=== PATIENT | male | born 1945 | race Two or more races ===

== ENCOUNTER 2017-11-12 12:50 | Inpatient (IN) | payer MEDICARE, BC ==
[2017-11-12] MEDS ORDERED: MORPHINE SULFATE 10 MG/ML INJ IV ONE (13:43)
--- NOTE | 2017-11-12 13:45 | ER Document Report ---
ED Medical Screen (RME) - General Chief Complaint: Leg Swelling Stated Complaint: LEG SWELLING Time Seen by Provider: 11/12/17 13:41 Notes: Patient has a history of gout. He noticed severe swelling and pain in his right lower extremity starting yesterday. He has been taking Keflex and amoxicillin for a previous nose procedure. TRAVEL OUTSIDE OF THE [place] IN LAST 30 DAYS: No - Related Data Allergies/Adverse Reactions: No Known Allergies Allergy (Verified 11/12/17 13:41) Past Medical History - Social History Chew tobacco use (# tins/day): No Frequency of alcohol use: None Drug Abuse: None - Past Medical History Cardiac Medical History: Reports: Hx Atrial Fibrillation, Hx Congestive Heart Failure, Hx DVT Renal/ Medical History: Reports: Hx Benign Prostatic Hyperplasia, Hx Renal Insufficiency. Denies: Hx Peritoneal Dialysis Past Surgical History: Reports: Hx Cholecystectomy, Hx Orthopedic Surgery Physical Exam - Vital signs Vitals: Temp Pulse Resp BP Pulse Ox 97.6 F 66 18 109/66 96 11/12/17 13:17 11/12/17 13:17 11/12/17 13:17 11/12/17 13:17 11/12/17 13:17 Course - Vital Signs Vital signs: Temp Pulse Resp BP Pulse Ox 97.6 F 66 18 109/66 96 11/12/17 13:17 11/12/17 13:17 11/12/17 13:17 11/12/17 13:17 11/12/17 13:17
[2017-11-12 14:34] LABS: ALANINE AMINOTRANSFERASE 63 U/L (21-72); ALBUMIN 3.3 g/dL (3.5-5.0); ALKALINE PHOSPHATASE 84 U/L (38-126); ANION GAP 14 (5-19); ASPARTATE AMINO TRANSFERASE 102 U/L (17-59); BILIRUBIN,DIRECT 0.6 mg/dL (0.0-0.4); BILIRUBIN,TOTAL 1.3 mg/dL (0.2-1.3); CALCIUM 9.1 mg/dL (8.4-10.2); CARBON DIOXIDE 34 mmol/L (22-30); CHLORIDE 85 mmol/L (98-107); GLUCOSE 133 mg/dL (75-110); SODIUM 133.1 mmol/L (137-145); TOTAL PROTEIN 6.4 g/dL (6.3-8.2)
[2017-11-12 14:42] LABS: BLOOD UREA NITROGEN 123 mg/dL (7-20)
[2017-11-12 14:44] LABS: POTASSIUM 2.5 mmol/L (3.6-5.0)
[2017-11-12] MEDS ORDERED: POTASSIUM CHLORIDE 20 MEQ/15 ML UDCUP PO ONE (14:47)
[2017-11-12 16:45] LABS: HEMATOCRIT 36.6 % (37.9-51.0); HEMOGLOBIN 12.2 g/dL (13.5-17.0); MEAN CORPUSCULAR HEMOGLOBIN 28.6 pg (27.0-33.4); MEAN CORPUSCULAR HGB CONC 33.3 g/dL (32.0-36.0); MEAN CORPUSCULAR VOLUME 86 fl (80-97); PLATELET COUNT 220 10^3/uL (150-450); RED BLOOD COUNT 4.27 10^6/uL (4.35-5.55); RED CELL DISTRIBUTION WIDTH 14.9 % (11.5-14.0); WHITE BLOOD COUNT 12.3 10^3/uL (4.0-10.5)
[2017-11-12 16:58] LABS: ABSOLUTE LYMPHOCYTES# (MANUAL) 0.2 10^3/uL (0.5-4.7); ABSOLUTE MONOCYTES # (MANUAL) 0.6 10^3/uL (0.1-1.4); ABSOLUTE NEUTROPHILS# (MANUAL) 11.4 10^3/uL (1.7-8.2); BAND NEUTROPHILS % (MANUAL) 4 % (3-5); BASOPHILS % (MANUAL) 0 % (0-2); EOSINOPHILS % (MANUAL) 0 % (0-6); LYMPHOCYTES % (MANUAL) 2 % (13-45); MONOCYTES % (MANUAL) 5 % (3-13); SEGMENTED NEUTROPHILS % (MAN) 89 % (42-78); TOTAL CELLS COUNTED 100
[2017-11-12 16:59] LABS: ANISOCYTOSIS SLIGHT; HYPOCHROMASIA SLIGHT; OVALOCYTES SLIGHT; POIKILOCYTOSIS SLIGHT
[2017-11-12 17:00] LABS: PLATELET COMMENT ADEQUATE
--- NOTE | 2017-11-12 17:01 | RADIOLOGY REPORT (SQ) ---
EXAM DESCRIPTION: VENOUS UNILATERAL LOWER COMPLETED DATE/TIME: 11/12/2017 4:47 pm REASON FOR STUDY: swelling/pain COMPARISON: None. TECHNIQUE: Dynamic and static mendez scale and color images acquired of the right leg venous system. S elected spectral images acquired with additional compression and augmentation maneuvers. The contrala teral common femoral vein and saphenofemoral junction were also imaged. Images stored on PACS. LIMITATIONS: None. FINDINGS: COMMON FEMORAL: Normal phasicity, compression and augmentation. No visualized echogenic ma terial on mendez scale. No defects on color images. FEMORAL: Normal compression and augmentation. No visualized echogenic material on mendez scale. No defe cts on color images. POPLITEAL: Normal compression, augmentation. No visualized echogenic material on mendez scale. No defec ts on color images. CALF VESSELS: Visualize calf vessels demonstrate normal compression, augmentation and phasic variatio n. GSV and SSV: Normal compression, augmentation. No visualized echogenic material on mendez scale. No def ects on color images. ANY DEEP VENOUS INSUFFICIENCY: Not evaluated. ANY EVIDENCE OF POPLITEAL CYST: No. OTHER: No other significant finding. CONTRALATERAL COMMON FEMORAL VEIN AND SAPHENOFEMORAL JUNCTION: Normal phasicity, compression and augmentation. No visualized echogenic material on mendez scale. No de fects on color images. IMPRESSION: NO EVIDENCE DVT OR SVT IN THE RIGHT LEG. TECHNICAL DOCUMENTATION: JOB ID: [id number] [employer]- All Rights Reserved
[2017-11-12] MEDS ORDERED: POTASSIUM CHLORIDE 10 MEQ TABLET.SA PO ONE (17:44)
[2017-11-12] MEDS ORDERED: VANCOMYCIN HCL INJ 1000 MG VIAL IV ONE (17:52)
--- NOTE | 2017-11-12 17:57 | ER Document Report ---
ED General - General Chief Complaint: Leg Swelling Stated Complaint: LEG SWELLING Time Seen by Provider: 11/12/17 13:41 Mode of Arrival: Medic Information source: Patient, Relative Notes: 72-year-old male history of congestive heart failure on Lasix presents with complaints of right lower extremity edema. Patient notes the swelling is over the past 3-4 days. Denies any fevers or chills denies any nausea vomiting or diarrhea patient admits to redness and pain of the lower extremity TRAVEL OUTSIDE OF THE [place] IN LAST 30 DAYS: No - HPI Onset: Other - 3-4 days Onset/Duration: Persistent Quality of pain: Pressure, Sharp Severity: Mild Pain Level: 3 Associated symptoms: Body/muscle aches, Leg swelling Exacerbated by: Movement Relieved by: Denies Similar symptoms previously: No Recently seen / treated by doctor: No - Related Data Allergies/Adverse Reactions: No Known Allergies Allergy (Verified 11/12/17 13:41) Past Medical History - Social History Smoking Status: Never Smoker Cigarette use (# per day): No Chew tobacco use (# tins/day): No Smoking Education Provided: No Frequency of alcohol use: None Drug Abuse: None Family History: Reviewed & Not Pertinent Patient has suicidal ideation: No Patient has homicidal ideation: No - Past Medical History Cardiac Medical History: Reports: Hx Atrial Fibrillation, Hx Congestive Heart Failure, Hx DVT Renal/ Medical History: Reports: Hx Benign Prostatic Hyperplasia, Hx Renal Insufficiency. Denies: Hx Peritoneal Dialysis Past Surgical History: Reports: Hx Cholecystectomy, Hx Orthopedic Surgery Review of Systems - Review of Systems Notes: REVIEW OF SYSTEMS: CONSTITUTIONAL : Denies fever, chills, or sweats. Denies recent illness. EENT: Denies eye, ear, throat, or mouth pain or symptoms. Denies nasal or sinus congestion or discharge. Denies throat, tongue, or mouth swelling or difficulty swallowing. CARDIOVASCULAR: Denies chest pain. Denies palpitations or racing or irregular heart beat. Right lower extremity edema RESPIRATORY: Denies cough, cold, or chest congestion. Denies shortness of breath, difficulty breathing, or wheezing. GASTROINTESTINAL: Denies abdominal pain or distention. Denies nausea, vomiting , or diarrhea. Denies blood in vomitus, stools, or per rectum. Denies black, tarry stools. Denies constipation. GENITOURINARY: Denies difficulty urinating, painful urination, burning, frequency, blood in urine, or discharge. MUSCULOSKELETAL: Right lower extremity edema SKIN: Denies rash, lesions or sores. HEMATOLOGIC : Denies easy bruising or bleeding. LYMPHATIC: Denies swollen, enlarged glands. NEUROLOGICAL: Denies confusion or altered mental status. Denies passing out or loss of consciousness. Denies dizziness or lightheadedness. Denies headache. Denies weakness or paralysis or loss of use of either side. Denies problems with gait or speech. Denies sensory loss, numbness, or tingling. Denies seizures. PSYCHIATRIC: Denies anxiety or stress. Denies depression, suicidal ideation, or homicidal ideation. ALL OTHER SYSTEMS REVIEWED AND NEGATIVE. Dictation was performed using [employer] voice recognition software PHYSICAL EXAMINATION: GENERAL: Well-appearing, well-nourished and in no acute distress. HEAD: Atraumatic, normocephalic. EYES: Pupils equal round and reactive to light, extraocular movements intact, sclera anicteric, conjunctiva are normal. ENT: Nares patent, oropharynx clear without exudates. Moist mucous membranes. NECK: Normal range of motion, supple without lymphadenopathy LUNGS: Breath sounds clear to auscultation bilaterally and equal. No wheezes rales or rhonchi. HEART: Regular rate and rhythm without murmurs ABDOMEN: Soft, nontender, nondistended abdomen. No guarding, no rebound. No masses appreciated. Musculoskeletal: +4 pitting edema of the right lower extremity +1 pitting edema of the left lower extremity right lower extremity is erythematous tender to palpation NEUROLOGICAL: Cranial nerves grossly intact. Normal speech, normal gait. Normal sensory, motor exams PSYCH: Normal mood, normal affect. SKIN: Right lower extremity is edematous Physical Exam - Vital signs Vitals: Temp Pulse Resp BP Pulse Ox 97.6 F 66 18 109/66 96 11/12/17 13:17 11/12/17 13:17 11/12/17 13:17 11/12/17 13:17 11/12/17 13:17 Course - Re-evaluation Re-evalutation: 11/12/17 19:06 Patient is noted to have acute renal failure with hypokalemia which I believe is secondary to the Lasix use, patient is given oral potassium here but will probably require IV as well. Doppler was negative of the lower extremity, patient will be started on antibiotics will be admitted to the hospitalist service. Chest x-ray showed cardiomegaly - Vital Signs Vital signs: Temp Pulse Resp BP Pulse Ox 97.6 F 66 18 109/66 96 11/12/17 13:17 11/12/17 13:17 11/12/17 13:17 11/12/17 13:17 11/12/17 13:17 - Laboratory Result Diagrams: 11/12/17 16:11 11/12/17 14:01 Laboratory results interpreted by me: 11/12/17 11/12/17 14:01 16:11 WBC 12.3 H RBC 4.27 L Hgb 12.2 L Hct 36.6 L RDW 14.9 H Seg Neuts % (Manual) 89 H Lymphocytes % (Manual) 2 L Abs Neuts (Manual) 11.4 H Abs Lymphs (Manual) 0.2 L Sodium 133.1 L Potassium 2.5 L* Chloride 85 L Carbon Dioxide 34 H BUN 123 H Creatinine 2.21 H Est GFR ( Amer) 36 L Est GFR (Non-Af Amer) 29 L Glucose 133 H Direct Bilirubin 0.6 H AST 102 H Albumin 3.3 L Critical Care Note - Critical Care Note Total time excluding time spent on procedures (mins): 45 Comments: 45 minutes of critical care time spent in direct contact evaluating and reevaluating the patient, treating symptoms, reviewing labs and studies and speaking with family and consultants excluding any procedures Discharge - Discharge Clinical Impression: Hypokalemia CHF (congestive heart failure) Qualifiers: Congestive heart failure type: unspecified Congestive heart failure chronicity : unspecified Qualified Code(s): I50.9 - Heart failure, unspecified Cellulitis Qualifiers: Site of cellulitis: extremity Site of cellulitis of extremity: lower extremity Laterality: right Qualified Code(s): L03.115 - Cellulitis of right lower limb Condition: Fair Disposition: ADMITTED INPATIENT Admitting Provider: Hospitalist Unit Admitted: Medical Floor
--- NOTE | 2017-11-12 18:09 | RADIOLOGY REPORT (SQ) ---
EXAM DESCRIPTION: CHEST PA/LAT COMPLETED DATE/TIME: 11/12/2017 6:00 pm REASON FOR STUDY: perihperal edema COMPARISON: 09/30/2016. NUMBER OF VIEWS: Two view. TECHNIQUE: Frontal and lateral radiographic views of the chest acquired. LIMITATIONS: None. FINDINGS: LUNGS AND PLEURA: No opacities, masses or pneumothorax. No pleural effusion. MEDIASTINUM AND HILAR STRUCTURES: No masses. No contour abnormalities. HEART AND VASCULAR STRUCTURES: Heart enlarged without failure. Aorta normal for age. BONES: No acute findings. Degenerative changes in the spine and shoulders. HARDWARE: None in the chest. OTHER: No other significant finding. IMPRESSION: CARDIAC ENLARGEMENT WITHOUT FAILURE. TECHNICAL DOCUMENTATION: JOB ID: [id number] [employer]- All Rights Reserved
[2017-11-12] MEDS ORDERED: INSULIN LISPRO 100 UNIT/ML 3 ML VIAL SUBCUT PRN (19:29)
[2017-11-12] MEDS ORDERED: MAGNESIUM HYDROXIDE SUSP 30 ML UDCUP PO PRN (19:29)
[2017-11-12] MEDS ORDERED: DEXTROSE 40% GEL 15 GM TUBE PO PRN ×2 (19:29)
[2017-11-12] MEDS ORDERED: DEXTROSE 50%-WATER 25 GM/50 ML DISP.SYRIN IV PRN ×2 (19:29)
[2017-11-12] MEDS ORDERED: GLUCAGON,HUMAN RECOMB 1 MG INJ IM PRN (19:29)
[2017-11-12] MEDS ORDERED: MAG HYDROX/AL HYDROX/SIMETH SUSP 30 ML UDCUP PO PRN (19:29)
[2017-11-12] MEDS ORDERED: HEPARIN SOD (PORCINE) 5,000 UNIT/ML 1 ML SYRINGE SUBCUT SCH (22:00)
[2017-11-13] MEDS ORDERED: POTASSIUM CHLORIDE 10 MEQ TABLET.SA PO ONE ×2 (01:02→20:11)
[2017-11-13] MEDS: OXYCODONE HCL IR 5 MG TABLET PO PRN ×3 (02:43→23:16)
[2017-11-13 03:59] LABS: HEMATOCRIT 32.3 % (37.9-51.0); HEMOGLOBIN 10.7 g/dL (13.5-17.0); MEAN CORPUSCULAR HEMOGLOBIN 28.3 pg (27.0-33.4); MEAN CORPUSCULAR HGB CONC 33.2 g/dL (32.0-36.0); MEAN CORPUSCULAR VOLUME 85 fl (80-97); PLATELET COUNT 190 10^3/uL (150-450); RED BLOOD COUNT 3.79 10^6/uL (4.35-5.55); RED CELL DISTRIBUTION WIDTH 14.6 % (11.5-14.0); WHITE BLOOD COUNT 13.5 10^3/uL (4.0-10.5)
[2017-11-13 04:13] LABS: ANION GAP 10 (5-19); CALCIUM 8.6 mg/dL (8.4-10.2); CARBON DIOXIDE 35 mmol/L (22-30); CHLORIDE 87 mmol/L (98-107); GLUCOSE 131 mg/dL (75-110); SODIUM 132.3 mmol/L (137-145)
[2017-11-13 04:21] LABS: BLOOD UREA NITROGEN 118 mg/dL (7-20)
[2017-11-13 04:27] LABS: POTASSIUM 2.4 mmol/L (3.6-5.0)
--- NOTE | 2017-11-13 04:50 | PDOC H&P ---
History of Present Illness Admission Date/PCP: 11/12/17 18:30 SCARLETT RANGEL PA-C Patient complains of: Right leg pain and swelling History of Present Illness: ANALI STEELE is a 72 year old male with a past medical history of diabetes, hypertension, congestive heart failure, chronic venous stasis and opiate dependent chronic back pain. Patient presents with 4 days of increasing erythema swelling and pain of the right leg. Admitting subjective fever and chills denying chest pain nausea vomiting. He denies recent change in medications or injury and admits multiple previous episodes of cellulitis of his leg. In the emergency room he is found to have +3 lower extremity edema bilaterally, erythema from foot to knee on the right side, leukocytosis, acute renal failure and hypokalemia. He started on empiric antibiotics and referred to the hospitalist for admission. Past Medical History Cardiac Medical History: Reports: Atrial Fibrillation, Congestive Heart Failure , DVT Endocrine Medical History: Reports: Diabetes Mellitus Type 2 Past Surgical History Past Surgical History: Reports: Cholecystectomy, Orthopedic Surgery Social History Information Source: Patient Smoking Status: Never Smoker Frequency of Alcohol Use: None Drugs: None - Advance Directive Resuscitation Status: Full Code Family History Family History: CAD, COPD Parental Family History Reviewed: Yes Children Family History Reviewed: Yes Sibling(s) Family History Reviewed.: Yes Medication/Allergy Home Medications: Allopurinol [Zyloprim 100 mg Tablet] 200 mg PO DAILY 11/12/17 Apixaban [Eliquis 5 mg Tablet] 5 mg PO Q12 11/12/17 Carvedilol [Coreg 12.5 mg Tablet] 25 mg PO Q12 11/12/17 Fentanyl [Duragesic 100 Mcg/Hr Transdermal Patch] 1 patch TD Q3D 11/12/17 Furosemide [Lasix 40 mg Tablet] 40 mg PO BID 11/12/17 Metolazone [Zaroxolyn 5 Mg Tablet] 5 mg PO DAILYP PRN 11/12/17 Oxycodone HCl [Oxy-Ir 5 mg Tablet] 15 mg PO Q6HP PRN 11/12/17 Allergies/Adverse Reactions: No Known Allergies Allergy (Verified 11/12/17 13:41) Review of Systems Constitutional: PRESENT: fatigue, weakness, weight gain Eyes: ABSENT: visual disturbances Ears: ABSENT: hearing changes Cardiovascular: ABSENT: chest pain, dyspnea on exertion, edema, orthropnea, palpitations Respiratory: ABSENT: cough, hemoptysis Gastrointestinal: ABSENT: abdominal pain, constipation, diarrhea, hematemesis, hematochezia, nausea, vomiting Genitourinary: ABSENT: dysuria, hematuria Musculoskeletal: PRESENT: as per HPI, back pain Integumentary: ABSENT: rash, wounds Neurological: ABSENT: abnormal gait, abnormal speech, confusion, dizziness, focal weakness, syncope Psychiatric: ABSENT: anxiety, depression, homidical ideation, suicidal ideation Endocrine: ABSENT: cold intolerance, heat intolerance, polydipsia, polyuria Hematologic/Lymphatic: ABSENT: easy bleeding, easy bruising Physical Exam Vital Signs: Temp Pulse Resp BP Pulse Ox 98.2 F 73 16 119/72 98 11/12/17 20:46 11/12/17 20:46 11/13/17 03:01 11/13/17 03:00 11/13/17 03:01 General appearance: PRESENT: cooperative, mild distress, morbidly obese Head exam: PRESENT: atraumatic, normocephalic Eye exam: PRESENT: conjunctiva pink, EOMI, PERRLA. ABSENT: scleral icterus Ear exam: PRESENT: normal external ear exam Mouth exam: PRESENT: dry mucosa, tongue midline Neck exam: ABSENT: carotid bruit, JVD, lymphadenopathy, thyromegaly Respiratory exam: PRESENT: clear to auscultation jose, crackles. ABSENT: rales, rhonchi, wheezes Cardiovascular exam: PRESENT: RRR. ABSENT: diastolic murmur, rubs, systolic murmur Pulses: PRESENT: normal dorsalis pedis pul GI/Abdominal exam: PRESENT: normal bowel sounds, soft. ABSENT: distended, guarding, mass, organolmegaly, rebound, tenderness Rectal exam: PRESENT: deferred Extremities exam: PRESENT: +2 edema, other - Right leg with circumferential erythema from foot to knee with weeping and 3+ pitting edema Neurological exam: PRESENT: alert, awake, oriented to person, oriented to place , oriented to time, oriented to situation, CN II-XII grossly intact. ABSENT: motor sensory deficit Psychiatric exam: PRESENT: appropriate affect, normal mood. ABSENT: homicidal ideation, suicidal ideation Skin exam: PRESENT: dry, intact, warm. ABSENT: cyanosis, rash Results Laboratory Results: 11/13/17 03:50 11/13/17 03:50 Sodium 132.3 L Potassium 2.4 L* Chloride 87 L Carbon Dioxide 35 H Anion Gap 10 BUN 118 H Creatinine 1.81 H Est GFR ( Amer) 45 L Est GFR (Non-Af Amer) 37 L Glucose 131 H Calcium 8.6 Impressions: Venous Doppler Study 11/12/17 13:41 IMPRESSION: NO EVIDENCE DVT OR SVT IN THE RIGHT LEG. Chest X-Ray 11/12/17 17:44 IMPRESSION: CARDIAC ENLARGEMENT WITHOUT FAILURE. Assessment & Plan - Diagnosis (1) Acute renal failure Is this a current diagnosis for this admission?: Yes Plan: Likely secondary prerenal azotemia patient is hypovolemic, IV fluid challenge reevaluate chemistry avoid nephrotoxic meds and doses (2) Cellulitis Qualifiers: Site of cellulitis: extremity Site of cellulitis of extremity: lower extremity Laterality: right Qualified Code(s): L03.115 - Cellulitis of right lower limb Is this a current diagnosis for this admission?: Yes Plan: Comp gated by chronic venous stasis, empiric antibiotics initiated elevation and elastic wrapping. (3) Hypokalemia Is this a current diagnosis for this admission?: Yes Plan: Complicated by Lasix and metolazone. Magnesium verified normal, replacement IV n.p.o. reevaluate chemistry. - Time Time Spent: 50 to 70 Minutes - Inpatient Certification Medical Necessity: Need Close Monitoring Due to Risk of Patient Decompensation
[2017-11-13] MEDS ORDERED: POTASSIUM CHLORIDE 10 MEQ TABLET.SA PO SCH (05:00)
[2017-11-13] MEDS: POTASSI CL 20 MEQ/50 ML RIDER 20 MEQ/50 ML RTUPB IV SCH ×2 (05:17→08:38)
[2017-11-13 05:32] LABS: ABSOLUTE LYMPHOCYTES# (MANUAL) 0.8 10^3/uL (0.5-4.7); ABSOLUTE MONOCYTES # (MANUAL) 0.3 10^3/uL (0.1-1.4); ABSOLUTE NEUTROPHILS# (MANUAL) 12.3 10^3/uL (1.7-8.2); BAND NEUTROPHILS % (MANUAL) 2 % (3-5); BASOPHILS % (MANUAL) 0 % (0-2); EOSINOPHILS % (MANUAL) 1 % (0-6); LYMPHOCYTES % (MANUAL) 6 % (13-45); MONOCYTES % (MANUAL) 2 % (3-13); SEGMENTED NEUTROPHILS % (MAN) 89 % (42-78); TOTAL CELLS COUNTED 100
[2017-11-13 05:33] LABS: TOXIC GRANULATION 2+; TOXIC VACUOLATION PRESENT
[2017-11-13 05:34] LABS: ANISOCYTOSIS SLIGHT; BURR CELLS SLIGHT; PLATELET COMMENT ADEQUATE; PLATELET LARGE PRESENT; POIKILOCYTOSIS SLIGHT; SCHISTOCYTES 1+
[2017-11-13] MEDS ORDERED: FENTANYL 100 MCG/HR PATCH.TD72 TD SCH (07:00)
[2017-11-13] MEDS ORDERED: APIXABAN 5 MG TABLET PO SCH (10:00)
[2017-11-13] MEDS: CARVEDILOL 12.5 MG TABLET PO SCH ×2 (11:17→21:41)
[2017-11-13] MEDS: DOCUSATE SODIUM 100 MG CAPSULE PO SCH ×2 (11:17→17:18)
--- NOTE | 2017-11-13 12:24 | PDOC PROGRESS REPORT ---
Subjective Progress Note for:: 11/13/17 Subjective:: Patient is a 72-year-old male with a history of diabetes, hypertension, congestive heart failure, chronic venous stasis, opiate dependence due to chronic back pain. Who presented with a history of right lower extremity swelling and erythema with associated pain. Most likely cellulitis. Venous Doppler was negative for DVT. Patient currently on vancomycin. Patient states he looks somewhat better. Patient is complaining of severe pain in that leg. Reason For Visit: ARF, HYPOKALEMIA, RIGHT LEG CELLULITIS Physical Exam Vital Signs: Temp Pulse Resp BP Pulse Ox 97.6 F 73 19 103/60 94 11/13/17 06:53 11/12/17 20:46 11/13/17 09:01 11/13/17 09:00 11/13/17 09:01 General appearance: PRESENT: mild distress, obese, well-developed, well- nourished Head exam: PRESENT: normocephalic Eye exam: PRESENT: EOMI. ABSENT: scleral icterus Ear exam: PRESENT: normal external ear exam Mouth exam: PRESENT: moist Neck exam: ABSENT: carotid bruit, JVD, lymphadenopathy, thyromegaly Respiratory exam: PRESENT: clear to auscultation jose. ABSENT: rales, rhonchi, wheezes Cardiovascular exam: PRESENT: RRR. ABSENT: diastolic murmur, rubs, systolic murmur GI/Abdominal exam: PRESENT: normal bowel sounds, soft. ABSENT: distended, guarding, mass, organolmegaly, rebound, tenderness Rectal exam: PRESENT: deferred Extremities exam: PRESENT: other - Right lower extremity edema with diffuse erythema up into the knee tenderness on palpation decreased range of motion due to swelling.. ABSENT: calf tenderness, clubbing, pedal edema Neurological exam: PRESENT: alert, awake, oriented to person, oriented to place , oriented to time, oriented to situation, CN II-XII grossly intact. ABSENT: motor sensory deficit Psychiatric exam: PRESENT: appropriate affect, normal mood. ABSENT: homicidal ideation, suicidal ideation Skin exam: PRESENT: dry, intact, warm, other - Right lower extremity erythema petechiae on the left lower extremity.. ABSENT: cyanosis, rash Results Laboratory Results: 11/13/17 03:50 11/13/17 03:50 11/13/17 11/13/17 03:50 03:50 WBC 13.5 H RBC 3.79 L Hgb 10.7 L Hct 32.3 L MCV 85 MCH 28.3 MCHC 33.2 RDW 14.6 H Plt Count 190 Seg Neutrophils % Not Reportable Lymphocytes % Not Reportable Monocytes % Not Reportable Eosinophils % Not Reportable Basophils % Not Reportable Absolute Neutrophils Not Reportable Absolute Lymphocytes Not Reportable Absolute Monocytes Not Reportable Absolute Eosinophils Not Reportable Absolute Basophils Not Reportable Sodium 132.3 L Potassium 2.4 L* Chloride 87 L Carbon Dioxide 35 H Anion Gap 10 BUN 118 H Creatinine 1.81 H Est GFR ( Amer) 45 L Est GFR (Non-Af Amer) 37 L Glucose 131 H Calcium 8.6 Impressions: Venous Doppler Study 11/12/17 13:41 IMPRESSION: NO EVIDENCE DVT OR SVT IN THE RIGHT LEG. Chest X-Ray 11/12/17 17:44 IMPRESSION: CARDIAC ENLARGEMENT WITHOUT FAILURE. Assessment & Plan - Diagnosis (1) Cellulitis Qualifiers: Site of cellulitis: extremity Site of cellulitis of extremity: lower extremity Laterality: right Qualified Code(s): L03.115 - Cellulitis of right lower limb Is this a current diagnosis for this admission?: Yes Plan: Patient with right lower extremity erythema swelling tenderness secondary to cellulitis. Swelling and erythema still pretty significant. Patient on vancomycin and clindamycin. Once improvement is seen will discontinue the vancomycin. Patient also has had leg elevated. No DVT on venous Doppler seen. Monitor for improvement. (2) Acute renal failure Is this a current diagnosis for this admission?: Yes Plan: Patient has acute renal failure most likely due to overdiuresis as patient is on Lasix and metolazone. Therefore this is prerenal. Patient has shown some improvement in his creatinine with IV hydration. Creatinine has trended down from 2.1 down to 1.81. Will continue gentle hydration and monitor renal function. (3) Chronic pain Qualifiers: Chronic pain type: other chronic pain Qualified Code(s): G89.29 - Other chronic pain Is this a current diagnosis for this admission?: Yes Plan: She with chronic back pain. Patient chronically on opiates. Will continue his home medications which consist of Phenergan 100 mics, oxycodone 15 every 6 as needed and as needed morphine. (4) Hypokalemia Is this a current diagnosis for this admission?: Yes Plan: Will give replacement and follow-up BMP at 1600. Will replace accordingly. - Time Time Spent with patient: 15-24 minutes Anticipated discharge: Home Within: within 72 hours - Inpatient Certification Medical Necessity: Need For IV Fluids, Need for IV Antibiotics
[2017-11-13 16:40] LABS: ANION GAP 7 (5-19); BLOOD UREA NITROGEN 118 mg/dL (7-20); CALCIUM 8.5 mg/dL (8.4-10.2); CARBON DIOXIDE 36 mmol/L (22-30); CHLORIDE 89 mmol/L (98-107); GLUCOSE 199 mg/dL (75-110); SODIUM 132.2 mmol/L (137-145); URIC ACID 9.8 mg/dL (3.5-8.5)
[2017-11-13 16:51] LABS: POTASSIUM 2.5 mmol/L (3.6-5.0)
[2017-11-13] MEDS: LACTOBACILLUS ACIDOPHILUS 250 MG TAB PO SCH (17:18)
[2017-11-13] MEDS: CLINDAMYCIN 900 MG/D5W RTU 50 ML IV SCH ×2 (17:19→21:41)
[2017-11-13] MEDS: POTASSIUM CHLORIDE 10 MEQ TABLET.SA PO SCH (21:40)
[2017-11-14] MEDS ORDERED: GABAPENTIN 100 MG CAPSULE PO ONE (01:00)
[2017-11-14] MEDS: NORMAL SALINE 1000 ML 1,000 ML IV SCH ×2 (01:03→06:45)
[2017-11-14] MEDS: POTASSIUM CHLORIDE 10 MEQ TABLET.SA PO SCH ×2 (06:44→22:27)
[2017-11-14] MEDS: CLINDAMYCIN 900 MG/D5W RTU 50 ML IV SCH ×3 (06:45→22:27)
[2017-11-14] MEDS: GABAPENTIN 100 MG CAPSULE PO SCH ×2 (06:45→15:30)
[2017-11-14] MEDS: DOCUSATE SODIUM 100 MG CAPSULE PO SCH ×2 (10:26→17:15)
[2017-11-14] MEDS: LACTOBACILLUS ACIDOPHILUS 250 MG TAB PO SCH ×2 (10:26→17:15)
[2017-11-14] MEDS: CARVEDILOL 12.5 MG TABLET PO SCH (10:27)
[2017-11-14 13:23] LABS: ABSOLUTE BASOPHILS # (AUTO) 0.1 10^3/uL (0.0-0.2); ABSOLUTE EOSINOPHILS # (AUTO) 0.1 10^3/uL (0.0-0.6); ABSOLUTE LYMPHOCYTES (AUTO) 0.7 10^3/uL (0.5-4.7); ABSOLUTE NEUT (AUTO) 8.5 10^3/uL (1.7-8.2); BASOPHILS % (AUTO) 0.6 % (0-2); EOSINOPHILS % (AUTO) 1.4 % (0-6); HEMATOCRIT 31.1 % (37.9-51.0); HEMOGLOBIN 10.5 g/dL (13.5-17.0); LYMPHOCYTES % (AUTO) 6.9 % (13-45); MEAN CORPUSCULAR HEMOGLOBIN 28.8 pg (27.0-33.4); MEAN CORPUSCULAR HGB CONC 33.7 g/dL (32.0-36.0); MEAN CORPUSCULAR VOLUME 85 fl (80-97); MONOCYTES % (AUTO) 9.3 % (3-13); PLATELET COUNT 205 10^3/uL (150-450); RED BLOOD COUNT 3.64 10^6/uL (4.35-5.55); RED CELL DISTRIBUTION WIDTH 14.4 % (11.5-14.0); SEGMENTED NEUTROPHILS % (AUTO) 81.8 % (42-78); TOTAL CELLS COUNTED % (AUTO) 100 %; WHITE BLOOD COUNT 10.4 10^3/uL (4.0-10.5)
[2017-11-14 13:54] LABS: ANION GAP 7 (5-19); CALCIUM 8.6 mg/dL (8.4-10.2); CARBON DIOXIDE 34 mmol/L (22-30); CHLORIDE 98 mmol/L (98-107); GLUCOSE 146 mg/dL (75-110); MAGNESIUM 2.5 mg/dL (1.6-2.3); POTASSIUM 3.1 mmol/L (3.6-5.0); SODIUM 139.1 mmol/L (137-145)
[2017-11-14 14:00] LABS: BLOOD UREA NITROGEN 90 mg/dL (7-20)
[2017-11-14] MEDS ORDERED: GABAPENTIN 100 MG CAPSULE PO SCH (16:43)
[2017-11-14] MEDS: FUROSEMIDE 20 MG TABLET PO SCH (17:15)
[2017-11-14] MEDS: OXYCODONE HCL IR 5 MG TABLET PO PRN (17:22)
[2017-11-14] MEDS ORDERED: POTASSIUM CHLORIDE 10 MEQ TABLET.SA PO ONE (17:30)
[2017-11-14] MEDS ORDERED: METOLAZONE 2.5 MG TABLET PO ONE (17:30)
[2017-11-14] MEDS ORDERED: COLCHICINE 0.6 MG TABLET PO ONE (17:30)
[2017-11-14] MEDS: GABAPENTIN 300 MG CAPSULE PO SCH (22:27)
[2017-11-15] MEDS: OXYCODONE HCL IR 5 MG TABLET PO PRN ×2 (03:06→12:43)
[2017-11-15] MEDS: CLINDAMYCIN 900 MG/D5W RTU 50 ML IV SCH ×3 (05:49→21:26)
[2017-11-15] MEDS: GABAPENTIN 300 MG CAPSULE PO SCH ×2 (05:50→13:43)
[2017-11-15 06:50] LABS: ANION GAP 10 (5-19); BLOOD UREA NITROGEN 76 mg/dL (7-20); CALCIUM 8.7 mg/dL (8.4-10.2); CARBON DIOXIDE 33 mmol/L (22-30); CHLORIDE 100 mmol/L (98-107); GLUCOSE 138 mg/dL (75-110); MAGNESIUM 2.4 mg/dL (1.6-2.3); POTASSIUM 3.7 mmol/L (3.6-5.0); SODIUM 142.7 mmol/L (137-145)
[2017-11-15] MEDS: NORMAL SALINE 1000 ML 1,000 ML IV SCH (08:14)
[2017-11-15] MEDS: POTASSIUM CHLORIDE 10 MEQ TABLET.SA PO SCH ×2 (10:20→21:26)
[2017-11-15] MEDS: METOLAZONE 2.5 MG TABLET PO SCH (10:20)
[2017-11-15] MEDS: DOCUSATE SODIUM 100 MG CAPSULE PO SCH ×2 (10:21→17:33)
[2017-11-15] MEDS: METOPROLOL SUCCINATE 25 MG TAB.SR.24H PO SCH (10:21)
[2017-11-15] MEDS: INDOMETHACIN 25 MG CAPSULE PO SCH ×2 (10:21→17:37)
[2017-11-15] MEDS: COLCHICINE 0.6 MG TABLET PO SCH (10:21)
[2017-11-15] MEDS: LACTOBACILLUS ACIDOPHILUS 250 MG TAB PO SCH ×2 (10:22→17:34)
[2017-11-15] MEDS: FUROSEMIDE 20 MG TABLET PO SCH ×2 (10:22→17:37)
--- NOTE | 2017-11-15 11:30 | PDOC PROGRESS REPORT ---
Subjective Progress Note for:: 11/14/17 Subjective:: Patient is a 72-year-old male with a history of diabetes, hypertension, congestive heart failure, chronic venous stasis, opiate dependence due to chronic back pain. Who presented with a history of right lower extremity swelling and erythema with associated pain. Patient still having a lot of pain and swelling in the leg. Patient is unable to ambulate due to the pain and swelling. Reason For Visit: ARF, HYPOKALEMIA, RIGHT LEG CELLULITIS Physical Exam Vital Signs: Temp Pulse Resp BP Pulse Ox 98.6 F 66 12 114/63 95 11/15/17 07:14 11/15/17 07:14 11/15/17 07:14 11/15/17 07:14 11/15/17 09:57 Intake & Output 11/14/17 11/15/17 11/16/17 06:59 06:59 06:59 Intake Total 3679 2981 Output Total 600 1900 Balance 3079 1081 Weight 88.1 kg 90.4 kg General appearance: PRESENT: no acute distress, obese, well-nourished Head exam: PRESENT: normocephalic Eye exam: PRESENT: EOMI. ABSENT: scleral icterus Ear exam: PRESENT: normal external ear exam Mouth exam: PRESENT: moist Neck exam: ABSENT: carotid bruit, JVD, lymphadenopathy, thyromegaly Respiratory exam: PRESENT: clear to auscultation jose. ABSENT: rales, rhonchi, wheezes Cardiovascular exam: PRESENT: RRR. ABSENT: diastolic murmur, rubs, systolic murmur GI/Abdominal exam: PRESENT: normal bowel sounds, soft. ABSENT: distended, guarding, mass, organolmegaly, rebound, tenderness Rectal exam: PRESENT: deferred Extremities exam: PRESENT: full ROM - Good motion of the left leg right leg is swollen., +2 edema - right leg with erythema and tenderness.. ABSENT: calf tenderness, clubbing, pedal edema Neurological exam: PRESENT: alert, awake, oriented to person, oriented to place , oriented to time, oriented to situation, CN II-XII grossly intact. ABSENT: motor sensory deficit Psychiatric exam: PRESENT: appropriate affect, normal mood. ABSENT: homicidal ideation, suicidal ideation Skin exam: PRESENT: dry, intact, warm. ABSENT: cyanosis, rash Results Laboratory Results: 11/14/17 12:56 11/15/17 06:17 11/14/1718 11/15/17 12:56 12:56 06:17 WBC 10.4 RBC 3.64 L Hgb 10.5 L Hct 31.1 L MCV 85 MCH 28.8 MCHC 33.7 RDW 14.4 H Plt Count 205 Seg Neutrophils % 81.8 H Lymphocytes % 6.9 L Monocytes % 9.3 Eosinophils % 1.4 Basophils % 0.6 Absolute Neutrophils 8.5 H Absolute Lymphocytes 0.7 Absolute Monocytes 1.0 Absolute Eosinophils 0.1 Absolute Basophils 0.1 Sodium 139.1 142.7 Potassium 3.1 L 3.7 Chloride 98 100 Carbon Dioxide 34 H 33 H Anion Gap 7 10 BUN 90 H D 76 H Creatinine 1.16 1.08 Est GFR ( Amer) > 60 > 60 Est GFR (Non-Af Amer) > 60 > 60 Glucose 146 H 138 H Calcium 8.6 8.7 Magnesium 2.5 H 2.4 H Impressions: Venous Doppler Study 11/12/17 13:41 IMPRESSION: NO EVIDENCE DVT OR SVT IN THE RIGHT LEG. Chest X-Ray 11/12/17 17:44 IMPRESSION: CARDIAC ENLARGEMENT WITHOUT FAILURE. Assessment & Plan - Diagnosis (1) Cellulitis Qualifiers: Site of cellulitis: extremity Site of cellulitis of extremity: lower extremity Laterality: right Qualified Code(s): L03.115 - Cellulitis of right lower limb Is this a current diagnosis for this admission?: Yes Plan: Patient with right lower extremity erythema swelling tenderness secondary to cellulitis. Improvement in the erythema however the swelling is still present. Will continue clindamycin and discontinue vancomycin. Will start patient on lasix and metolazone for swelling. Encourage patient to elevate the right leg. Patient appears to be having a gouty arthropathy that may be contributing to some of the swelling. Patient was started on colchicine. (2) Acute renal failure Is this a current diagnosis for this admission?: Yes Plan: Resolved. Likely due to overdiuresis. Patient creatinine has trended down from 2.21-1.16. Discontinue hydration. (3) Chronic pain Qualifiers: Chronic pain type: other chronic pain Qualified Code(s): G89.29 - Other chronic pain Is this a current diagnosis for this admission?: Yes Plan: She with chronic back pain. Patient chronically on opiates. Will continue his home medications which consist of Phenergan 100 mics, oxycodone 15 every 6 as needed and as needed morphine. (4) Hypokalemia Is this a current diagnosis for this admission?: Yes Plan: Patient potassium has improved however still hypokalemic at 3.1. Will continue with oral replacement and monitor. (5) Gout attack Qualifiers: Gout site: multiple sites Is this a current diagnosis for this admission?: Yes Plan: Patient with right leg swelling. Patient has a history of gout. Patient uric acid is up to 9.8. Now that patient renal function has improved. Patient on colchicine. Will give a one-time dose of 1.2 mg p.o. followed by 0.6 p.o. twice daily starting tomorrow. - Time Time Spent with patient: 15-24 minutes Anticipated discharge: Home Within: within 72 hours - Inpatient Certification Medical Necessity: Need for IV Antibiotics - Still with significant edema of the right lower extremity along with associated pain. Patient still unable to ambulate due to the pain in that extremity. Hopefully with the use of colchicine and diuretics will be able to resolve the pain and decrease the swelling and allow patient to ambulate with the assistance of PT.
--- NOTE | 2017-11-15 11:35 | PDOC PROGRESS REPORT ---
Subjective Progress Note for:: 11/14/17 Subjective:: Patient is a 72-year-old male with a history of diabetes, hypertension, congestive heart failure, chronic venous stasis, opiate dependence due to chronic back pain. Who presented with a history of right lower extremity swelling and erythema with associated pain. Patient still having a lot of pain and swelling in the leg. Patient is unable to ambulate due to the pain and swelling. Reason For Visit: ARF, HYPOKALEMIA, RIGHT LEG CELLULITIS Physical Exam Vital Signs: Selected Entries 11/14/17 23:17 Temperature 97.7 F Temperature Oral Source Pulse Rate 71 Respiratory 18 Rate Blood Pressure 101/65 Blood Pressure 77 Mean BP Location Left Arm BP Position Supine O2 Sat by Pulse 91 L Oximetry Oxygen Delivery Room Air Method General appearance: PRESENT: no acute distress, well-developed, well-nourished Head exam: PRESENT: atraumatic, normocephalic Eye exam: PRESENT: conjunctiva pink, EOMI, PERRLA. ABSENT: scleral icterus Ear exam: PRESENT: normal external ear exam Mouth exam: PRESENT: moist, tongue midline Neck exam: ABSENT: carotid bruit, JVD, lymphadenopathy, thyromegaly Respiratory exam: PRESENT: clear to auscultation jose. ABSENT: rales, rhonchi, wheezes Cardiovascular exam: PRESENT: RRR. ABSENT: diastolic murmur, rubs, systolic murmur Pulses: PRESENT: normal dorsalis pedis pul Vascular exam: PRESENT: normal capillary refill GI/Abdominal exam: PRESENT: normal bowel sounds, soft. ABSENT: distended, guarding, mass, organolmegaly, rebound, tenderness Rectal exam: PRESENT: deferred Extremities exam: PRESENT: full ROM - only of left leg, +2 edema - right extremity with erythema and tenderness. ABSENT: calf tenderness, clubbing, pedal edema Neurological exam: PRESENT: alert, awake, oriented to person, oriented to place , oriented to time, oriented to situation, CN II-XII grossly intact. ABSENT: motor sensory deficit Psychiatric exam: PRESENT: appropriate affect, normal mood. ABSENT: homicidal ideation, suicidal ideation Skin exam: PRESENT: dry, intact, warm. ABSENT: cyanosis, rash Results Laboratory Results: 11/14/17 12:56 11/15/17 06:17 Impressions: Venous Doppler Study 11/12/17 13:41 IMPRESSION: NO EVIDENCE DVT OR SVT IN THE RIGHT LEG. Chest X-Ray 11/12/17 17:44 IMPRESSION: CARDIAC ENLARGEMENT WITHOUT FAILURE. Assessment & Plan - Diagnosis (1) Cellulitis Qualifiers: Site of cellulitis: extremity Site of cellulitis of extremity: lower extremity Laterality: right Qualified Code(s): L03.115 - Cellulitis of right lower limb Is this a current diagnosis for this admission?: Yes Plan: Patient with right lower extremity erythema swelling tenderness secondary to cellulitis. Improvement in the erythema however the swelling is still present. Will continue clindamycin and discontinue vancomycin. Will start patient on lasix and metolazone for swelling. Encourage patient to elevate the right leg. Patient appears to be having a gouty arthropathy that may be contributing to some of the swelling. Patient was started on colchicine. Patient still unable to ambulate. (2) Acute renal failure Is this a current diagnosis for this admission?: Yes Plan: Resolved. Likely due to overdiuresis. Patient creatinine has trended down from 2.21-1.16. Discontinue hydration. (3) Chronic pain Qualifiers: Chronic pain type: other chronic pain Qualified Code(s): G89.29 - Other chronic pain Is this a current diagnosis for this admission?: Yes Plan: She with chronic back pain. Patient chronically on opiates. Will continue his home medications which consist of Phenergan 100 mics, oxycodone 15 every 6 as needed and as needed morphine. (4) Hypokalemia Is this a current diagnosis for this admission?: Yes Plan: Patient potassium has improved however still hypokalemic at 3.1. Will continue with oral replacement and monitor. (5) Gout attack Qualifiers: Gout site: multiple sites Is this a current diagnosis for this admission?: Yes Plan: Patient with right leg swelling. Patient has a history of gout. Patient uric acid is up to 9.8. Now that patient renal function has improved. Patient on colchicine. Will give a one-time dose of 1.2 mg p.o. followed by 0.6 p.o. twice daily starting tomorrow. - Time Time Spent with patient: Less than 15 minutes Anticipated discharge: Home Within: within 72 hours
[2017-11-15] MEDS ORDERED: VANCOMYCIN HCL 0 MG in DEXTROSE 5%-WATER 250 ML IV NR (19:45)
[2017-11-16 05:33] LABS: ANION GAP 7 (5-19); BLOOD UREA NITROGEN 75 mg/dL (7-20); CALCIUM 8.6 mg/dL (8.4-10.2); CARBON DIOXIDE 33 mmol/L (22-30); CHLORIDE 102 mmol/L (98-107); GLUCOSE 119 mg/dL (75-110); MAGNESIUM 2.4 mg/dL (1.6-2.3); POTASSIUM 4.5 mmol/L (3.6-5.0); SODIUM 141.6 mmol/L (137-145)
[2017-11-16] MEDS: CLINDAMYCIN 900 MG/D5W RTU 50 ML IV SCH ×3 (05:38→22:59)
[2017-11-16] MEDS: LACTOBACILLUS ACIDOPHILUS 250 MG TAB PO SCH ×2 (09:49→17:13)
[2017-11-16] MEDS: COLCHICINE 0.6 MG TABLET PO SCH (09:50)
[2017-11-16] MEDS: FUROSEMIDE 20 MG TABLET PO SCH (09:50)
[2017-11-16] MEDS: METOLAZONE 2.5 MG TABLET PO SCH (09:50)
[2017-11-16] MEDS: METOPROLOL SUCCINATE 25 MG TAB.SR.24H PO SCH (09:50)
[2017-11-16] MEDS: POTASSIUM CHLORIDE 10 MEQ TABLET.SA PO SCH (09:50)
[2017-11-16] MEDS: DOCUSATE SODIUM 100 MG CAPSULE PO SCH ×2 (09:50→17:13)
[2017-11-16] MEDS ORDERED: VANCOMYCIN HCL 1,000 MG in DEXTROSE 5%-WATER 250 ML IV SCH (10:00)
[2017-11-16] MEDS: OXYCODONE HCL IR 5 MG TABLET PO PRN ×2 (12:38→18:38)
[2017-11-16] MEDS: ACETAMINOPHEN 325 MG TABLET PO PRN (19:35)
[2017-11-17] MEDS: CLINDAMYCIN 900 MG/D5W RTU 50 ML IV SCH ×3 (05:18→21:03)
[2017-11-17] MEDS: OXYCODONE HCL IR 5 MG TABLET PO PRN ×2 (07:41→16:38)
[2017-11-17 09:42] LABS: ABSOLUTE EOSINOPHILS # (AUTO) 0.1 10^3/uL (0.0-0.6); ABSOLUTE LYMPHOCYTES (AUTO) 1.1 10^3/uL (0.5-4.7); ABSOLUTE MONOCYTES (AUTO) 0.9 10^3/uL (0.1-1.4); ABSOLUTE NEUT (AUTO) 8.2 10^3/uL (1.7-8.2); BASOPHILS % (AUTO) 0.4 % (0-2); EOSINOPHILS % (AUTO) 1.3 % (0-6); HEMATOCRIT 33.6 % (37.9-51.0); HEMOGLOBIN 11.1 g/dL (13.5-17.0); LYMPHOCYTES % (AUTO) 10.4 % (13-45); MEAN CORPUSCULAR HEMOGLOBIN 28.6 pg (27.0-33.4); MEAN CORPUSCULAR HGB CONC 32.9 g/dL (32.0-36.0); MEAN CORPUSCULAR VOLUME 87 fl (80-97); MONOCYTES % (AUTO) 8.5 % (3-13); PLATELET COUNT 269 10^3/uL (150-450); RED BLOOD COUNT 3.87 10^6/uL (4.35-5.55); SEGMENTED NEUTROPHILS % (AUTO) 79.4 % (42-78); TOTAL CELLS COUNTED % (AUTO) 100 %; WHITE BLOOD COUNT 10.4 10^3/uL (4.0-10.5)
[2017-11-17] MEDS: POTASSIUM CHLORIDE 10 MEQ TABLET.SA PO SCH (09:44)
[2017-11-17] MEDS: FUROSEMIDE 20 MG TABLET PO SCH (09:44)
[2017-11-17] MEDS: COLCHICINE 0.6 MG TABLET PO SCH (09:45)
[2017-11-17] MEDS: METOLAZONE 2.5 MG TABLET PO SCH (09:45)
[2017-11-17] MEDS: METOPROLOL SUCCINATE 25 MG TAB.SR.24H PO SCH (09:45)
[2017-11-17] MEDS: LACTOBACILLUS ACIDOPHILUS 250 MG TAB PO SCH ×2 (09:45→17:11)
[2017-11-17] MEDS: DOCUSATE SODIUM 100 MG CAPSULE PO SCH ×2 (09:45→17:11)
[2017-11-17] MEDS: ACETAMINOPHEN 325 MG TABLET PO PRN (09:48)
[2017-11-17 10:06] LABS: ANION GAP 9 (5-19); BLOOD UREA NITROGEN 49 mg/dL (7-20); CALCIUM 8.4 mg/dL (8.4-10.2); CARBON DIOXIDE 31 mmol/L (22-30); CHLORIDE 100 mmol/L (98-107); GLUCOSE 103 mg/dL (75-110); MAGNESIUM 2.3 mg/dL (1.6-2.3); POTASSIUM 4.2 mmol/L (3.6-5.0); SODIUM 139.8 mmol/L (137-145)
--- NOTE | 2017-11-17 23:28 | PDOC PROGRESS REPORT ---
Subjective Progress Note for:: 11/16/17 Subjective:: Patient is a 72-year-old male with a history of diabetes, hypertension, congestive heart failure, chronic venous stasis, opiate dependence due to chronic back pain. Who presented with a history of right lower extremity swelling and erythema with associated pain. Patient still having pain. Swelling is somewhat better. Patient agreed to try to work with therapy. Reason For Visit: ARF, HYPOKALEMIA, RIGHT LEG CELLULITIS Physical Exam Vital Signs: Temp Pulse Resp BP Pulse Ox 99.6 F 73 20 142/99 H 96 11/16/17 20:15 11/16/17 19:21 11/16/17 19:21 11/16/17 19:21 11/16/17 19:21 Intake & Output 11/15/17 11/16/17 11/17/17 06:59 06:59 06:59 Intake Total 2981 1645 722 Output Total 1900 2450 600 Balance 1081 -805 122 Weight 90.4 kg 92.9 kg General appearance: PRESENT: no acute distress, well-developed, well-nourished Head exam: PRESENT: normocephalic Eye exam: PRESENT: EOMI. ABSENT: scleral icterus Mouth exam: PRESENT: moist Teeth exam: PRESENT: dental caries, poor dentation Neck exam: ABSENT: carotid bruit, JVD, lymphadenopathy, thyromegaly Respiratory exam: PRESENT: clear to auscultation jose. ABSENT: rales, rhonchi, wheezes Cardiovascular exam: PRESENT: RRR. ABSENT: diastolic murmur, rubs, systolic murmur GI/Abdominal exam: PRESENT: normal bowel sounds, soft. ABSENT: distended, guarding, mass, organolmegaly, rebound, tenderness Rectal exam: PRESENT: deferred Extremities exam: PRESENT: full ROM, +2 edema - right lower extermity swelling improving chronic venous stasis changes. ABSENT: calf tenderness, clubbing Neurological exam: PRESENT: alert, awake, oriented to person, oriented to place , oriented to time, oriented to situation, CN II-XII grossly intact. ABSENT: motor sensory deficit Psychiatric exam: PRESENT: appropriate affect, normal mood. ABSENT: homicidal ideation, suicidal ideation Skin exam: PRESENT: dry, intact, warm. ABSENT: cyanosis, rash Results Laboratory Results: 11/14/17 12:56 11/16/17 04:39 11/16/17 04:39 Sodium 141.6 Potassium 4.5 Chloride 102 Carbon Dioxide 33 H Anion Gap 7 BUN 75 H Creatinine 1.31 H Est GFR ( Amer) > 60 Est GFR (Non-Af Amer) 54 L Glucose 119 H Calcium 8.6 Magnesium 2.4 H Impressions: Venous Doppler Study 11/12/17 13:41 IMPRESSION: NO EVIDENCE DVT OR SVT IN THE RIGHT LEG. Chest X-Ray 11/12/17 17:44 IMPRESSION: CARDIAC ENLARGEMENT WITHOUT FAILURE. Assessment & Plan - Diagnosis (1) Cellulitis Qualifiers: Site of cellulitis: extremity Site of cellulitis of extremity: lower extremity Laterality: right Qualified Code(s): L03.115 - Cellulitis of right lower limb Is this a current diagnosis for this admission?: Yes Plan: Patient with right lower extremity erythema swelling tenderness secondary to cellulitis. Improvement in the erythema however the swelling is still present. Continue clindamycin and colchicine. Will discontinue vancomycin for worsening renal function. (2) Acute renal failure Is this a current diagnosis for this admission?: Yes Plan: Reoccurrence of acute renal failure secondary to vancomycin and indocin. Will continue and monitor. (3) Chronic pain Qualifiers: Chronic pain type: other chronic pain Qualified Code(s): G89.29 - Other chronic pain Is this a current diagnosis for this admission?: Yes Plan: Patient with chronic back and now leg pain. Patient on fentanyl and oxycodone. Continue. (4) Hypokalemia Is this a current diagnosis for this admission?: Yes Plan: Resolved. Now 4.5. Continue to monitor. (5) Gout attack Qualifiers: Gout site: multiple sites Is this a current diagnosis for this admission?: Yes Plan: Patient with right leg swelling. Patient has a history of gout. Patient uric acid is up to 9.8. Now that patient renal function has improved. Patient on colchicine 0.6 daily. - Time Time Spent with patient: 15-24 minutes Anticipated discharge: Home Within: within 72 hours
--- NOTE | 2017-11-17 23:45 | PDOC PROGRESS REPORT ---
Subjective Progress Note for:: 11/17/17 Subjective:: Patient is a 72-year-old male with a history of diabetes, hypertension, congestive heart failure, chronic venous stasis, opiate dependence due to chronic back pain. Who presented with a history of right lower extremity swelling and erythema with associated pain. Patient still with significant pedal edema. Leg edema has improved. Patient still complaining of pain. Reason For Visit: ARF, HYPOKALEMIA, RIGHT LEG CELLULITIS Physical Exam Vital Signs: Temp Pulse Resp BP Pulse Ox 97.7 F 71 18 124/63 99 11/17/17 15:47 11/17/17 15:47 11/17/17 15:47 11/17/17 15:47 11/17/17 15:47 Intake & Output 11/16/17 11/17/17 11/18/17 06:59 06:59 06:59 Intake Total 1645 2160 83 Output Total 2450 920 Balance -805 1240 83 Weight 92.9 kg 90.7 kg General appearance: PRESENT: no acute distress, well-developed, well-nourished Head exam: PRESENT: normocephalic Eye exam: ABSENT: scleral icterus Ear exam: PRESENT: normal external ear exam Mouth exam: PRESENT: moist Teeth exam: PRESENT: dental caries, poor dentation Neck exam: ABSENT: carotid bruit, JVD, lymphadenopathy, thyromegaly Respiratory exam: PRESENT: clear to auscultation jose. ABSENT: rales, rhonchi, wheezes Cardiovascular exam: PRESENT: RRR. ABSENT: diastolic murmur, rubs, systolic murmur GI/Abdominal exam: PRESENT: normal bowel sounds, soft. ABSENT: distended, guarding, mass, organolmegaly, rebound, tenderness Rectal exam: PRESENT: deferred Extremities exam: PRESENT: full ROM, pedal edema - right foot gradually improving. ABSENT: calf tenderness, clubbing Neurological exam: PRESENT: alert, awake, oriented to person, oriented to place , oriented to time, oriented to situation, CN II-XII grossly intact. ABSENT: motor sensory deficit Psychiatric exam: PRESENT: appropriate affect, normal mood. ABSENT: homicidal ideation, suicidal ideation Skin exam: PRESENT: dry, intact, warm, other - chronic venous stasis with skin changes.. ABSENT: cyanosis, rash Results Laboratory Results: 11/17/17 09:05 11/17/17 09:05 11/17/17 11/17/17 09:05 09:05 WBC 10.4 RBC 3.87 L Hgb 11.1 L Hct 33.6 L MCV 87 MCH 28.6 MCHC 32.9 RDW 15.0 H Plt Count 269 Seg Neutrophils % 79.4 H Lymphocytes % 10.4 L Monocytes % 8.5 Eosinophils % 1.3 Basophils % 0.4 Absolute Neutrophils 8.2 Absolute Lymphocytes 1.1 Absolute Monocytes 0.9 Absolute Eosinophils 0.1 Absolute Basophils 0.0 Sodium 139.8 Potassium 4.2 Chloride 100 Carbon Dioxide 31 H Anion Gap 9 BUN 49 H Creatinine 1.02 Est GFR ( Amer) > 60 Est GFR (Non-Af Amer) > 60 Glucose 103 Calcium 8.4 Magnesium 2.3 Impressions: Venous Doppler Study 11/12/17 13:41 IMPRESSION: NO EVIDENCE DVT OR SVT IN THE RIGHT LEG. Chest X-Ray 11/12/17 17:44 IMPRESSION: CARDIAC ENLARGEMENT WITHOUT FAILURE. Assessment & Plan - Diagnosis (1) Cellulitis Qualifiers: Site of cellulitis: extremity Site of cellulitis of extremity: lower extremity Laterality: right Qualified Code(s): L03.115 - Cellulitis of right lower limb Is this a current diagnosis for this admission?: Yes Plan: Patient with right lower extremity erythema swelling tenderness secondary to cellulitis. Improvement in the erythema however the swelling is still present. Patient not showing much more improvement with clindamycin. Patient cannot tolerate vancomycin as his creatinine immediately trends upward. Will discontinue clindamycin and start zyvox. (2) Acute renal failure Is this a current diagnosis for this admission?: Yes Plan: Resolved after stopping vancomcyin and indocin. (3) Chronic pain Qualifiers: Chronic pain type: other chronic pain Qualified Code(s): G89.29 - Other chronic pain Is this a current diagnosis for this admission?: Yes Plan: Patient with chronic back and now leg pain. Had to discontinue fentanyl to use zyvox due to serious drug interaction. Patient started on dilaudid IV push and continued on oxycodone. (4) Hypokalemia Is this a current diagnosis for this admission?: Yes Plan: Resolved. Decreased potassium replacement to 10mEq daily. (5) Gout attack Qualifiers: Gout site: multiple sites Is this a current diagnosis for this admission?: Yes Plan: Patient with right leg swelling. Patient has a history of gout. Patient uric acid is up to 9.8. Now that patient renal function has improved. Patient on colchicine 0.6 daily until 11/18 (total of 5 days). Then switch back to allopurinol. - Time Time Spent with patient: 15-24 minutes Anticipated discharge: Home Within: within 72 hours - Inpatient Certification Medical Necessity: Need for Pain Control - Patient not yet able to ambulate due to pain and significant swelling., Need for IV Antibiotics
[2017-11-18] MEDS: HYDROMORPHONE HCL INJ/PF 2 MG/ML AMPULE IV PRN ×3 (00:38→21:51)
[2017-11-18] MEDS: OXYCODONE HCL IR 5 MG TABLET PO PRN ×2 (07:46→17:44)
[2017-11-18] MEDS: IPRATROPIUM/ALBUTEROL 0.5-2.5 MG/3 ML AMPUL NEB PRN (07:59)
[2017-11-18] MEDS: DOCUSATE SODIUM 100 MG CAPSULE PO SCH ×2 (10:33→17:44)
[2017-11-18] MEDS: METOLAZONE 2.5 MG TABLET PO SCH (10:33)
[2017-11-18] MEDS: COLCHICINE 0.6 MG TABLET PO SCH (10:33)
[2017-11-18] MEDS: LACTOBACILLUS ACIDOPHILUS 250 MG TAB PO SCH ×2 (10:33→17:43)
[2017-11-18] MEDS: POTASSIUM CHLORIDE 10 MEQ TABLET.SA PO SCH (10:33)
[2017-11-18] MEDS: LINEZOLID 300 ML IV SCH ×2 (10:33→22:08)
[2017-11-18] MEDS: FUROSEMIDE 20 MG TABLET PO SCH (10:33)
[2017-11-18] MEDS: METOPROLOL TARTRATE 25 MG TABLET PO SCH ×2 (10:33→21:50)
--- NOTE | 2017-11-18 15:21 | PDOC PROGRESS REPORT ---
Subjective Progress Note for:: 11/18/17 Subjective:: Patient is a 72-year-old male with a history of diabetes, hypertension, congestive heart failure, chronic venous stasis, opiate dependence due to chronic back pain. The patient presented with right lower extremity cellulitis and edema. The swelling is improved. The pain is still severe. The patient c/o difficulty eating today. He requests a soft diet. Reason For Visit: ARF, HYPOKALEMIA, RIGHT LEG CELLULITIS Physical Exam Vital Signs: Temp Pulse Resp BP Pulse Ox 98.5 F 70 20 129/83 H 98 11/18/17 12:00 11/18/17 12:00 11/18/17 12:00 11/18/17 12:00 11/18/17 12:00 Intake & Output 11/17/17 11/18/17 11/19/17 06:59 06:59 06:59 Intake Total 2160 1562 Output Total 920 1710 Balance 1240 -148 Weight 90.7 kg 90.3 kg Additional comments: The patient is not in any distress. His cognition and mentation are appropriate. He is noted to have severe dental caries. His lungs demonstrate wheezing both anteriorly and posteriorly. His cardiac exam is regular without murmurs, gallops or rubs. The patient has decreased edema in the right foot and leg but the foot is still edematous and erythematous. He does have some peeling of the skin on the dorsum of the right foot. Results Laboratory Results: 11/17/17 09:05 11/17/17 09:05 Impressions: Venous Doppler Study 11/12/17 13:41 IMPRESSION: NO EVIDENCE DVT OR SVT IN THE RIGHT LEG. Chest X-Ray 11/12/17 17:44 IMPRESSION: CARDIAC ENLARGEMENT WITHOUT FAILURE. Assessment & Plan - Diagnosis (1) Infected dental carries Is this a current diagnosis for this admission?: Yes Plan: The patient was told that he has severe dental caries and will need multiple teeth resected (2) Acute renal failure Is this a current diagnosis for this admission?: Yes Plan: Resolved. (3) CHF (congestive heart failure) Qualifiers: Congestive heart failure type: unspecified Congestive heart failure chronicity: unspecified Qualified Code(s): I50.9 - Heart failure, unspecified Plan: Continue Lasix and metolazone and monitor renal function. (4) Cellulitis Qualifiers: Site of cellulitis: extremity Site of cellulitis of extremity: lower extremity Laterality: right Qualified Code(s): L03.115 - Cellulitis of right lower limb Is this a current diagnosis for this admission?: Yes Plan: Continue Linezolid. (5) Chronic pain Qualifiers: Chronic pain type: other chronic pain Qualified Code(s): G89.29 - Other chronic pain Is this a current diagnosis for this admission?: Yes Plan: Continue oxycodone. (6) Gout attack Qualifiers: Gout site: multiple sites Is this a current diagnosis for this admission?: Yes Plan: Patient is on colchicine. (7) Hypokalemia Is this a current diagnosis for this admission?: Yes Plan: Resolved - Time Time Spent with patient: 15-24 minutes - Inpatient Certification Medical Necessity: Need for IV Antibiotics
[2017-11-18 16:50] LABS: HEMATOCRIT 34.6 % (37.9-51.0); HEMOGLOBIN 11.1 g/dL (13.5-17.0); MEAN CORPUSCULAR HGB CONC 32.2 g/dL (32.0-36.0); MEAN CORPUSCULAR VOLUME 87 fl (80-97); PLATELET COUNT 251 10^3/uL (150-450); RED BLOOD COUNT 3.98 10^6/uL (4.35-5.55); WHITE BLOOD COUNT 11.6 10^3/uL (4.0-10.5)
[2017-11-18 16:58] LABS: INTERNATIONAL RATION (INR) 1.03; PROTHROMBIN TIME 14.2 SEC (11.4-15.4)
[2017-11-18 17:00] LABS: PARTIAL THROMBOPLASTIN TIME 45.5 SEC (23.5-35.8)
[2017-11-18] MEDS: ASPIRIN 325 MG TABLET, ENT COATED PO SCH (17:43)
[2017-11-18] MEDS ORDERED: LINEZOLID 300 ML IV ONE (21:56)
[2017-11-19] MEDS: HYDROMORPHONE HCL INJ/PF 2 MG/ML AMPULE IV PRN ×2 (05:57→20:21)
[2017-11-19 06:45] LABS: ABSOLUTE EOSINOPHILS # (AUTO) 0.2 10^3/uL (0.0-0.6); ABSOLUTE LYMPHOCYTES (AUTO) 1.1 10^3/uL (0.5-4.7); ABSOLUTE MONOCYTES (AUTO) 0.6 10^3/uL (0.1-1.4); BASOPHILS % (AUTO) 0.4 % (0-2); EOSINOPHILS % (AUTO) 1.7 % (0-6); HEMATOCRIT 34.6 % (37.9-51.0); HEMOGLOBIN 11.2 g/dL (13.5-17.0); LYMPHOCYTES % (AUTO) 12.5 % (13-45); MEAN CORPUSCULAR HEMOGLOBIN 27.9 pg (27.0-33.4); MEAN CORPUSCULAR HGB CONC 32.3 g/dL (32.0-36.0); MEAN CORPUSCULAR VOLUME 86 fl (80-97); MONOCYTES % (AUTO) 7.1 % (3-13); PLATELET COUNT 252 10^3/uL (150-450); RED CELL DISTRIBUTION WIDTH 15.1 % (11.5-14.0); SEGMENTED NEUTROPHILS % (AUTO) 78.3 % (42-78); TOTAL CELLS COUNTED % (AUTO) 100 %; WHITE BLOOD COUNT 8.9 10^3/uL (4.0-10.5)
[2017-11-19 07:03] LABS: ANION GAP 10 (5-19); BLOOD UREA NITROGEN 32 mg/dL (7-20); CALCIUM 8.1 mg/dL (8.4-10.2); CARBON DIOXIDE 30 mmol/L (22-30); CHLORIDE 98 mmol/L (98-107); GLUCOSE 95 mg/dL (75-110); MAGNESIUM 2.1 mg/dL (1.6-2.3); POTASSIUM 3.8 mmol/L (3.6-5.0); SODIUM 138.2 mmol/L (137-145)
[2017-11-19] MEDS: LACTOBACILLUS ACIDOPHILUS 250 MG TAB PO SCH ×2 (09:19→17:56)
[2017-11-19] MEDS: METOPROLOL TARTRATE 25 MG TABLET PO SCH ×2 (09:19→21:11)
[2017-11-19] MEDS: COLCHICINE 0.6 MG TABLET PO SCH (09:19)
[2017-11-19] MEDS: METOLAZONE 2.5 MG TABLET PO SCH (09:20)
[2017-11-19] MEDS: POTASSIUM CHLORIDE 10 MEQ TABLET.SA PO SCH (09:20)
[2017-11-19] MEDS: FUROSEMIDE 20 MG TABLET PO SCH (09:20)
[2017-11-19] MEDS: DOCUSATE SODIUM 100 MG CAPSULE PO SCH ×2 (09:20→17:56)
[2017-11-19] MEDS: LINEZOLID 300 ML IV SCH ×2 (09:30→21:11)
[2017-11-19] MEDS ORDERED: ENOXAPARIN SODIUM INJ 40 MG/0.4 ML DISP.SYRIN SUBCUT SCH (10:00)
[2017-11-19] MEDS: IPRATROPIUM/ALBUTEROL 0.5-2.5 MG/3 ML AMPUL NEB PRN (11:54)
--- NOTE | 2017-11-19 13:20 | PDOC PROGRESS REPORT ---
Subjective Progress Note for:: 11/19/17 Subjective:: Patient is a 72-year-old male with a history of diabetes, hypertension, congestive heart failure, atrial fibrillation, chronic venous stasis, opiate dependence due to chronic back pain. The patient presented with right lower extremity cellulitis and edema. The swelling is improved. The pain is still severe. The patient c/o difficulty eating today. He requests a soft diet. Reason For Visit: ARF, HYPOKALEMIA, RIGHT LEG CELLULITIS Physical Exam Vital Signs: Temp Pulse Resp BP Pulse Ox 98.3 F 60 16 120/50 L 94 11/19/17 10:49 11/19/17 11:54 11/19/17 11:54 11/19/17 10:49 11/19/17 11:54 Intake & Output 11/18/17 11/19/17 11/20/17 06:59 06:59 06:59 Intake Total 1562 1720 Output Total 1710 1450 Balance -148 270 Weight 90.3 kg 90.3 kg Additional comments: The patient does not appear to be in any distress. His cognition and mentation are normal. His facial appearance again demonstrates multiple dental caries with rotting teeth. His lungs demonstrate wheezing in the right greater than left anterior chest. He has some rales in the bases posteriorly. His cardiac exam is irregular. However, I do not appreciate any murmurs, gallops or rubs. The abdomen is obese but very soft. Bowel sounds are present in the lower quadrants. He does not have guarding or rebound noted and there are no hernias or masses present. Patient's lower extremities demonstrate 3+ pedal edema in the right foot and 2+ edema throughout otherwise. The erythema in the right leg has improved dramatically. The only area of concern is the pedal edema. The patient also has a skin tear on the dorsum of the right foot. Results Laboratory Results: 11/19/17 05:38 11/19/17 05:38 11/18/17 11/18/17 11/19/17 16:00 16:00 05:38 WBC 11.6 H 8.9 RBC 3.98 L 4.00 L Hgb 11.1 L 11.2 L Hct 34.6 L 34.6 L MCV 87 86 MCH 28.0 27.9 MCHC 32.2 32.3 RDW 15.0 H 15.1 H Plt Count 251 252 Seg Neutrophils % 78.3 H Lymphocytes % 12.5 L Monocytes % 7.1 Eosinophils % 1.7 Basophils % 0.4 Absolute Neutrophils 7.0 Absolute Lymphocytes 1.1 Absolute Monocytes 0.6 Absolute Eosinophils 0.2 Absolute Basophils 0.0 Sodium Potassium Chloride Carbon Dioxide Anion Gap BUN Creatinine 1.00 Est GFR ( Amer) > 60 Est GFR (Non-Af Amer) > 60 Glucose Calcium Magnesium 11/19/17 05:38 WBC RBC Hgb Hct MCV MCH MCHC RDW Plt Count Seg Neutrophils % Lymphocytes % Monocytes % Eosinophils % Basophils % Absolute Neutrophils Absolute Lymphocytes Absolute Monocytes Absolute Eosinophils Absolute Basophils Sodium 138.2 Potassium 3.8 Chloride 98 Carbon Dioxide 30 Anion Gap 10 BUN 32 H Creatinine 1.05 Est GFR ( Amer) > 60 Est GFR (Non-Af Amer) > 60 Glucose 95 Calcium 8.1 L Magnesium 2.1 Impressions: Venous Doppler Study 11/12/17 13:41 IMPRESSION: NO EVIDENCE DVT OR SVT IN THE RIGHT LEG. Chest X-Ray 11/12/17 17:44 IMPRESSION: CARDIAC ENLARGEMENT WITHOUT FAILURE. Assessment & Plan - Diagnosis (1) Infected dental carries Is this a current diagnosis for this admission?: Yes Plan: The patient was told that he has severe dental caries and will need multiple teeth resected. I further informed him that this will need to be accomplished after discharge. (2) Acute renal failure Is this a current diagnosis for this admission?: Yes Plan: Resolved. (3) CHF (congestive heart failure) Qualifiers: Congestive heart failure type: unspecified Congestive heart failure chronicity: unspecified Qualified Code(s): I50.9 - Heart failure, unspecified Plan: Continue Lasix and metolazone and monitor renal function. (4) Cellulitis Qualifiers: Site of cellulitis: extremity Site of cellulitis of extremity: lower extremity Laterality: right Qualified Code(s): L03.115 - Cellulitis of right lower limb Is this a current diagnosis for this admission?: Yes Plan: Continue Linezolid. (5) Chronic pain Qualifiers: Chronic pain type: other chronic pain Qualified Code(s): G89.29 - Other chronic pain Is this a current diagnosis for this admission?: Yes Plan: Continue oxycodone. (6) Gout attack Qualifiers: Gout site: multiple sites Is this a current diagnosis for this admission?: Yes Plan: Patient is on colchicine. (7) Hypokalemia Is this a current diagnosis for this admission?: Yes Plan: Resolved (8) Edema of right foot Is this a current diagnosis for this admission?: Yes Plan: Patient has very worrisome edema of the right foot. I am going to check plain films to rule out a fracture since this occurred after a fall. Doppler study was negative. I will ask surgery to see the patient but I believe arterial studies may be helpful. - Time Time Spent with patient: 25-34 minutes - Inpatient Certification Medical Necessity: Failure to Improve With Outpatient Therapy, Significant Comorbidiites Make Outpatient Treatment Too Risky, Need Close Monitoring Due to Risk of Patient Decompensation, Need for Pain Control, Need for IV Antibiotics
--- NOTE | 2017-11-19 15:33 | RADIOLOGY REPORT (SQ) ---
EXAM DESCRIPTION: FOOT RIGHT COMPLETE COMPLETED DATE/TIME: 11/19/2017 3:05 pm REASON FOR STUDY: Swollen and painful right foot COMPARISON: None. NUMBER OF VIEWS: Three views. TECHNIQUE: AP, lateral and oblique radiographic images acquired of the right foot. LIMITATIONS: None. FINDINGS: MINERALIZATION: Severe osteopenia. BONES: There is possible cortical disruption of the distal 4th and 5th metatarsals. . JOINTS: No effusions. SOFT TISSUES: Soft tissue swelling. No foreign body. OTHER: No other significant finding. IMPRESSION: Severe osteopenia. Cortical disruption of the distal 4th and 5th meta tarsals which may represent osteomyelitis. TECHNICAL DOCUMENTATION: JOB ID: [id number]- All Rights Reserved
--- NOTE | 2017-11-19 15:48 | Operative Report ---
Operative Report DATE OF SURGERY: 11/19/17 PREOPERATIVE DIAGNOSIS: Infected right foot rule out underlying abscess POSTOPERATIVE DIAGNOSIS: Same with extensive subcutaneous fluid right foot OPERATION: Focused ultrasound of the right foot SURGEON: SUSANNA LOUISE ANESTHESIA: Other - None TISSUE REMOVED OR ALTERED: None COMPLICATIONS: None ESTIMATED BLOOD LOSS: None INTRAOPERATIVE FINDINGS: Below PROCEDURE: Patient was evaluated [facility]. The right leg and foot were examined. There are chronic venous stasis changes to the right leg; the right foot was swollen with a focal area of tenderness edema discoloration of the overlying skin with sloughing exfoliated dermis over the metacarpal phalangeal region. Gel was placed in the right foot and the right foot scan with the variable frequency linear transducer. Findings were significant for extensive subcutaneous fluid in pockets consistent with abscess. Impression is right foot abscess dorsal aspect recommendations: The patient needs incision drainage packing as a damage control maneuver to control sepsis of the right foot UT: The eighth 2 hours ago so we will need to wait until this evening of the procedure done. Explained the plan to the patient. This may be one in a series of operations for this infected right foot. I spoke with the anesthesiologist need to proceed today rather than waiting until tomorrow that would not be in the patient's best interest.
[2017-11-19] MEDS ORDERED: GLUCAGON,HUMAN RECOMB 1 MG INJ SUBCUT PRN (17:05)
[2017-11-19] MEDS ORDERED: DEXTROSE 50%-WATER 25 GM/50 ML DISP.SYRIN IV PRN ×2 (17:05)
[2017-11-19] MEDS ORDERED: DEXTROSE 40% GEL 15 GM TUBE PO PRN ×2 (17:05)
[2017-11-19] MEDS ORDERED: NORMAL SALINE 1000 ML 1,000 ML IV PRN (17:21)
[2017-11-19] MEDS: ASPIRIN 325 MG TABLET, ENT COATED PO SCH (17:56)
[2017-11-19] MEDS ORDERED: KETAMINE HCL INJ 500 MG/10 ML VIAL ONE (21:41)
[2017-11-19] MEDS ORDERED: DEXMEDETOMIDINE INJ 80 MCG/20 ML VIAL IV ONE (21:42)
[2017-11-19] MEDS ORDERED: FENTANYL CITRATE INJ/PF 100 MCG/2 ML AMPUL ONE (21:42)
[2017-11-19] MEDS ORDERED: PROPOFOL INJ 200 MG/20 ML VIAL IV ONE (21:42)
[2017-11-19] MEDS ORDERED: MIDAZOLAM 2 MG/2 ML INJ ONE (21:42)
[2017-11-19] MEDS ORDERED: BUPIVACAINE HCL 0.25 % INJ/PF (2.5 MG/1 ML) 30 ML VIAL ONE (22:17)
--- NOTE | 2017-11-19 22:39 | Operative Report ---
Nonrecallable Operative Report DATE OF SURGERY: 11/19/17 PREOPERATIVE DIAGNOSIS: Septic extensive deep soft tissue infection dorsum right foot POSTOPERATIVE DIAGNOSIS: Same OPERATION: Excisional debridement of skin subcutaneous tissue, drainage, and drain placement right foot SURGEON: SUSANNA LOUISE ANESTHESIA: LMAC TISSUE REMOVED OR ALTERED: skin and subcutaneous tissue COMPLICATIONS: none ESTIMATED BLOOD LOSS: scant INTRAOPERATIVE FINDINGS: see below PROCEDURE: The patient was taken to the operating room where LMAC anesthesia was induced with the patient on the bed. The right leg was prepped and draped in a sterile fashion. Of note the patient had an extremely low pain threshold. Surgical plan surgical timeout were conducted. The dorsal surface of the right foot was exposed. There is an area of infected, ischemic tissue on the anterior lateral aspect of the dorsal surface of the right foot. Skin was anesthetized with 1% lidocaine plain. A 8 cm longitudinal incision was made along the anterior lateral aspect of the right foot, and a wide excisional debridement was then created with medial and lateral flaps creating an elliptical incision down into the deep subcutaneous tissue. There is an extensive amount of pus and necrotic subcutaneous tissue which was evacuated with finger dissection like necrotic cottage cheese. Counterincision made over the first metatarsal region and the large [place] drain was placed in the looplike fashion and tied in the knot. Finger dissection created a large subcutaneous pocket over the dorsum of the foot. This was a damage control maneuver so only the obvious nonviable subcutaneous tissue was debrided. The skin flap will eventually slough. In light of the patient's debilitated state, chronic venous stasis disease below the knee, and now significant tissue loss and threatened right foot due to infection, patient will likely require amputation. The wound was irrigated with saline, packed with moistened Kerlix, the dry 4 x 4 's and Kerlix applied. Patient tolerated procedure reasonably well
[2017-11-19] MEDS: OXYCODONE HCL IR 5 MG TABLET PO PRN (23:18)
[2017-11-20] MEDS: HYDROMORPHONE HCL INJ/PF 2 MG/ML AMPULE IV PRN (02:52)
[2017-11-20] MEDS: OXYCODONE HCL IR 5 MG TABLET PO PRN ×3 (06:39→21:03)
[2017-11-20] MEDS: DOCUSATE SODIUM 100 MG CAPSULE PO SCH ×2 (09:25→17:14)
[2017-11-20] MEDS: FENTANYL 100 MCG/HR PATCH.TD72 TD SCH (09:35)
[2017-11-20] MEDS: FUROSEMIDE 20 MG TABLET PO SCH (09:36)
[2017-11-20] MEDS: POTASSIUM CHLORIDE 10 MEQ TABLET.SA PO SCH (09:36)
[2017-11-20] MEDS: COLCHICINE 0.6 MG TABLET PO SCH (09:37)
[2017-11-20] MEDS: LACTOBACILLUS ACIDOPHILUS 250 MG TAB PO SCH ×2 (09:37→17:17)
[2017-11-20] MEDS: METOLAZONE 2.5 MG TABLET PO SCH (09:37)
[2017-11-20] MEDS: LINEZOLID 300 ML IV SCH (09:37)
[2017-11-20] MEDS: METOPROLOL TARTRATE 25 MG TABLET PO SCH ×2 (09:37→21:03)
--- NOTE | 2017-11-20 14:24 | PDOC PROGRESS REPORT ---
Subjective Progress Note for:: 11/20/17 Subjective:: Patient is a 72-year-old male with a history of diabetes, hypertension, congestive heart failure, atrial fibrillation, chronic venous stasis, opiate dependence due to chronic back pain. The patient presented with right lower extremity cellulitis and edema. The swelling is improved. The pain is still severe. Due to the severe swelling and pedal edema as well as erythema and skin changes I did consult general surgery yesterday. I also order an arterial Doppler which by report was relatively unremarkable. Dr. Hou performed in ultrasound at the bedside which demonstrated what appeared to be a fluid collection. He took the patient to the operating room last night and did an extensive incision and drainage with debridement. Reason For Visit: ARF, HYPOKALEMIA, RIGHT LEG CELLULITIS Physical Exam Vital Signs: Temp Pulse Resp BP Pulse Ox 97.8 F 69 18 121/66 98 11/20/17 11:11 11/20/17 11:11 11/20/17 11:11 11/20/17 11:11 11/20/17 11:11 Intake & Output 11/19/17 11/20/17 11/21/17 06:59 06:59 06:59 Intake Total 1720 1976 Output Total 1450 956 Balance 270 1020 Weight 90.3 kg 88.7 kg Additional comments: The patient was lying in bed this morning. He is complaining of pain at his right foot. However, at this time he feels that the pain is bearable. He does not appear to be septic or in any distress at this time. The patient's lungs continue to demonstrate by lateral wheezing. The cardiac exam is regular without murmurs, gallops or rubs. The abdomen is soft and flat. Bowel sounds are noted in the lower quadrants. He does not have guarding noted. There is no rebound noted. There are no hernias or masses present. The right foot is wrapped in a surgical bandage. Both extremities demonstrate changes of venous stasis but they are worse in the right leg. His toes today look less edematous and the color has improved substantially. Results Laboratory Results: 11/19/17 05:38 11/19/17 05:38 Impressions: Venous Doppler Study 11/12/17 13:41 IMPRESSION: NO EVIDENCE DVT OR SVT IN THE RIGHT LEG. Chest X-Ray 11/12/17 17:44 IMPRESSION: CARDIAC ENLARGEMENT WITHOUT FAILURE. Foot X-Ray 11/19/17 00:00 IMPRESSION: Severe osteopenia. Cortical disruption of the distal 4th and 5th meta tarsals which may represent osteomyelitis. Assessment & Plan - Diagnosis (1) Infected dental carries Is this a current diagnosis for this admission?: Yes Plan: The patient was told that he has severe dental caries and will need multiple teeth resected. I further informed him that this will need to be accomplished after discharge. (2) Acute renal failure Is this a current diagnosis for this admission?: Yes Plan: Resolved. Labs have been ordered stat for today. Apparently, his previous episode of renal failure was associated with vancomycin which is why he was changed to Zyvox. (3) CHF (congestive heart failure) Qualifiers: Congestive heart failure type: unspecified Congestive heart failure chronicity: unspecified Qualified Code(s): I50.9 - Heart failure, unspecified Plan: Continue Lasix and metolazone and monitor renal function. (4) Cellulitis Qualifiers: Site of cellulitis: extremity Site of cellulitis of extremity: lower extremity Laterality: right Qualified Code(s): L03.115 - Cellulitis of right lower limb Is this a current diagnosis for this admission?: Yes Plan: Continue Linezolid. (5) Chronic pain Qualifiers: Chronic pain type: other chronic pain Qualified Code(s): G89.29 - Other chronic pain Is this a current diagnosis for this admission?: Yes Plan: Continue oxycodone. (6) Gout attack Qualifiers: Gout site: multiple sites Is this a current diagnosis for this admission?: Yes Plan: Patient was on colchicine due to a high uric acid level. However, I do not think that this process was associated with gout and therefore I discontinued colchicine. (7) Hypokalemia Is this a current diagnosis for this admission?: Yes Plan: Resolved. Will continue to monitor. (8) Edema of right foot Is this a current diagnosis for this admission?: Yes Plan: The patient was taken to surgery last evening for extensive debridement. Additional testing to evaluate for osteonecrosis may be warranted. I will discuss this with surgery. For now, we are planning on placing a PICC line for extended antibiotic use. If patient needs further surgery to include amputation this may make further imaging studies a moot point. - Time Time Spent with patient: 25-34 minutes - Inpatient Certification Medical Necessity: Significant Comorbidiites Make Outpatient Treatment Too Risky , Need Close Monitoring Due to Risk of Patient Decompensation, Need for Pain Control, Need for IV Antibiotics
[2017-11-20] MEDS ORDERED: NORMAL SALINE 10 ML SDV (AFTER EACH USE) IV PRN (15:56)
--- NOTE | 2017-11-20 16:07 | RADIOLOGY REPORT (SQ) ---
EXAM DESCRIPTION: PICC INSERTION; FLUORO/CV PLACEMENT; U/S GUIDE FOR VASCULAR ACCESS COMPLETED DATE/TIME: 11/20/2017 3:14 pm REASON FOR STUDY: unable to obtain IV; UNABLE TO OBTAIN IV ACCESS; UNABLE TO OBTAIN IV COMPARISON: Two-view chest 11/12/2017 FLUOROSCOPY TIME: 1 minutes 20 seconds 1 ultrasound and 1 digital chest C-arm images saved to PACS. TECHNIQUE: Fluoroscopic and ultrasound guided PICC placement. LIMITATIONS: None. PROCEDURE: After written consent and assessment were obtained, the patient was brought into the fluo roscopy room and place supine on the table. Ultrasound was used on the patient's left arm for PICC a ccess. The left arm was prepped and draped in a sterile fashion along with the ultrasound probe. The entry site was anesthetized with 1% lidocaine. A 21 gauge 7 cm needle was advanced through the skin a nd into the basilic vein under live ultrasound guidance. An ultrasound image was saved to PACS confi rming access site. A .018 guide wire was then inserted through the needle and into the venous system . The needle was the removed and an 11 blade scalpel was used to make a 1cm skin incision. A 5 fr pe el-away sheath was advanced over the wire and into the venous system. A measurement was then made usi ng the existing wire and live fluoroscopic guidance. The wire was then removed and the trimmed. The P ICC was advanced through the peel-away sheath and into the venous system. The peel-away sheath was re moved and the catheter was adhered to the patients arm with a stat lock. The catheter was then aspira gabbi and flushed and a sterile bandage was placed over the access site. A fluoroscopic spot image was saved to PACS confirming the catheter tip within the superior vena cava. IMPRESSION: SUCCESSFUL PLACEMENT OF A 5 FR DUAL LUMEN 48 CM PICC IN THE LEFT BASILIC VEIN. COMMENT: Patient medication list reviewed: Yes- Quality ID# [id number]:Eligible professional attests to doc umenting in the medical record they obtained, updated, or reviewed the patient's current medications. . Quality ID 145: Final reports for procedures using fluoroscopy that document radiation exposure tracey edgar, or exposure time and number of fluorographic images (if radiation exposure indices are not avail able) Quality ID #[id number]: The patient was prepped and draped using maximum sterile barrier technique including cap, mask, sterile gown, sterile gloves, a large sterile sheet, hand hygiene, and 2% Chlorhexidine fo r cutaneous antisepsis. When ultrasound is used, sterile ultrasound techniques are followed requiring sterile gel and sterile probes. TECHNICAL DOCUMENTATION: JOB ID: [id number] [employer]- All Rights Reserved
[2017-11-20 16:30] LABS: ABSOLUTE EOSINOPHILS # (AUTO) 0.1 10^3/uL (0.0-0.6); ABSOLUTE LYMPHOCYTES (AUTO) 1.2 10^3/uL (0.5-4.7); ABSOLUTE MONOCYTES (AUTO) 0.7 10^3/uL (0.1-1.4); ABSOLUTE NEUT (AUTO) 7.1 10^3/uL (1.7-8.2); BASOPHILS % (AUTO) 0.3 % (0-2); EOSINOPHILS % (AUTO) 0.9 % (0-6); HEMATOCRIT 32.6 % (37.9-51.0); HEMOGLOBIN 10.7 g/dL (13.5-17.0); LYMPHOCYTES % (AUTO) 13.2 % (13-45); MEAN CORPUSCULAR HEMOGLOBIN 28.2 pg (27.0-33.4); MEAN CORPUSCULAR HGB CONC 32.9 g/dL (32.0-36.0); MEAN CORPUSCULAR VOLUME 86 fl (80-97); MONOCYTES % (AUTO) 7.8 % (3-13); PLATELET COUNT 261 10^3/uL (150-450); RED CELL DISTRIBUTION WIDTH 14.7 % (11.5-14.0); SEGMENTED NEUTROPHILS % (AUTO) 77.8 % (42-78); TOTAL CELLS COUNTED % (AUTO) 100 %; WHITE BLOOD COUNT 9.2 10^3/uL (4.0-10.5)
[2017-11-20 16:36] LABS: ANION GAP 7 (5-19); BLOOD UREA NITROGEN 28 mg/dL (7-20); CALCIUM 8.3 mg/dL (8.4-10.2); CARBON DIOXIDE 29 mmol/L (22-30); CHLORIDE 97 mmol/L (98-107); GLUCOSE 119 mg/dL (75-110); POTASSIUM 3.8 mmol/L (3.6-5.0); SODIUM 133.3 mmol/L (137-145)
[2017-11-20] MEDS: ASPIRIN 325 MG TABLET, ENT COATED PO SCH (17:18)
[2017-11-20 17:26] LABS: HEMATOCRIT 31.8 % (37.9-51.0); HEMOGLOBIN 10.6 g/dL (13.5-17.0); MEAN CORPUSCULAR HEMOGLOBIN 28.2 pg (27.0-33.4); MEAN CORPUSCULAR HGB CONC 33.3 g/dL (32.0-36.0); MEAN CORPUSCULAR VOLUME 85 fl (80-97); PLATELET COUNT 276 10^3/uL (150-450); RED BLOOD COUNT 3.75 10^6/uL (4.35-5.55); RED CELL DISTRIBUTION WIDTH 14.7 % (11.5-14.0); WHITE BLOOD COUNT 8.8 10^3/uL (4.0-10.5)
[2017-11-20 17:30] LABS: INTERNATIONAL RATION (INR) 1.05; PROTHROMBIN TIME 14.4 SEC (11.4-15.4)
[2017-11-20 17:31] LABS: PARTIAL THROMBOPLASTIN TIME 42.3 SEC (23.5-35.8)
[2017-11-20] MEDS: NORMAL SALINE 10 ML SDV (SCHEDULED) IV SCH (21:03)
[2017-11-20] MEDS: LINEZOLID 600 MG TABLET PO SCH (21:03)
[2017-11-21] MEDS: OXYCODONE HCL IR 5 MG TABLET PO PRN ×4 (05:17→22:04)
[2017-11-21 05:43] LABS: ABSOLUTE EOSINOPHILS # (AUTO) 0.1 10^3/uL (0.0-0.6); ABSOLUTE LYMPHOCYTES (AUTO) 1.4 10^3/uL (0.5-4.7); ABSOLUTE MONOCYTES (AUTO) 0.6 10^3/uL (0.1-1.4); BASOPHILS % (AUTO) 0.4 % (0-2); EOSINOPHILS % (AUTO) 1.7 % (0-6); HEMATOCRIT 31.3 % (37.9-51.0); HEMOGLOBIN 10.4 g/dL (13.5-17.0); LYMPHOCYTES % (AUTO) 19.2 % (13-45); MEAN CORPUSCULAR HEMOGLOBIN 28.1 pg (27.0-33.4); MEAN CORPUSCULAR HGB CONC 33.3 g/dL (32.0-36.0); MEAN CORPUSCULAR VOLUME 84 fl (80-97); MONOCYTES % (AUTO) 8.7 % (3-13); PLATELET COUNT 253 10^3/uL (150-450); RED BLOOD COUNT 3.71 10^6/uL (4.35-5.55); TOTAL CELLS COUNTED % (AUTO) 100 %; WHITE BLOOD COUNT 7.1 10^3/uL (4.0-10.5)
[2017-11-21 06:09] LABS: ANION GAP 5 (5-19); BLOOD UREA NITROGEN 29 mg/dL (7-20); CALCIUM 8.3 mg/dL (8.4-10.2); CARBON DIOXIDE 30 mmol/L (22-30); CHLORIDE 99 mmol/L (98-107); GLUCOSE 99 mg/dL (75-110); MAGNESIUM 2.1 mg/dL (1.6-2.3); PHOSPHORUS 3.2 mg/dL (2.5-4.5); POTASSIUM 3.8 mmol/L (3.6-5.0); SODIUM 134.3 mmol/L (137-145)
[2017-11-21] MEDS: DOCUSATE SODIUM 100 MG CAPSULE PO SCH ×2 (09:41→17:12)
[2017-11-21] MEDS: ENOXAPARIN SODIUM INJ 40 MG/0.4 ML DISP.SYRIN SUBCUT SCH (09:44)
[2017-11-21] MEDS: LINEZOLID 600 MG TABLET PO SCH ×2 (09:45→22:02)
[2017-11-21] MEDS: POTASSIUM CHLORIDE 10 MEQ TABLET.SA PO SCH (09:45)
[2017-11-21] MEDS: LACTOBACILLUS ACIDOPHILUS 250 MG TAB PO SCH ×2 (09:45→17:30)
[2017-11-21] MEDS: METOPROLOL TARTRATE 25 MG TABLET PO SCH ×2 (09:46→22:08)
[2017-11-21] MEDS: FUROSEMIDE 20 MG TABLET PO SCH (09:46)
[2017-11-21] MEDS: COLCHICINE 0.6 MG TABLET PO SCH (09:46)
[2017-11-21] MEDS: NORMAL SALINE 10 ML SDV (SCHEDULED) IV SCH ×2 (09:57→22:02)
[2017-11-21] MEDS: METOLAZONE 2.5 MG TABLET PO SCH (10:38)
--- NOTE | 2017-11-21 12:14 | PDOC PROGRESS REPORT ---
Subjective Progress Note for:: 11/20/17 Subjective:: No complaints. Pain well controlled Reason For Visit: ARF, HYPOKALEMIA, RIGHT LEG CELLULITIS Physical Exam Vital Signs: Temp Pulse Resp BP Pulse Ox 98.0 F 69 16 119/69 100 11/21/17 08:00 11/21/17 08:00 11/21/17 08:00 11/21/17 08:00 11/21/17 08:00 Intake & Output 11/20/17 11/21/17 11/22/17 06:59 06:59 06:59 Intake Total 1976 2582 Output Total 956 800 Balance 1020 1782 Weight 88.7 kg 88.6 kg Vascular exam: PRESENT: other - He has a palpable posterior tibial and dorsalis pedis pulse Skin exam: PRESENT: other - Dressing was removed. Packing was removed. The [place] drain is in place. There is no significant purulent drainage identified. There is no exposed bone. The skin above the drain the abscess site is dark with developing bulla. Results Laboratory Results: 11/21/17 05:20 11/21/17 05:20 11/20/17 11/20/17 11/20/17 15:45 15:45 17:09 WBC 9.2 8.8 RBC 3.80 L 3.75 L Hgb 10.7 L 10.6 L Hct 32.6 L 31.8 L MCV 86 85 MCH 28.2 28.2 MCHC 32.9 33.3 RDW 14.7 H 14.7 H Plt Count 261 276 Seg Neutrophils % 77.8 Lymphocytes % 13.2 Monocytes % 7.8 Eosinophils % 0.9 Basophils % 0.3 Absolute Neutrophils 7.1 Absolute Lymphocytes 1.2 Absolute Monocytes 0.7 Absolute Eosinophils 0.1 Absolute Basophils 0.0 Sodium 133.3 L Potassium 3.8 Chloride 97 L Carbon Dioxide 29 Anion Gap 7 BUN 28 H Creatinine 0.97 Est GFR ( Amer) > 60 Est GFR (Non-Af Amer) > 60 Glucose 119 H Calcium 8.3 L Phosphorus Magnesium 2.0 11/20/17 11/21/17 11/21/17 17:09 05:20 05:20 WBC 7.1 RBC 3.71 L Hgb 10.4 L Hct 31.3 L MCV 84 MCH 28.1 MCHC 33.3 RDW 15.0 H Plt Count 253 Seg Neutrophils % 70.0 Lymphocytes % 19.2 Monocytes % 8.7 Eosinophils % 1.7 Basophils % 0.4 Absolute Neutrophils 5.0 Absolute Lymphocytes 1.4 Absolute Monocytes 0.6 Absolute Eosinophils 0.1 Absolute Basophils 0.0 Sodium 134.3 L Potassium 3.8 Chloride 99 Carbon Dioxide 30 Anion Gap 5 BUN 29 H Creatinine 0.84 0.94 Est GFR ( Amer) > 60 > 60 Est GFR (Non-Af Amer) > 60 > 60 Glucose 99 Calcium 8.3 L Phosphorus 3.2 Magnesium 2.1 Impressions: Venous Doppler Study 11/12/17 13:41 IMPRESSION: NO EVIDENCE DVT OR SVT IN THE RIGHT LEG. Chest X-Ray 11/12/17 17:44 IMPRESSION: CARDIAC ENLARGEMENT WITHOUT FAILURE. Foot X-Ray 11/19/17 00:00 IMPRESSION: Severe osteopenia. Cortical disruption of the distal 4th and 5th meta tarsals which may represent osteomyelitis. Guidance Fluoroscopy 11/20/17 00:00 IMPRESSION: SUCCESSFUL PLACEMENT OF A 5 FR DUAL LUMEN 48 CM PICC IN THE LEFT BASILIC VEIN. Interventional Vascular Procedure 11/20/17 00:00 IMPRESSION: SUCCESSFUL PLACEMENT OF A 5 FR DUAL LUMEN 48 CM PICC IN THE LEFT BASILIC VEIN. PICC Line Insertion 11/20/17 11:57 IMPRESSION: SUCCESSFUL PLACEMENT OF A 5 FR DUAL LUMEN 48 CM PICC IN THE LEFT BASILIC VEIN. Assessment & Plan - Plan Summary Plan Summary: Start twice daily normal saline wet-to-dry dressing changes. Continue with local wound care. I think that the chances of salvage of the foot is small. I discussed this with the patient.
--- NOTE | 2017-11-21 12:17 | PDOC PROGRESS REPORT ---
Subjective Progress Note for:: 11/21/17 Subjective:: No complaints. Pain well controlled Reason For Visit: ARF, HYPOKALEMIA, RIGHT LEG CELLULITIS Physical Exam Vital Signs: Temp Pulse Resp BP Pulse Ox 98.0 F 69 16 119/69 100 11/21/17 08:00 11/21/17 08:00 11/21/17 08:00 11/21/17 08:00 11/21/17 08:00 Intake & Output 11/20/17 11/21/17 11/22/17 06:59 06:59 06:59 Intake Total 1976 2582 Output Total 956 800 Balance 1020 1782 Weight 88.7 kg 88.6 kg Skin exam: PRESENT: other - No significant change in the wound. The tissue overlying the abscess cavity does appear darker and there is further development epidermolytic changes. No purulent fluid is identified Results Laboratory Results: 11/21/17 05:20 11/21/17 05:20 11/20/17 11/20/17 11/20/17 15:45 15:45 17:09 WBC 9.2 8.8 RBC 3.80 L 3.75 L Hgb 10.7 L 10.6 L Hct 32.6 L 31.8 L MCV 86 85 MCH 28.2 28.2 MCHC 32.9 33.3 RDW 14.7 H 14.7 H Plt Count 261 276 Seg Neutrophils % 77.8 Lymphocytes % 13.2 Monocytes % 7.8 Eosinophils % 0.9 Basophils % 0.3 Absolute Neutrophils 7.1 Absolute Lymphocytes 1.2 Absolute Monocytes 0.7 Absolute Eosinophils 0.1 Absolute Basophils 0.0 Sodium 133.3 L Potassium 3.8 Chloride 97 L Carbon Dioxide 29 Anion Gap 7 BUN 28 H Creatinine 0.97 Est GFR ( Amer) > 60 Est GFR (Non-Af Amer) > 60 Glucose 119 H Calcium 8.3 L Phosphorus Magnesium 2.0 11/20/17 11/21/17 11/21/17 17:09 05:20 05:20 WBC 7.1 RBC 3.71 L Hgb 10.4 L Hct 31.3 L MCV 84 MCH 28.1 MCHC 33.3 RDW 15.0 H Plt Count 253 Seg Neutrophils % 70.0 Lymphocytes % 19.2 Monocytes % 8.7 Eosinophils % 1.7 Basophils % 0.4 Absolute Neutrophils 5.0 Absolute Lymphocytes 1.4 Absolute Monocytes 0.6 Absolute Eosinophils 0.1 Absolute Basophils 0.0 Sodium 134.3 L Potassium 3.8 Chloride 99 Carbon Dioxide 30 Anion Gap 5 BUN 29 H Creatinine 0.84 0.94 Est GFR ( Amer) > 60 > 60 Est GFR (Non-Af Amer) > 60 > 60 Glucose 99 Calcium 8.3 L Phosphorus 3.2 Magnesium 2.1 Impressions: Venous Doppler Study 11/12/17 13:41 IMPRESSION: NO EVIDENCE DVT OR SVT IN THE RIGHT LEG. Chest X-Ray 11/12/17 17:44 IMPRESSION: CARDIAC ENLARGEMENT WITHOUT FAILURE. Foot X-Ray 11/19/17 00:00 IMPRESSION: Severe osteopenia. Cortical disruption of the distal 4th and 5th meta tarsals which may represent osteomyelitis. Guidance Fluoroscopy 11/20/17 00:00 IMPRESSION: SUCCESSFUL PLACEMENT OF A 5 FR DUAL LUMEN 48 CM PICC IN THE LEFT BASILIC VEIN. Interventional Vascular Procedure 11/20/17 00:00 IMPRESSION: SUCCESSFUL PLACEMENT OF A 5 FR DUAL LUMEN 48 CM PICC IN THE LEFT BASILIC VEIN. PICC Line Insertion 11/20/17 11:57 IMPRESSION: SUCCESSFUL PLACEMENT OF A 5 FR DUAL LUMEN 48 CM PICC IN THE LEFT BASILIC VEIN. Assessment & Plan - Plan Summary Plan Summary: Continue with local wound care. He has had a venous ultrasound of his leg and there is no evidence of acute venous thrombus. He does have chronic venous changes in the right lower extremity. He does have a palpable posterior tibial and dorsalis pedis pulse.
--- NOTE | 2017-11-21 15:26 | PDOC PROGRESS REPORT ---
Subjective Progress Note for:: 11/21/17 Subjective:: Patient is a 72-year-old male with a history of diabetes, hypertension, congestive heart failure, atrial fibrillation, chronic venous stasis, opiate dependence due to chronic back pain. The patient presented with right lower extremity cellulitis and edema. He was placed on vancomycin. The swelling in the lower extremity improved except for in the foot. Eventually, the foot became more edematous and the overlying tissue appeared to be necrotic. Therefore surgery was consulted. On Sunday the patient underwent surgical debridement of the foot. There is presumed osteomyelitis. Today, the patient states that the pain is better. He has had no other complications or problems overnight. He does complain of some mild diarrhea which he attributes to the colchicine. Colchicine was initially placed for the possibility of gout. I have stopped the colchicine. Reason For Visit: ARF, HYPOKALEMIA, RIGHT LEG CELLULITIS Physical Exam Vital Signs: Temp Pulse Resp BP Pulse Ox 98.2 F 67 16 122/71 96 11/21/17 12:00 11/21/17 14:00 11/21/17 12:00 11/21/17 12:00 11/21/17 12:00 Intake & Output 11/20/17 11/21/17 11/22/17 06:59 06:59 06:59 Intake Total 1976 2582 700 Output Total 956 800 200 Balance 1020 1782 500 Weight 88.7 kg 88.6 kg Additional comments: The patient appears to be in good spirits. He is not in any distress and he does not appear to be toxic. His facial appearance does demonstrate severe dental caries. His lungs do show occasional wheezing with rhonchi but they are significantly improved today when compared to yesterday or the day before. His cardiac exam is regular without murmurs, gallops or rubs. The abdomen is soft and flat. A ventral hernia is present. Bowel sounds are present. He does not have guarding or rebound noted. The edema in the right leg and the right foot has improved substantially. The color of the toes is improved. Please see the note from surgery today regarding the rest of the foot exam. Both lower extremities demonstrate changes of venous stasis. Results Laboratory Results: 11/21/17 05:20 11/21/17 05:20 11/20/17 11/20/17 11/20/17 15:45 15:45 17:09 WBC 9.2 8.8 RBC 3.80 L 3.75 L Hgb 10.7 L 10.6 L Hct 32.6 L 31.8 L MCV 86 85 MCH 28.2 28.2 MCHC 32.9 33.3 RDW 14.7 H 14.7 H Plt Count 261 276 Seg Neutrophils % 77.8 Lymphocytes % 13.2 Monocytes % 7.8 Eosinophils % 0.9 Basophils % 0.3 Absolute Neutrophils 7.1 Absolute Lymphocytes 1.2 Absolute Monocytes 0.7 Absolute Eosinophils 0.1 Absolute Basophils 0.0 Sodium 133.3 L Potassium 3.8 Chloride 97 L Carbon Dioxide 29 Anion Gap 7 BUN 28 H Creatinine 0.97 Est GFR ( Amer) > 60 Est GFR (Non-Af Amer) > 60 Glucose 119 H Calcium 8.3 L Phosphorus Magnesium 2.0 11/20/17 11/21/17 11/21/17 17:09 05:20 05:20 WBC 7.1 RBC 3.71 L Hgb 10.4 L Hct 31.3 L MCV 84 MCH 28.1 MCHC 33.3 RDW 15.0 H Plt Count 253 Seg Neutrophils % 70.0 Lymphocytes % 19.2 Monocytes % 8.7 Eosinophils % 1.7 Basophils % 0.4 Absolute Neutrophils 5.0 Absolute Lymphocytes 1.4 Absolute Monocytes 0.6 Absolute Eosinophils 0.1 Absolute Basophils 0.0 Sodium 134.3 L Potassium 3.8 Chloride 99 Carbon Dioxide 30 Anion Gap 5 BUN 29 H Creatinine 0.84 0.94 Est GFR ( Amer) > 60 > 60 Est GFR (Non-Af Amer) > 60 > 60 Glucose 99 Calcium 8.3 L Phosphorus 3.2 Magnesium 2.1 Impressions: Venous Doppler Study 11/12/17 13:41 IMPRESSION: NO EVIDENCE DVT OR SVT IN THE RIGHT LEG. Chest X-Ray 11/12/17 17:44 IMPRESSION: CARDIAC ENLARGEMENT WITHOUT FAILURE. Foot X-Ray 11/19/17 00:00 IMPRESSION: Severe osteopenia. Cortical disruption of the distal 4th and 5th meta tarsals which may represent osteomyelitis. Guidance Fluoroscopy 11/20/17 00:00 IMPRESSION: SUCCESSFUL PLACEMENT OF A 5 FR DUAL LUMEN 48 CM PICC IN THE LEFT BASILIC VEIN. Interventional Vascular Procedure 11/20/17 00:00 IMPRESSION: SUCCESSFUL PLACEMENT OF A 5 FR DUAL LUMEN 48 CM PICC IN THE LEFT BASILIC VEIN. PICC Line Insertion 11/20/17 11:57 IMPRESSION: SUCCESSFUL PLACEMENT OF A 5 FR DUAL LUMEN 48 CM PICC IN THE LEFT BASILIC VEIN. Assessment & Plan - Diagnosis (1) Infected dental carries Is this a current diagnosis for this admission?: Yes Plan: The patient was told that he has severe dental caries and will need multiple teeth resected. I further informed him that this will need to be accomplished after discharge. (2) Acute renal failure Is this a current diagnosis for this admission?: Yes Plan: Resolved. Currently, the renal failure was associated with the use of vancomycin. Upon admission the patient was placed on vancomycin. He was then changed to Zyvox. The cellulitis did improve and resolve on the Zyvox. The wound culture shows gram-negative rods. I will therefore continue Zyvox but I have also added Zosyn.. (3) CHF (congestive heart failure) Qualifiers: Congestive heart failure type: unspecified Congestive heart failure chronicity: unspecified Qualified Code(s): I50.9 - Heart failure, unspecified Plan: Continue Lasix and metolazone and monitor renal function. (4) Cellulitis Qualifiers: Site of cellulitis: extremity Site of cellulitis of extremity: lower extremity Laterality: right Qualified Code(s): L03.115 - Cellulitis of right lower limb Is this a current diagnosis for this admission?: Yes Plan: Continue Linezolid. The cellulitis did respond very nicely to the nasal lid. However, the wound culture demonstrates gram-negative rods. Therefore, I have added Zosyn. (5) Chronic pain Qualifiers: Chronic pain type: other chronic pain Qualified Code(s): G89.29 - Other chronic pain Is this a current diagnosis for this admission?: Yes Plan: Continue oxycodone. (6) Gout attack Qualifiers: Gout site: multiple sites Is this a current diagnosis for this admission?: Yes Plan: Patient was on colchicine due to a high uric acid level. However, I do not think that this process was associated with gout and therefore I discontinued colchicine. (7) Hypokalemia Is this a current diagnosis for this admission?: Yes Plan: Resolved. Will continue to monitor. (8) Edema of right foot Is this a current diagnosis for this admission?: Yes Plan: The patient was taken to surgery for extensive debridement. Resume oblique, osteomyelitis is present. The patient should be treated for presumed osteomyelitis. If additional surgical resection is needed the length of his antibiotic therapy may be able to be truncated.. (9) Osteomyelitis Is this a current diagnosis for this admission?: Yes Plan: Then, Meño films are concerning for osteomyelitis. Therefore, duration of therapy should be approximately 4-6 weeks. However, surgery may need to debride additional tissue and/or bone. If the necrotic areas are surgically resected we may be able to decrease the length of therapy. A PICC line has been placed. The patient is on the nasal lid and Zosyn. - Time Time Spent with patient: 25-34 minutes - Inpatient Certification Medical Necessity: Need for IV Antibiotics, Need for Surgery
--- NOTE | 2017-11-21 16:21 | XCELERA REPORT ---
[address] [address] Lower Extremity Arterial Evaluation Name: ANALI STEELE Age: 72 yrs Gender: Male : 1945 Patient Status: Inpatient Patient Location: [address] [place] [address] Study Date: 11/19/2017 02:00 PM Procedure: A color flow and duplex scan of the lower extremity arteries was performed on the right with velocity and waveform anaylsis. Reason For Study: Pedal edema and pain Ordering Physician: JAKE DOHERTY Performed By: Justine Dickens Measurements and Calculations Right Left CRAB FISHERMAN PSV 116.1 cm/sec Prox PFA PSV 70.4 cm/sec Prox SFA PSV 125.1 cm/sec Mid SFA PSV -156.4 cm/sec Dist SFA PSV -118.6 cm/sec Prox Pop A PSV 114.7 cm/sec Prox RILEY PSV 91.1 cm/sec Dist RILEY PSV 111.9 cm/sec Dist [employer]IVE PSV 104.5 cm/sec Juan Francisco Pedis PSV 45.0 97.7 cm/sec Right Side Arterial Evaluation Normal velocity and triphasic waveforms noted from the Common Femoral artery to the Femoral artery. Biphasic to the infrageniculate vessels. 20-49 % stenosis at the Femoral artery. Ankle Brachial index was not done due to pain. Left Side Arterial Evaluation Triphasic waveform at the Dorsalis Pedis,. Interpretation Summary Moderate hemodynamically significant lesions in the right lower extremity only, on duplex imaging, at rest. Limited evaluation in the left seems normal. : JAKE DOHERTY > Riccardo Dsouza
[2017-11-21] MEDS: ASPIRIN 325 MG TABLET, ENT COATED PO SCH (17:30)
[2017-11-21] MEDS: PIPERACILLIN SODIUM/TAZOBACTAM 3.375 GM in NORMAL SALINE 100 ML IV SCH (19:33)
[2017-11-22] MEDS: HYDROMORPHONE HCL INJ/PF 2 MG/ML AMPULE IV PRN ×3 (00:35→17:47)
[2017-11-22] MEDS: PIPERACILLIN SODIUM/TAZOBACTAM 3.375 GM in NORMAL SALINE 100 ML IV SCH ×4 (00:36→17:32)
[2017-11-22] MEDS: OXYCODONE HCL IR 5 MG TABLET PO PRN ×2 (06:56→13:50)
[2017-11-22 07:08] LABS: ABSOLUTE BASOPHILS # (AUTO) 0.1 10^3/uL (0.0-0.2); ABSOLUTE EOSINOPHILS # (AUTO) 0.1 10^3/uL (0.0-0.6); ABSOLUTE LYMPHOCYTES (AUTO) 1.7 10^3/uL (0.5-4.7); ABSOLUTE MONOCYTES (AUTO) 0.5 10^3/uL (0.1-1.4); ABSOLUTE NEUT (AUTO) 4.3 10^3/uL (1.7-8.2); BASOPHILS % (AUTO) 1.2 % (0-2); EOSINOPHILS % (AUTO) 1.4 % (0-6); HEMOGLOBIN 10.3 g/dL (13.5-17.0); MEAN CORPUSCULAR HGB CONC 33.2 g/dL (32.0-36.0); MEAN CORPUSCULAR VOLUME 84 fl (80-97); MONOCYTES % (AUTO) 7.6 % (3-13); PLATELET COUNT 264 10^3/uL (150-450); RED BLOOD COUNT 3.68 10^6/uL (4.35-5.55); RED CELL DISTRIBUTION WIDTH 14.9 % (11.5-14.0); SEGMENTED NEUTROPHILS % (AUTO) 64.8 % (42-78); TOTAL CELLS COUNTED % (AUTO) 100 %; WHITE BLOOD COUNT 6.6 10^3/uL (4.0-10.5)
[2017-11-22 07:31] LABS: ANION GAP 7 (5-19); BLOOD UREA NITROGEN 36 mg/dL (7-20); CARBON DIOXIDE 32 mmol/L (22-30); CHLORIDE 98 mmol/L (98-107); GLUCOSE 94 mg/dL (75-110); MAGNESIUM 2.5 mg/dL (1.6-2.3); PHOSPHORUS 3.3 mg/dL (2.5-4.5); POTASSIUM 4.8 mmol/L (3.6-5.0); SODIUM 137.1 mmol/L (137-145)
[2017-11-22] MEDS: ENOXAPARIN SODIUM INJ 40 MG/0.4 ML DISP.SYRIN SUBCUT SCH (10:14)
[2017-11-22] MEDS: POTASSIUM CHLORIDE 10 MEQ TABLET.SA PO SCH (10:14)
[2017-11-22] MEDS: LACTOBACILLUS ACIDOPHILUS 250 MG TAB PO SCH ×2 (10:14→17:32)
[2017-11-22] MEDS: METOPROLOL TARTRATE 25 MG TABLET PO SCH ×2 (10:15→21:30)
[2017-11-22] MEDS: LINEZOLID 600 MG TABLET PO SCH ×2 (10:15→21:31)
[2017-11-22] MEDS: METOLAZONE 2.5 MG TABLET PO SCH (10:15)
[2017-11-22] MEDS: NORMAL SALINE 10 ML SDV (SCHEDULED) IV SCH ×2 (10:15→21:32)
[2017-11-22] MEDS: DOCUSATE SODIUM 100 MG CAPSULE PO SCH ×2 (10:15→17:36)
[2017-11-22] MEDS: CALCIUM CARBONATE 500 MG TABLET PO SCH ×2 (10:15→17:32)
[2017-11-22] MEDS: FUROSEMIDE 20 MG TABLET PO SCH (10:15)
--- NOTE | 2017-11-22 10:55 | PDOC PROGRESS REPORT ---
Subjective Progress Note for:: 11/22/17 Subjective:: Some pain at the wound site. Otherwise no complaints Reason For Visit: ARF, HYPOKALEMIA, RIGHT LEG CELLULITIS Physical Exam Vital Signs: Temp Pulse Resp BP Pulse Ox 97.7 F 56 L 16 98/59 L 94 11/22/17 03:57 11/22/17 07:00 11/22/17 03:57 11/22/17 03:57 11/22/17 03:57 Intake & Output 11/21/17 11/22/17 11/23/17 06:59 06:59 06:59 Intake Total 2582 1370 Output Total 800 500 Balance 1782 870 Weight 88.6 kg General appearance: PRESENT: no acute distress, cooperative Extremities exam: PRESENT: other - Dorsal foot wound is clean with no purulent drainage and no necrotic tissue but no granulation tissue either. [place] drain in place with the discoloration of the dorsum of the midfoot. Palpable posterior tibial pulse Results Laboratory Results: 11/22/17 06:10 11/22/17 06:10 11/22/17 11/22/17 06:10 06:10 WBC 6.6 RBC 3.68 L Hgb 10.3 L Hct 31.0 L MCV 84 MCH 28.0 MCHC 33.2 RDW 14.9 H Plt Count 264 Seg Neutrophils % 64.8 Lymphocytes % 25.0 Monocytes % 7.6 Eosinophils % 1.4 Basophils % 1.2 Absolute Neutrophils 4.3 Absolute Lymphocytes 1.7 Absolute Monocytes 0.5 Absolute Eosinophils 0.1 Absolute Basophils 0.1 Sodium 137.1 Potassium 4.8 Chloride 98 Carbon Dioxide 32 H Anion Gap 7 BUN 36 H Creatinine 0.98 Est GFR ( Amer) > 60 Est GFR (Non-Af Amer) > 60 Glucose 94 Calcium 7.0 L* Phosphorus 3.3 Magnesium 2.5 H 11/19/17 22:18 Foot - Abscess Gram Stain - Final 11/19/17 22:18 Foot - Abscess Wound Culture - Final Serratia Marcescens No Anaerobic Organisms Impressions: Venous Doppler Study 11/12/17 13:41 IMPRESSION: NO EVIDENCE DVT OR SVT IN THE RIGHT LEG. Chest X-Ray 11/12/17 17:44 IMPRESSION: CARDIAC ENLARGEMENT WITHOUT FAILURE. Foot X-Ray 11/19/17 00:00 IMPRESSION: Severe osteopenia. Cortical disruption of the distal 4th and 5th meta tarsals which may represent osteomyelitis. Guidance Fluoroscopy 11/20/17 00:00 IMPRESSION: SUCCESSFUL PLACEMENT OF A 5 FR DUAL LUMEN 48 CM PICC IN THE LEFT BASILIC VEIN. Interventional Vascular Procedure 11/20/17 00:00 IMPRESSION: SUCCESSFUL PLACEMENT OF A 5 FR DUAL LUMEN 48 CM PICC IN THE LEFT BASILIC VEIN. PICC Line Insertion 11/20/17 11:57 IMPRESSION: SUCCESSFUL PLACEMENT OF A 5 FR DUAL LUMEN 48 CM PICC IN THE LEFT BASILIC VEIN. Assessment & Plan - Diagnosis (1) Foot infection Is this a current diagnosis for this admission?: Yes Plan: Status post excisional debridement. Continue local wound care and antibiotics.
[2017-11-22] MEDS: ASPIRIN 325 MG TABLET, ENT COATED PO SCH (17:33)
[2017-11-23] MEDS: HYDROMORPHONE HCL INJ/PF 2 MG/ML AMPULE IV PRN ×4 (00:43→20:40)
[2017-11-23] MEDS: PIPERACILLIN SODIUM/TAZOBACTAM 3.375 GM in NORMAL SALINE 100 ML IV SCH ×2 (01:00→05:50)
--- NOTE | 2017-11-23 02:35 | PDOC PROGRESS REPORT ---
Subjective Progress Note for:: 11/22/17 Subjective:: Patient complains of pain in right foot Review of systems All organ systems evaluated and negative exceps as in subjective Reason For Visit: ARF, HYPOKALEMIA, RIGHT LEG CELLULITIS Physical Exam Vital Signs: Temp Pulse Resp BP Pulse Ox 97.7 F 56 L 16 98/59 L 94 11/22/17 03:57 11/22/17 07:00 11/22/17 03:57 11/22/17 03:57 11/22/17 03:57 Intake & Output 11/21/17 11/22/17 11/23/17 06:59 06:59 06:59 Intake Total 2582 1370 Output Total 800 500 Balance 1782 870 Weight 88.6 kg General appearance: PRESENT: no acute distress, cooperative, obese Head exam: PRESENT: atraumatic, normocephalic Eye exam: PRESENT: conjunctiva pink, EOMI, PERRLA Mouth exam: PRESENT: moist Neck exam: PRESENT: full ROM. ABSENT: JVD, lymphadenopathy Respiratory exam: PRESENT: clear to auscultation jose Cardiovascular exam: PRESENT: RRR. ABSENT: diastolic murmur, systolic murmur Vascular exam: PRESENT: normal capillary refill GI/Abdominal exam: PRESENT: normal bowel sounds, soft. ABSENT: tenderness Extremities exam: PRESENT: +2 edema, other - noted to wound of right foot Neurological exam: PRESENT: alert, oriented to person, oriented to place, oriented to time, CN II-XII grossly intact Psychiatric exam: PRESENT: appropriate affect, normal mood Skin exam: PRESENT: intact, normal color Results Laboratory Results: 11/22/17 06:10 11/22/17 06:10 11/22/17 11/22/17 06:10 06:10 WBC 6.6 RBC 3.68 L Hgb 10.3 L Hct 31.0 L MCV 84 MCH 28.0 MCHC 33.2 RDW 14.9 H Plt Count 264 Seg Neutrophils % 64.8 Lymphocytes % 25.0 Monocytes % 7.6 Eosinophils % 1.4 Basophils % 1.2 Absolute Neutrophils 4.3 Absolute Lymphocytes 1.7 Absolute Monocytes 0.5 Absolute Eosinophils 0.1 Absolute Basophils 0.1 Sodium 137.1 Potassium 4.8 Chloride 98 Carbon Dioxide 32 H Anion Gap 7 BUN 36 H Creatinine 0.98 Est GFR ( Amer) > 60 Est GFR (Non-Af Amer) > 60 Glucose 94 Calcium 7.0 L* Phosphorus 3.3 Magnesium 2.5 H 11/19/17 22:18 Foot - Abscess Gram Stain - Final 11/19/17 22:18 Foot - Abscess Wound Culture - Final Serratia Marcescens No Anaerobic Organisms Impressions: Venous Doppler Study 11/12/17 13:41 IMPRESSION: NO EVIDENCE DVT OR SVT IN THE RIGHT LEG. Chest X-Ray 11/12/17 17:44 IMPRESSION: CARDIAC ENLARGEMENT WITHOUT FAILURE. Foot X-Ray 11/19/17 00:00 IMPRESSION: Severe osteopenia. Cortical disruption of the distal 4th and 5th meta tarsals which may represent osteomyelitis. Guidance Fluoroscopy 11/20/17 00:00 IMPRESSION: SUCCESSFUL PLACEMENT OF A 5 FR DUAL LUMEN 48 CM PICC IN THE LEFT BASILIC VEIN. Interventional Vascular Procedure 11/20/17 00:00 IMPRESSION: SUCCESSFUL PLACEMENT OF A 5 FR DUAL LUMEN 48 CM PICC IN THE LEFT BASILIC VEIN. PICC Line Insertion 11/20/17 11:57 IMPRESSION: SUCCESSFUL PLACEMENT OF A 5 FR DUAL LUMEN 48 CM PICC IN THE LEFT BASILIC VEIN. Assessment & Plan - Diagnosis (1) Acute renal failure Is this a current diagnosis for this admission?: Yes Plan: Resolved (2) Cellulitis Qualifiers: Site of cellulitis: extremity Site of cellulitis of extremity: lower extremity Laterality: right Qualified Code(s): L03.115 - Cellulitis of right lower limb Is this a current diagnosis for this admission?: Yes Plan: Continue present treatment (3) Foot infection Is this a current diagnosis for this admission?: Yes Plan: Continue present treatment (4) Gout attack Qualifiers: Gout site: multiple sites Is this a current diagnosis for this admission?: Yes Plan: Resolved (5) Hypokalemia Is this a current diagnosis for this admission?: Yes Plan: Replaced (6) Osteomyelitis Qualifiers: Osteomyelitis location: foot Laterality: right Is this a current diagnosis for this admission?: Yes Plan: Continue present treatment - Time Time Spent with patient: 15-24 minutes Medications reviewed and adjusted accordingly: Yes Anticipated discharge: SNF Within: within 72 hours - Inpatient Certification Based on my medical assessment, after consideration of the patient's comorbidities, presenting symptoms, or acuity I expect that the services needed warrant INPATIENT care.: Yes I certify that my determination is in accordance with my understanding of Medicare's requirements for reasonable and necessary INPATIENT services [42 CFR 412.3e].: Yes Medical Necessity: Need Close Monitoring Due to Risk of Patient Decompensation, Need for Pain Control, Need for IV Antibiotics
[2017-11-23] MEDS ORDERED: GABAPENTIN 300 MG CAPSULE PO ONE (09:00)
[2017-11-23] MEDS: ENOXAPARIN SODIUM INJ 40 MG/0.4 ML DISP.SYRIN SUBCUT SCH (09:45)
[2017-11-23] MEDS: LACTOBACILLUS ACIDOPHILUS 250 MG TAB PO SCH ×2 (09:46→17:42)
[2017-11-23] MEDS: METOPROLOL TARTRATE 25 MG TABLET PO SCH ×2 (09:46→22:48)
[2017-11-23] MEDS: CALCIUM CARBONATE 500 MG TABLET PO SCH ×2 (09:46→17:42)
[2017-11-23] MEDS: CIPROFLOXACIN HCL 500 MG TABLET PO SCH ×2 (09:46→22:53)
[2017-11-23] MEDS: POTASSIUM CHLORIDE 10 MEQ TABLET.SA PO SCH (09:48)
[2017-11-23] MEDS: FUROSEMIDE 20 MG TABLET PO SCH (09:49)
[2017-11-23] MEDS: METOLAZONE 2.5 MG TABLET PO SCH (09:50)
[2017-11-23] MEDS: FENTANYL 100 MCG/HR PATCH.TD72 TD SCH (09:51)
[2017-11-23] MEDS: NORMAL SALINE 10 ML SDV (SCHEDULED) IV SCH ×2 (09:52→22:53)
[2017-11-23] MEDS ORDERED: GABAPENTIN 300 MG CAPSULE PO SCH (10:00)
[2017-11-23] MEDS: OXYCODONE HCL IR 5 MG TABLET PO PRN ×3 (10:06→22:49)
[2017-11-23] MEDS: DOCUSATE SODIUM 100 MG CAPSULE PO SCH ×2 (11:09→17:52)
[2017-11-23] MEDS ORDERED: INSULIN LISPRO 100 UNIT/ML 3 ML VIAL SUBCUT PRN (13:28)
--- NOTE | 2017-11-23 13:32 | PDOC PROGRESS REPORT ---
Subjective Progress Note for:: 11/23/17 Subjective:: Patient states that pain in his right foot still the same. He wonders if he is going to lose the food. He cannot put pressure on it so therefore is difficult for him to move from the bed to the chair Review of systems All organ systems evaluated and negative except as in subjective All laboratories and significant diagnostics have been reviewed Reason For Visit: ARF, HYPOKALEMIA, RIGHT LEG CELLULITIS Physical Exam Vital Signs: Temp Pulse Resp BP Pulse Ox 98.0 F 74 17 125/69 100 11/23/17 03:37 11/23/17 03:37 11/23/17 03:37 11/23/17 03:37 11/23/17 03:37 Intake & Output 11/22/17 11/23/17 11/24/17 06:59 06:59 06:59 Intake Total 1370 1536 Output Total 500 2125 Balance 870 -589 Weight 89.4 kg General appearance: PRESENT: no acute distress, cooperative, obese Head exam: PRESENT: atraumatic, normocephalic Eye exam: PRESENT: EOMI, PERRLA Ear exam: PRESENT: normal external ear exam Mouth exam: PRESENT: moist Neck exam: PRESENT: full ROM. ABSENT: JVD, lymphadenopathy Respiratory exam: PRESENT: clear to auscultation jose Cardiovascular exam: PRESENT: RRR. ABSENT: diastolic murmur, systolic murmur Vascular exam: PRESENT: normal capillary refill GI/Abdominal exam: PRESENT: normal bowel sounds, soft. ABSENT: tenderness Rectal exam: PRESENT: deferred Extremities exam: ABSENT: joint swelling, pedal edema Musculoskeletal exam: PRESENT: deformity, other - Right foot covered with clean dressings. ABSENT: ambulatory Neurological exam: PRESENT: alert, awake, oriented to person, oriented to place , oriented to time, CN II-XII grossly intact Psychiatric exam: PRESENT: appropriate affect, normal mood Skin exam: PRESENT: other. ABSENT: normal color Results Laboratory Results: 11/22/17 06:10 11/22/17 06:10 11/22/17 11/22/17 06:10 06:10 WBC 6.6 RBC 3.68 L Hgb 10.3 L Hct 31.0 L MCV 84 MCH 28.0 MCHC 33.2 RDW 14.9 H Plt Count 264 Seg Neutrophils % 64.8 Lymphocytes % 25.0 Monocytes % 7.6 Eosinophils % 1.4 Basophils % 1.2 Absolute Neutrophils 4.3 Absolute Lymphocytes 1.7 Absolute Monocytes 0.5 Absolute Eosinophils 0.1 Absolute Basophils 0.1 Sodium 137.1 Potassium 4.8 Chloride 98 Carbon Dioxide 32 H Anion Gap 7 BUN 36 H Creatinine 0.98 Est GFR ( Amer) > 60 Est GFR (Non-Af Amer) > 60 Glucose 94 Calcium 7.0 L* Phosphorus 3.3 Magnesium 2.5 H 11/19/17 22:18 Foot - Abscess Gram Stain - Final 11/19/17 22:18 Foot - Abscess Wound Culture - Final Serratia Marcescens No Anaerobic Organisms Impressions: Venous Doppler Study 11/12/17 13:41 IMPRESSION: NO EVIDENCE DVT OR SVT IN THE RIGHT LEG. Chest X-Ray 11/12/17 17:44 IMPRESSION: CARDIAC ENLARGEMENT WITHOUT FAILURE. Foot X-Ray 11/19/17 00:00 IMPRESSION: Severe osteopenia. Cortical disruption of the distal 4th and 5th meta tarsals which may represent osteomyelitis. Guidance Fluoroscopy 11/20/17 00:00 IMPRESSION: SUCCESSFUL PLACEMENT OF A 5 FR DUAL LUMEN 48 CM PICC IN THE LEFT BASILIC VEIN. Interventional Vascular Procedure 11/20/17 00:00 IMPRESSION: SUCCESSFUL PLACEMENT OF A 5 FR DUAL LUMEN 48 CM PICC IN THE LEFT BASILIC VEIN. PICC Line Insertion 11/20/17 11:57 IMPRESSION: SUCCESSFUL PLACEMENT OF A 5 FR DUAL LUMEN 48 CM PICC IN THE LEFT BASILIC VEIN. Assessment & Plan - Diagnosis (1) Acute renal failure Qualifiers: Acute renal failure type: unspecified Qualified Code(s): N17.9 - Acute kidney failure, unspecified Is this a current diagnosis for this admission?: Yes Plan: Will discontinue metolazone. Will gently hydrate and trend since BUN had been up and he has been having poor oral intake (2) Cellulitis Qualifiers: Site of cellulitis: extremity Site of cellulitis of extremity: lower extremity Laterality: right Qualified Code(s): L03.115 - Cellulitis of right lower limb Is this a current diagnosis for this admission?: Yes Plan: To change to clindamycin and Cipro. Patient had a significant amount of pain in his right foot and will add gabapentin. Continue fentanyl patch (3) Gout attack Qualifiers: Gout site: multiple sites Is this a current diagnosis for this admission?: Yes Plan: Continue present management (4) Hypokalemia Is this a current diagnosis for this admission?: Yes (5) Osteomyelitis Qualifiers: Osteomyelitis location: foot Laterality: right Is this a current diagnosis for this admission?: Yes Plan: To place on clindamycin and Cipro p.o. due to good bone penetration. Patient had been made aware that he may end up losing his foot (6) Diabetes Qualifiers: Diabetes mellitus type: type 2 Diabetes mellitus complication status: with circulatory complication Diabetes mellitus complication detail: with peripheral angiopathy with gangrene Diabetes mellitus nursing home insulin use: without nursing home use Qualified Code(s): E11.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 Is this a current diagnosis for this admission?: Yes Plan: To place on bedside glucose AC and HS and cover with Humalog sliding scale - Time Time Spent with patient: 15-24 minutes Medications reviewed and adjusted accordingly: Yes Within: within 48 hours - Inpatient Certification Based on my medical assessment, after consideration of the patient's comorbidities, presenting symptoms, or acuity I expect that the services needed warrant INPATIENT care.: Yes I certify that my determination is in accordance with my understanding of Medicare's requirements for reasonable and necessary INPATIENT services [42 CFR 412.3e].: Yes Medical Necessity: Need Close Monitoring Due to Risk of Patient Decompensation, Need for Pain Control
[2017-11-23] MEDS: CLINDAMYCIN HCL 150 MG CAPSULE PO SCH ×2 (14:06→22:50)
[2017-11-23] MEDS: GABAPENTIN 300 MG CAPSULE PO SCH ×2 (14:06→22:52)
[2017-11-23] MEDS: NORMAL SALINE 1000 ML 1,000 ML IV PRN (14:07)
[2017-11-23] MEDS: ASPIRIN 325 MG TABLET, ENT COATED PO SCH (17:42)
--- NOTE | 2017-11-23 21:17 | PDOC PROGRESS REPORT ---
Subjective Progress Note for:: 11/23/17 Subjective:: Right foot wound still quite painful and not healing with dark discoloration Reason For Visit: ARF, HYPOKALEMIA, RIGHT LEG CELLULITIS Physical Exam Vital Signs: Temp Pulse Resp BP Pulse Ox 98.0 F 65 20 111/63 96 11/23/17 20:15 11/23/17 20:15 11/23/17 20:15 11/23/17 20:15 11/23/17 20:15 Intake & Output 11/22/17 11/23/17 11/24/17 06:59 06:59 06:59 Intake Total 1370 1536 Output Total 500 2125 Balance 870 -589 Weight 89.4 kg General appearance: PRESENT: no acute distress Head exam: PRESENT: normocephalic Eye exam: PRESENT: EOMI Mouth exam: PRESENT: moist Respiratory exam: PRESENT: clear to auscultation jose Cardiovascular exam: PRESENT: RRR, +S1, +S2 GI/Abdominal exam: PRESENT: normal bowel sounds, soft Extremities exam: PRESENT: other - right foot with dark discoloration on the dorsum adjacent to an open wound 4.5cm x 4,5cm x 0.8cm with a tonya drain; foot is moderately edematous and erythematous. Musculoskeletal exam: PRESENT: other - right foot with dark discoloration on the dorsum adjacent to an open wound 4.5cm x 4,5cm x 0.8cm with a tonya drain ; foot is moderately edematous and erythematous. Neurological exam: PRESENT: alert, awake, oriented to person, oriented to place , oriented to time, oriented to situation, CN II-XII grossly intact Skin exam: PRESENT: other - right foot with dark discoloration on the dorsum adjacent to an open wound 4.5cm x 4,5cm x 0.8cm with a tonya drain; foot is moderately edematous and erythematous. Results Laboratory Results: 11/22/17 06:10 11/22/17 06:10 Impressions: Venous Doppler Study 11/12/17 13:41 IMPRESSION: NO EVIDENCE DVT OR SVT IN THE RIGHT LEG. Chest X-Ray 11/12/17 17:44 IMPRESSION: CARDIAC ENLARGEMENT WITHOUT FAILURE. Foot X-Ray 11/19/17 00:00 IMPRESSION: Severe osteopenia. Cortical disruption of the distal 4th and 5th meta tarsals which may represent osteomyelitis. Guidance Fluoroscopy 11/20/17 00:00 IMPRESSION: SUCCESSFUL PLACEMENT OF A 5 FR DUAL LUMEN 48 CM PICC IN THE LEFT BASILIC VEIN. Interventional Vascular Procedure 11/20/17 00:00 IMPRESSION: SUCCESSFUL PLACEMENT OF A 5 FR DUAL LUMEN 48 CM PICC IN THE LEFT BASILIC VEIN. PICC Line Insertion 11/20/17 11:57 IMPRESSION: SUCCESSFUL PLACEMENT OF A 5 FR DUAL LUMEN 48 CM PICC IN THE LEFT BASILIC VEIN. Assessment & Plan - Diagnosis (1) Diabetic infection of right foot Is this a current diagnosis for this admission?: Yes Plan: For additional debridement of the right foot tomorrow. NPO past midnight. (2) Cellulitis Qualifiers: Site of cellulitis: extremity Site of cellulitis of extremity: lower extremity Laterality: right Qualified Code(s): L03.115 - Cellulitis of right lower limb Is this a current diagnosis for this admission?: Yes Plan: For additional debridement of the right foot tomorrow. NPO past midnight. (3) Edema of right foot Is this a current diagnosis for this admission?: Yes Plan: Elevate foot. For additional debridement of the right foot tomorrow. NPO past midnight. - Time Time Spent with patient: 15-24 minutes
[2017-11-23] MEDS ORDERED: GLUCAGON,HUMAN RECOMB 1 MG INJ SUBCUT PRN (22:03)
[2017-11-23] MEDS ORDERED: DEXTROSE 50%-WATER 25 GM/50 ML DISP.SYRIN IV PRN ×2 (22:03)
[2017-11-23] MEDS ORDERED: DEXTROSE 40% GEL 15 GM TUBE PO PRN ×2 (22:03)
[2017-11-23] MEDS: MIRTAZAPINE 15 MG TABLET PO SCH (22:54)
[2017-11-24] MEDS: HYDROMORPHONE HCL INJ/PF 2 MG/ML AMPULE IV PRN (01:20)
[2017-11-24] MEDS: OXYCODONE HCL IR 5 MG TABLET PO PRN ×2 (06:05→10:53)
[2017-11-24] MEDS: CLINDAMYCIN HCL 150 MG CAPSULE PO SCH ×3 (06:06→22:06)
[2017-11-24] MEDS: GABAPENTIN 300 MG CAPSULE PO SCH ×3 (06:06→22:05)
[2017-11-24 06:31] LABS: ABSOLUTE BASOPHILS # (AUTO) 0.1 10^3/uL (0.0-0.2); ABSOLUTE EOSINOPHILS # (AUTO) 0.1 10^3/uL (0.0-0.6); ABSOLUTE LYMPHOCYTES (AUTO) 1.3 10^3/uL (0.5-4.7); ABSOLUTE MONOCYTES (AUTO) 0.4 10^3/uL (0.1-1.4); ABSOLUTE NEUT (AUTO) 4.8 10^3/uL (1.7-8.2); BASOPHILS % (AUTO) 1.3 % (0-2); EOSINOPHILS % (AUTO) 1.8 % (0-6); HEMATOCRIT 29.8 % (37.9-51.0); HEMOGLOBIN 9.7 g/dL (13.5-17.0); LYMPHOCYTES % (AUTO) 19.8 % (13-45); MEAN CORPUSCULAR HGB CONC 32.7 g/dL (32.0-36.0); MEAN CORPUSCULAR VOLUME 86 fl (80-97); MONOCYTES % (AUTO) 5.9 % (3-13); PLATELET COUNT 286 10^3/uL (150-450); RED BLOOD COUNT 3.47 10^6/uL (4.35-5.55); RED CELL DISTRIBUTION WIDTH 14.9 % (11.5-14.0); SEGMENTED NEUTROPHILS % (AUTO) 71.2 % (42-78); TOTAL CELLS COUNTED % (AUTO) 100 %; WHITE BLOOD COUNT 6.7 10^3/uL (4.0-10.5)
[2017-11-24 06:58] LABS: ALANINE AMINOTRANSFERASE 33 U/L (21-72); ALBUMIN 2.7 g/dL (3.5-5.0); ALKALINE PHOSPHATASE 82 U/L (38-126); ANION GAP 7 (5-19); ASPARTATE AMINO TRANSFERASE 23 U/L (17-59); BILIRUBIN,DIRECT 0.1 mg/dL (0.0-0.4); BILIRUBIN,TOTAL 0.3 mg/dL (0.2-1.3); BLOOD UREA NITROGEN 47 mg/dL (7-20); CALCIUM 9.5 mg/dL (8.4-10.2); CARBON DIOXIDE 31 mmol/L (22-30); CHLORIDE 103 mmol/L (98-107); GLUCOSE 96 mg/dL (75-110); MAGNESIUM 2.2 mg/dL (1.6-2.3); SODIUM 141.1 mmol/L (137-145); TOTAL PROTEIN 5.8 g/dL (6.3-8.2)
[2017-11-24] MEDS: DOCUSATE SODIUM 100 MG CAPSULE PO SCH ×2 (10:49→17:41)
[2017-11-24] MEDS: ENOXAPARIN SODIUM INJ 40 MG/0.4 ML DISP.SYRIN SUBCUT SCH (10:49)
[2017-11-24] MEDS: LACTOBACILLUS ACIDOPHILUS 250 MG TAB PO SCH ×2 (10:52→17:41)
[2017-11-24] MEDS: CIPROFLOXACIN HCL 500 MG TABLET PO SCH ×2 (10:53→22:06)
[2017-11-24] MEDS: POTASSIUM CHLORIDE 10 MEQ TABLET.SA PO SCH (10:54)
[2017-11-24] MEDS: FUROSEMIDE 20 MG TABLET PO SCH (10:54)
[2017-11-24] MEDS: ASCORBIC ACID 500 MG TABLET PO SCH ×2 (10:54→17:41)
[2017-11-24] MEDS: NORMAL SALINE 10 ML SDV (SCHEDULED) IV SCH ×2 (10:55→22:06)
[2017-11-24] MEDS: MULTIVITAMIN TABLET PO SCH (11:22)
[2017-11-24] MEDS: METOPROLOL TARTRATE 25 MG TABLET PO SCH ×2 (11:23→22:04)
--- NOTE | 2017-11-24 11:55 | PDOC PROGRESS REPORT ---
Subjective Progress Note for:: 11/24/17 Subjective:: Patient relates that pain is some better. He was able to sleep at least an hour. Review of systems All organ systems evaluated and negative except as in subjective All significant diagnostics and laboratories have been reviewed Reason For Visit: ARF, HYPOKALEMIA, RIGHT LEG CELLULITIS Physical Exam Vital Signs: Temp Pulse Resp BP Pulse Ox 98.1 F 60 16 109/67 98 11/24/17 03:47 11/24/17 03:47 11/24/17 03:47 11/24/17 03:47 11/24/17 03:47 Intake & Output 11/23/17 11/24/17 11/25/17 06:59 06:59 06:59 Intake Total 1536 902 Output Total 2125 450 Balance -589 452 Weight 89.4 kg 88.6 kg General appearance: PRESENT: no acute distress, cooperative, obese Head exam: PRESENT: atraumatic, normocephalic Eye exam: PRESENT: conjunctiva pink, EOMI, PERRLA Ear exam: PRESENT: normal external ear exam Mouth exam: PRESENT: moist Neck exam: PRESENT: full ROM. ABSENT: JVD, lymphadenopathy, tenderness Respiratory exam: PRESENT: clear to auscultation jose. ABSENT: tachypnea, unlabored Cardiovascular exam: PRESENT: irregular rhythm. ABSENT: diastolic murmur, systolic murmur Vascular exam: PRESENT: normal capillary refill GI/Abdominal exam: PRESENT: normal bowel sounds, soft. ABSENT: tenderness Extremities exam: PRESENT: other - Right foot covered with clean dressings Musculoskeletal exam: ABSENT: ambulatory Neurological exam: PRESENT: alert, awake, oriented to person, oriented to place , oriented to time, oriented to situation, CN II-XII grossly intact Psychiatric exam: PRESENT: appropriate affect, normal mood Results Laboratory Results: 11/24/17 06:15 11/24/17 06:15 11/24/17 11/24/17 06:15 06:15 WBC 6.7 RBC 3.47 L Hgb 9.7 L Hct 29.8 L MCV 86 MCH 28.0 MCHC 32.7 RDW 14.9 H Plt Count 286 Seg Neutrophils % 71.2 Lymphocytes % 19.8 Monocytes % 5.9 Eosinophils % 1.8 Basophils % 1.3 Absolute Neutrophils 4.8 Absolute Lymphocytes 1.3 Absolute Monocytes 0.4 Absolute Eosinophils 0.1 Absolute Basophils 0.1 Sodium 141.1 Potassium 4.0 Chloride 103 Carbon Dioxide 31 H Anion Gap 7 BUN 47 H Creatinine 0.96 Est GFR ( Amer) > 60 Est GFR (Non-Af Amer) > 60 Glucose 96 Calcium 9.5 Magnesium 2.2 Total Bilirubin 0.3 AST 23 ALT 33 Alkaline Phosphatase 82 Total Protein 5.8 L Albumin 2.7 L Impressions: Venous Doppler Study 11/12/17 13:41 IMPRESSION: NO EVIDENCE DVT OR SVT IN THE RIGHT LEG. Chest X-Ray 11/12/17 17:44 IMPRESSION: CARDIAC ENLARGEMENT WITHOUT FAILURE. Foot X-Ray 11/19/17 00:00 IMPRESSION: Severe osteopenia. Cortical disruption of the distal 4th and 5th meta tarsals which may represent osteomyelitis. Guidance Fluoroscopy 11/20/17 00:00 IMPRESSION: SUCCESSFUL PLACEMENT OF A 5 FR DUAL LUMEN 48 CM PICC IN THE LEFT BASILIC VEIN. Interventional Vascular Procedure 11/20/17 00:00 IMPRESSION: SUCCESSFUL PLACEMENT OF A 5 FR DUAL LUMEN 48 CM PICC IN THE LEFT BASILIC VEIN. PICC Line Insertion 11/20/17 11:57 IMPRESSION: SUCCESSFUL PLACEMENT OF A 5 FR DUAL LUMEN 48 CM PICC IN THE LEFT BASILIC VEIN. Assessment & Plan - Diagnosis (1) Acute renal failure Qualifiers: Acute renal failure type: unspecified Qualified Code(s): N17.9 - Acute kidney failure, unspecified Is this a current diagnosis for this admission?: Yes Plan: Of diuretic. Will continue gentle hydration. Will order stool for occult blood since BUN primarily elevated. To trend (2) Cellulitis Qualifiers: Site of cellulitis: extremity Site of cellulitis of extremity: lower extremity Laterality: right Qualified Code(s): L03.115 - Cellulitis of right lower limb Is this a current diagnosis for this admission?: Yes Plan: Continue clindamycin and Cipro. Continue fentanyl patch and increase gabapentin (3) Gout attack Qualifiers: Gout site: multiple sites Is this a current diagnosis for this admission?: Yes Plan: Continue present management (4) Hypokalemia Is this a current diagnosis for this admission?: Yes Plan: Replaced (5) Osteomyelitis Qualifiers: Osteomyelitis location: foot Laterality: right Is this a current diagnosis for this admission?: Yes Plan: Continue clindamycin and Cipro p.o. due to good bone penetration. Patient had been made aware that he may end up losing his foot. For debridment today. (6) Diabetes Qualifiers: Diabetes mellitus type: type 2 Diabetes mellitus complication status: with circulatory complication Diabetes mellitus complication detail: with peripheral angiopathy with gangrene Diabetes mellitus bread icer insulin use: without chcf use Qualified Code(s): E11.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 Is this a current diagnosis for this admission?: Yes Plan: Continue bedside glucose AC and HS and cover with Humalog sliding scale (7) Atrial fibrillation and flutter Is this a current diagnosis for this admission?: Yes Plan: Rate is controlled. Patient had been placed on enteric-coated aspirin due to risk of falls and there was a concern of bleeding if fully anticoagulated - Time Time Spent with patient: 15-24 minutes Medications reviewed and adjusted accordingly: Yes Anticipated discharge: SNF - Patient will require placement. - Inpatient Certification Based on my medical assessment, after consideration of the patient's comorbidities, presenting symptoms, or acuity I expect that the services needed warrant INPATIENT care.: Yes I certify that my determination is in accordance with my understanding of Medicare's requirements for reasonable and necessary INPATIENT services [42 CFR 412.3e].: Yes Medical Necessity: Need Close Monitoring Due to Risk of Patient Decompensation, Need for Pain Control
[2017-11-24] MEDS ORDERED: FENTANYL CITRATE INJ/PF 100 MCG/2 ML AMPUL ONE ×2 (17:19)
[2017-11-24] MEDS ORDERED: MIDAZOLAM 2 MG/2 ML INJ ONE ×2 (17:19→17:21)
[2017-11-24] MEDS ORDERED: PROPOFOL INJ 200 MG/20 ML VIAL IV ONE (17:20)
--- NOTE | 2017-11-24 17:35 | EKG REPORT ---
SEVERITY:- ABNORMAL ECG - ATRIAL FIBRILLATION NONSPECIFIC ST-T CHANGES- INFERIOR LEADS : Confirmed by: Billy Smalls MD 24-Nov-2017 17:33:54
[2017-11-24] MEDS: ASPIRIN 325 MG TABLET, ENT COATED PO SCH (17:41)
[2017-11-24] MEDS: CALCIUM CARBONATE 500 MG TABLET PO SCH ×2 (17:46→18:00)
[2017-11-24] MEDS ORDERED: DEXMEDETOMIDINE INJ 80 MCG/20 ML VIAL IV ONE (18:40)
[2017-11-24] MEDS ORDERED: KETAMINE HCL INJ 500 MG/10 ML VIAL ONE (18:41)
[2017-11-24] MEDS ORDERED: DIPHENHYDRAMINE HCL 50 MG/ML VIAL IV PRN (19:36)
[2017-11-24] MEDS ORDERED: PROMETHAZINE HCL INJ 25 MG/1 ML VIAL IV PRN (19:36)
--- NOTE | 2017-11-24 20:18 | PDOC PROGRESS REPORT ---
Subjective Progress Note for:: 11/24/17 Subjective:: No new complaints Reason For Visit: ARF, HYPOKALEMIA, RIGHT LEG CELLULITIS Physical Exam Vital Signs: Temp Pulse Resp BP Pulse Ox 97.7 F 63 20 100/62 96 11/24/17 15:17 11/24/17 15:17 11/24/17 15:17 11/24/17 15:17 11/24/17 15:17 Intake & Output 11/23/17 11/24/17 11/25/17 06:59 06:59 06:59 Intake Total 1536 902 Output Total 2125 450 750 Balance -589 452 -750 Weight 89.4 kg 88.6 kg General appearance: PRESENT: no acute distress Head exam: PRESENT: normocephalic Eye exam: PRESENT: EOMI Mouth exam: PRESENT: moist Respiratory exam: PRESENT: clear to auscultation jose, unlabored Cardiovascular exam: PRESENT: RRR, +S1, +S2 GI/Abdominal exam: PRESENT: normal bowel sounds, soft Extremities exam: PRESENT: other - Right foot with a 6.7cm x 6cm x 1cm ulcer on the dorsum. There is a necrotic patch of skin, 3cm x 6cm with a tonya drain running deep to the skin from the medial to the lateral aspect of this necrotic patch and tied to itself in the middle; there is also slough on the floor of the ulcer. The right foot is grossly edematous 3+. There is also a linear skin abrasion on the lateral aspect of the right leg about 12cm in longitudinal length x 2cm in width x 0.1mm with dark eschar measuring 2.5cm x 2cm at the most cranial portion of the abrasion. Neurological exam: PRESENT: alert, awake, oriented to person, oriented to place , oriented to time, oriented to situation, CN II-XII grossly intact Skin exam: PRESENT: other - Right foot with a 6.7cm x 6cm x 1cm ulcer on the dorsum. There is a necrotic patch of skin, 3cm x 6cm with a tonya drain running deep to the skin from the medial to the lateral aspect of this necrotic patch and tied to itself in the middle; there is also slough on the floor of the ulcer. The right foot is grossly edematous 3+. There is also a linear skin abrasion on the lateral aspect of the right leg about 12cm in longitudinal length x 2cm in width x 0.1mm with dark eschar measuring 2.5cm x 2cm at the most cranial portion of the abrasion. Results Laboratory Results: 11/24/17 06:15 11/24/17 06:15 18 11/24/17 06:15 06:15 WBC 6.7 RBC 3.47 L Hgb 9.7 L Hct 29.8 L MCV 86 MCH 28.0 MCHC 32.7 RDW 14.9 H Plt Count 286 Seg Neutrophils % 71.2 Lymphocytes % 19.8 Monocytes % 5.9 Eosinophils % 1.8 Basophils % 1.3 Absolute Neutrophils 4.8 Absolute Lymphocytes 1.3 Absolute Monocytes 0.4 Absolute Eosinophils 0.1 Absolute Basophils 0.1 Sodium 141.1 Potassium 4.0 Chloride 103 Carbon Dioxide 31 H Anion Gap 7 BUN 47 H Creatinine 0.96 Est GFR ( Amer) > 60 Est GFR (Non-Af Amer) > 60 Glucose 96 Calcium 9.5 Magnesium 2.2 Total Bilirubin 0.3 AST 23 ALT 33 Alkaline Phosphatase 82 Total Protein 5.8 L Albumin 2.7 L Impressions: Venous Doppler Study 11/12/17 13:41 IMPRESSION: NO EVIDENCE DVT OR SVT IN THE RIGHT LEG. Chest X-Ray 11/12/17 17:44 IMPRESSION: CARDIAC ENLARGEMENT WITHOUT FAILURE. Foot X-Ray 11/19/17 00:00 IMPRESSION: Severe osteopenia. Cortical disruption of the distal 4th and 5th meta tarsals which may represent osteomyelitis. Guidance Fluoroscopy 11/20/17 00:00 IMPRESSION: SUCCESSFUL PLACEMENT OF A 5 FR DUAL LUMEN 48 CM PICC IN THE LEFT BASILIC VEIN. Interventional Vascular Procedure 11/20/17 00:00 IMPRESSION: SUCCESSFUL PLACEMENT OF A 5 FR DUAL LUMEN 48 CM PICC IN THE LEFT BASILIC VEIN. PICC Line Insertion 11/20/17 11:57 IMPRESSION: SUCCESSFUL PLACEMENT OF A 5 FR DUAL LUMEN 48 CM PICC IN THE LEFT BASILIC VEIN. Assessment & Plan - Diagnosis (1) Diabetic infection of right foot Is this a current diagnosis for this admission?: Yes Plan: The patient is scheduled for a debridement of the ulcer today (2) Cellulitis Qualifiers: Site of cellulitis: extremity Site of cellulitis of extremity: lower extremity Laterality: right Qualified Code(s): L03.115 - Cellulitis of right lower limb Is this a current diagnosis for this admission?: Yes Plan: Continue antibiotics (3) Edema of right foot Is this a current diagnosis for this admission?: Yes - Time Time Spent with patient: 15-24 minutes Anticipated discharge: Home with Homehealth
[2017-11-24] MEDS ORDERED: METOLAZONE 5 MG TABLET PO PRN (20:31)
--- NOTE | 2017-11-24 20:31 | Operative Report ---
Operative Report DATE OF SURGERY: 11/24/17 PREOPERATIVE DIAGNOSIS: Residual gangrenous tissue in right foot ulcer POSTOPERATIVE DIAGNOSIS: Residual gangrenous tissue in right foot ulcer OPERATION: Excisional debridement of gangrenous right foot ulcer with scalpel blade to subcutaneous layer and granulation tissue SURGEON: Arelis Robles ANESTHESIA: LMAC TISSUE REMOVED OR ALTERED: skin and subcutaneous tissue COMPLICATIONS: None ESTIMATED BLOOD LOSS: 75 ml INTRAOPERATIVE FINDINGS: see below PROCEDURE: The patient was brought to the operating room and placed on the operating table. IV General Anesthesia was adminjistered and he was positioned supine with the right leg elevated on a bumper. The right foot and leg were prepped with betadine and sterile drapes to expose the foot and leg. Under sterile aseptic conditions, using the scalpel blade (#10 and #15) the gangrenous skin in the middle of the ulcer was excised along with a 1mm margin of skin at the periphery of the ulcer which also had spots of gangrene. Slough in the floor of the ulcer was excised with to healthy freely bleeding granulation tissue. The lateral leg eschar was excised as well. The wounds were irrigated and dressed with half inch iodoform gauze, 4x4 , ABD and kerlex to the foot and adaptic 4x4 and kerlex to the leg all held with 4 inch shantell wraps. The patient tolerated the procedure well, and was taken to the PACU in stable condition.
[2017-11-24] MEDS: MIRTAZAPINE 15 MG TABLET PO SCH (22:05)
[2017-11-25] MEDS: CLINDAMYCIN HCL 150 MG CAPSULE PO SCH ×3 (06:02→23:00)
[2017-11-25] MEDS: GABAPENTIN 300 MG CAPSULE PO SCH ×3 (06:03→23:00)
[2017-11-25] MEDS: ENOXAPARIN SODIUM INJ 40 MG/0.4 ML DISP.SYRIN SUBCUT SCH (09:57)
[2017-11-25] MEDS: ALLOPURINOL 100 MG TABLET PO SCH ×2 (09:57→17:45)
[2017-11-25] MEDS: ASCORBIC ACID 500 MG TABLET PO SCH ×2 (09:57→17:44)
[2017-11-25] MEDS: CALCIUM CARBONATE 500 MG TABLET PO SCH ×2 (09:57→17:45)
[2017-11-25] MEDS: MULTIVITAMIN TABLET PO SCH (09:58)
[2017-11-25] MEDS: LACTOBACILLUS ACIDOPHILUS 250 MG TAB PO SCH ×2 (09:58→17:44)
[2017-11-25] MEDS: CIPROFLOXACIN HCL 500 MG TABLET PO SCH ×2 (09:58→23:01)
[2017-11-25] MEDS: NORMAL SALINE 1000 ML 1,000 ML IV PRN ×2 (10:00→18:14)
[2017-11-25] MEDS: DOCUSATE SODIUM 100 MG CAPSULE PO SCH ×2 (10:01→17:46)
[2017-11-25] MEDS: NORMAL SALINE 10 ML SDV (SCHEDULED) IV SCH ×2 (10:01→23:01)
[2017-11-25 10:42] LABS: ABSOLUTE BASOPHILS # (AUTO) 0.1 10^3/uL (0.0-0.2); ABSOLUTE EOSINOPHILS # (AUTO) 0.1 10^3/uL (0.0-0.6); ABSOLUTE LYMPHOCYTES (AUTO) 0.9 10^3/uL (0.5-4.7); ABSOLUTE MONOCYTES (AUTO) 0.4 10^3/uL (0.1-1.4); ABSOLUTE NEUT (AUTO) 5.5 10^3/uL (1.7-8.2); BASOPHILS % (AUTO) 0.8 % (0-2); EOSINOPHILS % (AUTO) 0.9 % (0-6); HEMATOCRIT 26.8 % (37.9-51.0); HEMOGLOBIN 8.8 g/dL (13.5-17.0); LYMPHOCYTES % (AUTO) 13.1 % (13-45); MEAN CORPUSCULAR HGB CONC 32.9 g/dL (32.0-36.0); MEAN CORPUSCULAR VOLUME 85 fl (80-97); MONOCYTES % (AUTO) 6.3 % (3-13); PLATELET COUNT 249 10^3/uL (150-450); RED BLOOD COUNT 3.15 10^6/uL (4.35-5.55); RED CELL DISTRIBUTION WIDTH 14.9 % (11.5-14.0); SEGMENTED NEUTROPHILS % (AUTO) 78.9 % (42-78); TOTAL CELLS COUNTED % (AUTO) 100 %
[2017-11-25] MEDS: ACETAMINOPHEN 325 MG TABLET PO PRN ×2 (10:51→23:02)
[2017-11-25 11:06] LABS: ALANINE AMINOTRANSFERASE 36 U/L (21-72); ALBUMIN 2.2 g/dL (3.5-5.0); ALKALINE PHOSPHATASE 98 U/L (38-126); ANION GAP 6 (5-19); ASPARTATE AMINO TRANSFERASE 44 U/L (17-59); BILIRUBIN,DIRECT 0.5 mg/dL (0.0-0.4); BILIRUBIN,TOTAL 0.7 mg/dL (0.2-1.3); BLOOD UREA NITROGEN 30 mg/dL (7-20); CALCIUM 8.1 mg/dL (8.4-10.2); CARBON DIOXIDE 26 mmol/L (22-30); CHLORIDE 110 mmol/L (98-107); GLUCOSE 124 mg/dL (75-110); MAGNESIUM 1.6 mg/dL (1.6-2.3); POTASSIUM 3.3 mmol/L (3.6-5.0); SODIUM 141.8 mmol/L (137-145)
[2017-11-25] MEDS ORDERED: RINGERS SOLUTION,LACTATED 500 ML IV ONE ×2 (13:05→13:30)
[2017-11-25] MEDS ORDERED: POTASSIUM CHLORIDE 10 MEQ TABLET.SA PO ONE (14:00)
[2017-11-25] MEDS: METOPROLOL TARTRATE 25 MG TABLET PO SCH ×2 (14:57→23:03)
[2017-11-25] MEDS: FUROSEMIDE 40 MG TABLET PO SCH ×2 (15:00→17:46)
[2017-11-25] MEDS ORDERED: OXYCODONE-ACETAMINOPHEN 5-325 MG TABLET ONE (15:23)
--- NOTE | 2017-11-25 16:19 | PDOC PROGRESS REPORT ---
Subjective Progress Note for:: 11/25/17 Subjective:: POD #1 s/p repeat excisional debridement right foot. Feels fatigued today but eating much better now. Reason For Visit: ARF, HYPOKALEMIA, RIGHT LEG CELLULITIS Physical Exam Vital Signs: Temp Pulse Resp BP Pulse Ox 97.6 F 73 19 150/76 H 99 11/25/17 02:10 11/25/17 07:00 11/25/17 02:10 11/25/17 02:10 11/25/17 02:10 Intake & Output 11/24/17 11/25/17 11/26/17 06:59 06:59 06:59 Intake Total 902 3200 Output Total 450 2200 Balance 452 1000 Weight 88.6 kg 88.6 kg General appearance: PRESENT: no acute distress Eye exam: PRESENT: EOMI Respiratory exam: PRESENT: clear to auscultation jose, unlabored Cardiovascular exam: PRESENT: RRR, +S1, +S2 GI/Abdominal exam: PRESENT: normal bowel sounds, soft Extremities exam: PRESENT: other - Right foot edematous 2+; 8cm x 7cm x 1.5cm ulcer on the dorsum of the foot appears clean today. Neurological exam: PRESENT: alert, awake, oriented to person, oriented to place , oriented to time, oriented to situation, CN II-XII grossly intact Results Laboratory Results: 11/25/17 10:10 11/25/17 10:10 11/25/17 11/25/17 10:10 10:10 WBC 7.0 RBC 3.15 L Hgb 8.8 L Hct 26.8 L MCV 85 MCH 28.0 MCHC 32.9 RDW 14.9 H Plt Count 249 Seg Neutrophils % 78.9 H Lymphocytes % 13.1 Monocytes % 6.3 Eosinophils % 0.9 Basophils % 0.8 Absolute Neutrophils 5.5 Absolute Lymphocytes 0.9 Absolute Monocytes 0.4 Absolute Eosinophils 0.1 Absolute Basophils 0.1 Sodium 141.8 Potassium 3.3 L Chloride 110 H Carbon Dioxide 26 Anion Gap 6 BUN 30 H Creatinine 0.80 Est GFR ( Amer) > 60 Est GFR (Non-Af Amer) > 60 Glucose 124 H Calcium 8.1 L Magnesium 1.6 Total Bilirubin 0.7 AST 44 ALT 36 Alkaline Phosphatase 98 Total Protein 5.0 L Albumin 2.2 L Impressions: Venous Doppler Study 11/12/17 13:41 IMPRESSION: NO EVIDENCE DVT OR SVT IN THE RIGHT LEG. Chest X-Ray 11/12/17 17:44 IMPRESSION: CARDIAC ENLARGEMENT WITHOUT FAILURE. Foot X-Ray 11/19/17 00:00 IMPRESSION: Severe osteopenia. Cortical disruption of the distal 4th and 5th meta tarsals which may represent osteomyelitis. Guidance Fluoroscopy 11/20/17 00:00 IMPRESSION: SUCCESSFUL PLACEMENT OF A 5 FR DUAL LUMEN 48 CM PICC IN THE LEFT BASILIC VEIN. Interventional Vascular Procedure 11/20/17 00:00 IMPRESSION: SUCCESSFUL PLACEMENT OF A 5 FR DUAL LUMEN 48 CM PICC IN THE LEFT BASILIC VEIN. PICC Line Insertion 11/20/17 11:57 IMPRESSION: SUCCESSFUL PLACEMENT OF A 5 FR DUAL LUMEN 48 CM PICC IN THE LEFT BASILIC VEIN. Assessment & Plan - Diagnosis (1) Diabetic infection of right foot Is this a current diagnosis for this admission?: Yes Plan: Danny go ahead and apply a wound vac to the right foot wound. Patient can be discharged from the surgical standpoint once home health is arranged for home wound vac. Wound vac at 125 mmHg, continuous therapy with black sponge, change q 72 hrs. F/U in wound care center on discharge. (2) Cellulitis Qualifiers: Site of cellulitis: extremity Site of cellulitis of extremity: lower extremity Laterality: right Qualified Code(s): L03.115 - Cellulitis of right lower limb Is this a current diagnosis for this admission?: Yes (3) Edema of right foot Is this a current diagnosis for this admission?: Yes - Time Time Spent with patient: 35 or more minutes Total Critical Time (Minutes): 30 Anticipated discharge: Home with Homehealth Within: within 24 hours
--- NOTE | 2017-11-25 17:08 | PDOC PROGRESS REPORT ---
Subjective Progress Note for:: 11/25/17 Subjective:: Patient just had wound VAC placed and is having pretty significant pain in the right foot. Other than that he is eating and drinking without too much difficulty. Bowels are normal for him at this time. No difficulty with urination. No chest pain or shortness of breath. No headache or vision changes. Discussed his discharge plan at length. He is willing to go into rehab for physical therapy if possible. He lives alone and has been unable to walk with the wound VAC due to significant pain. Reason For Visit: ARF, HYPOKALEMIA, RIGHT LEG CELLULITIS Physical Exam Vital Signs: Temp Pulse Resp BP Pulse Ox 97.6 F 73 19 150/76 H 99 11/25/17 02:10 11/25/17 07:00 11/25/17 02:10 11/25/17 02:10 11/25/17 02:10 Intake & Output 11/24/17 11/25/17 11/26/17 06:59 06:59 06:59 Intake Total 902 3200 Output Total 450 2200 Balance 452 1000 Weight 88.6 kg 88.6 kg General appearance: PRESENT: no acute distress, cooperative, obese Eye exam: PRESENT: conjunctiva pink, EOMI. ABSENT: scleral icterus Mouth exam: PRESENT: moist, neck supple Neck exam: ABSENT: lymphadenopathy Respiratory exam: PRESENT: clear to auscultation jose, crackles, unlabored. ABSENT: rales, tachypnea, wheezes Cardiovascular exam: PRESENT: RRR. ABSENT: systolic murmur Pulses: PRESENT: normal radial pulses GI/Abdominal exam: PRESENT: normal bowel sounds, soft. ABSENT: distended, guarding, rebound, tenderness Rectal exam: PRESENT: deferred Extremities exam: ABSENT: pedal edema Neurological exam: PRESENT: alert, awake, oriented to person, oriented to place , oriented to situation, CN II-XII grossly intact Psychiatric exam: PRESENT: appropriate affect. ABSENT: anxious Skin exam: PRESENT: dry, other - Wound VAC in place over right dorsal surface of foot, cellulitis improved Results Laboratory Results: 11/25/17 10:10 11/25/17 10:10 11/25/17 11/25/17 10:10 10:10 WBC 7.0 RBC 3.15 L Hgb 8.8 L Hct 26.8 L MCV 85 MCH 28.0 MCHC 32.9 RDW 14.9 H Plt Count 249 Seg Neutrophils % 78.9 H Lymphocytes % 13.1 Monocytes % 6.3 Eosinophils % 0.9 Basophils % 0.8 Absolute Neutrophils 5.5 Absolute Lymphocytes 0.9 Absolute Monocytes 0.4 Absolute Eosinophils 0.1 Absolute Basophils 0.1 Sodium 141.8 Potassium 3.3 L Chloride 110 H Carbon Dioxide 26 Anion Gap 6 BUN 30 H Creatinine 0.80 Est GFR ( Amer) > 60 Est GFR (Non-Af Amer) > 60 Glucose 124 H Calcium 8.1 L Magnesium 1.6 Total Bilirubin 0.7 AST 44 ALT 36 Alkaline Phosphatase 98 Total Protein 5.0 L Albumin 2.2 L Impressions: Venous Doppler Study 11/12/17 13:41 IMPRESSION: NO EVIDENCE DVT OR SVT IN THE RIGHT LEG. Chest X-Ray 11/12/17 17:44 IMPRESSION: CARDIAC ENLARGEMENT WITHOUT FAILURE. Foot X-Ray 11/19/17 00:00 IMPRESSION: Severe osteopenia. Cortical disruption of the distal 4th and 5th meta tarsals which may represent osteomyelitis. Guidance Fluoroscopy 11/20/17 00:00 IMPRESSION: SUCCESSFUL PLACEMENT OF A 5 FR DUAL LUMEN 48 CM PICC IN THE LEFT BASILIC VEIN. Interventional Vascular Procedure 11/20/17 00:00 IMPRESSION: SUCCESSFUL PLACEMENT OF A 5 FR DUAL LUMEN 48 CM PICC IN THE LEFT BASILIC VEIN. PICC Line Insertion 11/20/17 11:57 IMPRESSION: SUCCESSFUL PLACEMENT OF A 5 FR DUAL LUMEN 48 CM PICC IN THE LEFT BASILIC VEIN. Assessment & Plan - Diagnosis (1) Acute renal failure Qualifiers: Acute renal failure type: unspecified Qualified Code(s): N17.9 - Acute kidney failure, unspecified Is this a current diagnosis for this admission?: Yes Plan: Creatinine normal. BUN improving. Patient's hydration is improving. We will continue to monitor and avoid nephrotoxins. (2) Atrial fibrillation and flutter Is this a current diagnosis for this admission?: Yes Plan: Chronic. Rate is currently controlled. We have restarted his metoprolol 12.5 mg p.o. twice daily. Due to fall risk and concern for significant bleeding patient is only on aspirin. (3) Cellulitis Qualifiers: Site of cellulitis: extremity Site of cellulitis of extremity: lower extremity Laterality: right Qualified Code(s): L03.115 - Cellulitis of right lower limb Is this a current diagnosis for this admission?: Yes Plan: Much improved. Continue clindamycin. Patient has been debrided and now has wound VAC in place. (4) Chronic pain Qualifiers: Chronic pain type: other chronic pain Qualified Code(s): G89.29 - Other chronic pain Is this a current diagnosis for this admission?: Yes Plan: She is chronically on a fentanyl patch and that is in place. 100 mcg every 3 days. He is receiving 1 dose of Dilaudid 0.5 mg IV 1 now due to pain secondary to wound VAC placement. (5) Diabetes Qualifiers: Diabetes mellitus type: type 2 Diabetes mellitus complication status: with circulatory complication Diabetes mellitus complication detail: with peripheral angiopathy with gangrene Diabetes mellitus exterminator helper insulin use: without exterminator helper use Qualified Code(s): E11.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 Is this a current diagnosis for this admission?: Yes Plan: This is a new diagnosis for this patient. He will need diabetic education and to be discharged on diabetic meds. Diabetic diet will be ordered. (6) Diabetic infection of right foot Is this a current diagnosis for this admission?: Yes Plan: Patient is on clindamycin and has had his right foot wound debrided. Wound VAC is in place. We are working on a discharge plan. Diabetic education has been ordered. Will work on BG control. Diabetic diet. Weight loss was also discussed with this patient today. (7) Hypokalemia Is this a current diagnosis for this admission?: Yes Plan: Patient has been repleted with 40 mEq of potassium this afternoon and we will add another 40 equivalents for this evening. His potassium this morning was 3.3. Will recheck potassium in the morning. - Time Time Spent with patient: 25-34 minutes Medications reviewed and adjusted accordingly: Yes Anticipated discharge: Acute Rehab Within: within 48 hours - Inpatient Certification Medical Necessity: Significant Comorbidiites Make Outpatient Treatment Too Risky , Need Close Monitoring Due to Risk of Patient Decompensation Post Hospital Care: D/C Territory Development Manager Documentation - Please eval for appropriateness for acute rehab
[2017-11-25] MEDS: ASPIRIN 325 MG TABLET, ENT COATED PO SCH (17:45)
[2017-11-25] MEDS ORDERED: HYDROMORPHONE HCL INJ/PF 2 MG/ML AMPULE IV ONE (18:00)
[2017-11-25] MEDS: POTASSIUM CHLORIDE 10 MEQ TABLET.SA PO SCH (23:01)
[2017-11-25] MEDS: MIRTAZAPINE 15 MG TABLET PO SCH (23:02)
[2017-11-26] MEDS ORDERED: KETOROLAC TROMETHAMINE INJ/PF 30 MG/1 ML SDV IV PRN (01:22)
[2017-11-26] MEDS: GABAPENTIN 300 MG CAPSULE PO SCH ×3 (06:04→22:58)
[2017-11-26] MEDS: OXYCODONE HCL IR 5 MG TABLET PO PRN ×2 (06:04→22:59)
[2017-11-26] MEDS: CLINDAMYCIN HCL 150 MG CAPSULE PO SCH ×3 (06:04→22:59)
[2017-11-26 08:54] LABS: HEMATOCRIT 25.1 % (37.9-51.0); HEMOGLOBIN 8.2 g/dL (13.5-17.0); MEAN CORPUSCULAR HEMOGLOBIN 27.9 pg (27.0-33.4); MEAN CORPUSCULAR HGB CONC 32.5 g/dL (32.0-36.0); MEAN CORPUSCULAR VOLUME 86 fl (80-97); PLATELET COUNT 234 10^3/uL (150-450); RED BLOOD COUNT 2.92 10^6/uL (4.35-5.55); RED CELL DISTRIBUTION WIDTH 14.9 % (11.5-14.0); WHITE BLOOD COUNT 6.1 10^3/uL (4.0-10.5)
--- NOTE | 2017-11-26 09:04 | PDOC PROGRESS REPORT ---
Subjective Progress Note for:: 11/26/17 Reason For Visit: ARF, HYPOKALEMIA, RIGHT LEG CELLULITIS Still reports pain right foot, but he is doing much better compared to last week. He did get up physical therapy 2 days ago, and shuffled. The last time he walked was using 2 canes several weeks ago prior to hospitalization. Wound VAC in place, well tolerated, minimal drainage Physical Exam Vital Signs: Temp Pulse Resp BP Pulse Ox 98.2 F 71 17 135/66 H 99 11/26/17 07:47 11/26/17 07:47 11/26/17 07:47 11/26/17 07:47 11/26/17 07:47 Intake & Output 11/25/17 11/26/17 11/27/17 06:59 06:59 06:59 Intake Total 3200 3775 Output Total 2200 1825 Balance 1000 1950 Weight 88.6 kg 90.2 kg General appearance: PRESENT: no acute distress Extremities exam: PRESENT: other - Lower extremity examined, dressings removed. In general erythema edema discoloration all resolving; excoriated de- epithelialized area lateral aspect lower leg clean, granulating Wound VAC in place dorsal aspect right foot; unable to wiggle toes, estiven and invert his foot. Foot edema minimal Results Laboratory Results: 11/26/17 08:15 11/25/17 11/25/17 11/25/17 10:10 10:10 17:20 WBC 7.0 RBC 3.15 L Hgb 8.8 L Hct 26.8 L MCV 85 MCH 28.0 MCHC 32.9 RDW 14.9 H Plt Count 249 Seg Neutrophils % 78.9 H Lymphocytes % 13.1 Monocytes % 6.3 Eosinophils % 0.9 Basophils % 0.8 Absolute Neutrophils 5.5 Absolute Lymphocytes 0.9 Absolute Monocytes 0.4 Absolute Eosinophils 0.1 Absolute Basophils 0.1 Sodium 141.8 Potassium 3.3 L Chloride 110 H Carbon Dioxide 26 Anion Gap 6 BUN 30 H Creatinine 0.80 Est GFR ( Amer) > 60 Est GFR (Non-Af Amer) > 60 Glucose 124 H Calcium 8.1 L Magnesium 1.6 Total Bilirubin 0.7 AST 44 ALT 36 Alkaline Phosphatase 98 Total Protein 5.0 L Albumin 2.2 L Stool Occult Blood NEGATIVE 11/26/17 08:15 WBC 6.1 RBC 2.92 L Hgb 8.2 L Hct 25.1 L MCV 86 MCH 27.9 MCHC 32.5 RDW 14.9 H Plt Count 234 Seg Neutrophils % Lymphocytes % Monocytes % Eosinophils % Basophils % Absolute Neutrophils Absolute Lymphocytes Absolute Monocytes Absolute Eosinophils Absolute Basophils Sodium Potassium Chloride Carbon Dioxide Anion Gap BUN Creatinine Est GFR ( Amer) Est GFR (Non-Af Amer) Glucose Calcium Magnesium Total Bilirubin AST ALT Alkaline Phosphatase Total Protein Albumin Stool Occult Blood Impressions: Venous Doppler Study 11/12/17 13:41 IMPRESSION: NO EVIDENCE DVT OR SVT IN THE RIGHT LEG. Chest X-Ray 11/12/17 17:44 IMPRESSION: CARDIAC ENLARGEMENT WITHOUT FAILURE. Foot X-Ray 11/19/17 00:00 IMPRESSION: Severe osteopenia. Cortical disruption of the distal 4th and 5th meta tarsals which may represent osteomyelitis. Guidance Fluoroscopy 11/20/17 00:00 IMPRESSION: SUCCESSFUL PLACEMENT OF A 5 FR DUAL LUMEN 48 CM PICC IN THE LEFT BASILIC VEIN. Interventional Vascular Procedure 11/20/17 00:00 IMPRESSION: SUCCESSFUL PLACEMENT OF A 5 FR DUAL LUMEN 48 CM PICC IN THE LEFT BASILIC VEIN. PICC Line Insertion 11/20/17 11:57 IMPRESSION: SUCCESSFUL PLACEMENT OF A 5 FR DUAL LUMEN 48 CM PICC IN THE LEFT BASILIC VEIN. Assessment & Plan - Diagnosis (1) Diabetic infection of right foot Is this a current diagnosis for this admission?: Yes Plan: Impression : Now 1 week status post damage control debridement right foot, followed by secondary debridement 48 hours ago, control of sepsis, placement of wound VAC. Growing Serratia marcescens, on ciprofloxacin p.o. twice daily. I am very impressed with the condition patient's foot and leg considering receives made over the last week. Recommendations: 1. Continue wound VAC therapy, dressing changes right lower extremity lateral calf wound 2. I spoke with physical therapy about getting patient up and weightbearing as tolerated, using a walker. 3. Options for wound closure dorsal surface right foot include continued healing by secondary intention versus split-thickness skin graft. This can be decided at a later time.
[2017-11-26 09:14] LABS: BLOOD UREA NITROGEN 27 mg/dL (7-20); CALCIUM 8.5 mg/dL (8.4-10.2); GLUCOSE 87 mg/dL (75-110); POTASSIUM 3.8 mmol/L (3.6-5.0)
[2017-11-26] MEDS: METOPROLOL TARTRATE 25 MG TABLET PO SCH ×2 (09:23→23:00)
[2017-11-26] MEDS: FUROSEMIDE 40 MG TABLET PO SCH ×2 (09:23→18:45)
[2017-11-26] MEDS: CALCIUM CARBONATE 500 MG TABLET PO SCH ×2 (09:24→18:45)
[2017-11-26] MEDS: LACTOBACILLUS ACIDOPHILUS 250 MG TAB PO SCH ×2 (09:24→18:44)
[2017-11-26] MEDS: ALLOPURINOL 100 MG TABLET PO SCH ×2 (09:25→18:45)
[2017-11-26] MEDS: CIPROFLOXACIN HCL 500 MG TABLET PO SCH ×2 (09:25→22:58)
[2017-11-26] MEDS: ASCORBIC ACID 500 MG TABLET PO SCH ×2 (09:25→18:45)
[2017-11-26] MEDS: MULTIVITAMIN TABLET PO SCH (09:25)
[2017-11-26] MEDS: POTASSIUM CHLORIDE 10 MEQ TABLET.SA PO SCH (09:26)
[2017-11-26] MEDS: FENTANYL 100 MCG/HR PATCH.TD72 TD SCH (09:26)
[2017-11-26 09:31] LABS: CARBON DIOXIDE 27 mmol/L (22-30); CHLORIDE 114 mmol/L (98-107); SODIUM 143.2 mmol/L (137-145)
[2017-11-26] MEDS: ENOXAPARIN SODIUM INJ 40 MG/0.4 ML DISP.SYRIN SUBCUT SCH (09:34)
[2017-11-26] MEDS: NORMAL SALINE 10 ML SDV (SCHEDULED) IV SCH ×2 (09:35→23:01)
[2017-11-26] MEDS: DOCUSATE SODIUM 100 MG CAPSULE PO SCH ×2 (09:35→18:47)
[2017-11-26 09:37] LABS: ANION GAP 2 (5-19)
[2017-11-26] MEDS ORDERED: MAG HYDROX/AL HYDROX/SIMETH SUSP 30 ML UDCUP PO PRN (10:30)
[2017-11-26] MEDS ORDERED: MAGNESIUM HYDROXIDE SUSP 30 ML UDCUP PO PRN (10:30)
[2017-11-26] MEDS: NORMAL SALINE 1000 ML 1,000 ML IV PRN (11:52)
--- NOTE | 2017-11-26 14:58 | OPERATIVE REPORT E ---
Operative Report NAME: ANALI STEELE : 1945 AGE: 72Y DATE OF SURGERY: 11/19/2017 ROOM: 436 ADDENDUM: The tools used to provide the debridement of the right foot included finger, suction, and curette. DICTATING PHYSICIAN: SUSANNA LOUISE M.D. [id number] PHY#: [id number] ID: [id number] JOB#: [id number] ACCT: [id number] cc:SUSANNA LOUISE M.D. >
[2017-11-26] MEDS ORDERED: HYDROMORPHONE HCL 2 MG TABLET PO PRN (18:00)
--- NOTE | 2017-11-26 18:25 | PDOC PROGRESS REPORT ---
Subjective Progress Note for:: 11/26/17 Subjective:: no cp or new SOB, sleeping well, tried to work with PT but it was pretty painful. No N/V, eating well. Feels motivated to get better and eventually get home. Reason For Visit: ARF, HYPOKALEMIA, RIGHT LEG CELLULITIS and soft tissue infection Physical Exam Vital Signs: Temp Pulse Resp BP Pulse Ox 98.7 F 94 15 133/81 H 94 11/26/17 15:49 11/26/17 15:49 11/26/17 15:49 11/26/17 15:49 11/26/17 15:49 Intake & Output 11/25/17 11/26/17 11/27/17 06:59 06:59 06:59 Intake Total 3200 3775 450 Output Total 2200 1825 Balance 1000 1950 450 Weight 88.6 kg 90.2 kg General appearance: PRESENT: mild distress, obese Head exam: PRESENT: atraumatic, normocephalic Eye exam: PRESENT: conjunctiva pink, EOMI Mouth exam: PRESENT: moist, neck supple Respiratory exam: PRESENT: clear to auscultation jose, unlabored Cardiovascular exam: PRESENT: RRR. ABSENT: systolic murmur GI/Abdominal exam: PRESENT: normal bowel sounds, soft. ABSENT: distended, guarding, tenderness Rectal exam: PRESENT: deferred Extremities exam: PRESENT: other - right foot with wound vac in place, no new cellulitis Neurological exam: PRESENT: alert, awake, oriented to person, oriented to place , oriented to situation, CN II-XII grossly intact Psychiatric exam: ABSENT: agitated, anxious Skin exam: PRESENT: dry, warm Results Laboratory Results: 11/26/17 08:15 11/26/17 08:15 11/26/17 11/26/17 08:15 08:15 WBC 6.1 RBC 2.92 L Hgb 8.2 L Hct 25.1 L MCV 86 MCH 27.9 MCHC 32.5 RDW 14.9 H Plt Count 234 Sodium 143.2 Potassium 3.8 Chloride 114 H Carbon Dioxide 27 Anion Gap 2 L BUN 27 H Creatinine 0.86 Est GFR ( Amer) > 60 Est GFR (Non-Af Amer) > 60 Glucose 87 Calcium 8.5 Impressions: Venous Doppler Study 11/12/17 13:41 IMPRESSION: NO EVIDENCE DVT OR SVT IN THE RIGHT LEG. Chest X-Ray 11/12/17 17:44 IMPRESSION: CARDIAC ENLARGEMENT WITHOUT FAILURE. Foot X-Ray 11/19/17 00:00 IMPRESSION: Severe osteopenia. Cortical disruption of the distal 4th and 5th meta tarsals which may represent osteomyelitis. Guidance Fluoroscopy 11/20/17 00:00 IMPRESSION: SUCCESSFUL PLACEMENT OF A 5 FR DUAL LUMEN 48 CM PICC IN THE LEFT BASILIC VEIN. Interventional Vascular Procedure 11/20/17 00:00 IMPRESSION: SUCCESSFUL PLACEMENT OF A 5 FR DUAL LUMEN 48 CM PICC IN THE LEFT BASILIC VEIN. PICC Line Insertion 11/20/17 11:57 IMPRESSION: SUCCESSFUL PLACEMENT OF A 5 FR DUAL LUMEN 48 CM PICC IN THE LEFT BASILIC VEIN. Assessment & Plan - Diagnosis (1) Acute renal failure Qualifiers: Acute renal failure type: unspecified Qualified Code(s): N17.9 - Acute kidney failure, unspecified Is this a current diagnosis for this admission?: Yes Plan: improved, cont current po intake, no med changes, will need to restart diuretics and will reassess tomorrow (2) Atrial fibrillation and flutter Is this a current diagnosis for this admission?: Yes Plan: heart rate stable, no med changes today, he is not anticoagulated chronically as it has been deemed he is high risk for bleed, I will discuss this with him tomorrow to assure that this is accurate (3) Cellulitis Qualifiers: Site of cellulitis: extremity Site of cellulitis of extremity: lower extremity Laterality: right Qualified Code(s): L03.115 - Cellulitis of right lower limb Is this a current diagnosis for this admission?: Yes Plan: resolved, wound has been debrided, will consider DC ABX tomorrow (4) Chronic pain Qualifiers: Chronic pain type: other chronic pain Qualified Code(s): G89.29 - Other chronic pain Is this a current diagnosis for this admission?: Yes Plan: cont fentanyl patch, cont prn oxycodone, added dilaudid 0.5 mg IV q12hrs prn for premed for PT and for severe pain (5) Diabetes Qualifiers: Diabetes mellitus type: type 2 Diabetes mellitus complication status: with circulatory complication Diabetes mellitus complication detail: with peripheral angiopathy with gangrene Diabetes mellitus extermination inspector insulin use: without extermination inspector use Qualified Code(s): E11.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 Is this a current diagnosis for this admission?: Yes Plan: CBG controlled, no changes now (6) Diabetic infection of right foot Is this a current diagnosis for this admission?: Yes Plan: has been debrided, wound vac in place, need PT and likley placement for rehab (7) Hypokalemia Is this a current diagnosis for this admission?: Yes Plan: resolved - Time Time Spent with patient: 35 or more minutes Anticipated discharge: Acute Rehab - Inpatient Certification Based on my medical assessment, after consideration of the patient's comorbidities, presenting symptoms, or acuity I expect that the services needed warrant INPATIENT care.: Yes I certify that my determination is in accordance with my understanding of Medicare's requirements for reasonable and necessary INPATIENT services [42 CFR 412.3e].: Yes Medical Necessity: Significant Comorbidiites Make Outpatient Treatment Too Risky , Need Close Monitoring Due to Risk of Patient Decompensation, Risk of Complication if Not Cared For in Hospital
[2017-11-26] MEDS: ASPIRIN 325 MG TABLET, ENT COATED PO SCH (18:45)
[2017-11-26] MEDS: MIRTAZAPINE 15 MG TABLET PO SCH (22:59)
[2017-11-27] MEDS: GABAPENTIN 300 MG CAPSULE PO SCH ×3 (05:43→22:34)
[2017-11-27] MEDS: CLINDAMYCIN HCL 150 MG CAPSULE PO SCH (05:43)
[2017-11-27] MEDS: OXYCODONE HCL IR 5 MG TABLET PO PRN ×3 (05:43→23:18)
[2017-11-27] MEDS: NORMAL SALINE 1000 ML 1,000 ML IV PRN (05:44)
--- NOTE | 2017-11-27 08:06 | PDOC PROGRESS REPORT ---
Subjective Progress Note for:: 11/27/17 Subjective:: Has a bump on the medial side of the right leg above the coban dressing, not quite painful now. Right foot with wound vac in place - no complaints. Discharge planning ongoing. Reason For Visit: ARF, HYPOKALEMIA, RIGHT LEG CELLULITIS Physical Exam Vital Signs: Temp Pulse Resp BP Pulse Ox 98.1 F 62 14 128/87 H 96 11/27/17 06:00 11/27/17 06:00 11/27/17 06:00 11/27/17 06:00 11/27/17 06:00 Intake & Output 11/26/17 11/27/17 11/28/17 06:59 06:59 06:59 Intake Total 3775 4432 Output Total 1825 3750 Balance 1950 682 Weight 90.2 kg 93.2 kg General appearance: PRESENT: no acute distress Head exam: PRESENT: normocephalic Eye exam: PRESENT: conjunctiva pink Respiratory exam: PRESENT: clear to auscultation jose, unlabored Cardiovascular exam: PRESENT: RRR, +S1, +S2 GI/Abdominal exam: PRESENT: normal bowel sounds, soft Extremities exam: PRESENT: other - Right foot with wound vac in place Musculoskeletal exam: PRESENT: other - Right foot with wound vac in place Neurological exam: PRESENT: alert, awake, oriented to person, oriented to place , oriented to time, oriented to situation, CN II-XII grossly intact. ABSENT: motor sensory deficit Results Laboratory Results: 11/26/17 08:15 11/26/17 08:15 11/26/17 11/26/17 08:15 08:15 WBC 6.1 RBC 2.92 L Hgb 8.2 L Hct 25.1 L MCV 86 MCH 27.9 MCHC 32.5 RDW 14.9 H Plt Count 234 Sodium 143.2 Potassium 3.8 Chloride 114 H Carbon Dioxide 27 Anion Gap 2 L BUN 27 H Creatinine 0.86 Est GFR ( Amer) > 60 Est GFR (Non-Af Amer) > 60 Glucose 87 Calcium 8.5 Impressions: Venous Doppler Study 11/12/17 13:41 IMPRESSION: NO EVIDENCE DVT OR SVT IN THE RIGHT LEG. Chest X-Ray 11/12/17 17:44 IMPRESSION: CARDIAC ENLARGEMENT WITHOUT FAILURE. Foot X-Ray 11/19/17 00:00 IMPRESSION: Severe osteopenia. Cortical disruption of the distal 4th and 5th meta tarsals which may represent osteomyelitis. Guidance Fluoroscopy 11/20/17 00:00 IMPRESSION: SUCCESSFUL PLACEMENT OF A 5 FR DUAL LUMEN 48 CM PICC IN THE LEFT BASILIC VEIN. Interventional Vascular Procedure 11/20/17 00:00 IMPRESSION: SUCCESSFUL PLACEMENT OF A 5 FR DUAL LUMEN 48 CM PICC IN THE LEFT BASILIC VEIN. PICC Line Insertion 11/20/17 11:57 IMPRESSION: SUCCESSFUL PLACEMENT OF A 5 FR DUAL LUMEN 48 CM PICC IN THE LEFT BASILIC VEIN. Assessment & Plan - Diagnosis (1) Diabetic infection of right foot Is this a current diagnosis for this admission?: Yes (2) Cellulitis Qualifiers: Site of cellulitis: extremity Site of cellulitis of extremity: lower extremity Laterality: right Qualified Code(s): L03.115 - Cellulitis of right lower limb Is this a current diagnosis for this admission?: Yes (3) Edema of right foot Is this a current diagnosis for this admission?: Yes - Plan Summary Plan Summary: Right foot with wound vac in place - for vac change tomorrow. Discharge planning ongoing - needs home wound vac.
[2017-11-27] MEDS: CALCIUM CARBONATE 500 MG TABLET PO SCH ×2 (10:11→18:35)
[2017-11-27] MEDS: DOCUSATE SODIUM 100 MG CAPSULE PO SCH (10:11)
[2017-11-27] MEDS: FUROSEMIDE 40 MG TABLET PO SCH (10:11)
[2017-11-27] MEDS: ENOXAPARIN SODIUM INJ 40 MG/0.4 ML DISP.SYRIN SUBCUT SCH (10:12)
[2017-11-27] MEDS: ASCORBIC ACID 500 MG TABLET PO SCH ×2 (10:12→18:35)
[2017-11-27] MEDS: METOPROLOL TARTRATE 25 MG TABLET PO SCH ×2 (10:12→22:34)
[2017-11-27] MEDS: MULTIVITAMIN TABLET PO SCH (10:12)
[2017-11-27] MEDS: ALLOPURINOL 100 MG TABLET PO SCH ×2 (10:12→18:35)
[2017-11-27] MEDS: LACTOBACILLUS ACIDOPHILUS 250 MG TAB PO SCH ×2 (10:12→18:35)
[2017-11-27] MEDS: CIPROFLOXACIN HCL 500 MG TABLET PO SCH ×2 (10:12→22:34)
[2017-11-27] MEDS: NORMAL SALINE 10 ML SDV (SCHEDULED) IV SCH ×2 (10:13→22:34)
[2017-11-27] MEDS ORDERED: SENNOSIDES/DOCUSATE 8.6-50 MG 1 EACH TABLET PO SCH (11:00)
[2017-11-27] MEDS ORDERED: ASPIRIN 325 MG TABLET PO SCH (11:15)
[2017-11-27] MEDS: LEVOFLOXACIN 500 MG TABLET PO SCH (15:10)
--- NOTE | 2017-11-27 16:20 | PDOC PROGRESS REPORT ---
Subjective Progress Note for:: 11/27/17 Subjective:: Patient's pain is improving. He is eating and drinking well. No new chest pain or difficulty breathing. No headache or vision changes. He is motivated to work with physical therapy. He is motivated to get out to assisted acute rehab. No anxiety. Remainder of ROS performed and negative. Labs and pertinent diagnostics reviewed by me today. Reason For Visit: ARF, HYPOKALEMIA, RIGHT LEG CELLULITIS Physical Exam Vital Signs: Temp Pulse Resp BP Pulse Ox 98.1 F 68 16 119/64 99 11/27/17 12:00 11/27/17 12:00 11/27/17 12:00 11/27/17 12:00 11/27/17 12:00 Intake & Output 11/26/17 11/27/17 11/28/17 06:59 06:59 06:59 Intake Total 3775 4432 Output Total 1825 3750 Balance 1950 682 Weight 90.2 kg 93.2 kg General appearance: PRESENT: no acute distress, obese Head exam: PRESENT: atraumatic, normocephalic Eye exam: PRESENT: conjunctiva pink, EOMI. ABSENT: periorbital swelling Ear exam: PRESENT: normal external ear exam. ABSENT: bleeding Mouth exam: PRESENT: laceration, neck supple. ABSENT: dry mucosa Respiratory exam: PRESENT: clear to auscultation jose, unlabored. ABSENT: wheezes Pulses: PRESENT: normal radial pulses GI/Abdominal exam: PRESENT: normal bowel sounds, soft. ABSENT: distended, tenderness Rectal exam: PRESENT: deferred Extremities exam: PRESENT: other - Right foot wound VAC in place without complication Neurological exam: PRESENT: alert, awake, oriented to person, oriented to place , oriented to situation, CN II-XII grossly intact Psychiatric exam: ABSENT: anxious, depressed Skin exam: PRESENT: dry, warm Results Laboratory Results: 11/26/17 08:15 11/26/17 08:15 Impressions: Venous Doppler Study 11/12/17 13:41 IMPRESSION: NO EVIDENCE DVT OR SVT IN THE RIGHT LEG. Chest X-Ray 11/12/17 17:44 IMPRESSION: CARDIAC ENLARGEMENT WITHOUT FAILURE. Foot X-Ray 11/19/17 00:00 IMPRESSION: Severe osteopenia. Cortical disruption of the distal 4th and 5th meta tarsals which may represent osteomyelitis. Guidance Fluoroscopy 11/20/17 00:00 IMPRESSION: SUCCESSFUL PLACEMENT OF A 5 FR DUAL LUMEN 48 CM PICC IN THE LEFT BASILIC VEIN. Interventional Vascular Procedure 11/20/17 00:00 IMPRESSION: SUCCESSFUL PLACEMENT OF A 5 FR DUAL LUMEN 48 CM PICC IN THE LEFT BASILIC VEIN. PICC Line Insertion 11/20/17 11:57 IMPRESSION: SUCCESSFUL PLACEMENT OF A 5 FR DUAL LUMEN 48 CM PICC IN THE LEFT BASILIC VEIN. Assessment & Plan - Diagnosis (1) Acute renal failure Qualifiers: Acute renal failure type: unspecified Qualified Code(s): N17.9 - Acute kidney failure, unspecified Is this a current diagnosis for this admission?: Yes Plan: Renal function stable and patient's hydration improving. We will continue to monitor BUN and creatinine and consider restart Lasix tomorrow if he is hydrating appropriately. (2) Atrial fibrillation and flutter Is this a current diagnosis for this admission?: Yes Plan: Rate controlled. Continue rate control medication. Patient and I discussed his anticoagulation. He had been on Eliquis for stroke prophylaxis until he fell and fractured his nose and had significant bleeding. He chose to stop Eliquis in favor of aspirin secondary to bleeding complications of Eliquis. We talked about stroke risk off of full anticoagulation and he states understanding. He would like to discuss further with his primary care doctor once he is out of the hospital. For now we will continue aspirin. (3) Cellulitis Qualifiers: Site of cellulitis: extremity Site of cellulitis of extremity: lower extremity Laterality: right Qualified Code(s): L03.115 - Cellulitis of right lower limb Is this a current diagnosis for this admission?: Yes Plan: Patient growing Serratia from his wound. Though his wound has been debrided and he is on wound VAC I will treat him for several days with Levaquin to assure that the surrounding cellulitis is appropriately treated. 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 To educate this patient about the importance of diabetes control to help prevent foot wounds which could lead to amputations. (7) Hypokalemia Is this a current diagnosis for this admission?: Yes Plan: Resolved, monitor basic metabolic panel. (8) Acute pain Plan: She has fairly severe pain when he has wound VAC changes or works with PT. I have made Dilaudid 0.5 mg IV every 12 hours available as needed acute pain or when he is working with physical therapy or for wound VAC changes. - Time Time Spent with patient: 25-34 minutes Anticipated discharge: Acute Rehab Within: within 72 hours - Inpatient Certification Based on my medical assessment, after consideration of the patient's comorbidities, presenting symptoms, or acuity I expect that the services needed warrant INPATIENT care.: Yes I certify that my determination is in accordance with my understanding of Medicare's requirements for reasonable and necessary INPATIENT services [42 CFR 412.3e].: Yes Medical Necessity: Need Close Monitoring Due to Risk of Patient Decompensation, Risk of Complication if Not Cared For in Hospital
[2017-11-27] MEDS: ASPIRIN 325 MG TABLET, ENT COATED PO SCH (18:35)
[2017-11-27] MEDS: MIRTAZAPINE 15 MG TABLET PO SCH (22:34)
[2017-11-28] MEDS: GABAPENTIN 300 MG CAPSULE PO SCH ×3 (05:42→22:36)
[2017-11-28] MEDS: METOPROLOL TARTRATE 25 MG TABLET PO SCH ×2 (10:35→22:36)
[2017-11-28] MEDS: ENOXAPARIN SODIUM INJ 40 MG/0.4 ML DISP.SYRIN SUBCUT SCH (10:58)
[2017-11-28] MEDS: ALLOPURINOL 100 MG TABLET PO SCH ×2 (10:59→17:16)
[2017-11-28] MEDS: MULTIVITAMIN TABLET PO SCH (10:59)
[2017-11-28] MEDS: CALCIUM CARBONATE 500 MG TABLET PO SCH ×2 (10:59→17:16)
[2017-11-28] MEDS: CIPROFLOXACIN HCL 500 MG TABLET PO SCH ×2 (10:59→22:36)
[2017-11-28] MEDS: FUROSEMIDE 40 MG TABLET PO SCH (10:59)
[2017-11-28] MEDS: ASCORBIC ACID 500 MG TABLET PO SCH ×2 (10:59→17:16)
[2017-11-28] MEDS: LACTOBACILLUS ACIDOPHILUS 250 MG TAB PO SCH ×2 (10:59→17:17)
[2017-11-28] MEDS: NORMAL SALINE 10 ML SDV (SCHEDULED) IV SCH ×2 (11:00→22:36)
[2017-11-28] MEDS: OXYCODONE HCL IR 5 MG TABLET PO PRN (11:00)
[2017-11-28] MEDS ORDERED: HYDROMORPHONE HCL INJ/PF 2 MG/ML AMPULE ONE (15:43)
--- NOTE | 2017-11-28 16:28 | PDOC PROGRESS REPORT ---
Subjective Progress Note for:: 11/28/17 Subjective:: POD # 4 s/p repeat excisional debridement right foot diabetic infection No fresh complaints. Wound vac on. Discharge planning ongoing - to rehab on wound vac - [employer] rep visited yesterday. Reason For Visit: ARF, HYPOKALEMIA, RIGHT LEG CELLULITIS Physical Exam Vital Signs: Temp Pulse Resp BP Pulse Ox 98.8 F 68 16 124/69 98 11/28/17 11:56 11/28/17 14:00 11/28/17 11:56 11/28/17 11:56 11/28/17 11:56 Intake & Output 11/27/17 11/28/17 11/29/17 06:59 06:59 06:59 Intake Total 4432 2466 1094 Output Total 3750 1000 950 Balance 682 1466 144 Weight 93.2 kg 93.2 kg General appearance: PRESENT: no acute distress, well-developed, well-nourished Eye exam: PRESENT: conjunctiva pink, EOMI, PERRLA. ABSENT: scleral icterus Ear exam: PRESENT: normal external ear exam Neck exam: ABSENT: carotid bruit, JVD, lymphadenopathy, thyromegaly Respiratory exam: PRESENT: clear to auscultation jose. ABSENT: rales, rhonchi, wheezes Cardiovascular exam: PRESENT: RRR. ABSENT: diastolic murmur, rubs, systolic murmur GI/Abdominal exam: PRESENT: normal bowel sounds, soft. ABSENT: distended, guarding, mass, organolmegaly, rebound, tenderness Extremities exam: PRESENT: other - Right foot wound measures 8.5cm x 7,7cm x 0, 5cm with clean granulation tissue. edema of the right foot 2-3+ improving some. Vertical superfical abrasive wound on the lateral aspect of the right leg with nonadherent dressing. Neurological exam: PRESENT: alert, awake, oriented to person, oriented to place , oriented to time, oriented to situation, CN II-XII grossly intact Psychiatric exam: PRESENT: appropriate affect, normal mood. ABSENT: homicidal ideation, suicidal ideation Skin exam: PRESENT: other - Right foot wound measures 8.5cm x 7,7cm x 0,5cm with clean granulation tissue. edema of the right foot 2-3+ improving some. Vertical superfical abrasive wound on the lateral aspect of the right leg with nonadherent dressin Results Laboratory Results: 11/26/17 08:15 11/26/17 08:15 Impressions: Venous Doppler Study 11/12/17 13:41 IMPRESSION: NO EVIDENCE DVT OR SVT IN THE RIGHT LEG. Chest X-Ray 11/12/17 17:44 IMPRESSION: CARDIAC ENLARGEMENT WITHOUT FAILURE. Foot X-Ray 11/19/17 00:00 IMPRESSION: Severe osteopenia. Cortical disruption of the distal 4th and 5th meta tarsals which may represent osteomyelitis. Guidance Fluoroscopy 11/20/17 00:00 IMPRESSION: SUCCESSFUL PLACEMENT OF A 5 FR DUAL LUMEN 48 CM PICC IN THE LEFT BASILIC VEIN. Interventional Vascular Procedure 11/20/17 00:00 IMPRESSION: SUCCESSFUL PLACEMENT OF A 5 FR DUAL LUMEN 48 CM PICC IN THE LEFT BASILIC VEIN. PICC Line Insertion 11/20/17 11:57 IMPRESSION: SUCCESSFUL PLACEMENT OF A 5 FR DUAL LUMEN 48 CM PICC IN THE LEFT BASILIC VEIN. Assessment & Plan - Diagnosis (1) Diabetic infection of right foot Is this a current diagnosis for this admission?: Yes (2) Cellulitis Qualifiers: Site of cellulitis: extremity Site of cellulitis of extremity: lower extremity Laterality: right Qualified Code(s): L03.115 - Cellulitis of right lower limb Is this a current diagnosis for this admission?: Yes (3) Edema of right foot Is this a current diagnosis for this admission?: Yes - Time Time Spent with patient: 25-34 minutes Total Critical Time (Minutes): 25 Anticipated discharge: Acute Rehab - Plan Summary Plan Summary: The wound vac was changed by me and the nurse; the wound is granulating nicely. ok to Discharge to rehab with wound vac. F/U in wound care center after discharge.
[2017-11-28] MEDS ORDERED: HYDROMORPHONE HCL INJ/PF 2 MG/ML AMPULE IV ONE (17:00)
[2017-11-28] MEDS: LEVOFLOXACIN 500 MG TABLET PO SCH (17:14)
[2017-11-28] MEDS: ASPIRIN 325 MG TABLET, ENT COATED PO SCH (17:15)
--- NOTE | 2017-11-28 21:13 | PDOC PROGRESS REPORT ---
Subjective Progress Note for:: 11/28/17 Subjective:: feels overall good, no CP or SOB, no new abd pain nausea or emesis, no urinary complaints, remainder of ROS performed and neg, I reviewed his labs and diagnostic studies today Reason For Visit: ARF, HYPOKALEMIA, RIGHT LEG CELLULITIS Physical Exam Vital Signs: Temp Pulse Resp BP Pulse Ox 98.3 F 61 15 134/64 H 98 11/28/17 16:00 11/28/17 16:00 11/28/17 16:00 11/28/17 16:00 11/28/17 16:00 Intake & Output 11/27/17 11/28/17 11/29/17 06:59 06:59 06:59 Intake Total 4432 2466 1094 Output Total 3750 1000 950 Balance 682 1466 144 Weight 93.2 kg 93.2 kg General appearance: PRESENT: no acute distress Head exam: PRESENT: atraumatic, normocephalic Eye exam: PRESENT: conjunctiva pink Results Laboratory Results: 11/26/17 08:15 11/26/17 08:15 Impressions: Venous Doppler Study 11/12/17 13:41 IMPRESSION: NO EVIDENCE DVT OR SVT IN THE RIGHT LEG. Chest X-Ray 11/12/17 17:44 IMPRESSION: CARDIAC ENLARGEMENT WITHOUT FAILURE. Foot X-Ray 11/19/17 00:00 IMPRESSION: Severe osteopenia. Cortical disruption of the distal 4th and 5th meta tarsals which may represent osteomyelitis. Guidance Fluoroscopy 11/20/17 00:00 IMPRESSION: SUCCESSFUL PLACEMENT OF A 5 FR DUAL LUMEN 48 CM PICC IN THE LEFT BASILIC VEIN. Interventional Vascular Procedure 11/20/17 00:00 IMPRESSION: SUCCESSFUL PLACEMENT OF A 5 FR DUAL LUMEN 48 CM PICC IN THE LEFT BASILIC VEIN. PICC Line Insertion 11/20/17 11:57 IMPRESSION: SUCCESSFUL PLACEMENT OF A 5 FR DUAL LUMEN 48 CM PICC IN THE LEFT BASILIC VEIN. Assessment & Plan - Diagnosis (1) Acute renal failure Qualifiers: Acute renal failure type: unspecified Qualified Code(s): N17.9 - Acute kidney failure, unspecified Is this a current diagnosis for this admission?: Yes Plan: resolved (2) Atrial fibrillation and flutter Is this a current diagnosis for this admission?: Yes Plan: stable, see yesterdays note for anticoagulation discussion, is rate controlled (3) Cellulitis Qualifiers: Site of cellulitis: extremity Site of cellulitis of extremity: lower extremity Laterality: right Qualified Code(s): L03.115 - Cellulitis of right lower limb Is this a current diagnosis for this admission?: Yes Plan: cont abx for 7 days and reassess, wound has been debrided and wound vac in place but cellulitis persisted so ABX started (4) Chronic pain Qualifiers: Chronic pain type: other chronic pain Qualified Code(s): G89.29 - Other chronic pain Is this a current diagnosis for this admission?: Yes Plan: stable, no changes (5) Diabetes Qualifiers: Diabetes mellitus type: type 2 Diabetes mellitus complication status: with circulatory complication Diabetes mellitus complication detail: with peripheral angiopathy with gangrene Diabetes mellitus halfway insulin use: without long chain dyeing machine operator use Qualified Code(s): E11.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 Is this a current diagnosis for this admission?: Yes Plan: significant complications, cont to educate on diabetic diet and importance of good control, cont current meds (6) Diabetic infection of right foot Is this a current diagnosis for this admission?: Yes Plan: wound vac in place after debridement, surgeon stated today that he is ok with pt DC to rehab and followup with out pt wound clinic (7) Hypokalemia Is this a current diagnosis for this admission?: Yes Plan: resolved (8) Acute pain Plan: cont prn dilaudid for acute pain and PT (9) Right leg pain Is this a current diagnosis for this admission?: Yes Plan: pt has right gastrocnemius pain and firmness, Yesterday I ordered soft tissue US and it was not done until this evening, now pain is worse, I have added venous doppler. - Time Time Spent with patient: 35 or more minutes Anticipated discharge: Acute Rehab Within: within 48 hours - Inpatient Certification Based on my medical assessment, after consideration of the patient's comorbidities, presenting symptoms, or acuity I expect that the services needed warrant INPATIENT care.: Yes I certify that my determination is in accordance with my understanding of Medicare's requirements for reasonable and necessary INPATIENT services [42 CFR 412.3e].: Yes Medical Necessity: Significant Comorbidiites Make Outpatient Treatment Too Risky , Need Close Monitoring Due to Risk of Patient Decompensation, Risk of Complication if Not Cared For in Hospital Post Hospital Care: D/C Roll Cleaner Documentation
--- NOTE | 2017-11-28 21:24 | RADIOLOGY REPORT (SQ) ---
EXAM DESCRIPTION: U/S EXTREMITY NONVASCULAR LTD COMPLETED DATE/TIME: 11/28/2017 9:16 pm REASON FOR STUDY: right calf pain, eval muscle COMPARISON: None. TECHNIQUE: Dynamic and static grayscale images acquired of the localized site of clinical concern an d recorded on PACS. Additional selected color Doppler and spectral images recorded. SITE OF CONCERN: Right calf LIMITATIONS: None. FINDINGS: SKIN AND SUBCUTANEOUS TISSUES: Diffuse subcutaneous edema. No abscess. DEEP SOFT TISSUES/MUSCLES: Subcutaneous edema. No abscess. VASCULAR: Diffuse hyperemia. OTHER: No other significant finding. IMPRESSION: Cellulitis. No abscess. TECHNICAL DOCUMENTATION: JOB ID: [id number] [employer]- All Rights Reserved
[2017-11-28] MEDS: MIRTAZAPINE 15 MG TABLET PO SCH (22:36)
[2017-11-29] MEDS: GABAPENTIN 300 MG CAPSULE PO SCH ×3 (05:36→22:52)
[2017-11-29 07:38] LABS: HEMATOCRIT 26.1 % (37.9-51.0); HEMOGLOBIN 8.7 g/dL (13.5-17.0); MEAN CORPUSCULAR HEMOGLOBIN 28.4 pg (27.0-33.4); MEAN CORPUSCULAR HGB CONC 33.1 g/dL (32.0-36.0); MEAN CORPUSCULAR VOLUME 86 fl (80-97); PLATELET COUNT 243 10^3/uL (150-450); RED BLOOD COUNT 3.05 10^6/uL (4.35-5.55); RED CELL DISTRIBUTION WIDTH 15.7 % (11.5-14.0); WHITE BLOOD COUNT 7.9 10^3/uL (4.0-10.5)
[2017-11-29 07:50] LABS: ANION GAP 6 (5-19); BLOOD UREA NITROGEN 34 mg/dL (7-20); CALCIUM 8.7 mg/dL (8.4-10.2); CARBON DIOXIDE 28 mmol/L (22-30); CHLORIDE 107 mmol/L (98-107); GLUCOSE 106 mg/dL (75-110); POTASSIUM 4.3 mmol/L (3.6-5.0); SODIUM 141.1 mmol/L (137-145)
[2017-11-29] MEDS: MULTIVITAMIN TABLET PO SCH (10:31)
[2017-11-29] MEDS: ALLOPURINOL 100 MG TABLET PO SCH ×2 (10:31→18:23)
[2017-11-29] MEDS: FUROSEMIDE 40 MG TABLET PO SCH (10:31)
[2017-11-29] MEDS: CIPROFLOXACIN HCL 500 MG TABLET PO SCH ×2 (10:31→22:52)
[2017-11-29] MEDS: ENOXAPARIN SODIUM INJ 40 MG/0.4 ML DISP.SYRIN SUBCUT SCH (10:36)
[2017-11-29] MEDS: ASCORBIC ACID 500 MG TABLET PO SCH ×2 (10:36→18:23)
[2017-11-29] MEDS: METOPROLOL TARTRATE 25 MG TABLET PO SCH ×2 (10:36→22:52)
[2017-11-29] MEDS: LACTOBACILLUS ACIDOPHILUS 250 MG TAB PO SCH ×2 (10:36→18:22)
[2017-11-29] MEDS: CALCIUM CARBONATE 500 MG TABLET PO SCH ×2 (10:36→18:22)
[2017-11-29] MEDS: NORMAL SALINE 10 ML SDV (SCHEDULED) IV SCH ×2 (10:37→22:52)
--- NOTE | 2017-11-29 10:40 | PDOC PROGRESS REPORT ---
Subjective Progress Note for:: 11/29/17 Subjective:: No complaints. Reason For Visit: ARF, HYPOKALEMIA, RIGHT LEG CELLULITIS Physical Exam Vital Signs: Temp Pulse Resp BP Pulse Ox 98.9 F 72 18 112/66 97 11/29/17 07:36 11/29/17 07:36 11/29/17 07:36 11/29/17 07:36 11/29/17 07:36 Intake & Output 11/28/17 11/29/17 11/30/17 06:59 06:59 06:59 Intake Total 2466 1574 Output Total 1000 1650 Balance 1466 -76 Weight 93.2 kg 93.2 kg Extremities exam: PRESENT: other - Foot wound with wound VAC in place. No surrounding erythema. Diffuse chronic edema. Results Laboratory Results: 11/29/17 06:53 11/29/17 06:53 11/29/17 11/29/17 06:53 06:53 WBC 7.9 RBC 3.05 L Hgb 8.7 L Hct 26.1 L MCV 86 MCH 28.4 MCHC 33.1 RDW 15.7 H Plt Count 243 Sodium 141.1 Potassium 4.3 Chloride 107 Carbon Dioxide 28 Anion Gap 6 BUN 34 H Creatinine 1.09 Est GFR ( Amer) > 60 Est GFR (Non-Af Amer) > 60 Glucose 106 Calcium 8.7 Impressions: Venous Doppler Study 11/12/17 13:41 IMPRESSION: NO EVIDENCE DVT OR SVT IN THE RIGHT LEG. Chest X-Ray 11/12/17 17:44 IMPRESSION: CARDIAC ENLARGEMENT WITHOUT FAILURE. Foot X-Ray 11/19/17 00:00 IMPRESSION: Severe osteopenia. Cortical disruption of the distal 4th and 5th meta tarsals which may represent osteomyelitis. Guidance Fluoroscopy 11/20/17 00:00 IMPRESSION: SUCCESSFUL PLACEMENT OF A 5 FR DUAL LUMEN 48 CM PICC IN THE LEFT BASILIC VEIN. Interventional Vascular Procedure 11/20/17 00:00 IMPRESSION: SUCCESSFUL PLACEMENT OF A 5 FR DUAL LUMEN 48 CM PICC IN THE LEFT BASILIC VEIN. PICC Line Insertion 11/20/17 11:57 IMPRESSION: SUCCESSFUL PLACEMENT OF A 5 FR DUAL LUMEN 48 CM PICC IN THE LEFT BASILIC VEIN. Extremity Ultrasound 11/27/17 00:00 IMPRESSION: Cellulitis. No abscess. Assessment & Plan - Diagnosis (1) Foot infection Is this a current diagnosis for this admission?: Yes (2) Diabetic infection of right foot Is this a current diagnosis for this admission?: Yes Plan: Status post debridement. Doing well on wound VAC. Pending placement.
--- NOTE | 2017-11-29 11:40 | XCELERA REPORT ---
[address] [address] Lower Extremity Venous Evaluation Name: ANALI STEELE Age: 72 yrs Gender: Male : 1945 Patient Status: Inpatient Patient Location: [address] [place], [place] [address] Study Date: 11/29/2017 10:38 AM Procedure: Color flow and duplex imaging of the veins of the right lower extremity as well as the left Common Femoral vein. Reason For Study: right leg pain and swelling Ordering Physician: DUSTY PARKER Performed By: Estephania Rowley Right Sided Venous Evaluation Subcutaneous edema in the leg noted. Normal vessel filling wall to wall, compression and augmentation as well as Colour flow down to the infrageniculate veins. Left Sided Venous Evaluation The left common femoral vein is fully compressible. Spontaneous and phasic flow is present in the left common femoral vein. Interpretation Summary No duplex evidence of DVT or obstruction in the right lower extremity nor in the left Common Femoral vein. Ultrasound evidence of right lower extremity edema noted. : DUSTY PARKER > Riccardo Dsouza
[2017-11-29] MEDS: LEVOFLOXACIN 500 MG TABLET PO SCH (16:14)
[2017-11-29] MEDS: OXYCODONE HCL IR 5 MG TABLET PO PRN (16:14)
[2017-11-29] MEDS: ASPIRIN 325 MG TABLET, ENT COATED PO SCH (18:22)
--- NOTE | 2017-11-29 19:39 | PDOC PROGRESS REPORT ---
Subjective Progress Note for:: 11/29/17 Subjective:: 22-year-old gentleman who came in with acute renal failure hypokalemia and right leg cellulitis. He has swelling and tenderness of his right calf. Ultrasound did not show an abscess. Venous Dopplers were negative for DVT. I have added vancomycin for better antibiotic coverage. Reason For Visit: ARF, HYPOKALEMIA, RIGHT LEG CELLULITIS Physical Exam Vital Signs: Temp Pulse Resp BP Pulse Ox 98.9 F 69 18 112/66 97 11/29/17 07:36 11/29/17 14:00 11/29/17 07:36 11/29/17 07:36 11/29/17 07:36 Intake & Output 11/28/17 11/29/17 11/30/17 06:59 06:59 06:59 Intake Total 2466 1574 1302 Output Total 1000 1650 1300 Balance 1466 -76 2 Weight 93.2 kg 93.2 kg General appearance: PRESENT: no acute distress Ear exam: PRESENT: normal external ear exam Neck exam: ABSENT: tenderness, tracheal deviation Respiratory exam: PRESENT: clear to auscultation jose, unlabored Cardiovascular exam: PRESENT: RRR GI/Abdominal exam: PRESENT: normal bowel sounds, soft. ABSENT: tenderness Rectal exam: PRESENT: deferred Additional comments: Wound VAC for wound on the dorsum of his right foot. He has erythema and tenderness of the leg especially in the calf region on the right. He has bilateral lower extremity venous stasis changes. Results Laboratory Results: 11/29/17 06:53 11/29/17 06:53 11/29/17 11/29/17 06:53 06:53 WBC 7.9 RBC 3.05 L Hgb 8.7 L Hct 26.1 L MCV 86 MCH 28.4 MCHC 33.1 RDW 15.7 H Plt Count 243 Sodium 141.1 Potassium 4.3 Chloride 107 Carbon Dioxide 28 Anion Gap 6 BUN 34 H Creatinine 1.09 Est GFR ( Amer) > 60 Est GFR (Non-Af Amer) > 60 Glucose 106 Calcium 8.7 Impressions: Chest X-Ray 11/12/17 17:44 IMPRESSION: CARDIAC ENLARGEMENT WITHOUT FAILURE. Foot X-Ray 11/19/17 00:00 IMPRESSION: Severe osteopenia. Cortical disruption of the distal 4th and 5th meta tarsals which may represent osteomyelitis. Guidance Fluoroscopy 11/20/17 00:00 IMPRESSION: SUCCESSFUL PLACEMENT OF A 5 FR DUAL LUMEN 48 CM PICC IN THE LEFT BASILIC VEIN. Interventional Vascular Procedure 11/20/17 00:00 IMPRESSION: SUCCESSFUL PLACEMENT OF A 5 FR DUAL LUMEN 48 CM PICC IN THE LEFT BASILIC VEIN. PICC Line Insertion 11/20/17 11:57 IMPRESSION: SUCCESSFUL PLACEMENT OF A 5 FR DUAL LUMEN 48 CM PICC IN THE LEFT BASILIC VEIN. Extremity Ultrasound 11/27/17 00:00 IMPRESSION: Cellulitis. No abscess. Assessment & Plan - Diagnosis (2) Acute renal failure Qualifiers: Acute renal failure type: unspecified Qualified Code(s): N17.9 - Acute kidney failure, unspecified Is this a current diagnosis for this admission?: Yes (3) Atrial fibrillation and flutter Is this a current diagnosis for this admission?: Yes (4) CHF (congestive heart failure) Qualifiers: Congestive heart failure type: unspecified Congestive heart failure chronicity: unspecified Qualified Code(s): I50.9 - Heart failure, unspecified (5) Chronic pain Qualifiers: Chronic pain type: other chronic pain Qualified Code(s): G89.29 - Other chronic pain Is this a current diagnosis for this admission?: Yes (6) Diabetes Qualifiers: Diabetes mellitus type: type 2 Diabetes mellitus complication status: with circulatory complication Diabetes mellitus complication detail: with peripheral angiopathy with gangrene Diabetes mellitus ferry terminal agent insulin use: without ferry terminal agent use Qualified Code(s): E11.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 Is this a current diagnosis for this admission?: Yes (7) Diabetic infection of right foot Is this a current diagnosis for this admission?: Yes - Time Time Spent with patient: 35 or more minutes - Plan Summary Plan Summary: Continue antibiotics. Vancomycin added. Continue wound care wound VAC.
[2017-11-29] MEDS ORDERED: VANCOMYCIN HCL 0 MG in DEXTROSE 5%-WATER 250 ML IV NR (19:45)
[2017-11-29] MEDS: MIRTAZAPINE 15 MG TABLET PO SCH (22:52)
[2017-11-29] MEDS: VANCOMYCIN HCL 750 MG in DEXTROSE 5%-WATER 250 ML IV SCH (22:52)
[2017-11-30 05:50] LABS: HEMOGLOBIN 8.3 g/dL (13.5-17.0); MEAN CORPUSCULAR HEMOGLOBIN 28.6 pg (27.0-33.4); MEAN CORPUSCULAR HGB CONC 33.3 g/dL (32.0-36.0); MEAN CORPUSCULAR VOLUME 86 fl (80-97); PLATELET COUNT 244 10^3/uL (150-450); RED BLOOD COUNT 2.91 10^6/uL (4.35-5.55); RED CELL DISTRIBUTION WIDTH 16.2 % (11.5-14.0); WHITE BLOOD COUNT 5.8 10^3/uL (4.0-10.5)
[2017-11-30 06:13] LABS: ALANINE AMINOTRANSFERASE 24 U/L (21-72); ALBUMIN 2.3 g/dL (3.5-5.0); ALKALINE PHOSPHATASE 71 U/L (38-126); ASPARTATE AMINO TRANSFERASE 16 U/L (17-59); BILIRUBIN,DIRECT 0.3 mg/dL (0.0-0.4); BILIRUBIN,TOTAL 0.4 mg/dL (0.2-1.3); BLOOD UREA NITROGEN 29 mg/dL (7-20); CALCIUM 8.8 mg/dL (8.4-10.2); CARBON DIOXIDE 29 mmol/L (22-30); CHLORIDE 105 mmol/L (98-107); GLUCOSE 91 mg/dL (75-110); MAGNESIUM 1.9 mg/dL (1.6-2.3); POTASSIUM 4.1 mmol/L (3.6-5.0)
[2017-11-30 06:32] LABS: ANION GAP 4 (5-19)
[2017-11-30] MEDS: GABAPENTIN 300 MG CAPSULE PO SCH ×2 (06:35→14:39)
[2017-11-30] MEDS: ENOXAPARIN SODIUM INJ 40 MG/0.4 ML DISP.SYRIN SUBCUT SCH (11:11)
[2017-11-30] MEDS: CALCIUM CARBONATE 500 MG TABLET PO SCH ×2 (11:11→18:24)
[2017-11-30] MEDS: VANCOMYCIN HCL 750 MG in DEXTROSE 5%-WATER 250 ML IV SCH (11:11)
[2017-11-30] MEDS: MULTIVITAMIN TABLET PO SCH (11:11)
[2017-11-30] MEDS: FUROSEMIDE 40 MG TABLET PO SCH (11:12)
[2017-11-30] MEDS: METOPROLOL TARTRATE 25 MG TABLET PO SCH (11:12)
[2017-11-30] MEDS: LACTOBACILLUS ACIDOPHILUS 250 MG TAB PO SCH ×2 (11:12→18:24)
[2017-11-30] MEDS: ASCORBIC ACID 500 MG TABLET PO SCH ×2 (11:13→18:24)
[2017-11-30] MEDS: ALLOPURINOL 100 MG TABLET PO SCH ×2 (11:13→18:24)
[2017-11-30] MEDS: OXYCODONE HCL IR 5 MG TABLET PO PRN ×2 (11:14→20:34)
[2017-11-30] MEDS: NORMAL SALINE 10 ML SDV (SCHEDULED) IV SCH (11:15)
--- NOTE | 2017-11-30 13:13 | TRANSFER SUMMARY E ---
Transfer Summary NAME: ANALI STEELE : 1945 AGE: 72Y ADMITTED: 11/12/2017 TRANSFERRED: 11/30/2017 CODE STATUS: FULL CODE. PRIMARY CARE PROVIDER: Luiz De Anda CONSULTING SURGICALIST: Dr. Hou DISCHARGE DIAGNOSIS INCLUDES: 1. Cellulitis of the right lower extremity. The patient's wound has been debrided and wound VAC is in place. The patient will receive another 7 days of antibiotics. 2. Acute renal failure. The patient's creatinine is now back to baseline. 3. Chronic kidney disease, stage 3. 4. History of Atrial fibrillation/flutter not on chronic anticoagulation. 5. Chronic pain and subsequent opiate dependency, continuous. 6. Diabetes mellitus, type 2 diet controlled. 7. Diabetic infection of the right foot with wound VAC in place. 8. Hyperkalemia; this has resolved. DISCHARGE MEDICATIONS INCLUDE: 1. Allopurinol 100 mg p.o. b.i.d. 2. Vitamin C 500 mg p.o. b.i.d. 3. Aspirin enteric coated 325 mg p.o. every evening. 4. Os-Linden 500 mg p.o. b.i.d. 5. Coreg 25 mg p.o. every 12 hours. 6. Doxycycline 100 mg p.o. every 12 hours x 14 doses. 7. Duragesic 100 mcg transdermal patch every 72 hours, 3 patches with 0 refills. 8. Lasix 40 mg p.o. daily. 9. Neurontin 600 mg p.o. every 8 hours. 10. Zaroxolyn 5 mg p.o. daily p.r.n. for leg edema. 11. Remeron 15 mg p.o. every hour of sleep. 12. Multivitamin 1 tablet p.o. daily. 13. Oxycodone 5 mg p.o. every 6 hours p.r.n., 20 tablets with 0 refills. DIET: Heart Healthy, diabetic. ACTIVITY: As per rehab standards. Recommend elevation of especially the right lower extremity when not at use. CONDITION: Good. DIAGNOSTICS: Lab values are as follows. Hematology obtained on 11/30/2017: WBCs are 5.8, hemoglobin is 8.3, hematocrit is 25.0, platelet count is 244,000. Coagulation obtained on 11/20/2017: PT is 40.4, INR is 1.05. Chemistry obtained on 11/30/2017: Sodium is 138, potassium 4.1, chloride is 105, carbon dioxide 29, BUN 29, creatinine is 1.04, glucose 91, uric acid is 9.8, calcium is 8.8, phosphorus is 3.3, magnesium is 1.9, bilirubin 0.4, AST 16, ALT is 24, alk phos 71, total protein 5.0, albumin 2.3, vitamin D is 36. Other body sources obtained on 11/25/2017: Stool for occult blood is negative. Microbiology: One culture obtained on 11/19/2017 reveals Serratia. Venous Doppler study obtained on 11/12/2017 reveals no evidence of DVT or SVT in the right leg. Chest x-ray obtained on 11/12/2017 reveals cardiac enlargement without evidence of failure. Extremity arterial Doppler obtained on 11/19/2017 reveals moderate hemodynamically significant lesion at the right lower extremity only. Foot x-ray obtained on 11/19/2017 reveals severe osteopenia with cortical disruption of the distal fourth and fifth metatarsals which may represent osteomyelitis. Extremity Doppler obtained on 11/27/2017 reveals cellulitis without abscess. Venous Doppler obtained on 11/29/2017 reveals no evidence of DVT or obstruction of the right lower extremity common femoral vein. Ultrasound evidence of right lower extremity edema is noted. PHYSICAL EXAMINATION: GENERAL: On examination, the patient is a frail, chronically ill-appearing 72-year-old male who is awake, alert, and oriented to person, place, time and situation. He is verbal, conversational, does not appear to be in any acute distress. VITAL SIGNS: As follows: Temperature is 98.0, pulse 70, respirations 16, blood pressure is 126/76, oxygen saturation is 100% on room air. SKIN: Warm and dry. No rash. He is not diaphoretic. HEENT: Pupils equal, round, and reactive to light and accommodation. Conjunctivae pink. No evidence of JVP. CARDIOVASCULAR: Heart is irregularly irregular. No rub. CHEST: Symmetrical, clear, unlabored. ABDOMEN: Soft, nontender, nondistended. BACK: No CVA tenderness or sacral edema. EXTREMITIES: No clubbing or cyanosis. The patient does have trace bilateral lower extremity edema with +1 pedal pulses. The patient does have some soft tissue edema of the right calf. No evidence of ischemia. Cellulitis is improved. Wound VAC in place. PSYCHIATRIC: Appropriate affect. Pleasant mood. HISTORY OF PRESENT ILLNESS: The patient is a 72-year-old male with a past medical history of cellulitis. The patient presented to the emergency department with chief complaint of right leg pain and swelling. The patient had 4 days of increasing erythema and swelling of the right leg prior to coming in. The patient admitted to subjective fevers and chills but denied any chest pain or vomiting. The patient denies any recent change in medications or injuries. The patient has had numerous admissions for previous episodes of cellulitis of the right leg. While in the emergency department the patient was found to have 3+ lower edema bilaterally but worse on the right foot with erythema from the foot to the knee with leukocytosis, acute renal failure and hyperkalemia. The patient was started on empiric antibiotics and referred to the hospitalist for admission and management. HOSPITAL COURSE: The patient was admitted to continuous telemetry unit. The patient was covered with broad-spectrum antibiotic coverage. The patient was consulted and seen by Surgery, and on 11/19/2017 the patient did have an I and D of the right leg area of wound which was done by Dr. Hou. Additionally, the patient on 11/24/2017 did go to the OR for right foot ulceration debridement. Additionally on 11/25/2017 the patient did have a wound VAC placed. The patient's extremities continued to improve; however, the patient complained of ongoing pain and discomfort. However, it appears that the patient's Duragesic had fallen off of the MAR which was contributing to these symptoms. This has been resumed. The patient has remained afebrile. His blood pressure is in acceptable range. The patient has had no significant white count and the patient's drainage has been manageable. The patient's blood glucose has excellent control with dietary compliance. DISCHARGE PLANNIN. The patient is to follow up with the [facility] for hospital followup and management of wound VAC. 2. The patient is to follow up with primary care provider within 2 to 4 weeks for hospital followup. Time spent on this discharge, including assessment/plan, physical examination, patient education, review of records, is 35 minutes. DICTATING PHYSICIAN: RANDY TELLO NP [id number] [facility]#: [id number] ID: [id number] JOB#: [id number] ACCT: [id number] cc:RANDY TELLO NP > COY
[2017-11-30] MEDS ORDERED: FENTANYL 100 MCG/HR PATCH.TD72 TD SCH (14:00)
[2017-11-30] MEDS: ASPIRIN 325 MG TABLET, ENT COATED PO SCH (18:24)
[2017-11-30 20:18] VITALS: BP 115/63
[2017-11-30] MEDS ORDERED: DOXYCYCLINE HYCLATE 100 MG TABLET PO SCH (22:00)
== END 2017-11-30 20:53 | DRG 264 ==
LOC: ER 12:50 → EH 18:30 → 4S 11-13 15:13
PROVIDERS: ADMIT Internal Medicine; ATTEND Internal Medicine
PROC: 3E0F73Z Introduction of Anti-inflammatory into Respiratory Tract, Via Natural or Artificial Opening (ICD-10-PCS; 2017-11-12)
PROC: 0JBQ0ZZ Excision of Right Foot Subcutaneous Tissue and Fascia, Open Approach (ICD-10-PCS; 2017-11-19)
PROC: 0J9Q00Z Drainage of Right Foot Subcutaneous Tissue and Fascia with Drainage Device, Open Approach (ICD-10-PCS; 2017-11-19)
PROC: 02HV33Z Insertion of Infusion Device into Superior Vena Cava, Percutaneous Approach (ICD-10-PCS; 2017-11-20)
PROC: B5181ZA Fluoroscopy of Superior Vena Cava using Low Osmolar Contrast, Guidance (ICD-10-PCS; 2017-11-20)
PROC: B548ZZA Ultrasonography of Superior Vena Cava, Guidance (ICD-10-PCS; 2017-11-20)
PROC: 0JBQ0ZZ Excision of Right Foot Subcutaneous Tissue and Fascia, Open Approach (ICD-10-PCS; principal; 2017-11-24 13:00)
DX: E11.52 Type 2 diabetes mellitus with diabetic peripheral angiopathy with gangrene (principal); N17.9 Acute kidney failure, unspecified; L03.115 Cellulitis of right lower limb; I13.0 Hypertensive heart and chronic kidney disease with heart failure and stage 1 through stage 4 chronic kidney disease, or unspecified chronic kidney disease; I96 Gangrene, not elsewhere classified; M86.9 Osteomyelitis, unspecified; E87.6 Hypokalemia; N18.3 Chronic kidney disease, stage 3 (moderate); G89.29 Other chronic pain; E87.5 Hyperkalemia; E11.22 Type 2 diabetes mellitus with diabetic chronic kidney disease; I50.9 Heart failure, unspecified; I87.8 Other specified disorders of veins; I48.2 Chronic atrial fibrillation; M54.9 Dorsalgia, unspecified; M10.9 Gout, unspecified; K02.9 Dental caries, unspecified; M85.80 Other specified disorders of bone density and structure, unspecified site; E66.9 Obesity, unspecified; E11.69 Type 2 diabetes mellitus with other specified complication; B99.8 Other infectious disease; Z68.32 Body mass index [BMI] 32.0-32.9, adult; Z91.81 History of falling; Z79.891 Long term (current) use of opiate analgesic; Z79.899 Other long term (current) drug therapy; Z79.82 Long term (current) use of aspirin; Z86.718 Personal history of other venous thrombosis and embolism; Z90.49 Acquired absence of other specified parts of digestive tract; Z83.6 Family history of other diseases of the respiratory system; Z82.49 Family history of ischemic heart disease and other diseases of the circulatory system
CPT/HCPCS: 00400; 36415; 36569; 71046; 76882; 76937; 77001; 80048; 80053; 82272; 82306; 82565; 82962; 83735; 84100; 84550; 85025; 85027; 85610; 85730; 87070; 87075; 87077; 87186; 87205; 93005; 93010; 93926; 93971; 94640; 94799; 96374; 99291; G8978-GP; G8979-GP; J1170; J1642; J1650; J1815; J1885; J2020; J2250; J2270; J2543; J2704; J3010; J3370; J3480; J3490; J7030; J7060; J7120; J7620

== ENCOUNTER → 2017-12-28 | Outpatient (CLI) | payer MEDICARE, BC ==
--- NOTE | 2017-12-28 13:42 | RADIOLOGY REPORT (SQ) ---
EXAM DESCRIPTION: FOOT RIGHT COMPLETE COMPLETED DATE/TIME: 12/28/2017 12:16 pm REASON FOR STUDY: NON PRESSURE ULCER RIGHT FOOT L97.512 NON-PRS CHRONIC ULCER OTH PRT RIGHT FOOT W FAT LAYER COMPARISON: 11/19/2017 NUMBER OF VIEWS: Three views. TECHNIQUE: AP, lateral and oblique radiographic images acquired of the right foot. LIMITATIONS: None. FINDINGS: MINERALIZATION: Marked osteopenia. BONES: No acute fracture or dislocation. There is no evidence of progressive bone destruction since the earlier study in the 4th and 5th metatarsals. JOINTS: No effusions. SOFT TISSUES: There is decreased soft tissue swelling. OTHER: No other significant finding. IMPRESSION: Decreased soft tissue swelling. No definite osteomyelitis. TECHNICAL DOCUMENTATION: JOB ID: [id number] [employer]- All Rights Reserved Reading location - IP/workstation name: [email or web address]
== END ==
LOC: OD 12:03
PROVIDERS: ATTEND Surgery
DX: L97.512 Non-pressure chronic ulcer of other part of right foot with fat layer exposed (principal); M79.89 Other specified soft tissue disorders

== ENCOUNTER 2018-02-11 13:18 | Inpatient (IN) | payer MEDICARE, BC ==
[2018-02-11] MEDS ORDERED: VANCOMYCIN HCL INJ 1000 MG VIAL IV ONE (14:53)
--- NOTE | 2018-02-11 14:56 | ER Document Report ---
ED Medical Screen (RME) - General Chief Complaint: Leg Swelling Stated Complaint: RIGHT LEG PAIN Time Seen by Provider: 02/11/18 14:49 Notes: Patient presents with right leg swelling and pain. He states he was diagnosed several months ago with cellulitis. He is being followed by home health and the wound clinic. He states that he was referred in by wound clinic today because the leg is continuing to be swollen hot and painful. He states he has been on Augmentin but that the wound is getting worse. TRAVEL OUTSIDE OF THE [place] IN LAST 30 DAYS: No - Related Data Allergies/Adverse Reactions: No Known Allergies Allergy (Verified 11/12/17 13:41) Home Medications: allopurinol. vitamin c. aspirin. os-jessica. coreg. fentanyl. lasix. multivitamin. oxycodone. xanax. potassium gluconate Past Medical History - Social History Chew tobacco use (# tins/day): No Frequency of alcohol use: None Drug Abuse: None - Past Medical History Cardiac Medical History: Reports: Hx Atrial Fibrillation, Hx Congestive Heart Failure, Hx DVT Endocrine Medical History: Reports: Hx Diabetes Mellitus Type 2 Renal/ Medical History: Reports: Hx Benign Prostatic Hyperplasia, Hx Renal Insufficiency. Denies: Hx Peritoneal Dialysis Past Surgical History: Reports: Hx Cholecystectomy, Hx Orthopedic Surgery - Immunizations History of Influenza Vaccine for 07/2017 - 12/2017 Season: Yes Influenza Administration Date for 07/2017 - 12/2017 Season: 10/31/17
--- NOTE | 2018-02-11 16:00 | RADIOLOGY REPORT (SQ) ---
EXAM DESCRIPTION: FOOT RIGHT COMPLETE COMPLETED DATE/TIME: 02/11/2018 3:49 pm REASON FOR STUDY: pain/swelling COMPARISON: 12/28/2017. NUMBER OF VIEWS: Three views. TECHNIQUE: AP, lateral and oblique radiographic images acquired of the right foot. LIMITATIONS: None. FINDINGS: MINERALIZATION: Generalized demineralization. BONES: No acute fracture or dislocation. No worrisome bone lesions. JOINTS: No effusions. SOFT TISSUES: Diffuse soft tissue swelling. No foreign body. OTHER: No other significant finding. IMPRESSION: DIFFUSE SOFT TISSUE SWELLING. BONY DEMINERALIZATION. NO ACUTE BONY FINDINGS. TECHNICAL DOCUMENTATION: JOB ID: [id number] [employer]- All Rights Reserved Reading location - IP/workstation name: [email or web address]
[2018-02-11 16:40] LABS: ABSOLUTE BASOPHILS # (AUTO) 0.1 10^3/uL (0.0-0.2); ABSOLUTE EOSINOPHILS # (AUTO) 0.3 10^3/uL (0.0-0.6); ABSOLUTE LYMPHOCYTES (AUTO) 2.1 10^3/uL (0.5-4.7); ABSOLUTE MONOCYTES (AUTO) 0.6 10^3/uL (0.1-1.4); ABSOLUTE NEUT (AUTO) 3.9 10^3/uL (1.7-8.2); EOSINOPHILS % (AUTO) 3.9 % (0-6); HEMATOCRIT 36.3 % (37.9-51.0); HEMOGLOBIN 11.8 g/dL (13.5-17.0); LYMPHOCYTES % (AUTO) 30.2 % (13-45); MEAN CORPUSCULAR HEMOGLOBIN 27.7 pg (27.0-33.4); MEAN CORPUSCULAR HGB CONC 32.5 g/dL (32.0-36.0); MEAN CORPUSCULAR VOLUME 85 fl (80-97); MONOCYTES % (AUTO) 8.3 % (3-13); PLATELET COUNT 217 10^3/uL (150-450); RED BLOOD COUNT 4.25 10^6/uL (4.35-5.55); RED CELL DISTRIBUTION WIDTH 18.2 % (11.5-14.0); SEGMENTED NEUTROPHILS % (AUTO) 56.6 % (42-78); TOTAL CELLS COUNTED % (AUTO) 100 %
[2018-02-11 17:05] LABS: ALANINE AMINOTRANSFERASE 20 U/L (21-72); ALBUMIN 3.9 g/dL (3.5-5.0); ALKALINE PHOSPHATASE 80 U/L (38-126); ANION GAP 13 (5-19); ASPARTATE AMINO TRANSFERASE 18 U/L (17-59); BILIRUBIN,DIRECT 0.4 mg/dL (0.0-0.4); BILIRUBIN,TOTAL 0.4 mg/dL (0.2-1.3); BLOOD UREA NITROGEN 46 mg/dL (7-20); CALCIUM 9.7 mg/dL (8.4-10.2); CARBON DIOXIDE 32 mmol/L (22-30); CHLORIDE 101 mmol/L (98-107); GLUCOSE 93 mg/dL (75-110); POTASSIUM 4.6 mmol/L (3.6-5.0); SODIUM 145.7 mmol/L (137-145); TOTAL PROTEIN 7.5 g/dL (6.3-8.2)
--- NOTE | 2018-02-11 18:18 | ER Document Report ---
ED Extremity Problem, Lower - General Chief Complaint: Leg Swelling Stated Complaint: RIGHT LEG PAIN Time Seen by Provider: 02/11/18 14:49 Notes: Patient has an infected right lower leg. He has had problems with this leg since the beginning of this year. After a fall in his garage, he developed an infection in the right lower leg and was admitted to this hospital in late October to November. He was in the hospital here for several weeks and had 2 surgical procedures to drain his right leg during that stay. He was then transferred to [facility] for rehab, where he stayed for a couple of weeks more before being transferred home. He has home health visiting nurses once or twice a week who change his dressing. They commented that his right lower leg looks much worse today than it did last week. He was started on Augmentin 500 mg twice a day last Sunday, but it does not appear to be working. The home health nurses recommended that the patient be seen here in the emergency department today. Patient has not had any fever. TRAVEL OUTSIDE OF THE [place] IN LAST 30 DAYS: No - Related Data Allergies/Adverse Reactions: No Known Allergies Allergy (Verified 11/12/17 13:41) Home Medications: allopurinol. vitamin c. aspirin. os-jessica. coreg. fentanyl. lasix. multivitamin. oxycodone. xanax. potassium gluconate Past Medical History - Social History Smoking Status: Former Smoker Chew tobacco use (# tins/day): No Frequency of alcohol use: None Drug Abuse: None Family History: Reviewed & Not Pertinent, CAD, COPD Patient has suicidal ideation: No Patient has homicidal ideation: No - Past Medical History Cardiac Medical History: Reports: Hx Atrial Fibrillation - Was on anticoagulants until he was in the hospital and they were stopped, Hx Congestive Heart Failure, Hx DVT Renal/ Medical History: Reports: Hx Benign Prostatic Hyperplasia, Hx Renal Insufficiency Past Surgical History: Reports: Hx Cholecystectomy, Hx Orthopedic Surgery - Right leg drained during hospitalization this spring Review of Systems - Review of Systems Notes: REVIEW OF SYSTEMS: CONSTITUTIONAL : Denies fever. EENT: Denies eye, ear, nose or mouth or throat pain or other symptoms. CARDIOVASCULAR: Denies chest pain. RESPIRATORY: Denies cough, chest congestion, or shortness of breath. GASTROINTESTINAL: Denies abdominal pain or nausea, vomiting, or diarrhea. GENITOURINARY: Denies difficulty or painful urinating, urinary frequency, blood in urine. MUSCULOSKELETAL: Denies back or neck pain. Denies joint pain or swelling. Uses canes in order to walk. SKIN: See HPI. NEUROLOGICAL: Denies LOC or altered mental status. Denies headache. Denies sensory loss or motor deficits. ALL OTHER SYSTEMS REVIEWED AND NEGATIVE. Physical Exam - Vital signs Interpretation: Normal - Notes Notes: PHYSICAL EXAMINATION: GENERAL: Well-appearing, in no acute distress. Vital signs are all essentially normal. Afebrile. HEAD: Atraumatic, normocephalic. EYES: Pupils equal round and reactive to light, extraocular movements intact. ENT: oropharynx clear without exudates. Moist mucous membranes. NECK: Normal range of motion, supple. No bruits heard. LUNGS: Breath sounds clear and equal bilaterally. HEART: Irregularly irregular rate and rhythm without murmurs. ABDOMEN: Soft, nontender. No guarding or rebound. No masses. BACK: No tenderness throughout entire back. EXTREMITIES: Both lower legs have changes of stasis dermatitis. The right lower leg is swollen significantly more than the left lower leg, especially from the mid lower leg downward. The right foot itself is significantly more swollen. Dorsal aspect of the right foot has a square raw erythematous area overlying an edematous dorsal foot. NEUROLOGICAL: Normal speech, normal gait. Normal sensory, motor, and reflex exams. Awake, alert, and oriented x3. Cranial nerves normal. PSYCH: Normal mood, normal affect. SKIN: Warm, dry. See extremities above. Course - Re-evaluation Re-evalutation: 02/11/18 18:26 Patient was started on vancomycin after being triaged. I spoke with Dr. Abdullahi, surgeon customer relations specialist, and he will consult on the patient. I spoke with the hospitalist who will admit this patient for IV antibiotics. - Laboratory Result Diagrams: 02/11/18 16:15 02/11/18 16:15 Laboratory results interpreted by me: 02/11/18 02/11/18 16:15 16:15 RBC 4.25 L Hgb 11.8 L Hct 36.3 L RDW 18.2 H Sodium 145.7 H Carbon Dioxide 32 H BUN 46 H Creatinine 1.33 H Est GFR (Non-Af Amer) 53 L ALT 20 L - Diagnostic Test Radiology results interpreted by me: 02/11/18 18:26 X-ray of the right foot is normal. Discharge - Discharge Clinical Impression: Cellulitis of right lower leg, Atrial fibrillation Condition: Stable Admitting Provider: Hospitalist Unit Admitted: Medical Floor
--- NOTE | 2018-02-11 19:11 | PDOC CONSULTATION ---
History of Present Illness Admission Date/PCP: 02/11/18 19:01 Patient complains of: Right foot swelling and erythema History of Present Illness: ANALI STEELE is a 72 year old male with history of diabetes and chronic venous stasis and congestive heart failure with known superficial ulceration of the right leg who is currently under management at the wound care clinic. Was noted with diffuse right foot erythema about a week ago and was placed on p.o. antibiotic without improvement and he subsequently came into the emergency department today. Patient has had no significant drainage in the last several days. He denies any fevers or chills. No increased pain. Past Medical History Cardiac Medical History: Reports: Atrial Fibrillation - Was on anticoagulants until he was in the hospital and they were stopped, Congestive Heart Failure, DVT Endocrine Medical History: Reports: Diabetes Mellitus Type 2 Past Surgical History Past Surgical History: Reports: Cholecystectomy, Orthopedic Surgery - Right leg drained during hospitalization spring Social History Smoking Status: Former Smoker Frequency of Alcohol Use: None Hx Recreational Drug Use: No Drugs: None Hx Prescription Drug Abuse: No Family History Family History: Reviewed & Not Pertinent, CAD, COPD Parental Family History Reviewed: No Children Family History Reviewed: No Sibling(s) Family History Reviewed.: No Medication/Allergy Home Medications: Allopurinol [Zyloprim 100 mg Tablet] 100 mg PO BID 11/12/17 Carvedilol [Coreg 12.5 mg Tablet] 25 mg PO Q12 11/12/17 Metolazone [Zaroxolyn 5 mg Tablet] 5 mg PO DAILYP PRN 11/12/17 Ascorbic Acid [Vitamin C 500 mg Tablet] 500 mg PO BID #0 tablet 11/30/17 Aspirin [Ecotrin 325 mg EC Tablet] 325 mg PO QPM #0 tabec 11/30/17 Calcium Carbonate [Os-Linden 500 mg Tablet (Oyster-Shell)] 500 mg PO BID #0 tablet 11/30/17 Doxycycline Hyclate [Vibramycin 100 mg Tablet] 100 mg PO Q12 #14 tablet Fentanyl [Duragesic 100 Mcg/Hr Transdermal Patch] 1 patch TD Q3D #3 patch.td72 11/30/17 Furosemide [Lasix 40 mg Tablet] 40 mg PO DAILY #0 11/30/17 Gabapentin [Neurontin 300 mg Capsule] 600 mg PO Q8 capsule 11/30/17 Mirtazapine [Remeron 15 mg Tablet] 15 mg PO QHS tablet 11/30/17 Multivitamin [Tab-A-Mike (Multiple Vitamin) Tablet] 1 tab PO DAILY tablet 11/30 Oxycodone HCl [Oxy-Ir 5 mg Tablet] 5 mg PO Q6HP PRN #20 tablet 11/30/17 Allergies/Adverse Reactions: No Known Allergies Allergy (Verified 11/12/17 13:41) Physical Exam General appearance: PRESENT: no acute distress, cooperative Respiratory exam: PRESENT: clear to auscultation jose Cardiovascular exam: PRESENT: RRR GI/Abdominal exam: PRESENT: other - Soft, Nondistended, nontender to palpation. Extremities exam: PRESENT: other - Bilateral lower extremity edema with chronic skin changes consistent with chronic venous stasis disease. Patient has a very superficial wide surface ulceration at the dorsum of the right foot that appears very clean without drainage. There is diffuse erythema of the right foot extending up the right lower leg but no fluctuance and no sinus tracts and no deep ulcerations other than the very superficial ulceration at the dorsum of the foot. The foot is warm. Results Impressions: Foot X-Ray 02/11/18 14:53 IMPRESSION: DIFFUSE SOFT TISSUE SWELLING. BONY DEMINERALIZATION. NO ACUTE BONY FINDINGS. Assessment & Plan - Diagnosis (1) Cellulitis of right lower leg Is this a current diagnosis for this admission?: Yes Plan: In the setting of chronic venous stasis disease. I do not see any role for surgical debridement. Recommend admission to internal medicine for IV antibiotics and leg elevations. Please reconsult us for any problems.
--- NOTE | 2018-02-11 19:39 | EKG REPORT ---
SEVERITY:- ABNORMAL ECG - ATRIAL FIBRILLATION, V-RATE 49-72 : Confirmed by: Billy Smalls MD 11-Feb-2018 19:39:11
[2018-02-11] MEDS ORDERED: VANCOMYCIN HCL 0 MG in DEXTROSE 5%-WATER 250 ML IV NR (20:30)
--- NOTE | 2018-02-11 20:49 | PDOC H&P ---
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 Venous Doppler was negative for DVT Polymicrobial cultures grew from the right foot during the past admission 02/06/18 11:45 Gram Stain - Final Foot - Right Wound Culture - Final Serratia Marcescens Staphylococcus Aureus Enterococcus Faecalis(Group D) No Anaerobic Organisms These organisms were sensitive to Zosyn and vancomycin Upon evaluation in the ED patient was diagnosed of cellulitis and was subsequently admitted under hospitalist service Past Medical History Cardiac Medical History: Reports: Atrial Fibrillation - Was on anticoagulants until he was in the hospital and they were stopped, Congestive Heart Failure, DVT Endocrine Medical History: Reports: Diabetes Mellitus Type 2 Past Surgical History Past Surgical History: Reports: Cholecystectomy, Orthopedic Surgery - Right leg drained during hospitalization spring Social History Smoking Status: Former Smoker Frequency of Alcohol Use: None Hx Recreational Drug Use: No Drugs: None Hx Prescription Drug Abuse: No - Advance Directive Resuscitation Status: Full Code Surrogate healthcare decision maker:: His surrogate healthcare decision maker is his daughter Nanette Family History Family History: CAD, COPD, DM Parental Family History Reviewed: Yes Children Family History Reviewed: Yes Sibling(s) Family History Reviewed.: Yes Medication/Allergy Home Medications: Allopurinol [Zyloprim 100 mg Tablet] 100 mg PO BID 11/12/17 Carvedilol [Coreg 12.5 mg Tablet] 25 mg PO Q12 11/12/17 Metolazone [Zaroxolyn 5 mg Tablet] 5 mg PO DAILYP PRN 11/12/17 Ascorbic Acid [Vitamin C 500 mg Tablet] 500 mg PO BID #0 tablet 11/30/17 Aspirin [Ecotrin 325 mg EC Tablet] 325 mg PO QPM #0 tabec 11/30/17 Calcium Carbonate [Os-Linden 500 mg Tablet (Oyster-Shell)] 500 mg PO BID #0 tablet 11/30/17 Doxycycline Hyclate [Vibramycin 100 mg Tablet] 100 mg PO Q12 #14 tablet Fentanyl [Duragesic 100 Mcg/Hr Transdermal Patch] 1 patch TD Q3D #3 patch.td72 11/30/17 Furosemide [Lasix 40 mg Tablet] 40 mg PO DAILY #0 11/30/17 Gabapentin [Neurontin 300 mg Capsule] 600 mg PO Q8 capsule 11/30/17 Mirtazapine [Remeron 15 mg Tablet] 15 mg PO QHS tablet 11/30/17 Multivitamin [Tab-A-Mike (Multiple Vitamin) Tablet] 1 tab PO DAILY tablet 11/30 Oxycodone HCl [Oxy-Ir 5 mg Tablet] 5 mg PO Q6HP PRN #20 tablet 11/30/17 Allergies/Adverse Reactions: No Known Allergies Allergy (Verified 11/12/17 13:41) Review of Systems Constitutional: ABSENT: chills, fever(s), headache(s), weight gain, weight loss Cardiovascular: ABSENT: chest pain, dyspnea on exertion, edema, orthropnea, palpitations Respiratory: ABSENT: cough, hemoptysis Gastrointestinal: ABSENT: abdominal pain, constipation, diarrhea, hematemesis, hematochezia, nausea, vomiting Genitourinary: ABSENT: as per HPI, difficulty urinating, dysuria, hematuria, nocturia, other Musculoskeletal: ABSENT: joint swelling Integumentary: PRESENT: as per HPI, erythema, other - Swelling pain ulcerations right lower extremity. ABSENT: rash, wounds Neurological: ABSENT: abnormal gait, abnormal speech, confusion, dizziness, focal weakness, syncope Physical Exam Vital Signs: Temp Pulse Resp BP Pulse Ox 98.1 F 72 16 132/82 H 98 02/11/18 20:12 02/11/18 20:12 02/11/18 20:12 02/11/18 20:12 02/11/18 20:12 General appearance: PRESENT: no acute distress, cooperative, obese Head exam: PRESENT: atraumatic, normocephalic Eye exam: PRESENT: conjunctiva pink, EOMI, PERRLA. ABSENT: scleral icterus Neck exam: ABSENT: carotid bruit, JVD, lymphadenopathy, thyromegaly Respiratory exam: PRESENT: clear to auscultation jose. ABSENT: rales, rhonchi, wheezes Cardiovascular exam: PRESENT: RRR. ABSENT: diastolic murmur, rubs, systolic murmur Vascular exam: PRESENT: normal capillary refill GI/Abdominal exam: PRESENT: normal bowel sounds, soft. ABSENT: distended, guarding, mass, organolmegaly, rebound, tenderness Extremities exam: PRESENT: other - There is a long shallow ulceration on the dorsum of the right foot another ulceration is visualized on the posterior aspect of the right calf The limb is swollen tender erythematous warm to touch Musculoskeletal exam: PRESENT: full ROM, other - See above Neurological exam: PRESENT: alert, awake, oriented to person, oriented to place , oriented to time, oriented to situation, CN II-XII grossly intact. ABSENT: motor sensory deficit Psychiatric exam: PRESENT: appropriate affect, normal mood. ABSENT: homicidal ideation, suicidal ideation Results Laboratory Results: 02/11/18 02/11/18 16:15 16:15 WBC 7.0 Hgb 11.8 L Hct 36.3 L Sodium 145.7 H Potassium 4.6 Chloride 101 Carbon Dioxide 32 H BUN 46 H Creatinine 1.33 H Impressions: Foot X-Ray 02/11/18 14:53 IMPRESSION: DIFFUSE SOFT TISSUE SWELLING. BONY DEMINERALIZATION. NO ACUTE BONY FINDINGS. Assessment & Plan - Diagnosis (1) PVD (peripheral vascular disease) Is this a current diagnosis for this admission?: Yes Plan: Patient had an abnormal arterial Doppler during prior admission A we will schedule him for CTA aorta with runoff to lower extremity in 48 hours and his renal function has normalized (2) Atrial fibrillation Qualifiers: Atrial fibrillation type: chronic Qualified Code(s): I48.2 - Chronic atrial fibrillation Is this a current diagnosis for this admission?: Yes Plan: Patient is not anticoagulated at this time Is in atrial fibrillation with controlled ventricular rate (3) Cellulitis of right lower leg Is this a current diagnosis for this admission?: Yes Plan: We will treat with Zosyn and vancomycin (4) Diabetes mellitus Qualifiers: Diabetes mellitus type: type 2 Is this a current diagnosis for this admission?: Yes Plan: Blood sugars are appear well controlled; we will just keep patient on a diabetic diet at this time 11/29/17 11/30/17 02/11/18 23:00 05:00 16:15 Glucose 91 93 POC Glucose 109 (5) Venous stasis Is this a current diagnosis for this admission?: Yes (6) CKD (chronic kidney disease) stage 3, GFR 30-59 ml/min Is this a current diagnosis for this admission?: Yes Plan: Creatinine is 1.3 slightly more elevated than during his past admission We will hydrate overnight - Time Time Spent: 50 to 70 Minutes - Patient will be admitted to medical unit as an inpatient Dr. Abdullahi surgical attending has evaluated the patient
[2018-02-11] MEDS: 1/2 NORMAL SALINE 1,000 ML IV PRN (21:00)
[2018-02-11] MEDS: FENTANYL 100 MCG/HR PATCH.TD72 TD SCH (21:17)
[2018-02-11] MEDS: OXYCODONE HCL IR 5 MG TABLET PO PRN (21:17)
[2018-02-11] MEDS ORDERED: ENOXAPARIN SODIUM INJ 40 MG/0.4 ML DISP.SYRIN SUBCUT ONE (22:00)
[2018-02-11] MEDS: VANCOMYCIN HCL 750 MG in DEXTROSE 5%-WATER 250 ML IV SCH (22:50)
[2018-02-12] MEDS: PIPERACILLIN SODIUM/TAZOBACTAM 3.375 GM in NORMAL SALINE 100 ML IV SCH ×5 (00:54→23:34)
[2018-02-12] MEDS: OXYCODONE HCL IR 5 MG TABLET PO PRN ×2 (06:35→20:57)
[2018-02-12 07:33] LABS: ABSOLUTE BASOPHILS # (AUTO) 0.1 10^3/uL (0.0-0.2); ABSOLUTE EOSINOPHILS # (AUTO) 0.2 10^3/uL (0.0-0.6); ABSOLUTE LYMPHOCYTES (AUTO) 1.8 10^3/uL (0.5-4.7); ABSOLUTE MONOCYTES (AUTO) 0.5 10^3/uL (0.1-1.4); HEMATOCRIT 33.2 % (37.9-51.0); HEMOGLOBIN 10.8 g/dL (13.5-17.0); LYMPHOCYTES % (AUTO) 32.2 % (13-45); MEAN CORPUSCULAR HEMOGLOBIN 27.3 pg (27.0-33.4); MEAN CORPUSCULAR HGB CONC 32.5 g/dL (32.0-36.0); MEAN CORPUSCULAR VOLUME 84 fl (80-97); MONOCYTES % (AUTO) 9.1 % (3-13); PLATELET COUNT 172 10^3/uL (150-450); RED BLOOD COUNT 3.95 10^6/uL (4.35-5.55); RED CELL DISTRIBUTION WIDTH 17.9 % (11.5-14.0); SEGMENTED NEUTROPHILS % (AUTO) 53.7 % (42-78); TOTAL CELLS COUNTED % (AUTO) 100 %; WHITE BLOOD COUNT 5.5 10^3/uL (4.0-10.5)
[2018-02-12 07:42] LABS: ALANINE AMINOTRANSFERASE 22 U/L (21-72); ALBUMIN 3.3 g/dL (3.5-5.0); ALKALINE PHOSPHATASE 71 U/L (38-126); ANION GAP 8 (5-19); ASPARTATE AMINO TRANSFERASE 15 U/L (17-59); BILIRUBIN,DIRECT 0.3 mg/dL (0.0-0.4); BILIRUBIN,TOTAL 0.7 mg/dL (0.2-1.3); BLOOD UREA NITROGEN 33 mg/dL (7-20); CALCIUM 9.1 mg/dL (8.4-10.2); CARBON DIOXIDE 30 mmol/L (22-30); CHLORIDE 103 mmol/L (98-107); CHOLESTEROL 106.75 mg/dL (0-200); GLUCOSE 94 mg/dL (75-110); POTASSIUM 3.8 mmol/L (3.6-5.0); SODIUM 141.4 mmol/L (137-145); TOTAL PROTEIN 6.4 g/dL (6.3-8.2); TRIGLYCERIDES 69 mg/dL (<150)
[2018-02-12 07:54] LABS: DIRECT LDL 41 mg/dL (<100)
[2018-02-12 07:57] LABS: FREE T4 (FREE THYROXINE) 1.32 ng/dL (0.78-2.19)
[2018-02-12 08:11] LABS: THYROID STIMULATING HORMONE 0.98 uIU/mL (0.47-4.68)
[2018-02-12] MEDS ORDERED: ENOXAPARIN SODIUM INJ 40 MG/0.4 ML DISP.SYRIN SUBCUT SCH (10:00)
[2018-02-12] MEDS: VANCOMYCIN HCL 750 MG in DEXTROSE 5%-WATER 250 ML IV SCH ×2 (12:27→22:03)
[2018-02-12] MEDS ORDERED: OXYCODONE HCL IR 5 MG TABLET ONE (13:51)
--- NOTE | 2018-02-12 15:50 | PDOC PROGRESS REPORT ---
Subjective Progress Note for:: 02/12/18 Subjective:: Patient was admitted with cellulitis of right lower extremity. He was started on vancomycin as well as Zosyn. Patient denies any history of diabetes and his hemoglobin A1c is less than 6. He does have peripheral vascular disease and just last week his wound culture yielded multiple organisms including Serratia, Staphylococcus aureus as well as group D enterococcus. Reason For Visit: CELLULITIS RIGHT LOWER EXTREMITY, CHRONIC ULCERS Physical Exam Vital Signs: Temp Pulse Resp BP Pulse Ox 97.7 F 68 18 159/73 H 98 02/12/18 11:43 02/12/18 11:43 02/12/18 11:43 02/12/18 11:43 02/12/18 11:43 Intake & Output 02/11/18 02/12/18 02/13/18 06:59 06:59 06:59 Intake Total 1100 Output Total 700 Balance 400 Weight 88.6 kg General appearance: PRESENT: no acute distress, cooperative, well-developed Head exam: PRESENT: atraumatic Eye exam: PRESENT: conjunctival injection Neck exam: ABSENT: carotid bruit, JVD, lymphadenopathy, thyromegaly Respiratory exam: PRESENT: clear to auscultation jose. ABSENT: rales, rhonchi, wheezes Cardiovascular exam: PRESENT: bradycardia Pulses: PRESENT: normal dorsalis pedis pul Rectal exam: PRESENT: deferred Extremities exam: PRESENT: calf tenderness, clubbing, full ROM, pedal edema, +2 edema, other - RLE swelling and erythema and dermatitis with tenderness Neurological exam: PRESENT: alert, awake, oriented to person, oriented to time Skin exam: PRESENT: dry, intact, warm. ABSENT: cyanosis, rash Results Laboratory Results: 02/12/18 07:03 02/12/18 07:03 02/12/18 02/12/18 02/12/18 07:03 07:03 07:03 WBC 5.5 RBC 3.95 L Hgb 10.8 L Hct 33.2 L MCV 84 MCH 27.3 MCHC 32.5 RDW 17.9 H Plt Count 172 Seg Neutrophils % 53.7 Lymphocytes % 32.2 Monocytes % 9.1 Eosinophils % 4.0 Basophils % 1.0 Absolute Neutrophils 3.0 Absolute Lymphocytes 1.8 Absolute Monocytes 0.5 Absolute Eosinophils 0.2 Absolute Basophils 0.1 Sodium 141.4 Potassium 3.8 Chloride 103 Carbon Dioxide 30 Anion Gap 8 BUN 33 H Creatinine 0.97 Est GFR ( Amer) > 60 Est GFR (Non-Af Amer) > 60 Glucose 94 Calcium 9.1 Total Bilirubin 0.7 AST 15 L ALT 22 Alkaline Phosphatase 71 Total Protein 6.4 Albumin 3.3 L Triglycerides 69 Cholesterol 106.75 LDL Cholesterol Direct 41 VLDL Cholesterol 14.0 HDL Cholesterol 50 TSH 0.98 Free T4 1.32 Impressions: Foot X-Ray 02/11/18 14:53 IMPRESSION: DIFFUSE SOFT TISSUE SWELLING. BONY DEMINERALIZATION. NO ACUTE BONY FINDINGS. Assessment & Plan - Time Time Spent with patient: 15-24 minutes Medications reviewed and adjusted accordingly: Yes Anticipated discharge: SNF - Inpatient Certification Based on my medical assessment, after consideration of the patient's comorbidities, presenting symptoms, or acuity I expect that the services needed warrant INPATIENT care.: Yes Medical Necessity: Need for IV Antibiotics - Plan Summary Plan Summary: 1. Cellulitis of right lower extremity currently on Zosyn and vancomycin. We will review previous treatment and will consider switching antibiotics if appropriate. 2. Chronic atrial fibrillation currently rate controlled. He is not on anticoagulant for unclear reasons. This can be followed up as outpatient 3. Peripheral vascular disease which patient will need further workup for. It is unclear how much he has had at this time. Arterial Doppler study back in October did show moderate hemodynamically significant lesions in the right lower extremity. Will consider ordering a CTA with suggest outpatient follow- up with vascular surgery once discharged 4. Acute kidney injury on initial presentation. This has resolved
[2018-02-12] MEDS: CALCIUM CARBONATE 500 MG TABLET PO SCH (17:36)
[2018-02-12] MEDS: ALLOPURINOL 100 MG TABLET PO SCH (17:36)
[2018-02-12] MEDS: ASCORBIC ACID 500 MG TABLET PO SCH (17:36)
[2018-02-12] MEDS: CARVEDILOL 12.5 MG TABLET PO SCH (20:57)
[2018-02-12] MEDS ORDERED: (PENDING PHARMACY ID) (Carvedilol [Coreg 25 Mg Tablet] 1 TAB) PO SCH (22:00)
[2018-02-12] MEDS: 1/2 NORMAL SALINE 1,000 ML IV PRN (23:33)
[2018-02-13] MEDS: PIPERACILLIN SODIUM/TAZOBACTAM 3.375 GM in NORMAL SALINE 100 ML IV SCH ×3 (05:30→18:06)
[2018-02-13] MEDS: FUROSEMIDE 40 MG TABLET PO SCH (07:46)
[2018-02-13] MEDS: OXYCODONE HCL IR 5 MG TABLET PO PRN ×3 (07:46→20:27)
[2018-02-13 07:49] LABS: ABSOLUTE BASOPHILS # (AUTO) 0.1 10^3/uL (0.0-0.2); ABSOLUTE EOSINOPHILS # (AUTO) 0.2 10^3/uL (0.0-0.6); ABSOLUTE LYMPHOCYTES (AUTO) 1.4 10^3/uL (0.5-4.7); ABSOLUTE MONOCYTES (AUTO) 0.5 10^3/uL (0.1-1.4); BASOPHILS % (AUTO) 1.1 % (0-2); EOSINOPHILS % (AUTO) 4.4 % (0-6); HEMATOCRIT 32.6 % (37.9-51.0); HEMOGLOBIN 10.7 g/dL (13.5-17.0); LYMPHOCYTES % (AUTO) 27.7 % (13-45); MEAN CORPUSCULAR HEMOGLOBIN 27.4 pg (27.0-33.4); MEAN CORPUSCULAR HGB CONC 32.8 g/dL (32.0-36.0); MEAN CORPUSCULAR VOLUME 84 fl (80-97); MONOCYTES % (AUTO) 9.1 % (3-13); PLATELET COUNT 168 10^3/uL (150-450); RED CELL DISTRIBUTION WIDTH 17.9 % (11.5-14.0); SEGMENTED NEUTROPHILS % (AUTO) 57.7 % (42-78); TOTAL CELLS COUNTED % (AUTO) 100 %; WHITE BLOOD COUNT 5.2 10^3/uL (4.0-10.5)
[2018-02-13 08:15] LABS: ANION GAP 10 (5-19); BLOOD UREA NITROGEN 28 mg/dL (7-20); CALCIUM 9.3 mg/dL (8.4-10.2); CARBON DIOXIDE 26 mmol/L (22-30); CHLORIDE 104 mmol/L (98-107); GLUCOSE 97 mg/dL (75-110); SODIUM 140.3 mmol/L (137-145)
[2018-02-13 08:17] LABS: POTASSIUM 3.8 mmol/L (3.6-5.0)
[2018-02-13] MEDS: ALLOPURINOL 100 MG TABLET PO SCH ×2 (09:18→18:06)
[2018-02-13] MEDS: ASCORBIC ACID 500 MG TABLET PO SCH ×2 (09:18→18:06)
[2018-02-13] MEDS: CALCIUM CARBONATE 500 MG TABLET PO SCH ×2 (09:19→18:06)
[2018-02-13] MEDS: CARVEDILOL 12.5 MG TABLET PO SCH ×2 (09:19→21:20)
[2018-02-13] MEDS: ASPIRIN 81 MG TABLET, ENT COATED PO SCH (09:19)
[2018-02-13 11:04] LABS: VANCOMYCIN,TROUGH 14.3 ug/mL (5.0-20.0)
[2018-02-13] MEDS: VANCOMYCIN HCL 750 MG in DEXTROSE 5%-WATER 250 ML IV SCH ×2 (13:48→22:05)
[2018-02-13] MEDS: 1/2 NORMAL SALINE 1,000 ML IV PRN (15:17)
--- NOTE | 2018-02-13 18:52 | PDOC PROGRESS REPORT ---
Subjective Progress Note for:: 02/13/18 Subjective:: Patient was admitted with cellulitis of right lower extremity. He was started on vancomycin as well as Zosyn. Patient denies any history of diabetes and his hemoglobin A1c is less than 6. He does have peripheral vascular disease and just last week his wound culture yielded multiple organisms including Serratia, Staphylococcus aureus as well as group D enterococcus. Reason For Visit: CELLULITIS RIGHT LOWER EXTREMITY, CHRONIC ULCERS Physical Exam Vital Signs: Temp Pulse Resp BP Pulse Ox 97.5 F 59 L 20 159/73 H 99 02/13/18 15:27 02/13/18 15:27 02/13/18 15:27 02/13/18 15:27 02/13/18 15:27 Intake & Output 02/12/18 02/13/18 02/14/18 06:59 06:59 06:59 Intake Total 1100 3656 837 Output Total 700 1200 980 Balance 400 2456 -143 Weight 88.6 kg 88.4 kg General appearance: PRESENT: no acute distress Head exam: PRESENT: atraumatic Eye exam: PRESENT: conjunctiva pink, EOMI, PERRLA. ABSENT: scleral icterus Ear exam: PRESENT: normal external ear exam Neck exam: ABSENT: carotid bruit, JVD, lymphadenopathy, thyromegaly Cardiovascular exam: PRESENT: RRR. ABSENT: diastolic murmur, rubs, systolic murmur Pulses: PRESENT: normal dorsalis pedis pul GI/Abdominal exam: PRESENT: normal bowel sounds, soft. ABSENT: distended, guarding, mass, organolmegaly, rebound, tenderness Rectal exam: PRESENT: deferred Neurological exam: PRESENT: alert, awake, oriented to person, oriented to place , oriented to time, oriented to situation Psychiatric exam: PRESENT: appropriate affect Skin exam: PRESENT: erythema, rash, vesicles, other - especially R leg extending to foot, minimal discharges sen Results Laboratory Results: 02/13/18 06:37 02/13/18 10:27 02/13/18 02/13/18 02/13/18 06:37 06:37 10:27 WBC 5.2 RBC 3.90 L Hgb 10.7 L Hct 32.6 L MCV 84 MCH 27.4 MCHC 32.8 RDW 17.9 H Plt Count 168 Seg Neutrophils % 57.7 Lymphocytes % 27.7 Monocytes % 9.1 Eosinophils % 4.4 Basophils % 1.1 Absolute Neutrophils 3.0 Absolute Lymphocytes 1.4 Absolute Monocytes 0.5 Absolute Eosinophils 0.2 Absolute Basophils 0.1 Sodium 140.3 Potassium 3.8 Chloride 104 Carbon Dioxide 26 Anion Gap 10 BUN 28 H Creatinine 0.94 0.99 Est GFR ( Amer) > 60 > 60 Est GFR (Non-Af Amer) > 60 > 60 Glucose 97 Calcium 9.3 Impressions: Foot X-Ray 02/11/18 14:53 IMPRESSION: DIFFUSE SOFT TISSUE SWELLING. BONY DEMINERALIZATION. NO ACUTE BONY FINDINGS. Assessment & Plan - Time Time Spent with patient: 15-24 minutes Medications reviewed and adjusted accordingly: Yes Anticipated discharge: Home - Inpatient Certification Based on my medical assessment, after consideration of the patient's comorbidities, presenting symptoms, or acuity I expect that the services needed warrant INPATIENT care.: Yes Medical Necessity: Need for IV Antibiotics - Plan Summary Plan Summary: 1. Cellulitis of right lower extremity -Continue Zosyn and vancomycin. 2. Chronic atrial fibrillation currently rate controlled. He is not on anticoagulant for unclear reasons. This can be followed up as outpatient 3. Peripheral vascular disease which patient will need further workup for. It is unclear how much he has had at this time. Arterial Doppler study back in October did show moderate hemodynamically significant lesions in the right lower extremity. 4. Acute kidney injury on initial presentation. This has resolved
[2018-02-14] MEDS: PIPERACILLIN SODIUM/TAZOBACTAM 3.375 GM in NORMAL SALINE 100 ML IV SCH ×2 (00:40→05:22)
[2018-02-14] MEDS: OXYCODONE HCL IR 5 MG TABLET PO PRN ×3 (05:24→21:43)
[2018-02-14] MEDS: FUROSEMIDE 40 MG TABLET PO SCH (09:09)
[2018-02-14] MEDS: ASPIRIN 81 MG TABLET, ENT COATED PO SCH (09:09)
[2018-02-14] MEDS: ASCORBIC ACID 500 MG TABLET PO SCH ×2 (09:14→17:35)
[2018-02-14] MEDS: CALCIUM CARBONATE 500 MG TABLET PO SCH ×2 (09:14→17:33)
[2018-02-14] MEDS: CARVEDILOL 12.5 MG TABLET PO SCH ×2 (09:14→21:43)
[2018-02-14] MEDS: ALLOPURINOL 100 MG TABLET PO SCH ×2 (09:14→17:33)
[2018-02-14] MEDS ORDERED: 1/2 NORMAL SALINE 1,000 ML IV PRN (12:02)
--- NOTE | 2018-02-14 12:17 | PDOC PROGRESS REPORT ---
Subjective Progress Note for:: 02/14/18 Subjective:: Patient was admitted with cellulitis of right lower extremity. He was started on vancomycin as well as Zosyn. Patient denies any history of diabetes and his hemoglobin A1c is less than 6. He does have peripheral vascular disease and just last week his wound culture yielded multiple organisms including Serratia, Staphylococcus aureus as well as group D enterococcus. Reason For Visit: CELLULITIS RIGHT LOWER EXTREMITY, CHRONIC ULCERS Physical Exam Vital Signs: Temp Pulse Resp BP Pulse Ox 98.6 F 61 20 162/83 H 97 02/14/18 07:09 02/14/18 07:09 02/14/18 07:09 02/14/18 07:09 02/14/18 07:09 Intake & Output 02/13/18 02/14/18 02/15/18 06:59 06:59 06:59 Intake Total 3656 3409 Output Total 1200 1755 Balance 2456 1654 Weight 88.4 kg 88.4 kg General appearance: PRESENT: no acute distress Head exam: PRESENT: atraumatic Neck exam: ABSENT: carotid bruit, JVD, lymphadenopathy, thyromegaly Cardiovascular exam: PRESENT: irregular rhythm. ABSENT: diastolic murmur, rubs , systolic murmur GI/Abdominal exam: PRESENT: normal bowel sounds, soft. ABSENT: distended, guarding, mass, organolmegaly, rebound, tenderness Rectal exam: PRESENT: deferred Extremities exam: PRESENT: full ROM. ABSENT: calf tenderness, clubbing, pedal edema Neurological exam: PRESENT: alert, awake, oriented to place, oriented to time Psychiatric exam: PRESENT: agitated Skin exam: PRESENT: dry, intact, warm. ABSENT: cyanosis, rash Results Laboratory Results: 02/13/18 06:37 02/13/18 10:27 02/12/18 06:25 Foot - Abscess Gram Stain - Final 02/12/18 06:25 Foot - Abscess Wound Culture - Final Serratia Marcescens Impressions: Foot X-Ray 02/11/18 14:53 IMPRESSION: DIFFUSE SOFT TISSUE SWELLING. BONY DEMINERALIZATION. NO ACUTE BONY FINDINGS. Assessment & Plan - Time Time Spent with patient: 15-24 minutes Medications reviewed and adjusted accordingly: Yes Anticipated discharge: Home with Homehealth Within: within 72 hours - Inpatient Certification Based on my medical assessment, after consideration of the patient's comorbidities, presenting symptoms, or acuity I expect that the services needed warrant INPATIENT care.: Yes - Plan Summary Plan Summary: 1. Cellulitis of right lower extremity -Change to Cipro which appears to be best option for Serratia currently growing 2. Chronic atrial fibrillation currently rate controlled. He is not on anticoagulant for unclear reasons. This can be followed up as outpatient 3. Peripheral vascular disease which patient will need further workup for. Arterial Doppler study back in October did show moderate hemodynamically significant lesions in the right lower extremity. 4. Acute kidney injury on initial presentation. This has resolved
[2018-02-14] MEDS: CIPROFLOXACIN 400 MG/D5W RTU 400 MG/200 ML RTUPB IV SCH (17:33)
[2018-02-14] MEDS: FENTANYL 100 MCG/HR PATCH.TD72 TD SCH (21:44)
[2018-02-15] MEDS: OXYCODONE HCL IR 5 MG TABLET PO PRN ×3 (05:13→19:08)
[2018-02-15] MEDS: CIPROFLOXACIN 400 MG/D5W RTU 400 MG/200 ML RTUPB IV SCH ×2 (05:13→19:07)
[2018-02-15] MEDS: CARVEDILOL 12.5 MG TABLET PO SCH ×2 (11:10→22:23)
[2018-02-15] MEDS: ASPIRIN 81 MG TABLET, ENT COATED PO SCH (11:10)
[2018-02-15] MEDS: CALCIUM CARBONATE 500 MG TABLET PO SCH ×2 (11:11→19:07)
[2018-02-15] MEDS: ASCORBIC ACID 500 MG TABLET PO SCH ×2 (11:11→19:06)
[2018-02-15] MEDS: ALLOPURINOL 100 MG TABLET PO SCH ×2 (11:11→19:06)
[2018-02-15] MEDS: FUROSEMIDE 40 MG TABLET PO SCH (11:13)
--- NOTE | 2018-02-15 14:40 | RADIOLOGY REPORT (SQ) ---
EXAM DESCRIPTION: PICC INSERTION; FLUORO/CV PLACEMENT; U/S GUIDE FOR VASCULAR ACCESS COMPLETED DATE/TIME: 02/15/2018 2:28 pm REASON FOR STUDY: UNABLE TO ESTABLISH PERIPHERAL ACCESS; IV ACCESS COMPARISON: None. FLUOROSCOPY TIME: 57 seconds 2 images saved to PACS. TECHNIQUE: Fluoroscopic and ultrasound guided PICC placement. LIMITATIONS: None. PROCEDURE: After written consent and assessment were obtained, the patient was brought into the fluo roscopy room and place supine on the table. Ultrasound was used on the patient's left arm for PICC a ccess. The left arm was prepped and draped in a sterile fashion along with the ultrasound probe. The entry site was anesthetized with 1% lidocaine. A 21 gauge 7 cm needle was advanced through the skin a nd into the basilic vein under live ultrasound guidance. An ultrasound image was saved to PACS confi ing access site. A .018 guide wire was then inserted through the needle and into the venous system . The needle was the removed and an 11 blade scalpel was used to make a 1cm skin incision. A 5 fr pe el-away sheath was advanced over the wire and into the venous system. A measurement was then made usi ng the existing wire and live fluoroscopic guidance. The wire was then removed and the trimmed. The P ICC was advanced through the peel-away sheath and into the venous system. The peel-away sheath was re moved and the catheter was adhered to the patients arm with a stat lock. The catheter was then aspira gabbi and flushed and a sterile bandage was placed over the access site. A fluoroscopic spot image was saved to PACS confirming the catheter tip within the superior vena cava. IMPRESSION: SUCCESSFUL PLACEMENT OF A 5 FR DUAL LUMEN 50 CM PICC IN THE LEFT BASILIC VEIN. COMMENT: Patient medication list reviewed: Yes- Quality ID# 130:Eligible professional attests to doc umenting in the medical record they obtained, updated, or reviewed the patient's current medications. . Quality ID 145: Final reports for procedures using fluoroscopy that document radiation exposure tracey edagr, or exposure time and number of fluorographic images (if radiation exposure indices are not avail able) Quality ID #76: The patient was prepped and draped using maximum sterile barrier technique including cap, mask, sterile gown, sterile gloves, a large sterile sheet, hand hygiene, and 2% Chlorhexidine fo r cutaneous antisepsis. When ultrasound is used, sterile ultrasound techniques are followed requiring sterile gel and sterile probes. TECHNICAL DOCUMENTATION: JOB ID: [id number] [employer]- All Rights Reserved Reading location - IP/workstation name: [facility]-[email or web address]
--- NOTE | 2018-02-15 14:40 | RADIOLOGY REPORT (SQ) ---
EXAM DESCRIPTION: PICC INSERTION; FLUORO/CV PLACEMENT; U/S GUIDE FOR VASCULAR ACCESS COMPLETED DATE/TIME: 02/15/2018 2:28 pm REASON FOR STUDY: UNABLE TO ESTABLISH PERIPHERAL ACCESS; IV ACCESS COMPARISON: None. FLUOROSCOPY TIME: 57 seconds 2 images saved to PACS. TECHNIQUE: Fluoroscopic and ultrasound guided PICC placement. LIMITATIONS: None. PROCEDURE: After written consent and assessment were obtained, the patient was brought into the fluo roscopy room and place supine on the table. Ultrasound was used on the patient's left arm for PICC a ccess. The left arm was prepped and draped in a sterile fashion along with the ultrasound probe. The entry site was anesthetized with 1% lidocaine. A 21 gauge 7 cm needle was advanced through the skin a nd into the basilic vein under live ultrasound guidance. An ultrasound image was saved to PACS confi ing access site. A .018 guide wire was then inserted through the needle and into the venous system . The needle was the removed and an 11 blade scalpel was used to make a 1cm skin incision. A 5 fr pe el-away sheath was advanced over the wire and into the venous system. A measurement was then made usi ng the existing wire and live fluoroscopic guidance. The wire was then removed and the trimmed. The P ICC was advanced through the peel-away sheath and into the venous system. The peel-away sheath was re moved and the catheter was adhered to the patients arm with a stat lock. The catheter was then aspira gabbi and flushed and a sterile bandage was placed over the access site. A fluoroscopic spot image was saved to PACS confirming the catheter tip within the superior vena cava. IMPRESSION: SUCCESSFUL PLACEMENT OF A 5 FR DUAL LUMEN 50 CM PICC IN THE LEFT BASILIC VEIN. COMMENT: Patient medication list reviewed: Yes- Quality ID# 130:Eligible professional attests to doc umenting in the medical record they obtained, updated, or reviewed the patient's current medications. . Quality ID 145: Final reports for procedures using fluoroscopy that document radiation exposure tracey edgar, or exposure time and number of fluorographic images (if radiation exposure indices are not avail able) Quality ID #76: The patient was prepped and draped using maximum sterile barrier technique including cap, mask, sterile gown, sterile gloves, a large sterile sheet, hand hygiene, and 2% Chlorhexidine fo r cutaneous antisepsis. When ultrasound is used, sterile ultrasound techniques are followed requiring sterile gel and sterile probes. TECHNICAL DOCUMENTATION: JOB ID: [id number] [employer]- All Rights Reserved Reading location - IP/workstation name: [facility]-[email or web address]
--- NOTE | 2018-02-15 14:40 | RADIOLOGY REPORT (SQ) ---
EXAM DESCRIPTION: PICC INSERTION; FLUORO/CV PLACEMENT; U/S GUIDE FOR VASCULAR ACCESS COMPLETED DATE/TIME: 02/15/2018 2:28 pm REASON FOR STUDY: UNABLE TO ESTABLISH PERIPHERAL ACCESS; IV ACCESS COMPARISON: None. FLUOROSCOPY TIME: 57 seconds 2 images saved to PACS. TECHNIQUE: Fluoroscopic and ultrasound guided PICC placement. LIMITATIONS: None. PROCEDURE: After written consent and assessment were obtained, the patient was brought into the fluo roscopy room and place supine on the table. Ultrasound was used on the patient's left arm for PICC a ccess. The left arm was prepped and draped in a sterile fashion along with the ultrasound probe. The entry site was anesthetized with 1% lidocaine. A 21 gauge 7 cm needle was advanced through the skin a nd into the basilic vein under live ultrasound guidance. An ultrasound image was saved to PACS confi ing access site. A .018 guide wire was then inserted through the needle and into the venous system . The needle was the removed and an 11 blade scalpel was used to make a 1cm skin incision. A 5 fr pe el-away sheath was advanced over the wire and into the venous system. A measurement was then made usi ng the existing wire and live fluoroscopic guidance. The wire was then removed and the trimmed. The P ICC was advanced through the peel-away sheath and into the venous system. The peel-away sheath was re moved and the catheter was adhered to the patients arm with a stat lock. The catheter was then aspira gbabi and flushed and a sterile bandage was placed over the access site. A fluoroscopic spot image was saved to PACS confirming the catheter tip within the superior vena cava. IMPRESSION: SUCCESSFUL PLACEMENT OF A 5 FR DUAL LUMEN 50 CM PICC IN THE LEFT BASILIC VEIN. COMMENT: Patient medication list reviewed: Yes- Quality ID# 130:Eligible professional attests to doc umenting in the medical record they obtained, updated, or reviewed the patient's current medications. . Quality ID 145: Final reports for procedures using fluoroscopy that document radiation exposure tracey edgar, or exposure time and number of fluorographic images (if radiation exposure indices are not avail able) Quality ID #76: The patient was prepped and draped using maximum sterile barrier technique including cap, mask, sterile gown, sterile gloves, a large sterile sheet, hand hygiene, and 2% Chlorhexidine fo r cutaneous antisepsis. When ultrasound is used, sterile ultrasound techniques are followed requiring sterile gel and sterile probes. TECHNICAL DOCUMENTATION: JOB ID: [id number] [employer]- All Rights Reserved Reading location - IP/workstation name: [facility]-[email or web address]
--- NOTE | 2018-02-15 15:12 | RADIOLOGY REPORT (SQ) ---
EXAM DESCRIPTION: CTA ABD AORTA AND EXTREMITY COMPLETED DATE/TIME: 02/15/2018 2:50 pm REASON FOR STUDY: ULCER/CELLULITIS RIGHT LE COMPARISON: None. TECHNIQUE: CT scan of the body and lower extremities performed with and without intravenous contrast using helical scanning technique with dynamic intravenous contrast injection. Images reviewed with l rasheeda, soft tissue, and bone windows. Reconstructed coronal and sagittal MPR images reviewed. All image s stored on PACS. Advanced 3D imaging as volume-rendering, MIPs, SSD performed? yes All CT scanners at this facility use dose modulation, iterative reconstruction, and/or weight based d osing when appropriate to reduce radiation dose to as low as reasonably achievable (ALARA). [facility]: Dose Right [facility]: CareDose [facility]: Dose Right [facility]: Teradose 4D [facility]: [employer] CONTRAST TYPE AND DOSE: contrast/concentration: Isovue 370.00 mg/ml; Total Contrast Delivered: 100.0 ml; Total Saline Delivered: 98.0 ml RENAL FUNCTION: BUN 28 creatinine 1.0 LIMITATIONS: None. FINDINGS: NON-CONTRASTED IMAGING: No significant renal or bladder calcifications. No other significa nt organ calcifications. POST-CONTRAST IMAGING: AORTA AND VESSELS: Diffuse atherosclerotic calcifications. No aneurysm. No significant stenosis in the pelvis. There is moderate diffuse disease above the knees bilaterally. No high-grade focal sten osis. There is 3 vessel runoff bilaterally. LUNG BASES: Not imaged. LIVER: Limited evaluation. SPLEEN: Limited evaluation. PANCREAS: No masses. No significant calcifications. No adjacent inflammation or peripancreatic fluid collections. Pancreatic duct not dilated. GALLBLADDER: No identified stones by CT criteria. No inflammatory changes to suggest cholecystitis. ADRENAL GLANDS: No significant masses or asymmetry. RIGHT KIDNEY AND URETER: No solid mass, calculi or urinary tract obstruction. LEFT KIDNEY AND URETER: No solid mass, calculi or urinary tract obstruction. RETROPERITONEUM: No retroperitoneal adenopathy, hemorrhage or masses. BOWEL AND PERITONEAL CAVITY: No masses or inflammatory changes. No free fluid or peritoneal masses. APPENDIX: Not visualized. ABDOMINAL WALL: Anterior abdominal wall hernia containing fat. BONY STRUCTURES: No acute findings. 3-D IMAGING: Confirms the above findings. OTHER: Cellulitis right lower extremity [id number]. IMPRESSION: Moderate diffuse disease above the knee. No focal high-grade stenosis. Three-vessel ru noff bilaterally. TECHNICAL DOCUMENTATION: JOB ID: [id number] Quality ID # [id number]: Final reports with documentation of one or more dose reduction techniques (e.g., Au tomated exposure control, adjustment of the mA and/or kV according to patient size, use of iterative reconstruction technique) 2010 [employer]- All Rights Reserved Reading location - IP/workstation name: [email or web address]
[2018-02-15] MEDS ORDERED: NORMAL SALINE 10 ML SDV (AFTER EACH USE) IV PRN (15:53)
--- NOTE | 2018-02-15 18:17 | PDOC PROGRESS REPORT ---
Subjective Progress Note for:: 02/15/18 Subjective:: Patient was admitted with cellulitis of right lower extremity. He was started on vancomycin as well as Zosyn. Patient denies any history of diabetes and his hemoglobin A1c is less than 6. He does have peripheral vascular disease and just last week his wound culture yielded multiple organisms including Serratia, Staphylococcus aureus as well as group D enterococcus. Patient reports feeling better today. His dressings were removed and we looked at the wound and he says that he does look better today Reason For Visit: CELLULITIS RIGHT LOWER EXTREMITY, CHRONIC ULCERS Physical Exam Vital Signs: Temp Pulse Resp BP Pulse Ox 97.4 F 61 16 143/66 H 100 02/15/18 11:20 02/15/18 11:20 02/15/18 11:20 02/15/18 11:20 02/15/18 11:20 Intake & Output 02/14/18 02/15/18 02/16/18 06:59 06:59 06:59 Intake Total 3409 2320 720 Output Total 1755 430 Balance 1654 1890 720 Weight 88.4 kg 88 kg General appearance: PRESENT: no acute distress Head exam: PRESENT: atraumatic Eye exam: PRESENT: conjunctiva pink, EOMI, PERRLA. ABSENT: scleral icterus Neck exam: PRESENT: carotid bruit GI/Abdominal exam: PRESENT: normal bowel sounds, soft. ABSENT: distended, guarding, mass, organolmegaly, rebound, tenderness Rectal exam: PRESENT: deferred Extremities exam: PRESENT: +2 edema Musculoskeletal exam: PRESENT: ambulatory Neurological exam: PRESENT: alert, awake, oriented to person, oriented to place , oriented to time, oriented to situation, CN II-XII grossly intact. ABSENT: motor sensory deficit Skin exam: PRESENT: erythema, other - wound R plantar aspect of foot post 1/3, healing, open superficial wound R post calf Results Laboratory Results: 02/13/18 06:37 02/13/18 10:27 Impressions: Foot X-Ray 02/11/18 14:53 IMPRESSION: DIFFUSE SOFT TISSUE SWELLING. BONY DEMINERALIZATION. NO ACUTE BONY FINDINGS. Guidance Fluoroscopy 02/15/18 00:00 IMPRESSION: SUCCESSFUL PLACEMENT OF A 5 FR DUAL LUMEN 50 CM PICC IN THE LEFT BASILIC VEIN. Interventional Vascular Procedure 02/15/18 00:00 IMPRESSION: SUCCESSFUL PLACEMENT OF A 5 FR DUAL LUMEN 50 CM PICC IN THE LEFT BASILIC VEIN. PICC Line Insertion 02/15/18 00:00 IMPRESSION: SUCCESSFUL PLACEMENT OF A 5 FR DUAL LUMEN 50 CM PICC IN THE LEFT BASILIC VEIN. Assessment & Plan - Time Time Spent with patient: 15-24 minutes Medications reviewed and adjusted accordingly: Yes Anticipated discharge: Home with Homehealth - Plan Summary Plan Summary: 1. Cellulitis of right lower extremity -Cont Cipro for Serratia currently growing Patient will benefit from a few more days of IV antibiotics prior to discharge 2. Chronic atrial fibrillation currently rate controlled. He is not on anticoagulant for unclear reasons. This can be followed up as outpatient 3. Peripheral vascular disease which patient will need outpatient work up for. CTA with runoff shows moderate diffuse disease above knees.
[2018-02-15] MEDS: NORMAL SALINE 10 ML SDV (SCHEDULED) IV SCH (22:24)
[2018-02-16] MEDS: OXYCODONE HCL IR 5 MG TABLET PO PRN ×3 (02:57→19:31)
[2018-02-16] MEDS: CIPROFLOXACIN 400 MG/D5W RTU 400 MG/200 ML RTUPB IV SCH ×2 (05:42→19:27)
[2018-02-16] MEDS: ASPIRIN 81 MG TABLET, ENT COATED PO SCH (09:53)
[2018-02-16] MEDS: CALCIUM CARBONATE 500 MG TABLET PO SCH ×2 (09:53→19:31)
[2018-02-16] MEDS: ALLOPURINOL 100 MG TABLET PO SCH ×2 (09:53→19:31)
[2018-02-16] MEDS: CARVEDILOL 12.5 MG TABLET PO SCH ×2 (09:53→22:54)
[2018-02-16] MEDS: FUROSEMIDE 40 MG TABLET PO SCH (09:53)
[2018-02-16] MEDS: ASCORBIC ACID 500 MG TABLET PO SCH ×2 (09:54→19:31)
[2018-02-16] MEDS: NORMAL SALINE 10 ML SDV (SCHEDULED) IV SCH ×2 (09:54→22:54)
--- NOTE | 2018-02-16 13:46 | PDOC PROGRESS REPORT ---
Subjective Progress Note for:: 02/16/18 Subjective:: Patient was admitted with cellulitis of right lower extremity. He was started on vancomycin as well as Zosyn. Patient denies any history of diabetes and his hemoglobin A1c is less than 6. He does have peripheral vascular disease and just last week his wound culture yielded multiple organisms including Serratia, Staphylococcus aureus as well as group D enterococcus. Patient reports feeling better today. His dressings were removed and we looked at the wound and he says that he does look better today Reason For Visit: CELLULITIS RIGHT LOWER EXTREMITY, CHRONIC ULCERS Physical Exam Vital Signs: Temp Pulse Resp BP Pulse Ox 97.5 F 52 L 14 137/63 H 100 02/16/18 11:52 02/16/18 11:52 02/16/18 11:52 02/16/18 11:52 02/16/18 11:52 Intake & Output 02/15/18 02/16/18 02/17/18 06:59 06:59 06:59 Intake Total 2320 2210 Output Total 430 300 Balance 1890 1910 Weight 88 kg 92.1 kg General appearance: PRESENT: no acute distress Head exam: PRESENT: atraumatic Eye exam: PRESENT: conjunctiva pink, EOMI, PERRLA. ABSENT: scleral icterus Mouth exam: PRESENT: moist Neck exam: ABSENT: carotid bruit, JVD, lymphadenopathy, thyromegaly Respiratory exam: PRESENT: clear to auscultation jose. ABSENT: rales, rhonchi, wheezes Cardiovascular exam: PRESENT: RRR. ABSENT: diastolic murmur, rubs, systolic murmur Pulses: PRESENT: normal dorsalis pedis pul GI/Abdominal exam: PRESENT: normal bowel sounds, soft. ABSENT: distended, guarding, mass, organolmegaly, rebound, tenderness Rectal exam: PRESENT: deferred Musculoskeletal exam: PRESENT: ambulatory Neurological exam: PRESENT: alert, awake, oriented to person, oriented to place , oriented to time, oriented to situation, CN II-XII grossly intact. ABSENT: motor sensory deficit Psychiatric exam: PRESENT: appropriate affect Skin exam: PRESENT: erythema, rash, other - wound R leg and foot with dressing Results Laboratory Results: 02/13/18 06:37 02/13/18 10:27 Impressions: Foot X-Ray 02/11/18 14:53 IMPRESSION: DIFFUSE SOFT TISSUE SWELLING. BONY DEMINERALIZATION. NO ACUTE BONY FINDINGS. Guidance Fluoroscopy 02/15/18 00:00 IMPRESSION: SUCCESSFUL PLACEMENT OF A 5 FR DUAL LUMEN 50 CM PICC IN THE LEFT BASILIC VEIN. Interventional Vascular Procedure 02/15/18 00:00 IMPRESSION: SUCCESSFUL PLACEMENT OF A 5 FR DUAL LUMEN 50 CM PICC IN THE LEFT BASILIC VEIN. PICC Line Insertion 02/15/18 00:00 IMPRESSION: SUCCESSFUL PLACEMENT OF A 5 FR DUAL LUMEN 50 CM PICC IN THE LEFT BASILIC VEIN. Assessment & Plan - Time Time Spent with patient: 15-24 minutes Medications reviewed and adjusted accordingly: Yes Anticipated discharge: Home Within: within 72 hours - Inpatient Certification Based on my medical assessment, after consideration of the patient's comorbidities, presenting symptoms, or acuity I expect that the services needed warrant INPATIENT care.: Yes Medical Necessity: Need for IV Antibiotics - Plan Summary Plan Summary: 1. Cellulitis of right lower extremity -Cont Cipro Patient will benefit from a few more days of IV antibiotics prior to discharge 2. Chronic atrial fibrillation currently rate controlled. He is not on anticoagulant for unclear reasons. This can be followed up as outpatient 3. Peripheral vascular disease which patient will need outpatient work up for. CTA with runoff shows moderate diffuse disease above knees. 4. PT eval
[2018-02-17] MEDS: OXYCODONE HCL IR 5 MG TABLET PO PRN ×4 (03:09→23:35)
[2018-02-17] MEDS: CIPROFLOXACIN 400 MG/D5W RTU 400 MG/200 ML RTUPB IV SCH ×2 (06:45→17:31)
[2018-02-17] MEDS: ASCORBIC ACID 500 MG TABLET PO SCH ×2 (09:33→17:31)
[2018-02-17] MEDS: ALLOPURINOL 100 MG TABLET PO SCH ×2 (09:33→17:31)
[2018-02-17] MEDS: FUROSEMIDE 40 MG TABLET PO SCH (09:33)
[2018-02-17] MEDS: ASPIRIN 81 MG TABLET, ENT COATED PO SCH (09:33)
[2018-02-17] MEDS: CALCIUM CARBONATE 500 MG TABLET PO SCH ×2 (09:34→17:32)
[2018-02-17] MEDS: NORMAL SALINE 10 ML SDV (SCHEDULED) IV SCH ×2 (09:34→21:52)
[2018-02-17] MEDS: CARVEDILOL 12.5 MG TABLET PO SCH ×2 (09:34→21:52)
--- NOTE | 2018-02-17 13:46 | PDOC PROGRESS REPORT ---
Subjective Progress Note for:: 02/17/18 Subjective:: Patient was admitted with cellulitis of right lower extremity. He was started on vancomycin as well as Zosyn. Patient denies any history of diabetes and his hemoglobin A1c is less than 6. He does have peripheral vascular disease and just last week his wound culture yielded multiple organisms including Serratia, Staphylococcus aureus as well as group D enterococcus. Patient sleeping soundly this am. No issues reported per RN Reason For Visit: CELLULITIS RIGHT LOWER EXTREMITY, CHRONIC ULCERS Physical Exam Vital Signs: Temp Pulse Resp BP Pulse Ox 98.4 F 62 18 158/76 H 100 02/16/18 23:16 02/16/18 23:16 02/16/18 23:16 02/16/18 23:16 02/16/18 23:16 Intake & Output 02/16/18 02/17/18 02/18/18 06:59 06:59 06:59 Intake Total 2210 810 Output Total 300 Balance 1910 810 Weight 92.1 kg 91.535 kg General appearance: PRESENT: no acute distress Head exam: PRESENT: atraumatic Ear exam: PRESENT: normal external ear exam Respiratory exam: PRESENT: clear to auscultation jose. ABSENT: rales, rhonchi, wheezes Cardiovascular exam: PRESENT: irregular rhythm, +S1, +S2 GI/Abdominal exam: PRESENT: normal bowel sounds, soft. ABSENT: distended, guarding, mass, organolmegaly, rebound, tenderness Rectal exam: PRESENT: deferred Musculoskeletal exam: PRESENT: ambulatory Neurological exam: PRESENT: oriented to person, oriented to place, oriented to time, oriented to situation Results Laboratory Results: 02/13/18 06:37 02/13/18 10:27 02/11/18 22:35 Blood Blood Culture - Final NO GROWTH IN 5 DAYS Impressions: Foot X-Ray 02/11/18 14:53 IMPRESSION: DIFFUSE SOFT TISSUE SWELLING. BONY DEMINERALIZATION. NO ACUTE BONY FINDINGS. Guidance Fluoroscopy 02/15/18 00:00 IMPRESSION: SUCCESSFUL PLACEMENT OF A 5 FR DUAL LUMEN 50 CM PICC IN THE LEFT BASILIC VEIN. Interventional Vascular Procedure 02/15/18 00:00 IMPRESSION: SUCCESSFUL PLACEMENT OF A 5 FR DUAL LUMEN 50 CM PICC IN THE LEFT BASILIC VEIN. PICC Line Insertion 02/15/18 00:00 IMPRESSION: SUCCESSFUL PLACEMENT OF A 5 FR DUAL LUMEN 50 CM PICC IN THE LEFT BASILIC VEIN. Assessment & Plan - Time Time Spent with patient: 15-24 minutes Medications reviewed and adjusted accordingly: Yes Anticipated discharge: Home Within: within 72 hours - Inpatient Certification Based on my medical assessment, after consideration of the patient's comorbidities, presenting symptoms, or acuity I expect that the services needed warrant INPATIENT care.: Yes Medical Necessity: Need for IV Antibiotics - Plan Summary Plan Summary: 1. Cellulitis of right lower extremity -Cont Cipro Patient will benefit from a few more days of IV antibiotics prior to discharge 2. Chronic atrial fibrillation currently rate controlled. Patient was actually on Eliquis although this was not documented on his medication list. I will restart his Eliquis today and leave him on 81 mg of aspirin though apparently he is on 325 mg as outpatient. 3. Peripheral vascular disease which patient will need outpatient work up for. CTA with runoff shows moderate diffuse disease above knees. 4. PT eval and ambulate
[2018-02-17] MEDS: APIXABAN 5 MG TABLET PO SCH (17:31)
[2018-02-17] MEDS: FENTANYL 100 MCG/HR PATCH.TD72 TD SCH (21:52)
[2018-02-18 06:51] LABS: ABSOLUTE BASOPHILS # (AUTO) 0.1 10^3/uL (0.0-0.2); ABSOLUTE EOSINOPHILS # (AUTO) 0.2 10^3/uL (0.0-0.6); ABSOLUTE LYMPHOCYTES (AUTO) 1.5 10^3/uL (0.5-4.7); ABSOLUTE MONOCYTES (AUTO) 0.4 10^3/uL (0.1-1.4); ABSOLUTE NEUT (AUTO) 2.7 10^3/uL (1.7-8.2); BASOPHILS % (AUTO) 1.1 % (0-2); HEMATOCRIT 32.5 % (37.9-51.0); HEMOGLOBIN 10.6 g/dL (13.5-17.0); LYMPHOCYTES % (AUTO) 31.2 % (13-45); MEAN CORPUSCULAR HEMOGLOBIN 27.3 pg (27.0-33.4); MEAN CORPUSCULAR HGB CONC 32.6 g/dL (32.0-36.0); MEAN CORPUSCULAR VOLUME 84 fl (80-97); MONOCYTES % (AUTO) 8.9 % (3-13); PLATELET COUNT 178 10^3/uL (150-450); RED BLOOD COUNT 3.88 10^6/uL (4.35-5.55); RED CELL DISTRIBUTION WIDTH 17.6 % (11.5-14.0); SEGMENTED NEUTROPHILS % (AUTO) 53.8 % (42-78); TOTAL CELLS COUNTED % (AUTO) 100 %; WHITE BLOOD COUNT 4.9 10^3/uL (4.0-10.5)
[2018-02-18 07:05] LABS: ANION GAP 8 (5-19); BLOOD UREA NITROGEN 34 mg/dL (7-20); CALCIUM 9.3 mg/dL (8.4-10.2); CARBON DIOXIDE 32 mmol/L (22-30); CHLORIDE 103 mmol/L (98-107); GLUCOSE 89 mg/dL (75-110); POTASSIUM 4.3 mmol/L (3.6-5.0); SODIUM 142.5 mmol/L (137-145)
[2018-02-18] MEDS: CIPROFLOXACIN 400 MG/D5W RTU 400 MG/200 ML RTUPB IV SCH ×2 (07:18→18:10)
[2018-02-18] MEDS: OXYCODONE HCL IR 5 MG TABLET PO PRN ×2 (08:04→18:10)
[2018-02-18] MEDS: FUROSEMIDE 40 MG TABLET PO SCH (08:04)
[2018-02-18] MEDS: APIXABAN 5 MG TABLET PO SCH ×2 (10:04→18:10)
[2018-02-18] MEDS: CARVEDILOL 12.5 MG TABLET PO SCH ×2 (10:04→22:04)
[2018-02-18] MEDS: ASCORBIC ACID 500 MG TABLET PO SCH ×2 (10:04→18:09)
[2018-02-18] MEDS: ASPIRIN 81 MG TABLET, ENT COATED PO SCH (10:04)
[2018-02-18] MEDS: ALLOPURINOL 100 MG TABLET PO SCH ×2 (10:04→18:09)
[2018-02-18] MEDS: CALCIUM CARBONATE 500 MG TABLET PO SCH ×2 (10:04→18:10)
[2018-02-18] MEDS: NORMAL SALINE 10 ML SDV (SCHEDULED) IV SCH ×2 (10:05→22:04)
--- NOTE | 2018-02-18 11:04 | PDOC PROGRESS REPORT ---
Subjective Progress Note for:: 02/18/18 Subjective:: Patient was admitted with cellulitis of right lower extremity. He was started on vancomycin as well as Zosyn. Patient denies any history of diabetes and his hemoglobin A1c is less than 6. He does have peripheral vascular disease and just last week his wound culture yielded multiple organisms including Serratia, Staphylococcus aureus as well as group D enterococcus. Patient feels better, no new issues. Labs and plan of care reviewed with him Reason For Visit: CELLULITIS RIGHT LOWER EXTREMITY, CHRONIC ULCERS Physical Exam Vital Signs: Temp Pulse Resp BP Pulse Ox 98.4 F 51 L 18 143/65 H 98 02/18/18 08:00 02/18/18 08:00 02/18/18 08:00 02/18/18 08:00 02/18/18 08:00 Intake & Output 02/17/18 02/18/18 02/19/18 06:59 06:59 06:59 Intake Total 810 1374 Output Total 475 Balance 810 899 Weight 91.535 kg 92 kg General appearance: PRESENT: no acute distress Head exam: PRESENT: atraumatic Eye exam: PRESENT: conjunctiva pink, EOMI, PERRLA. ABSENT: scleral icterus Mouth exam: PRESENT: moist, tongue midline Neck exam: ABSENT: carotid bruit, JVD, lymphadenopathy, thyromegaly GI/Abdominal exam: PRESENT: normal bowel sounds, soft. ABSENT: distended, guarding, mass, organolmegaly, rebound, tenderness Rectal exam: PRESENT: deferred Extremities exam: PRESENT: joint swelling, +2 edema - RLE Neurological exam: PRESENT: alert, awake, oriented to person, oriented to place , oriented to time, oriented to situation, CN II-XII grossly intact. ABSENT: motor sensory deficit Psychiatric exam: PRESENT: appropriate affect Skin exam: PRESENT: erythema, other - swelling , wound on r foot open but no foul discharge, improving Results Laboratory Results: 02/18/18 05:30 02/18/18 05:30 02/18/18 02/18/18 05:30 05:30 WBC 4.9 RBC 3.88 L Hgb 10.6 L Hct 32.5 L MCV 84 MCH 27.3 MCHC 32.6 RDW 17.6 H Plt Count 178 Seg Neutrophils % 53.8 Lymphocytes % 31.2 Monocytes % 8.9 Eosinophils % 5.0 Basophils % 1.1 Absolute Neutrophils 2.7 Absolute Lymphocytes 1.5 Absolute Monocytes 0.4 Absolute Eosinophils 0.2 Absolute Basophils 0.1 Sodium 142.5 Potassium 4.3 Chloride 103 Carbon Dioxide 32 H Anion Gap 8 BUN 34 H Creatinine 1.04 Est GFR ( Amer) > 60 Est GFR (Non-Af Amer) > 60 Glucose 89 Calcium 9.3 Impressions: Foot X-Ray 02/11/18 14:53 IMPRESSION: DIFFUSE SOFT TISSUE SWELLING. BONY DEMINERALIZATION. NO ACUTE BONY FINDINGS. Guidance Fluoroscopy 02/15/18 00:00 IMPRESSION: SUCCESSFUL PLACEMENT OF A 5 FR DUAL LUMEN 50 CM PICC IN THE LEFT BASILIC VEIN. Interventional Vascular Procedure 02/15/18 00:00 IMPRESSION: SUCCESSFUL PLACEMENT OF A 5 FR DUAL LUMEN 50 CM PICC IN THE LEFT BASILIC VEIN. PICC Line Insertion 02/15/18 00:00 IMPRESSION: SUCCESSFUL PLACEMENT OF A 5 FR DUAL LUMEN 50 CM PICC IN THE LEFT BASILIC VEIN. Assessment & Plan - Time Time Spent with patient: 15-24 minutes Medications reviewed and adjusted accordingly: Yes Anticipated discharge: Home Within: within 72 hours - Inpatient Certification Based on my medical assessment, after consideration of the patient's comorbidities, presenting symptoms, or acuity I expect that the services needed warrant INPATIENT care.: Yes - Plan Summary Plan Summary: 1. Cellulitis of right lower extremity -Cont Cipro IV. He was on Cipro Po as outpatient. I opted to treat with Cipro as the Serretia remains quite susceptible to Cipro Patient will benefit from a few more days of IV antibiotics prior to discharge 2. Chronic atrial fibrillation currently rate controlled. Patient was actually on Eliquis although this was not documented on his medication list. I havel restarted his Eliquis and 81 mg of aspirin. Patient now says he was taken off Eliquis and started on ASA 325mg as he was bleeding with his wound care. Would monitor in hospital 3. Peripheral vascular disease which patient will need outpatient work up for. CTA with runoff shows moderate diffuse disease above knees. 4. PT eval and ambulate
[2018-02-18] MEDS ORDERED: FENTANYL 100 MCG/HR PATCH.TD72 TD SCH (22:00)
[2018-02-19] MEDS: OXYCODONE HCL IR 5 MG TABLET PO PRN ×4 (00:12→22:36)
[2018-02-19] MEDS: CIPROFLOXACIN 400 MG/D5W RTU 400 MG/200 ML RTUPB IV SCH (06:51)
[2018-02-19] MEDS: FUROSEMIDE 40 MG TABLET PO SCH (08:57)
[2018-02-19] MEDS: CARVEDILOL 12.5 MG TABLET PO SCH ×2 (10:38→22:36)
[2018-02-19] MEDS: ASPIRIN 81 MG TABLET, ENT COATED PO SCH (10:39)
[2018-02-19] MEDS: APIXABAN 5 MG TABLET PO SCH ×2 (10:39→17:16)
[2018-02-19] MEDS: ALLOPURINOL 100 MG TABLET PO SCH ×2 (10:40→17:16)
[2018-02-19] MEDS: ASCORBIC ACID 500 MG TABLET PO SCH ×2 (10:40→17:15)
[2018-02-19] MEDS: NORMAL SALINE 10 ML SDV (SCHEDULED) IV SCH ×2 (10:41→22:36)
[2018-02-19] MEDS: LEVOFLOXACIN 500 MG TABLET PO SCH (10:42)
[2018-02-19] MEDS: CALCIUM CARBONATE 500 MG TABLET PO SCH (17:16)
--- NOTE | 2018-02-19 18:22 | PDOC PROGRESS REPORT ---
Subjective Progress Note for:: 02/19/18 Subjective:: Patient refers feels better and is concerned when he will get oral antibiotic. He was to return back home on discharge Review of system All organ systems evaluated and negative except as in subjective All significant diagnostics and laboratories have been reviewed Reason For Visit: CELLULITIS RIGHT LOWER EXTREMITY, CHRONIC ULCERS Physical Exam Vital Signs: Temp Pulse Resp BP Pulse Ox 97.4 F 57 L 20 148/93 H 100 02/19/18 00:11 02/19/18 00:11 02/19/18 00:11 02/19/18 00:11 02/19/18 00:11 Intake & Output 02/18/18 02/19/18 02/20/18 06:59 06:59 06:59 Intake Total 1374 2682 Output Total 475 Balance 899 2682 Weight 92 kg 92.3 kg General appearance: PRESENT: cooperative, obese Head exam: PRESENT: atraumatic, normocephalic Eye exam: PRESENT: conjunctiva pink, EOMI, PERRLA Ear exam: PRESENT: normal external ear exam Neck exam: PRESENT: full ROM. ABSENT: JVD, lymphadenopathy, tenderness Respiratory exam: PRESENT: clear to auscultation jose Cardiovascular exam: PRESENT: irregular rhythm. ABSENT: diastolic murmur, systolic murmur Vascular exam: PRESENT: normal capillary refill GI/Abdominal exam: PRESENT: normal bowel sounds, soft. ABSENT: tenderness Extremities exam: PRESENT: full ROM, +2 edema Musculoskeletal exam: PRESENT: ambulatory Neurological exam: PRESENT: alert, awake, oriented to person, oriented to place , oriented to time, oriented to situation, CN II-XII grossly intact Psychiatric exam: PRESENT: appropriate affect, normal mood Skin exam: PRESENT: other - Brownish discoloration to lower extremities. Compression bandages noted to right lower extremity therefore unable to assess wound Results Laboratory Results: 02/18/18 05:30 02/18/18 05:30 Impressions: Foot X-Ray 02/11/18 14:53 IMPRESSION: DIFFUSE SOFT TISSUE SWELLING. BONY DEMINERALIZATION. NO ACUTE BONY FINDINGS. Guidance Fluoroscopy 02/15/18 00:00 IMPRESSION: SUCCESSFUL PLACEMENT OF A 5 FR DUAL LUMEN 50 CM PICC IN THE LEFT BASILIC VEIN. Interventional Vascular Procedure 02/15/18 00:00 IMPRESSION: SUCCESSFUL PLACEMENT OF A 5 FR DUAL LUMEN 50 CM PICC IN THE LEFT BASILIC VEIN. PICC Line Insertion 02/15/18 00:00 IMPRESSION: SUCCESSFUL PLACEMENT OF A 5 FR DUAL LUMEN 50 CM PICC IN THE LEFT BASILIC VEIN. Assessment & Plan - Diagnosis (1) Atrial fibrillation Qualifiers: Atrial fibrillation type: chronic Qualified Code(s): I48.2 - Chronic atrial fibrillation Is this a current diagnosis for this admission?: Yes Plan: Stable (2) CKD (chronic kidney disease) stage 3, GFR 30-59 ml/min Is this a current diagnosis for this admission?: Yes Plan: Stable (3) Cellulitis of right lower leg Is this a current diagnosis for this admission?: Yes Plan: Improving. To transition to Levaquin (4) Diabetes mellitus Qualifiers: Diabetes mellitus type: type 2 Is this a current diagnosis for this admission?: Yes Plan: Patient currently on no hypo-glycemic agents has a normal A1c (5) PVD (peripheral vascular disease) Is this a current diagnosis for this admission?: Yes Plan: Contributing to slow healing of right lower extremity wound (6) Venous stasis Is this a current diagnosis for this admission?: Yes Plan: Contributing to slow healing of right lower extremity want (7) Infected open wound Is this a current diagnosis for this admission?: Yes Plan: To transition to Levaquin (8) Acute renal failure Qualifiers: Acute renal failure type: unspecified Qualified Code(s): N17.9 - Acute kidney failure, unspecified Is this a current diagnosis for this admission?: Yes Plan: Resolved - Time Time Spent with patient: 15-24 minutes Medications reviewed and adjusted accordingly: Yes Anticipated discharge: Home with Homehealth Within: within 24 hours - Inpatient Certification Based on my medical assessment, after consideration of the patient's comorbidities, presenting symptoms, or acuity I expect that the services needed warrant INPATIENT care.: Yes I certify that my determination is in accordance with my understanding of Medicare's requirements for reasonable and necessary INPATIENT services [42 CFR 412.3e].: Yes Medical Necessity: Need Close Monitoring Due to Risk of Patient Decompensation
[2018-02-20] MEDS: OXYCODONE HCL IR 5 MG TABLET PO PRN ×2 (05:06→13:16)
[2018-02-20] MEDS: CALCIUM CARBONATE 500 MG TABLET PO SCH (09:06)
[2018-02-20] MEDS: CARVEDILOL 12.5 MG TABLET PO SCH (09:07)
[2018-02-20] MEDS: FUROSEMIDE 40 MG TABLET PO SCH (09:08)
[2018-02-20] MEDS: LEVOFLOXACIN 500 MG TABLET PO SCH (09:08)
[2018-02-20] MEDS: APIXABAN 5 MG TABLET PO SCH (09:08)
[2018-02-20] MEDS: ASPIRIN 81 MG TABLET, ENT COATED PO SCH (09:08)
[2018-02-20] MEDS: ASCORBIC ACID 500 MG TABLET PO SCH (09:08)
[2018-02-20] MEDS: ALLOPURINOL 100 MG TABLET PO SCH (09:09)
[2018-02-20] MEDS: NORMAL SALINE 10 ML SDV (SCHEDULED) IV SCH (13:17)
[2018-02-20 14:52] VITALS: BP 134/77
--- NOTE | 2018-02-20 18:10 | PDOC DISCHARGE SUMMARY ---
General - Admit/Disc Date/PCP Admission Date/Primary Care Provider: 02/11/18 19:01 Discharge Date: 02/20/18 - Discharge Diagnosis (1) Infected open wound Is this a current diagnosis for this admission?: Yes (2) Cellulitis of right lower leg Is this a current diagnosis for this admission?: Yes (3) Acute renal failure Is this a current diagnosis for this admission?: Yes (4) Venous stasis Is this a current diagnosis for this admission?: Yes (5) PVD (peripheral vascular disease) Is this a current diagnosis for this admission?: Yes (6) Atrial fibrillation Is this a current diagnosis for this admission?: Yes (7) CKD (chronic kidney disease) stage 3, GFR 30-59 ml/min Is this a current diagnosis for this admission?: Yes - Additional Information Resuscitation Status: Full Code Discharge Diet: Cardiac, Diabetic Discharge Activity: Activity As Tolerated Prescriptions: Levofloxacin [Levaquin 500 mg Tablet] 500 mg PO DAILY #5 tablet Home Medications: Acetaminophen [Tylenol Arthritis 650 mg Tablet] 650 mg PO TIDP PRN 02/11/18 Allopurinol [Zyloprim 100 mg Tablet] 100 mg PO BID 02/11/18 Ascorbic Acid [Vitamin C 500 mg Tablet] 500 mg PO BID 02/11/18 Aspirin [Aspirin EC] 81 mg PO DAILY 02/11/18 Calcium Carbonate [Os-Linden 500 mg Tablet (Oyster-Shell)] 500 mg PO BID 02/11/18 Carvedilol [Coreg 25 mg Tablet] 1 tab PO Q12 02/11/18 Fentanyl [Duragesic 100 Mcg/Hr Transdermal Patch] 1 patch TD Q3D 02/11/18 Furosemide [Lasix 40 mg Tablet] 40 mg PO QAM 02/11/18 Metolazone [Zaroxolyn 5 mg Tablet] 5 mg PO DAILYP PRN 02/11/18 Multivitamin [Multiple Vitamins] 1 each PO DAILY 02/11/18 Oxycodone HCl 15 mg PO Q6HP PRN 02/11/18 Potassium Gluconate 550mg Tablet 550 mg PO DAILY 02/11/18 Apixaban [Eliquis 5 mg Tablet] 5 mg PO BID tablet 02/20/18 Levofloxacin [Levaquin 500 mg Tablet] 500 mg PO DAILY #5 tablet 02/20/18 History of Present Illness History of Present Illness: ANALI STEELE is a 72 year old male with a known history of atrial fibrillation, CKD stage III, PVD presented with a history of increasing redness pain and swelling in the right lower extremity. Patient was being treated for chronic recurrent ulcers of the right leg Patient had been discharged in November 2017 with a wound VAC. He presented with cellulitis of right lower extremity and was admitted under the hospitalist service for further treatment Hospital Course Hospital Course: Patient was admitted with cellulitis of right lower extremity and infection of chronic venous stasis wound. He was started on vancomycin as well as Zosyn. Wound care was provided during his hospitalization stay. Wound culture grew Serratia. Patient was transitioned to Levaquin 500 mg 1 tablet daily for 5 days following discharge. At the time of discharge he has been released on compression bandages. Patient is to be followed up both at the wound care center for which the patient is going to call for an appointment and he is being released under home health care. Patient denied any history of diabetes and his hemoglobin A1c is less than 6. He does have peripheral vascular disease which is a major contributor to his presentation since not allowing for rapid healing of the wound to his right lower extremity. Patient has been advised as to elevate his legs off and on to prevent swelling. Patient progress as expected and has remained stable during his hospitalization stay. Since patient had achieved maximum benefit of hospitalization stay prompted to discharge Physical Exam Vital Signs: Temp Pulse Resp BP Pulse Ox 98.3 F 70 18 130/68 H 100 02/20/18 00:13 02/20/18 00:13 02/20/18 00:13 02/20/18 00:13 02/20/18 00:13 Intake & Output 02/19/18 02/20/18 02/21/18 06:59 06:59 06:59 Intake Total 2682 2288 Output Total 810 Balance 2682 1478 Weight 92.3 kg 92.4 kg Results Laboratory Results: 02/18/18 05:30 02/18/18 05:30 Impressions: Foot X-Ray 02/11/18 14:53 IMPRESSION: DIFFUSE SOFT TISSUE SWELLING. BONY DEMINERALIZATION. NO ACUTE BONY FINDINGS. Guidance Fluoroscopy 02/15/18 00:00 IMPRESSION: SUCCESSFUL PLACEMENT OF A 5 FR DUAL LUMEN 50 CM PICC IN THE LEFT BASILIC VEIN. Interventional Vascular Procedure 02/15/18 00:00 IMPRESSION: SUCCESSFUL PLACEMENT OF A 5 FR DUAL LUMEN 50 CM PICC IN THE LEFT BASILIC VEIN. PICC Line Insertion 02/15/18 00:00 IMPRESSION: SUCCESSFUL PLACEMENT OF A 5 FR DUAL LUMEN 50 CM PICC IN THE LEFT BASILIC VEIN. Qualifiers - * PATIENT BEING DISCHARGED WITH ANY OF THE FOLLOWING DIAGNOSIS: No Plan Discharge Plan: Discharge to home health. Patient is also to follow-up at wound care center as scheduled Time Spent: Greater than 30 Minutes
== END 2018-02-20 14:55 | disposition home health service (06) | DRG 603 ==
LOC: ER 13:18 → EH 19:01 → 5 20:52
PROVIDERS: ADMIT Internal Medicine Geriatric Medicine; ATTEND Internal Medicine Geriatric Medicine
PROC: 02HV33Z Insertion of Infusion Device into Superior Vena Cava, Percutaneous Approach (ICD-10-PCS; principal; 2018-02-15)
PROC: B5181ZA Fluoroscopy of Superior Vena Cava using Low Osmolar Contrast, Guidance (ICD-10-PCS; 2018-02-15)
PROC: B548ZZA Ultrasonography of Superior Vena Cava, Guidance (ICD-10-PCS; 2018-02-15)
DX: L03.115 Cellulitis of right lower limb (principal); N17.9 Acute kidney failure, unspecified; I73.9 Peripheral vascular disease, unspecified; N18.3 Chronic kidney disease, stage 3 (moderate); I83.018 Varicose veins of right lower extremity with ulcer other part of lower leg; I48.2 Chronic atrial fibrillation; B95.61 Methicillin susceptible Staphylococcus aureus infection as the cause of diseases classified elsewhere; B95.2 Enterococcus as the cause of diseases classified elsewhere; B96.89 Other specified bacterial agents as the cause of diseases classified elsewhere; N40.0 Benign prostatic hyperplasia without lower urinary tract symptoms; Z90.49 Acquired absence of other specified parts of digestive tract; Z86.718 Personal history of other venous thrombosis and embolism; Z79.82 Long term (current) use of aspirin; Z79.899 Other long term (current) drug therapy; Z87.891 Personal history of nicotine dependence; Z83.6 Family history of other diseases of the respiratory system; Z83.3 Family history of diabetes mellitus; Z82.49 Family history of ischemic heart disease and other diseases of the circulatory system
CPT/HCPCS: 36415; 36569; 75635; 76937; 77001; 80048; 80053; 80061; 80202; 82565; 83036; 84439; 84443; 85025; 87040; 87070; 87077; 87186; 87205; 93005; 93010; 96365; 96366; 99285; G8978-GP; G8979-GP; J0744; J1642; J1650; J2543; J3370; J3490; J7060

== ENCOUNTER 2018-04-05 11:26 | Inpatient (IN) | payer MEDICARE, BC ==
--- NOTE | 2018-04-05 11:46 | ER Document Report ---
ED Medical Screen (RME) - General Chief Complaint: Wound Infection Stated Complaint: LEG PAIN Time Seen by Provider: 04/05/18 11:41 Notes: RAPID MEDICAL EVALUATION DISCLOSURE I have seen this patient as part of a Rapid Medical Evaluation and, if applicable, placed any initially appropriate orders. The patient will be seen and fully evaluated, including a full history and physical exam, by a provider ( in Main ED or Fast Track) when a room becomes available. 73-year-old male [facility] foot wounds sent here by his home health nurse due to worsening right leg/foot cellulitis ongoing for the past few days. He has been on Keflex and Bactrim for 2 days now and it is not getting any better per his report. They are concerned it is getting worse despite being on 2 different antibiotics. He has not had any fevers chills nausea vomiting. EXAM Mild to moderate cellulitis of the right leg without crepitus Foot with dressing intact TRAVEL OUTSIDE OF THE [place] IN LAST 30 DAYS: No - Related Data Allergies/Adverse Reactions: No Known Allergies Allergy (Verified 04/05/18 11:27) Past Medical History - Past Medical History Cardiac Medical History: Reports: Hx Atrial Fibrillation - Was on anticoagulants until he was in the hospital and they were stopped, Hx Congestive Heart Failure, Hx DVT Endocrine Medical History: Reports: Hx Diabetes Mellitus Type 2 Renal/ Medical History: Reports: Hx Benign Prostatic Hyperplasia, Hx Renal Insufficiency. Denies: Hx Peritoneal Dialysis Past Surgical History: Reports: Hx Cholecystectomy, Hx Orthopedic Surgery - Right leg drained during hospitalization this spring - Immunizations History of Influenza Vaccine for 07/2017 - 12/2017 Season: Yes Influenza Administration Date for 07/2017 - 12/2017 Season: 10/31/17 Physical Exam - Vital signs Vitals: Temp Pulse Resp BP Pulse Ox 98.0 F 58 L 16 136/79 H 96 04/05/18 11:30 04/05/18 11:30 04/05/18 11:30 04/05/18 11:30 04/05/18 11:30 Course - Vital Signs Vital signs: Temp Pulse Resp BP Pulse Ox 98.0 F 58 L 16 136/79 H 96 04/05/18 11:30 04/05/18 11:30 04/05/18 11:30 04/05/18 11:30 04/05/18 11:30 Doctor's Discharge - Discharge Referrals: SCARLETT RANGEL PA-C [Primary Care Provider] - Follow up as needed
[2018-04-05 12:10] LABS: ABSOLUTE EOSINOPHILS # (AUTO) 0.2 10^3/uL (0.0-0.6); ABSOLUTE LYMPHOCYTES (AUTO) 1.4 10^3/uL (0.5-4.7); ABSOLUTE MONOCYTES (AUTO) 0.6 10^3/uL (0.1-1.4); ABSOLUTE NEUT (AUTO) 3.9 10^3/uL (1.7-8.2); BASOPHILS % (AUTO) 0.6 % (0-2); EOSINOPHILS % (AUTO) 3.6 % (0-6); HEMATOCRIT 35.3 % (37.9-51.0); HEMOGLOBIN 11.6 g/dL (13.5-17.0); LYMPHOCYTES % (AUTO) 22.4 % (13-45); MEAN CORPUSCULAR HGB CONC 32.8 g/dL (32.0-36.0); MEAN CORPUSCULAR VOLUME 85 fl (80-97); MONOCYTES % (AUTO) 9.2 % (3-13); PLATELET COUNT 169 10^3/uL (150-450); RED BLOOD COUNT 4.14 10^6/uL (4.35-5.55); RED CELL DISTRIBUTION WIDTH 17.2 % (11.5-14.0); SEGMENTED NEUTROPHILS % (AUTO) 64.2 % (42-78); TOTAL CELLS COUNTED % (AUTO) 100 %; WHITE BLOOD COUNT 6.1 10^3/uL (4.0-10.5)
[2018-04-05 12:30] LABS: ALANINE AMINOTRANSFERASE 21 U/L (21-72); ALBUMIN 3.9 g/dL (3.5-5.0); ALKALINE PHOSPHATASE 73 U/L (38-126); ANION GAP 10 (5-19); ASPARTATE AMINO TRANSFERASE 19 U/L (17-59); BILIRUBIN,DIRECT 0.2 mg/dL (0.0-0.4); BILIRUBIN,TOTAL 0.4 mg/dL (0.2-1.3); BLOOD UREA NITROGEN 58 mg/dL (7-20); CALCIUM 9.6 mg/dL (8.4-10.2); CARBON DIOXIDE 31 mmol/L (22-30); CHLORIDE 104 mmol/L (98-107); GLUCOSE 104 mg/dL (75-110); POTASSIUM 4.5 mmol/L (3.6-5.0); SODIUM 144.9 mmol/L (137-145); TOTAL PROTEIN 7.1 g/dL (6.3-8.2)
--- NOTE | 2018-04-05 12:44 | RADIOLOGY REPORT (SQ) ---
EXAM DESCRIPTION: FOOT RIGHT 2 VIEWS COMPLETED DATE/TIME: 04/05/2018 12:27 pm REASON FOR STUDY: infection; eval gas osteo COMPARISON: None. NUMBER OF VIEWS: Three views. TECHNIQUE: AP, lateral and oblique without weight bearing radiographic images acquired of the right foot. LIMITATIONS: None. FINDINGS: MINERALIZATION: Osteopenia. BONES: No acute fracture or dislocation. No worrisome bone lesions. No significant osteophytes. JOINTS: No erosions. No rozina-articular osteopenia. No chondrocalcinosis. SOFT TISSUES: Diffuse soft tissue swelling. No foreign body. No visible gas. OTHER: No other significant finding. IMPRESSION: GENERALIZED OSTEOPENIA. DIFFUSE SOFT TISSUE SWELLING. NO VISIBLE GAS. TECHNICAL DOCUMENTATION: JOB ID: [id number] [employer]- All Rights Reserved Reading location - IP/workstation name: [email or web address]
--- NOTE | 2018-04-05 12:46 | RADIOLOGY REPORT (SQ) ---
EXAM DESCRIPTION: TIBIA FIBULA RIGHT COMPLETED DATE/TIME: 04/05/2018 12:27 pm REASON FOR STUDY: infection; eval gas osteo COMPARISON: None. NUMBER OF VIEWS: Two views. TECHNIQUE: Two radiographic images acquired of the right tibia and fibula to include the knee and an kle in at least one projection. LIMITATIONS: None. FINDINGS: MINERALIZATION: Osteopenia. BONES: No acute fracture or dislocation. No worrisome bone lesions. No significant osteophytes. SOFT TISSUES: No obvious swelling or foreign body. No soft tissue gas visible. OTHER: No other significant finding. IMPRESSION: PATCHY OSTEOPENIA. NO SOFT TISSUE GAS VISIBLE. TECHNICAL DOCUMENTATION: JOB ID: [id number] [employer]- All Rights Reserved Reading location - IP/workstation name: [email or web address]
--- NOTE | 2018-04-05 12:49 | ER Document Report ---
ED Wound - General Chief Complaint: Wound Infection Stated Complaint: LEG PAIN Time Seen by Provider: 04/05/18 11:41 Notes: 73-year-old male with history of chronic leg ulcers and cellulitis. Followed by wound care. Followed by Dr. Dsouza as well as nurse practitioner in the wound care center. Currently on Bactrim and Keflex. States that the leg is getting more red and swollen. Was hospitalized approximately 1 month ago for the same. Has any fever, chills, sweats. Mild pain in the right leg. TRAVEL OUTSIDE OF THE [place] IN LAST 30 DAYS: No - HPI Patient complains to provider of: Wound infection Occurred: Other - Chronic - Related Data Allergies/Adverse Reactions: No Known Allergies Allergy (Verified 04/05/18 11:27) Past Medical History - General Information source: Patient, [facility] Records - Social History Smoking Status: Former Smoker Cigarette use (# per day): No Frequency of alcohol use: Occasional Drug Abuse: None Lives with: Spouse/Significant other Family History: CAD, COPD, DM Patient has suicidal ideation: No Patient has homicidal ideation: No - Past Medical History Cardiac Medical History: Reports: Hx Atrial Fibrillation - Was on anticoagulants until he was in the hospital and they were stopped, Hx Congestive Heart Failure, Hx DVT Endocrine Medical History: Reports: Hx Diabetes Mellitus Type 2 Renal/ Medical History: Reports: Hx Benign Prostatic Hyperplasia, Hx Renal Insufficiency. Denies: Hx Peritoneal Dialysis Past Surgical History: Reports: Hx Cholecystectomy, Hx Orthopedic Surgery - Right leg drained during hospitalization this spring Review of Systems - Review of Systems Constitutional: No symptoms reported EENT: No symptoms reported Cardiovascular: No symptoms reported Respiratory: No symptoms reported Gastrointestinal: No symptoms reported Genitourinary: No symptoms reported Male Genitourinary: No symptoms reported Musculoskeletal: No symptoms reported Skin: Change in color, Lesions, Rash Hematologic/Lymphatic: No symptoms reported Neurological/Psychological: No symptoms reported Physical Exam - Vital signs Vitals: Temp Pulse Resp BP Pulse Ox 98.0 F 58 L 16 136/79 H 96 04/05/18 11:30 04/05/18 11:30 04/05/18 11:30 04/05/18 11:30 04/05/18 11:30 Interpretation: Normal - General General appearance: Appears well, Alert - HEENT Head: Normocephalic, Atraumatic Eyes: Normal Pupils: PERRL - Respiratory Respiratory status: No respiratory distress Chest status: Nontender Breath sounds: Normal Chest palpation: Normal - Cardiovascular Rhythm: Regular Heart sounds: Normal auscultation Murmur: No - Abdominal Inspection: Normal Distension: No distension Bowel sounds: Normal Tenderness: Nontender Organomegaly: No organomegaly - Back Back: Normal, Nontender - Extremities General upper extremity: Normal inspection, Nontender, Normal color, Normal ROM , Normal temperature General lower extremity: Normal inspection, Nontender, Normal color, Normal ROM , Normal temperature, Other - The right lower extremity has lesion on top of the right foot covered by silver impregnated dressing. There are a few small lesions on the right lateral lower extremity covered by dressings. Does not have a foul odor. There is some edema with moderate warmth and erythema to the lower extremity on the right.. No: Flex's sign - Neurological Neuro grossly intact: Yes Cognition: Normal Orientation: AAOx4 Natasha Coma Scale Eye Opening: Spontaneous [place] Coma Scale Verbal: Oriented [place] Coma Scale Motor: Obeys Commands [place] Coma Scale Total: 15 Speech: Normal Motor strength normal: LUE, RUE, LLE, RLE Sensory: Normal - Psychological Associated symptoms: Normal affect, Normal mood - Skin Skin Temperature: Warm Skin Moisture: Dry Skin Color: Normal Course - Re-evaluation Re-evalutation: 04/05/18 13:[address] Fabiola Dsouza with vascular surgery and wound care. He thinks it possibly patient could be treated as an outpatient. Did have some Serratia the grew out on his results from previous visit. This was sensitive to Levaquin. Currently he is on Keflex and Bactrim. There is some question whether or not it is getting worse. I think at this time I will switch him back to Levaquin. Will try to get him good close follow-up. Do not feel compelled to admit him at this time. Patient advises symptoms were to get worse , redness is getting worse, pain is getting worse or for any other concerns he should return. 04/05/18 13:57 I was able to get back in touch with the wound clinic. There is some concern that the wound needs IV antibiotics. After discussion with Dr. Dsouza we have decided to go ahead and admit patient for IV antibiotics based on his complicated history. 04/05/18 13:57 Laboratory 04/05/18 04/05/18 11:53 11:53 WBC 6.1 RBC 4.14 L Hgb 11.6 L Hct 35.3 L MCV 85 MCH 28.0 MCHC 32.8 RDW 17.2 H Plt Count 169 Seg Neutrophils % 64.2 Lymphocytes % 22.4 Monocytes % 9.2 Eosinophils % 3.6 Basophils % 0.6 Absolute Neutrophils 3.9 Absolute Lymphocytes 1.4 Absolute Monocytes 0.6 Absolute Eosinophils 0.2 Absolute Basophils 0.0 Sodium 144.9 Potassium 4.5 Chloride 104 Carbon Dioxide 31 H Anion Gap 10 BUN 58 H Creatinine 1.47 H Est GFR ( Amer) 57 L Est GFR (Non-Af Amer) 47 L Glucose 104 Calcium 9.6 Total Bilirubin 0.4 Direct Bilirubin 0.2 Neonat Total Bilirubin Not Reportable Neonat Direct Bilirubin Not Reportable Neonat Indirect Bili Not Reportable AST 19 ALT 21 Alkaline Phosphatase 73 Total Protein 7.1 Albumin 3.9 Foot X-Ray 04/05/18 11:44 IMPRESSION: GENERALIZED OSTEOPENIA. DIFFUSE SOFT TISSUE SWELLING. NO VISIBLE GAS. Tibia/Fibula X-Ray 04/05/18 11:44 IMPRESSION: PATCHY OSTEOPENIA. NO SOFT TISSUE GAS VISIBLE. - Vital Signs Vital signs: Temp Pulse Resp BP Pulse Ox 98.0 F 58 L 16 136/79 H 96 04/05/18 11:30 04/05/18 11:30 04/05/18 12:30 04/05/18 11:30 04/05/18 11:30 - Laboratory Result Diagrams: 04/05/18 11:53 04/05/18 11:53 Laboratory results interpreted by me: 04/05/18 04/05/18 11:53 11:53 RBC 4.14 L Hgb 11.6 L Hct 35.3 L RDW 17.2 H Carbon Dioxide 31 H BUN 58 H Creatinine 1.47 H Est GFR ( Amer) 57 L Est GFR (Non-Af Amer) 47 L Discharge - Discharge Clinical Impression: Cellulitis of extremity Qualifiers: Site of cellulitis of extremity: lower extremity Laterality: left Qualified Code(s): L03.116 - Cellulitis of left lower limb Condition: Good Disposition: ADMITTED INPATIENT Admitting Provider: [facility] Unit Admitted: Medical Floor
[2018-04-05] MEDS ORDERED: LEVOFLOXACIN 500 MG TABLET PO ONE (13:19)
[2018-04-05] MEDS ORDERED: LEVOFLOXACIN 750 MG/D5W RTU 750 MG/150 ML RTUPB IV ONE (13:22)
[2018-04-05 14:02] LABS: ERYTHROCYTE SEDIMENTATION RATE 14 mm/hr (0-20)
[2018-04-05] MEDS ORDERED: NORMAL SALINE 1000 ML 1,000 ML IV PRN (14:15)
[2018-04-05] MEDS ORDERED: ONDANSETRON HCL INJ/PF 4 MG/2 ML SDV IV PRN (15:14)
[2018-04-05] MEDS ORDERED: MAGNESIUM HYDROXIDE SUSP 30 ML UDCUP PO PRN (15:14)
[2018-04-05] MEDS ORDERED: ONDANSETRON 4 MG TAB.RAPDIS PO PRN (15:14)
[2018-04-05] MEDS ORDERED: IPRATROPIUM/ALBUTEROL 0.5-2.5 MG/3 ML AMPUL NEB PRN (15:14)
[2018-04-05] MEDS ORDERED: METOLAZONE 5 MG TABLET PO PRN (15:16)
--- NOTE | 2018-04-05 15:33 | PDOC H&P ---
History of Present Illness Admission Date/PCP: 04/05/18 13:41 SCARLETT RANGEL PA-C Patient complains of: Wound infection. History of Present Illness: ANALI STEELE is a 73 year old male with past medical history of Chronic right leg ulcers Atrial fibrillation on Eliquis History of DVT CKD stage III Chronic venous stasis Peripheral vascular disease The patient is followed as an outpatient by Dr. Fabiola Dsouza as well as Yashira Nguyen, nurse practitioner at the wound care center. He was treated with a course of levofloxacin and is now on Keflex and Bactrim however his leg has been getting more red and swollen. He denied any fevers or chills. The patient was instructed to come to the emergency room for IV antibiotics due to a failure of outpatient oral antibiotic treatment. He was evaluated by the ER physician and was ordered IV levofloxacin. X-ray of the right tibia and fibula showed patchy osteopenia with no soft tissue gas visible. The patient was discharged from this hospital on February 20 after being treated for right lower leg cellulitis. Past Medical History Cardiac Medical History: Reports: Atrial Fibrillation - Was on anticoagulants until he was in the hospital and they were stopped, Congestive Heart Failure, DVT Endocrine Medical History: Reports: Diabetes Mellitus Type 2 Past Surgical History Past Surgical History: Reports: Cholecystectomy, Orthopedic Surgery - Right leg drained during hospitalization this spring Social History Lives with: Spouse/Significant other Smoking Status: Former Smoker Frequency of Alcohol Use: None Hx Recreational Drug Use: No Drugs: None Hx Prescription Drug Abuse: No Family History Family History: CAD, COPD, DM Parental Family History Reviewed: Yes Children Family History Reviewed: Yes Sibling(s) Family History Reviewed.: Yes Medication/Allergy Home Medications: Allopurinol [Zyloprim 100 mg Tablet] 100 mg PO BID 04/05/18 Apixaban [Eliquis 5 mg Tablet] 5 mg PO Q12 04/05/18 Ascorbic Acid [Vitamin C 500 mg Tablet] 500 mg PO DAILY 04/05/18 Aspirin [Aspirin EC] 81 mg PO DAILY 04/05/18 Calcium Carbonate [Os-Linden 500 mg Tablet (Oyster-Shell)] 500 mg PO BID 04/05/18 Carvedilol [Coreg 25 mg Tablet] 25 mg PO Q12 04/05/18 Fentanyl [Duragesic 100 Mcg/Hr Transdermal Patch] 100 mcg TOP Q3D 04/05/18 Furosemide [Lasix 40 mg Tablet] 40 mg PO QAM 04/05/18 Metolazone [Zaroxolyn 5 mg Tablet] 5 mg PO DAILYP PRN 04/05/18 Multivitamin [One-A-Day Essential] 1 tab PO DAILY 04/05/18 Oxycodone HCl 15 mg PO Q6HP PRN 04/05/18 Potassium Gluconate 500 mg PO DAILY 04/05/18 Allergies/Adverse Reactions: No Known Allergies Allergy (Verified 04/05/18 11:27) Review of Systems Constitutional: ABSENT: fever(s) Eyes: ABSENT: visual disturbances Ears: ABSENT: hearing changes Nose, Mouth, and Throat: ABSENT: sore throat Cardiovascular: PRESENT: edema. ABSENT: chest pain Respiratory: ABSENT: cough, dyspnea Gastrointestinal: ABSENT: abdominal pain, vomiting Genitourinary: ABSENT: dysuria Integumentary: ABSENT: pruritus Neurological: ABSENT: focal weakness Psychiatric: ABSENT: hallucinations Endocrine: ABSENT: heat intolerance Hematologic/Lymphatic: ABSENT: easy bleeding Allergic/Immunologic: ABSENT: seasonal rhinorrhea Physical Exam Vital Signs: Temp Pulse Resp BP Pulse Ox 98.0 F 58 L 16 136/79 H 96 04/05/18 11:30 04/05/18 11:30 04/05/18 12:30 04/05/18 11:30 04/05/18 11:30 General appearance: PRESENT: no acute distress, well-developed, well-nourished Head exam: PRESENT: normocephalic Eye exam: ABSENT: scleral icterus Ear exam: PRESENT: normal external ear exam Mouth exam: PRESENT: moist Neck exam: ABSENT: tracheal deviation - Within 4 hours if you want a VQ scan they can do the perfusion images but not the ventilation they could do a HIDA scan may be Respiratory exam: PRESENT: symmetrical, unlabored. ABSENT: crackles Cardiovascular exam: PRESENT: RRR GI/Abdominal exam: PRESENT: normal bowel sounds, soft. ABSENT: tenderness Rectal exam: PRESENT: deferred Gentrourinary exam: ABSENT: indwelling catheter Extremities exam: PRESENT: pedal edema Musculoskeletal exam: PRESENT: tenderness - Right leg erythema and edema. Chronic lower extremity venous stasis changes. He has a 3 x 4 cm ulcer over the dorsum of the right foot with some central sloughing. No fluctuance palpable. Neurological exam: PRESENT: alert, awake, oriented to person, oriented to place , oriented to time Psychiatric exam: PRESENT: appropriate affect Skin exam: PRESENT: other - Right leg erythema and edema. Chronic lower extremity venous stasis changes. He has a 3 x 4 cm ulcer over the dorsum of the right foot with some central sloughing. No fluctuance palpable. Results Impressions: Foot X-Ray 04/05/18 11:44 IMPRESSION: GENERALIZED OSTEOPENIA. DIFFUSE SOFT TISSUE SWELLING. NO VISIBLE GAS. Tibia/Fibula X-Ray 04/05/18 11:44 IMPRESSION: PATCHY OSTEOPENIA. NO SOFT TISSUE GAS VISIBLE. Assessment & Plan - Diagnosis (1) Cellulitis of right lower leg Is this a current diagnosis for this admission?: Yes Plan: He has been started on intravenous levofloxacin which we shall continue. We will get surgery consult for evaluation of the wound to see if it warrants debridement. MRI of the right foot to rule out osteomyelitis. Will follow on blood cultures. (2) CHF (congestive heart failure) Is this a current diagnosis for this admission?: Yes Plan: Not in acute exacerbation. Left ventricular ejection fraction unknown. No record of prior echocardiograms available in the hospital system. Continue outpatient medications including Lasix and Coreg. (3) CKD (chronic kidney disease) stage 3, GFR 30-59 ml/min Is this a current diagnosis for this admission?: Yes Plan: Stable. Monitor renal function. (4) PVD (peripheral vascular disease) Is this a current diagnosis for this admission?: Yes Plan: Continue outpatient medications (5) Venous stasis Is this a current diagnosis for this admission?: Yes Plan: Stable. (6) Atrial fibrillation Qualifiers: Atrial fibrillation type: chronic Qualified Code(s): I48.2 - Chronic atrial fibrillation Is this a current diagnosis for this admission?: Yes Plan: On Eliquis. Continue Coreg. - Time Time Spent: 50 to 70 Minutes - Inpatient Certification Medical Necessity: Failure to Improve With Outpatient Therapy, Need for IV Antibiotics
--- NOTE | 2018-04-05 16:30 | RADIOLOGY REPORT (SQ) ---
EXAM DESCRIPTION: PICC INSERTION; FLUORO/CV PLACEMENT; U/S GUIDE FOR VASCULAR ACCESS COMPLETED DATE/TIME: 04/05/2018 4:19 pm REASON FOR STUDY: picc line consult; PICC INSERTION COMPARISON: None. FLUOROSCOPY TIME: 0.13 minute. 1 images saved to PACS. TECHNIQUE: Fluoroscopic and ultrasound guided PICC placement. LIMITATIONS: None. PROCEDURE: After written consent and assessment were obtained, the patient was brought into the fluo roscopy room and place supine on the table. Ultrasound evaluation of potential access sites were perf ormed. After successfully identifying a patent right basilic vein, the right arm was prepped and drap ed in a sterile fashion along with the ultrasound probe. The entry site was anesthetized with 1% lido andres. A 21 gauge 7 cm needle was advanced through the skin and into the basilic vein under live ultr asound guidance. An ultrasound image was saved to PACS confirming access site. A .018 guide wire wa s then inserted through the needle and into the venous system. The needle was the removed and an 11 b lade scalpel was used to make a 1cm skin incision. A 5 fr peel-away sheath was advanced over the wir e and into the venous system. A measurement was then made using the existing wire and live fluoroscop ic guidance. The wire was then removed and the trimmed. The PICC was advanced through the peel-away s kojo and into the venous system. The peel-away sheath was removed and the catheter was adhered to th e patients arm with a stat lock. The catheter was then aspirated and flushed and a sterile bandage wa s placed over the access site. A fluoroscopic spot image was saved to PACS confirming the catheter t ip within the superior vena cava. IMPRESSION: SUCCESSFUL PLACEMENT OF A 5 FR DUAL LUMEN 37 CM PICC IN THE RIGHT BASILIC VEIN. COMMENT: Patient medication list reviewed: Yes- Quality ID# 130:Eligible professional attests to doc umenting in the medical record they obtained, updated, or reviewed the patient's current medications. . Quality ID 145: Final reports for procedures using fluoroscopy that document radiation exposure tracey edgar, or exposure time and number of fluorographic images (if radiation exposure indices are not avail able) Quality ID #76: The patient was prepped and draped using maximum sterile barrier technique including cap, mask, sterile gown, sterile gloves, a large sterile sheet, hand hygiene, and 2% Chlorhexidine fo r cutaneous antisepsis. When ultrasound is used, sterile ultrasound techniques are followed requiring sterile gel and sterile probes. TECHNICAL DOCUMENTATION: JOB ID: [id number] [employer]- All Rights Reserved rev-03/08 Reading location - IP/workstation name: [facility]
[2018-04-05] MEDS: OXYCODONE HCL IR 5 MG TABLET PO PRN (17:05)
[2018-04-05] MEDS: LACTOBACILLUS ACIDOPHILUS 250 MG TAB PO SCH (17:05)
[2018-04-05] MEDS: ALLOPURINOL 100 MG TABLET PO SCH (17:05)
[2018-04-05] MEDS: CALCIUM CARBONATE 500 MG TABLET PO SCH (17:06)
[2018-04-05] MEDS: LEVOFLOXACIN 750 MG/D5W RTU 750 MG/150 ML RTUPB IV SCH (17:19)
[2018-04-05] MEDS ORDERED: NORMAL SALINE 10 ML SDV (AFTER EACH USE) IV PRN (18:12)
--- NOTE | 2018-04-05 19:34 | EKG REPORT ---
SEVERITY:- ABNORMAL ECG - ATRIAL FIBRILLATION : Confirmed by: Billy Smalls MD 05-Apr-2018 19:33:35
[2018-04-05] MEDS: CARVEDILOL 12.5 MG TABLET PO SCH (22:23)
[2018-04-05] MEDS: APIXABAN 5 MG TABLET PO SCH (22:23)
[2018-04-05] MEDS: NORMAL SALINE 10 ML SDV (SCHEDULED) IV SCH (22:23)
[2018-04-06] MEDS: LANSOPRAZOLE 15 MG TAB.RAP.DR PO SCH (05:18)
[2018-04-06 05:43] LABS: ANION GAP 10 (5-19); BLOOD UREA NITROGEN 39 mg/dL (7-20); CALCIUM 9.5 mg/dL (8.4-10.2); CARBON DIOXIDE 30 mmol/L (22-30); CHLORIDE 106 mmol/L (98-107); GLUCOSE 98 mg/dL (75-110); PHOSPHORUS 3.4 mg/dL (2.5-4.5); POTASSIUM 4.3 mmol/L (3.6-5.0); SODIUM 145.7 mmol/L (137-145)
[2018-04-06] MEDS: OXYCODONE HCL IR 5 MG TABLET PO PRN ×3 (06:15→21:34)
[2018-04-06] MEDS: FUROSEMIDE 40 MG TABLET PO SCH (08:04)
[2018-04-06] MEDS: ASPIRIN 81 MG TABLET, ENT COATED PO SCH (09:33)
[2018-04-06] MEDS: CALCIUM CARBONATE 500 MG TABLET PO SCH ×2 (09:33→18:12)
[2018-04-06] MEDS: DOCUSATE SODIUM 100 MG CAPSULE PO SCH (09:33)
[2018-04-06] MEDS: CARVEDILOL 12.5 MG TABLET PO SCH ×2 (09:33→21:34)
[2018-04-06] MEDS: MULTIVITAMIN TABLET PO SCH (09:34)
[2018-04-06] MEDS: ALLOPURINOL 100 MG TABLET PO SCH ×2 (09:34→18:12)
[2018-04-06] MEDS: APIXABAN 5 MG TABLET PO SCH ×2 (09:34→21:35)
[2018-04-06] MEDS: ASCORBIC ACID 500 MG TABLET PO SCH (09:35)
[2018-04-06] MEDS: LACTOBACILLUS ACIDOPHILUS 250 MG TAB PO SCH ×2 (09:35→18:12)
[2018-04-06] MEDS: NORMAL SALINE 10 ML SDV (SCHEDULED) IV SCH ×2 (09:36→21:36)
[2018-04-06] MEDS ORDERED: LEVOFLOXACIN 750 MG/D5W RTU 750 MG/150 ML RTUPB IV SCH (10:00)
--- NOTE | 2018-04-06 13:12 | PDOC PROGRESS REPORT ---
Subjective Progress Note for:: 04/06/18 Subjective:: 73 year old male with past medical history of Chronic right leg ulcers Atrial fibrillation on Eliquis History of DVT CKD stage III Chronic venous stasis Peripheral vascular disease The patient has a chronic wound on the dorsum of the right foot which has not been improving despite multiple courses of oral antibiotics. He is followed by Dr. Fabiola Dsouza who referred him for admission and IV antibiotics. MRI of the foot was done to rule out osteomyelitis. Report is pending. Right lower extremity arterial studies have been ordered. Dr. Dsouza has been consulted. Reason For Visit: R LEG CELLULITIS FAILED PO ANTIBIOTIC TREATMENT Physical Exam Vital Signs: Temp Pulse Resp BP Pulse Ox 97.5 F 65 18 126/59 H 98 04/06/18 11:50 04/06/18 11:50 04/06/18 11:50 04/06/18 11:50 04/06/18 11:50 Intake & Output 04/05/18 04/06/18 04/07/18 06:59 06:59 06:59 Intake Total 1346 Balance 1346 Weight 85.1 kg General appearance: PRESENT: no acute distress, well-developed, well-nourished Head exam: PRESENT: normocephalic Ear exam: PRESENT: normal external ear exam Mouth exam: PRESENT: moist Neck exam: ABSENT: tracheal deviation Respiratory exam: PRESENT: symmetrical, unlabored. ABSENT: wheezes Cardiovascular exam: PRESENT: RRR GI/Abdominal exam: PRESENT: normal bowel sounds, soft. ABSENT: tenderness Rectal exam: PRESENT: deferred Gentrourinary exam: ABSENT: indwelling catheter Extremities exam: PRESENT: other - Right leg erythema and edema improved compared to yesterday. Chronic lower extremity venous stasis changes. He has a 3 x 4 cm ulcer over the dorsum of the right foot with some central sloughing. No fluctuance palpable. Neurological exam: PRESENT: alert, awake, oriented to person, oriented to place , oriented to time, oriented to situation Psychiatric exam: PRESENT: appropriate affect Skin exam: PRESENT: other - As above Results Laboratory Results: 04/06/18 05:10 04/06/18 04/06/18 05:10 05:10 Sodium 145.7 H Potassium 4.3 Chloride 106 Carbon Dioxide 30 Anion Gap 10 BUN 39 H Creatinine 1.20 Est GFR ( Amer) > 60 Est GFR (Non-Af Amer) 59 L Glucose 98 Calcium 9.5 Phosphorus 3.4 Magnesium 2.3 TSH 0.53 04/06/18 05:10 NT-Pro-B Natriuret Pep 3110 H Impressions: Guidance Fluoroscopy 04/05/18 00:00 IMPRESSION: SUCCESSFUL PLACEMENT OF A 5 FR DUAL LUMEN 37 CM PICC IN THE RIGHT BASILIC VEIN. Interventional Vascular Procedure 04/05/18 00:00 IMPRESSION: SUCCESSFUL PLACEMENT OF A 5 FR DUAL LUMEN 37 CM PICC IN THE RIGHT BASILIC VEIN. PICC Line Insertion 04/05/18 00:00 IMPRESSION: SUCCESSFUL PLACEMENT OF A 5 FR DUAL LUMEN 37 CM PICC IN THE RIGHT BASILIC VEIN. Foot X-Ray 04/05/18 11:44 IMPRESSION: GENERALIZED OSTEOPENIA. DIFFUSE SOFT TISSUE SWELLING. NO VISIBLE GAS. Tibia/Fibula X-Ray 04/05/18 11:44 IMPRESSION: PATCHY OSTEOPENIA. NO SOFT TISSUE GAS VISIBLE. Assessment & Plan - Diagnosis (1) Cellulitis of right lower leg Is this a current diagnosis for this admission?: Yes Plan: Day 2 Levofloxacin. Follow-up on arterial studies of the right leg and MRI of the foot. Vascular surgery consult for evaluation of the wound to see if it warrants debridement. (2) CHF (congestive heart failure) Is this a current diagnosis for this admission?: Yes Plan: Not in acute exacerbation. Left ventricular ejection fraction unknown. No record of prior echocardiograms available in the hospital system. Continue outpatient medications including Lasix and Coreg. (3) CKD (chronic kidney disease) stage 3, GFR 30-59 ml/min Is this a current diagnosis for this admission?: Yes Plan: Stable. Monitor renal function. (4) PVD (peripheral vascular disease) Is this a current diagnosis for this admission?: Yes Plan: Continue outpatient medications (5) Venous stasis Is this a current diagnosis for this admission?: Yes Plan: Chronic (6) Atrial fibrillation Qualifiers: Atrial fibrillation type: chronic Qualified Code(s): I48.2 - Chronic atrial fibrillation Is this a current diagnosis for this admission?: Yes Plan: On Eliquis and Coreg. - Time Time Spent with patient: 25-34 minutes
[2018-04-06] MEDS: LEVOFLOXACIN 750 MG/D5W RTU 750 MG/150 ML RTUPB IV SCH (18:13)
[2018-04-07] MEDS: LANSOPRAZOLE 15 MG TAB.RAP.DR PO SCH (05:19)
[2018-04-07] MEDS: OXYCODONE HCL IR 5 MG TABLET PO PRN ×3 (05:23→20:26)
[2018-04-07] MEDS: FUROSEMIDE 40 MG TABLET PO SCH (07:26)
[2018-04-07] MEDS: ASCORBIC ACID 500 MG TABLET PO SCH (09:28)
[2018-04-07] MEDS: ASPIRIN 81 MG TABLET, ENT COATED PO SCH (09:28)
[2018-04-07] MEDS: LACTOBACILLUS ACIDOPHILUS 250 MG TAB PO SCH ×2 (09:28→17:29)
[2018-04-07] MEDS: ALLOPURINOL 100 MG TABLET PO SCH ×2 (09:28→17:29)
[2018-04-07] MEDS: APIXABAN 5 MG TABLET PO SCH ×2 (09:28→21:30)
[2018-04-07] MEDS: MULTIVITAMIN TABLET PO SCH (09:28)
[2018-04-07] MEDS: CALCIUM CARBONATE 500 MG TABLET PO SCH ×2 (09:28→17:29)
[2018-04-07] MEDS: DOCUSATE SODIUM 100 MG CAPSULE PO SCH (09:28)
[2018-04-07] MEDS: CARVEDILOL 12.5 MG TABLET PO SCH ×2 (09:28→21:29)
[2018-04-07] MEDS: NORMAL SALINE 10 ML SDV (SCHEDULED) IV SCH ×2 (09:29→21:30)
--- NOTE | 2018-04-07 10:15 | RADIOLOGY REPORT (SQ) ---
EXAM DESCRIPTION: MRI RT LOWER EXTREMITY WITHOUT COMPLETED DATE/TIME: 04/05/2018 10:19 pm REASON FOR STUDY: Osteomyelitis R foot COMPARISON: Right foot films 04/05/2018 TECHNIQUE: Multiplanar imaging of the right foot to include fat and fluid sensitive sequences. LIMITATIONS: None. FINDINGS: Diffuse soft tissue cellulitis is present with edema throughout the forefoot subcutaneous fat and edema throughout the dorsal forefoot scan. No soft tissue abscess is identified. No significant tendon sheath fluid is present. Over the forefoot, no joint effusions are present at the metatarsophalangeal joints or interphalangea l joints. There is degenerative change along the distal aspect of the great toe proximal phalanx, with mild cor tical depression and subcortical edema. There is no associated joint effusion or marrow edema in the distal phalanx. 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 IMPRESSION: NO MR EVIDENCE FOR OSTEOMYELITIS. TECHNICAL DOCUMENTATION: JOB ID: [id number] [employer]- All Rights Reserved Reading location - IP/workstation name: [email or web address]
[2018-04-07 10:43] LABS: ABSOLUTE EOSINOPHILS # (AUTO) 0.1 10^3/uL (0.0-0.6); ABSOLUTE LYMPHOCYTES (AUTO) 1.3 10^3/uL (0.5-4.7); ABSOLUTE MONOCYTES (AUTO) 0.5 10^3/uL (0.1-1.4); ABSOLUTE NEUT (AUTO) 2.6 10^3/uL (1.7-8.2); BASOPHILS % (AUTO) 0.7 % (0-2); EOSINOPHILS % (AUTO) 2.9 % (0-6); HEMATOCRIT 33.9 % (37.9-51.0); HEMOGLOBIN 11.1 g/dL (13.5-17.0); LYMPHOCYTES % (AUTO) 27.8 % (13-45); MEAN CORPUSCULAR HEMOGLOBIN 28.2 pg (27.0-33.4); MEAN CORPUSCULAR HGB CONC 32.8 g/dL (32.0-36.0); MEAN CORPUSCULAR VOLUME 86 fl (80-97); MONOCYTES % (AUTO) 11.2 % (3-13); PLATELET COUNT 154 10^3/uL (150-450); RED BLOOD COUNT 3.94 10^6/uL (4.35-5.55); RED CELL DISTRIBUTION WIDTH 17.3 % (11.5-14.0); SEGMENTED NEUTROPHILS % (AUTO) 57.4 % (42-78); TOTAL CELLS COUNTED % (AUTO) 100 %; WHITE BLOOD COUNT 4.6 10^3/uL (4.0-10.5)
--- NOTE | 2018-04-07 15:33 | PDOC PROGRESS REPORT ---
Subjective Progress Note for:: 04/07/18 Subjective:: No overnight events. staff editor noted some oozing from PICC line site. Patient is on DOAC and ASA. Will re-check H&H this AM. Right foot remains wrapped. There is some pain however overally well controlled. Awaiting MRI and arterial dopplers to determine next steps in management. patient has no complaints at this time. Reason For Visit: R LEG CELLULITIS FAILED PO ANTIBIOTIC TREATMENT Physical Exam Vital Signs: Temp Pulse Resp BP Pulse Ox 98.2 F 56 L 16 117/55 L 98 04/07/18 11:26 04/07/18 12:30 04/07/18 12:30 04/07/18 11:26 04/07/18 12:30 Intake & Output 04/06/18 04/07/18 04/08/18 06:59 06:59 06:59 Intake Total 1346 2010 Output Total 500 Balance 1346 1510 Weight 85.1 kg 85.729 kg General appearance: PRESENT: no acute distress, cooperative, well-developed, well-nourished, other - Sitting in wheel chair. Head exam: PRESENT: normocephalic Mouth exam: PRESENT: moist Respiratory exam: PRESENT: unlabored. ABSENT: wheezes Cardiovascular exam: PRESENT: +S1, +S2, other. ABSENT: tachycardia GI/Abdominal exam: PRESENT: soft. ABSENT: tenderness Extremities exam: PRESENT: other - Right leg erythema and edema, stable. 3 x 4 cm ulcer on dorsum right foot. No fluctuance palpable.Noted to have bilateral chronic lower extremity venous stasis changes. Neurological exam: PRESENT: alert, awake, CN II-XII grossly intact Psychiatric exam: PRESENT: appropriate affect Skin exam: PRESENT: other - See extremity section above. Results Laboratory Results: 04/07/18 10:20 04/06/18 05:10 04/07/18 10:20 WBC 4.6 RBC 3.94 L Hgb 11.1 L Hct 33.9 L MCV 86 MCH 28.2 MCHC 32.8 RDW 17.3 H Plt Count 154 Seg Neutrophils % 57.4 Lymphocytes % 27.8 Monocytes % 11.2 Eosinophils % 2.9 Basophils % 0.7 Absolute Neutrophils 2.6 Absolute Lymphocytes 1.3 Absolute Monocytes 0.5 Absolute Eosinophils 0.1 Absolute Basophils 0.0 04/06/18 05:10 NT-Pro-B Natriuret Pep 3110 H Impressions: Guidance Fluoroscopy 04/05/18 00:00 IMPRESSION: SUCCESSFUL PLACEMENT OF A 5 FR DUAL LUMEN 37 CM PICC IN THE RIGHT BASILIC VEIN. Interventional Vascular Procedure 04/05/18 00:00 IMPRESSION: SUCCESSFUL PLACEMENT OF A 5 FR DUAL LUMEN 37 CM PICC IN THE RIGHT BASILIC VEIN. Lower Extremity MRI 04/05/18 00:00 IMPRESSION: NO MR EVIDENCE FOR OSTEOMYELITIS. PICC Line Insertion 04/05/18 00:00 IMPRESSION: SUCCESSFUL PLACEMENT OF A 5 FR DUAL LUMEN 37 CM PICC IN THE RIGHT BASILIC VEIN. Foot X-Ray 04/05/18 11:44 IMPRESSION: GENERALIZED OSTEOPENIA. DIFFUSE SOFT TISSUE SWELLING. NO VISIBLE GAS. Tibia/Fibula X-Ray 04/05/18 11:44 IMPRESSION: PATCHY OSTEOPENIA. NO SOFT TISSUE GAS VISIBLE.
[2018-04-07] MEDS: LEVOFLOXACIN 750 MG/D5W RTU 750 MG/150 ML RTUPB IV SCH (17:29)
[2018-04-08] MEDS: OXYCODONE HCL IR 5 MG TABLET PO PRN ×3 (05:03→22:02)
[2018-04-08] MEDS: LANSOPRAZOLE 15 MG TAB.RAP.DR PO SCH (05:03)
[2018-04-08 05:52] LABS: HEMOGLOBIN 11.4 g/dL (13.5-17.0); MEAN CORPUSCULAR HEMOGLOBIN 27.9 pg (27.0-33.4); MEAN CORPUSCULAR HGB CONC 32.6 g/dL (32.0-36.0); MEAN CORPUSCULAR VOLUME 86 fl (80-97); PLATELET COUNT 146 10^3/uL (150-450); RED BLOOD COUNT 4.09 10^6/uL (4.35-5.55); RED CELL DISTRIBUTION WIDTH 17.4 % (11.5-14.0); WHITE BLOOD COUNT 4.5 10^3/uL (4.0-10.5)
[2018-04-08 06:26] LABS: ANION GAP 10 (5-19); BLOOD UREA NITROGEN 42 mg/dL (7-20); CALCIUM 9.3 mg/dL (8.4-10.2); CARBON DIOXIDE 27 mmol/L (22-30); CHLORIDE 109 mmol/L (98-107); GLUCOSE 93 mg/dL (75-110); POTASSIUM 4.2 mmol/L (3.6-5.0)
[2018-04-08] MEDS: FUROSEMIDE 40 MG TABLET PO SCH (08:17)
[2018-04-08] MEDS ORDERED: FENTANYL 100 MCG/HR PATCH.TD72 TOP SCH (10:00)
[2018-04-08] MEDS: DOCUSATE SODIUM 100 MG CAPSULE PO SCH (10:21)
[2018-04-08] MEDS: ASPIRIN 81 MG TABLET, ENT COATED PO SCH (10:21)
[2018-04-08] MEDS: ALLOPURINOL 100 MG TABLET PO SCH ×2 (10:21→17:33)
[2018-04-08] MEDS: CALCIUM CARBONATE 500 MG TABLET PO SCH ×2 (10:21→17:32)
[2018-04-08] MEDS: APIXABAN 5 MG TABLET PO SCH ×2 (10:21→22:04)
[2018-04-08] MEDS: ASCORBIC ACID 500 MG TABLET PO SCH (10:21)
[2018-04-08] MEDS: LACTOBACILLUS ACIDOPHILUS 250 MG TAB PO SCH ×2 (10:21→17:32)
[2018-04-08] MEDS: CARVEDILOL 12.5 MG TABLET PO SCH ×2 (10:21→22:02)
[2018-04-08] MEDS: MULTIVITAMIN TABLET PO SCH (10:21)
[2018-04-08] MEDS: NORMAL SALINE 10 ML SDV (SCHEDULED) IV SCH ×2 (10:21→22:04)
--- NOTE | 2018-04-08 16:23 | XCELERA REPORT ---
[address] [address] Lower Extremity Arterial Evaluation Name: ANALI STEELE Age: 73 yrs Gender: Male : 1945 Patient Status: Inpatient Patient Location: [address] [place] [address] Study Date: 04/08/2018 09:40 AM Procedure: A color flow and duplex scan of the lower extremity arteries was performed on the right with velocity and waveform anaylsis. Reason For Study: R foot PVD, non healing ulcer Ordering Physician: HUMBERTO RUGGIERO Performed By: John Burrell Measurements and Calculations Right Left ARCH PAD CEMENTER PSV 129.2 cm/sec Prox PFA PSV 102.7 cm/sec Prox SFA PSV 137.6 cm/sec Mid SFA PSV -98.2 cm/sec Dist SFA PSV -96.7 cm/sec Prox Pop A PSV 93.2 cm/sec Mid RILEY PSV 48.7 cm/sec Mid DENTAL SERVICES DIRECTOR PSV -148.5 cm/sec Right Side Arterial Evaluation Normal velocity and triphasic waveforms noted from the Common Femoral artery to the Popliteal. Biphasic with spectral broadening in the infrageniculate vessels, well preserved velocities. The Dorsalis Pedis not imaged as it is in the ulcer bed. 20-49 % stenosis at the infrageniculate vessels. Ankle Brachial index not done. Interpretation Summary Moderate hemodynamically significant lesions in the right lower extremity only, on duplex imaging, at rest. : HUMBERTO RUGGIERO > Riccardo Dsouza
--- NOTE | 2018-04-08 16:45 | PDOC CONSULTATION ---
Consultation Consult Date: 04/08/18 Attending physician:: SEJAL FLORES Consult reason:: Persisting, recurring cellulitis in the left foot. History of Present Illness Admission Date/PCP: 04/05/18 13:41 SCARLETT RANGEL PA-C History of Present Illness: ANALI STEELE is a 73 year old male Past Medical History Cardiac Medical History: Reports: Atrial Fibrillation - Was on anticoagulants until he was in the hospital and they were stopped, Congestive Heart Failure, DVT Endocrine Medical History: Reports: Diabetes Mellitus Type 2 Past Surgical History Past Surgical History: Reports: Cholecystectomy, Orthopedic Surgery - Right leg drained during hospitalization spring Social History Lives with: Spouse/Significant other Smoking Status: Former Smoker Cigarettes Packs Per Day: 0.5 Frequency of Alcohol Use: Occasional Hx Recreational Drug Use: No Drugs: None Hx Prescription Drug Abuse: No - Advance Directive Resuscitation Status: Full Code Family History Family History: CAD, COPD, DM Parental Family History Reviewed: No Children Family History Reviewed: No Sibling(s) Family History Reviewed.: No Medication/Allergy Home Medications: Allopurinol [Zyloprim 100 mg Tablet] 100 mg PO BID 04/05/18 Apixaban [Eliquis 5 mg Tablet] 5 mg PO Q12 04/05/18 Ascorbic Acid [Vitamin C 500 mg Tablet] 500 mg PO DAILY 04/05/18 Aspirin [Aspirin EC] 81 mg PO DAILY 04/05/18 Calcium Carbonate [Os-Linden 500 mg Tablet (Oyster-Shell)] 500 mg PO BID 04/05/18 Carvedilol [Coreg 25 mg Tablet] 25 mg PO Q12 04/05/18 Fentanyl [Duragesic 100 Mcg/Hr Transdermal Patch] 100 mcg TOP Q3D 04/05/18 Furosemide [Lasix 40 mg Tablet] 40 mg PO QAM 04/05/18 Metolazone [Zaroxolyn 5 mg Tablet] 5 mg PO DAILYP PRN 04/05/18 Multivitamin [One-A-Day Essential] 1 tab PO DAILY 04/05/18 Oxycodone HCl 15 mg PO Q6HP PRN 04/05/18 Potassium Gluconate 500 mg PO DAILY 04/05/18 Allergies/Adverse Reactions: No Known Allergies Allergy (Verified 04/05/18 11:27) Physical Exam Vital Signs: Temp Pulse Resp BP Pulse Ox 97.4 F 63 17 145/77 H 100 04/08/18 11:40 04/08/18 12:44 04/08/18 12:44 04/08/18 11:40 04/08/18 11:40 Intake & Output 04/07/18 04/08/18 04/09/18 06:59 06:59 06:59 Intake Total 2009 771 Output Total 500 Balance 1510 771 Weight 85.729 kg 85.729 kg Additional comments: Constitutional: Well-developed well-nourished gentleman, moderately increased body mass index. No apparent acute distress. Eyes: Mucous membranes pink and moist, pupils equal and reactive to light. Conjunctiva normal. Cornea normal. ENT: Hearing grossly normal. External pinna normal to inspection. Teeth intact. Tongue normal to inspection. Cardiac: Heart sounds 1 and 2 normal. No murmurs. Respiratory breath sounds are present bilaterally, normal. Normal respiratory effort. Skin: left foot ulcer about 5 x 5 cm , mildly increased turgor. Psychiatric: Judgment, memory, insight seem normal. Mood is pleasant and appropriate. Extremities: Upper extremities show normal range of movement. Pulses present noted to the radial arteries. Capillary refill normal. No cyanosis noted. No muscle wasting noted. Lower extremities show normal range of movement. Pulses present noted to the dorsalis pedis artery on the right, difficult to feel on the left due to the presence of an ulcer. Capillary refill normal. No cyanosis noted. No muscle wasting noted.left foot ulcer about 5 x 5 cm , mildly increased turgor. Results Laboratory Results: 04/08/18 05:20 04/08/18 05:20 04/08/18 04/08/18 05:20 05:20 WBC 4.5 RBC 4.09 L Hgb 11.4 L Hct 35.0 L MCV 86 MCH 27.9 MCHC 32.6 RDW 17.4 H Plt Count 146 L Sodium 146.0 H Potassium 4.2 Chloride 109 H Carbon Dioxide 27 Anion Gap 10 BUN 42 H Creatinine 1.21 Est GFR ( Amer) > 60 Est GFR (Non-Af Amer) 59 L Glucose 93 Calcium 9.3 04/06/18 05:10 NT-Pro-B Natriuret Pep 3110 H Impressions: Guidance Fluoroscopy 04/05/18 00:00 IMPRESSION: SUCCESSFUL PLACEMENT OF A 5 FR DUAL LUMEN 37 CM PICC IN THE RIGHT BASILIC VEIN. Interventional Vascular Procedure 04/05/18 00:00 IMPRESSION: SUCCESSFUL PLACEMENT OF A 5 FR DUAL LUMEN 37 CM PICC IN THE RIGHT BASILIC VEIN. Lower Extremity MRI 04/05/18 00:00 IMPRESSION: NO MR EVIDENCE FOR OSTEOMYELITIS. PICC Line Insertion 04/05/18 00:00 IMPRESSION: SUCCESSFUL PLACEMENT OF A 5 FR DUAL LUMEN 37 CM PICC IN THE RIGHT BASILIC VEIN. Foot X-Ray 04/05/18 11:44 IMPRESSION: GENERALIZED OSTEOPENIA. DIFFUSE SOFT TISSUE SWELLING. NO VISIBLE GAS. Tibia/Fibula X-Ray 04/05/18 11:44 IMPRESSION: PATCHY OSTEOPENIA. NO SOFT TISSUE GAS VISIBLE. Assessment & Plan - Diagnosis (1) Cellulitis of extremity Qualifiers: Site of cellulitis of extremity: lower extremity Laterality: left Qualified Code(s): L03.116 - Cellulitis of left lower limb (2) Atrial fibrillation Qualifiers: Atrial fibrillation type: chronic Qualified Code(s): I48.2 - Chronic atrial fibrillation Is this a current diagnosis for this admission?: Yes (3) CKD (chronic kidney disease) stage 3, GFR 30-59 ml/min Is this a current diagnosis for this admission?: Yes (4) Chronic pain Qualifiers: Chronic pain type: other chronic pain Qualified Code(s): G89.29 - Other chronic pain (5) Diabetes Qualifiers: Diabetes mellitus type: type 2 Diabetes mellitus penitentiary insulin use: without long term care administrator use Diabetes mellitus complication status: with circulatory complication Diabetes mellitus complication detail: with peripheral angiopathy with gangrene Qualified Code(s): E11.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 (6) PVD (peripheral vascular disease) Is this a current diagnosis for this admission?: Yes (7) Venous stasis Is this a current diagnosis for this admission?: Yes - Plan Summary Plan Summary: In this patient who has had recurrent episodes of what seems to be cellulitis with no systemic effects, normal white count, normal temperature aggressive debridement and culture of granulation tissue and probably preparation for full- thickness skin grafting may be the best option. He does have moderate peripheral vascular disease, probably mild to moderate based on good velocities. The patient is currently being treated with skin products. I believe a straightforward skin graft is probably the best option although it is not without a failure rate. Discussed with the patient. He generally is agreeable and I can see him this Sunday in the wound clinic. I believe he should continue oral antibiotics for another week.
[2018-04-08] MEDS ORDERED: LEVOFLOXACIN 750 MG TABLET PO SCH (18:00)
[2018-04-08] MEDS: ACETAMINOPHEN 325 MG TABLET PO PRN (19:31)
--- NOTE | 2018-04-08 21:28 | PDOC PROGRESS REPORT ---
Subjective Progress Note for:: 04/08/18 Subjective:: 73 year-old male with past medical history significant for atrial fibrillation on Eliquis, history of DVT, chronic venous stasis, peripheral vascular disease, chronic right leg ulcers and CKD stage III. Patient describes multiple versus of oral antibiotics with limited improvement to his lower right extremity. Patient was admitted for IV antibiotics. Patient found to have moderate right lower extremity he has been following this patient. X-rays performed on right lower extremity leg and foot without findings consistent with osteomyelitis[facility] were in agreement that patient can likely finish oral antibiotics, and should be followed in the surgical wound care clinic on Sunday. Reason For Visit: R LEG CELLULITIS FAILED PO ANTIBIOTIC TREATMENT Physical Exam Vital Signs: Temp Pulse Resp BP Pulse Ox 97.9 F 58 L 14 128/66 H 99 04/08/18 15:16 04/08/18 15:16 04/08/18 15:16 04/08/18 15:16 04/08/18 15:16 Intake & Output 04/07/18 04/08/18 04/09/18 06:59 06:59 06:59 Intake Total 2010 771 986 Output Total 500 Balance 1510 771 986 Weight 85.729 kg 85.729 kg General appearance: PRESENT: no acute distress, cooperative Head exam: PRESENT: atraumatic, normocephalic Eye exam: PRESENT: EOMI, PERRLA Ear exam: PRESENT: normal external ear exam. ABSENT: drainage Mouth exam: PRESENT: moist. ABSENT: laceration Throat exam: ABSENT: post pharyngeal erythema, tonsillar exudate Neck exam: PRESENT: full ROM. ABSENT: JVD, tenderness Respiratory exam: ABSENT: rales, rhonchi, wheezes Cardiovascular exam: PRESENT: RRR, +S1, +S2 Pulses: PRESENT: normal radial pulses, normal dorsalis pedis pul GI/Abdominal exam: PRESENT: normal bowel sounds, soft. ABSENT: rigid Musculoskeletal exam: PRESENT: full ROM. ABSENT: tenderness Neurological exam: PRESENT: alert, oriented to person, oriented to place, oriented to time, oriented to situation Psychiatric exam: ABSENT: agitated, manic Focused psych exam: ABSENT: delusional, paranoid Skin exam: PRESENT: dry, erythema, other - Erythema and some weeping on dorsum of her right foot. Results Laboratory Results: 04/08/18 05:20 04/08/18 05:20 04/08/18 04/08/18 05:20 05:20 WBC 4.5 RBC 4.09 L Hgb 11.4 L Hct 35.0 L MCV 86 MCH 27.9 MCHC 32.6 RDW 17.4 H Plt Count 146 L Sodium 146.0 H Potassium 4.2 Chloride 109 H Carbon Dioxide 27 Anion Gap 10 BUN 42 H Creatinine 1.21 Est GFR ( Amer) > 60 Est GFR (Non-Af Amer) 59 L Glucose 93 Calcium 9.3 04/06/18 05:10 NT-Pro-B Natriuret Pep 3110 H Impressions: Guidance Fluoroscopy 04/05/18 00:00 IMPRESSION: SUCCESSFUL PLACEMENT OF A 5 FR DUAL LUMEN 37 CM PICC IN THE RIGHT BASILIC VEIN. Interventional Vascular Procedure 04/05/18 00:00 IMPRESSION: SUCCESSFUL PLACEMENT OF A 5 FR DUAL LUMEN 37 CM PICC IN THE RIGHT BASILIC VEIN. Lower Extremity MRI 04/05/18 00:00 IMPRESSION: NO MR EVIDENCE FOR OSTEOMYELITIS. PICC Line Insertion 04/05/18 00:00 IMPRESSION: SUCCESSFUL PLACEMENT OF A 5 FR DUAL LUMEN 37 CM PICC IN THE RIGHT BASILIC VEIN. Foot X-Ray 04/05/18 11:44 IMPRESSION: GENERALIZED OSTEOPENIA. DIFFUSE SOFT TISSUE SWELLING. NO VISIBLE GAS. Tibia/Fibula X-Ray 04/05/18 11:44 IMPRESSION: PATCHY OSTEOPENIA. NO SOFT TISSUE GAS VISIBLE. Assessment & Plan - Diagnosis (1) Cellulitis of right lower leg Is this a current diagnosis for this admission?: Yes Plan: Gradual improvement on Levaquin. No growth on blood cultures 2. Continue current antibiotics at present. Possible to convert these to oral antibiotics soon. Coverage patient elevate the leg at night to reduce swelling. Surgery following as well. Vascular study showed some flow limitation to right lower extremity. Per surgery ok to d/c soon on oral antibiotics and follow in the wound care clinic. No vascular intervention planned at this time. (2) Edema of right foot Is this a current diagnosis for this admission?: Yes Plan: Encourage patient to elevate the leg to reduce swelling. (3) PVD (peripheral vascular disease) Is this a current diagnosis for this admission?: Yes Plan: continue current therapy (4) Venous stasis Is this a current diagnosis for this admission?: Yes Plan: continue to elevate legs at night and continue lasix dosing (5) Atrial fibrillation Qualifiers: Atrial fibrillation type: chronic Qualified Code(s): I48.2 - Chronic atrial fibrillation Is this a current diagnosis for this admission?: Yes Plan: continue coreg and eliquis (6) CHF (congestive heart failure) Is this a current diagnosis for this admission?: Yes Plan: continue current lasix (7) CKD (chronic kidney disease) stage 3, GFR 30-59 ml/min Is this a current diagnosis for this admission?: Yes Plan: continue monitor, appears stable - Time Time Spent with patient: 15-24 minutes - Inpatient Certification I certify that my determination is in accordance with my understanding of Medicare's requirements for reasonable and necessary INPATIENT services [42 CFR 412.3e].: Yes Medical Necessity: Need Close Monitoring Due to Risk of Patient Decompensation
[2018-04-09] MEDS: OXYCODONE HCL IR 5 MG TABLET PO PRN (04:11)
[2018-04-09 04:35] LABS: HEMATOCRIT 32.7 % (37.9-51.0); HEMOGLOBIN 10.8 g/dL (13.5-17.0); MEAN CORPUSCULAR HEMOGLOBIN 28.2 pg (27.0-33.4); MEAN CORPUSCULAR HGB CONC 32.9 g/dL (32.0-36.0); MEAN CORPUSCULAR VOLUME 86 fl (80-97); PLATELET COUNT 130 10^3/uL (150-450); RED BLOOD COUNT 3.82 10^6/uL (4.35-5.55); RED CELL DISTRIBUTION WIDTH 17.2 % (11.5-14.0); WHITE BLOOD COUNT 4.1 10^3/uL (4.0-10.5)
[2018-04-09 04:49] LABS: ALBUMIN 3.3 g/dL (3.5-5.0); ANION GAP 7 (5-19); BLOOD UREA NITROGEN 45 mg/dL (7-20); CARBON DIOXIDE 29 mmol/L (22-30); CHLORIDE 108 mmol/L (98-107); GLUCOSE 102 mg/dL (75-110); PHOSPHORUS 3.5 mg/dL (2.5-4.5); SODIUM 144.3 mmol/L (137-145)
[2018-04-09] MEDS: LANSOPRAZOLE 15 MG TAB.RAP.DR PO SCH (05:36)
[2018-04-09] MEDS: FUROSEMIDE 40 MG TABLET PO SCH (08:06)
[2018-04-09] MEDS: ACETAMINOPHEN 325 MG TABLET PO PRN (08:07)
[2018-04-09] MEDS: DOCUSATE SODIUM 100 MG CAPSULE PO SCH (09:56)
[2018-04-09] MEDS: LACTOBACILLUS ACIDOPHILUS 250 MG TAB PO SCH (09:57)
[2018-04-09] MEDS: ASPIRIN 81 MG TABLET, ENT COATED PO SCH (09:57)
[2018-04-09] MEDS: CALCIUM CARBONATE 500 MG TABLET PO SCH (09:57)
[2018-04-09] MEDS: ASCORBIC ACID 500 MG TABLET PO SCH (09:57)
[2018-04-09] MEDS: APIXABAN 5 MG TABLET PO SCH (09:57)
[2018-04-09] MEDS: ALLOPURINOL 100 MG TABLET PO SCH (09:57)
[2018-04-09] MEDS: CARVEDILOL 12.5 MG TABLET PO SCH (09:57)
[2018-04-09] MEDS: MULTIVITAMIN TABLET PO SCH (09:57)
[2018-04-09] MEDS: NORMAL SALINE 10 ML SDV (SCHEDULED) IV SCH (09:59)
[2018-04-09 12:07] VITALS: BP 138/78
--- NOTE | 2018-04-10 09:53 | PDOC DISCHARGE SUMMARY ---
General - Admit/Disc Date/PCP Admission Date/Primary Care Provider: 04/05/18 13:41 SCARLETT RANGEL PA-C Discharge Date: 04/09/18 - Discharge Diagnosis (1) Cellulitis of right lower leg Is this a current diagnosis for this admission?: Yes (2) Edema of right foot Is this a current diagnosis for this admission?: Yes (3) PVD (peripheral vascular disease) Is this a current diagnosis for this admission?: Yes (4) Venous stasis Is this a current diagnosis for this admission?: Yes (5) Atrial fibrillation Is this a current diagnosis for this admission?: Yes (6) CHF (congestive heart failure) Is this a current diagnosis for this admission?: Yes (7) CKD (chronic kidney disease) stage 3, GFR 30-59 ml/min Is this a current diagnosis for this admission?: Yes - Additional Information Resuscitation Status: Full Code Discharge Diet: As Tolerated Discharge Activity: Activity As Tolerated Prescriptions: Carvedilol [Coreg 12.5 mg Tablet] 25 mg PO Q12 30 Days #60 tablet Docusate Sodium [Colace 100 mg Capsule] 200 mg PO DAILY 30 Days #30 capsule Lactobacillus Acidophilus [Bacid 250 mg Tablet] 500 mg PO BID 10 Days #20 tab Lansoprazole [Prevacid 15 mg Odt Tablet] 15 mg PO Q6AM 30 Days #30 tab. Levofloxacin [Levaquin 750 mg Tablet] 750 mg PO DAILY 9 Days #9 tab Home Medications: Allopurinol [Zyloprim 100 mg Tablet] 100 mg PO BID 04/05/18 Apixaban [Eliquis 5 mg Tablet] 5 mg PO Q12 04/05/18 Ascorbic Acid [Vitamin C 500 mg Tablet] 500 mg PO DAILY 04/05/18 Aspirin [Aspirin EC] 81 mg PO DAILY 04/05/18 Calcium Carbonate [Os-Linden 500 mg Tablet (Oyster-Shell)] 500 mg PO BID 04/05/18 Fentanyl [Duragesic 100 Mcg/Hr Transdermal Patch] 100 mcg TOP Q3D 04/05/18 Furosemide [Lasix 40 mg Tablet] 40 mg PO QAM 04/05/18 Metolazone [Zaroxolyn 5 mg Tablet] 5 mg PO DAILYP PRN 04/05/18 Multivitamin [One-A-Day Essential] 1 tab PO DAILY 04/05/18 Oxycodone HCl 15 mg PO Q6HP PRN 04/05/18 Carvedilol [Coreg 12.5 mg Tablet] 25 mg PO Q12 30 Days #60 tablet 04/09/18 Docusate Sodium [Colace 100 mg Capsule] 200 mg PO DAILY 30 Days #30 capsule Lactobacillus Acidophilus [Bacid 250 mg Tablet] 500 mg PO BID 10 Days #20 tab Lansoprazole [Prevacid 15 mg Odt Tablet] 15 mg PO Q6AM 30 Days #30 tab Levofloxacin [Levaquin 750 mg Tablet] 750 mg PO DAILY 9 Days #9 tab 04/09/18 History of Present Illness History of Present Illness: ANALI STEEEL is a 73 year old male with past medical history of Chronic right leg ulcers Atrial fibrillation on Eliquis History of DVT CKD stage III Chronic venous stasis Peripheral vascular disease The patient is followed as an outpatient by Dr. Fabiola Dsouza as well as Yashira Nguyen, nurse practitioner at the wound care center. He was treated with a course of levofloxacin and is now on Keflex and Bactrim however his leg has been getting more red and swollen. He denied any fevers or chills. The patient was instructed to come to the emergency room for IV antibiotics due to a failure of outpatient oral antibiotic treatment. He was evaluated by the ER physician and was ordered IV levofloxacin. X-ray of the right tibia and fibula showed patchy osteopenia with no soft tissue gas visible. The patient was discharged from this hospital on February 20 after being treated for right lower leg cellulitis. Hospital Course Hospital Course: 73 year-old male with past medical history significant for atrial fibrillation on Eliquis, history of DVT, chronic venous stasis, peripheral vascular disease, chronic right leg ulcers and CKD stage III. Patient describes multiple days of oral antibiotics with limited improvement to his lower right extremity. Patient was admitted for IV antibiotics. Patient found to have moderate right lower extremity vascular limitations in flow were found on vascular testing, and surgery followed this patient. X-rays performed on right lower extremity leg and foot without findings consistent with osteomyelitis. MRI of lower extremity without evidence of osteomyelitis. Surgery evaluated the patient and they were in agreement that patient can likely finish oral antibiotics, and should be followed in the surgical wound care clinic on Sunday. Patient's lower extremity showed gradual improvement with elevation and continued IV Levaquin therapy. He was discharged with oral levaquin, to complete a two week total course and followup with the surgical wound center this week. He was also given follow up with his PCP. Physical Exam Vital Signs: Temp Pulse Resp BP Pulse Ox 97.9 F 60 18 138/78 H 100 04/09/18 12:00 04/09/18 12:00 04/09/18 12:00 04/09/18 12:00 04/09/18 12:00 Intake & Output 04/08/18 04/09/18 04/10/18 06:59 06:59 06:59 Intake Total 771 1518 Balance 771 1518 Weight 85.729 kg General appearance: PRESENT: no acute distress, cooperative Head exam: PRESENT: atraumatic, normocephalic Eye exam: PRESENT: EOMI, PERRLA Ear exam: PRESENT: normal external ear exam. ABSENT: drainage Mouth exam: PRESENT: moist, neck supple Throat exam: ABSENT: tonsillar erythema, tonsillar exudate Neck exam: ABSENT: tenderness, thyromegaly Respiratory exam: ABSENT: rales, rhonchi, wheezes Cardiovascular exam: PRESENT: RRR, +S1, +S2 Pulses: PRESENT: normal radial pulses, normal dorsalis pedis pul Vascular exam: PRESENT: normal capillary refill. ABSENT: pallor GI/Abdominal exam: PRESENT: normal bowel sounds, soft. ABSENT: rigid Extremities exam: PRESENT: pedal edema. ABSENT: joint swelling Musculoskeletal exam: PRESENT: full ROM. ABSENT: deformity Neurological exam: PRESENT: alert, oriented to person, oriented to place, oriented to time, oriented to situation Psychiatric exam: ABSENT: agitated, anxious Focused psych exam: ABSENT: delusional, paranoid Skin exam: PRESENT: erythema Results Laboratory Results: 04/09/18 04:18 04/09/18 04:18 04/09/18 04/09/18 04:18 04:18 WBC 4.1 RBC 3.82 L Hgb 10.8 L Hct 32.7 L MCV 86 MCH 28.2 MCHC 32.9 RDW 17.2 H Plt Count 130 L Seg Neutrophils % Not Reportable Lymphocytes % Not Reportable Monocytes % Not Reportable Eosinophils % Not Reportable Basophils % Not Reportable Absolute Neutrophils Not Reportable Absolute Lymphocytes Not Reportable Absolute Monocytes Not Reportable Absolute Eosinophils Not Reportable Absolute Basophils Not Reportable Sodium 144.3 Potassium 4.0 Chloride 108 H Carbon Dioxide 29 Anion Gap 7 BUN 45 H Creatinine 1.24 Est GFR ( Amer) > 60 Est GFR (Non-Af Amer) 57 L Glucose 102 Calcium 9.0 Phosphorus 3.5 Albumin 3.3 L 04/06/18 05:10 NT-Pro-B Natriuret Pep 3110 H Impressions: Guidance Fluoroscopy 04/05/18 00:00 IMPRESSION: SUCCESSFUL PLACEMENT OF A 5 FR DUAL LUMEN 37 CM PICC IN THE RIGHT BASILIC VEIN. Interventional Vascular Procedure 04/05/18 00:00 IMPRESSION: SUCCESSFUL PLACEMENT OF A 5 FR DUAL LUMEN 37 CM PICC IN THE RIGHT BASILIC VEIN. Lower Extremity MRI 04/05/18 00:00 IMPRESSION: NO MR EVIDENCE FOR OSTEOMYELITIS. PICC Line Insertion 04/05/18 00:00 IMPRESSION: SUCCESSFUL PLACEMENT OF A 5 FR DUAL LUMEN 37 CM PICC IN THE RIGHT BASILIC VEIN. Foot X-Ray 04/05/18 11:44 IMPRESSION: GENERALIZED OSTEOPENIA. DIFFUSE SOFT TISSUE SWELLING. NO VISIBLE GAS. Tibia/Fibula X-Ray 04/05/18 11:44 IMPRESSION: PATCHY OSTEOPENIA. NO SOFT TISSUE GAS VISIBLE. Qualifiers - * PATIENT BEING DISCHARGED WITH ANY OF THE FOLLOWING DIAGNOSIS: No VTE patient discharged on overlapping Therapy?: Yes Plan Discharge Plan: d/c home resume prior diet d/c condition: good d/c activity: as tolerated f/u with surgical wound clinic this week f/u with PCP within 7 days. Time Spent: Greater than 30 Minutes
== END 2018-04-09 14:56 | disposition home health service (06) | DRG 603 ==
LOC: ER 11:26 → EH 13:41 → 4W 15:16 → 5 17:51
PROVIDERS: ADMIT Internal Medicine; ATTEND Internal Medicine
PROC: 02HV33Z Insertion of Infusion Device into Superior Vena Cava, Percutaneous Approach (ICD-10-PCS; principal; 2018-04-05)
PROC: B518YZA Fluoroscopy of Superior Vena Cava using Other Contrast, Guidance (ICD-10-PCS; 2018-04-05)
PROC: B548ZZA Ultrasonography of Superior Vena Cava, Guidance (ICD-10-PCS; 2018-04-05)
DX: L03.116 Cellulitis of left lower limb (principal); E11.22 Type 2 diabetes mellitus with diabetic chronic kidney disease; I50.9 Heart failure, unspecified; L97.519 Non-pressure chronic ulcer of other part of right foot with unspecified severity; N18.3 Chronic kidney disease, stage 3 (moderate); I48.2 Chronic atrial fibrillation; I87.8 Other specified disorders of veins; I73.9 Peripheral vascular disease, unspecified; G89.29 Other chronic pain; M79.661 Pain in right lower leg; N40.0 Benign prostatic hyperplasia without lower urinary tract symptoms; Z86.718 Personal history of other venous thrombosis and embolism
CPT/HCPCS: 36415; 36569; 76937; 77001; 80048; 80053; 80069; 83735; 83880; 84100; 84443; 85025; 85027; 85652; 87040; 93005; 93010; 93926; 99285; J1642; J1956; J3490

== ENCOUNTER 2018-04-29 09:54 | Day surgery (SDC) | payer MEDICARE, BC ==
[2018-04-26 13:31] LABS: HEMATOCRIT 37.4 % (37.9-51.0); HEMOGLOBIN 12.3 g/dL (13.5-17.0); MEAN CORPUSCULAR HGB CONC 32.8 g/dL (32.0-36.0); MEAN CORPUSCULAR VOLUME 85 fl (80-97); PLATELET COUNT 211 10^3/uL (150-450); RED BLOOD COUNT 4.39 10^6/uL (4.35-5.55); RED CELL DISTRIBUTION WIDTH 16.8 % (11.5-14.0); WHITE BLOOD COUNT 4.9 10^3/uL (4.0-10.5)
--- NOTE | 2018-04-26 13:33 | EKG REPORT ---
SEVERITY:- ABNORMAL ECG - ATRIAL FIBRILLATION, V-RATE 77-147 : Confirmed by: Billy Smalls MD 26-Apr-2018 13:32:27
[~2018-04-29 09:54] MED LIST: LACTATED RINGERS 1000 ML IV PRN
[2018-04-29] MEDS ORDERED: KETAMINE HCL INJ 500 MG/10 ML VIAL ONE (10:03)
[2018-04-29] MEDS ORDERED: MIDAZOLAM 2 MG/2 ML INJ ONE (10:04)
[2018-04-29] MEDS ORDERED: FENTANYL CITRATE INJ/PF 100 MCG/2 ML AMPUL ONE (10:04)
[2018-04-29] MEDS ORDERED: PROPOFOL INJ 200 MG/20 ML VIAL IV ONE (10:04)
[2018-04-29] MEDS ORDERED: LIDOCAINE 0.5% INJ-PF (5 MG/ML) 50 ML SDV ONE (10:10)
[2018-04-29] MEDS ORDERED: BUPIVACAINE HCL 0.25 % INJ/PF (2.5 MG/1 ML) 30 ML VIAL ONE (10:10)
[2018-04-29] MEDS ORDERED: COLLAGENASE CLOSTRIDIUM HIST. OINT 30 GM ONE (10:10)
[2018-04-29] MEDS ORDERED: SILVER SULFADIAZINE 1% CREAM 25 GM ONE (10:10)
[2018-04-29] MEDS ORDERED: BACITRACIN INJ 50,000 UNIT VIAL ONE (10:10)
[2018-04-29 11:30] LABS: INTERNATIONAL RATION (INR) 1.02
[2018-04-29] MEDS ORDERED: ONDANSETRON HCL INJ/PF 4 MG/2 ML SDV IV PRN (12:01)
[2018-04-29] MEDS ORDERED: DIPHENHYDRAMINE HCL 50 MG/ML VIAL IV PRN (12:01)
[2018-04-29] MEDS ORDERED: PROMETHAZINE HCL INJ 25 MG/1 ML VIAL IV PRN (12:01)
--- NOTE | 2018-04-29 12:32 | PDOC H&P ---
General Chief Complaint: The patient has a chronic wound of the right foot. He has had several episodes of cellulitis requiring hospitalization. He is being admitted for debridement of the granulation with cultures. The hope is to secure a satisfactory wound bed for skin grafting in the next few weeks. - Diagnosis (1) Chronic ulcer of right foot with fat layer exposed Is this a Current Diagnosis?: Yes - Current Medications/Allergies Home Medications: Allopurinol [Zyloprim 100 mg Tablet] 100 mg PO BID 04/05/18 Apixaban [Eliquis 5 mg Tablet] 5 mg PO Q12 04/05/18 Ascorbic Acid [Vitamin C 500 mg Tablet] 500 mg PO DAILY 04/05/18 Aspirin [Aspirin EC] 81 mg PO DAILY 04/05/18 Calcium Carbonate [Os-Linden 500 mg Tablet (Oyster-Shell)] 500 mg PO BID 04/05/18 Fentanyl [Duragesic 100 Mcg/Hr Transdermal Patch] 100 mcg TOP Q3D 04/05/18 Furosemide [Lasix 40 mg Tablet] 40 mg PO DAILY 04/05/18 Metolazone [Zaroxolyn 5 mg Tablet] 5 mg PO PRN PRN 04/05/18 Multivitamin [One-A-Day Essential] 1 tab PO DAILY 04/05/18 Oxycodone HCl 15 mg PO Q6HP PRN 04/05/18 Allergies/Adverse Reactions: No Known Allergies Allergy (Verified 04/26/18 11:13) Past Medical History Cardiac Medical History: Reports: Atrial Fibrillation - Was on anticoagulants until he was in the hospital and they were stopped, Congestive Heart Failure, DVT, Hypertension Denies: Coronary Artery Disease, Myocardial Infarction Pulmonary Medical History: Denies: Asthma, Bronchitis, Chronic Obstructive Pulmonary Disease (COPD), Pneumonia Neurological Medical History: Denies: Seizures Endocrine Medical History: Reports: Diabetes Mellitus Type 2 Musculoskeltal Medical History: Reports: Arthritis - DJD, R HIP CHRONIC PAIN Hematology: Denies: Anemia Past Surgical History Past Surgical History: Reports: Cholecystectomy, Orthopedic Surgery - Right leg drained during hospitalization spring Family History Family History: CAD, COPD, DM Parental Family History Reviewed: No Children Family History Reviewed: No Sibling(s) Family History Reviewed.: No Social History Smoking Status: Former Smoker Frequency of Alcohol Use: Occasional Hx Recreational Drug Use: No Drugs: None Hx Prescription Drug Abuse: No Physical Exam Vital Signs: Temp Pulse Resp BP Pulse Ox 98 F 65 14 153/82 H 100 04/29/18 10:00 04/29/18 10:00 04/29/18 10:00 04/29/18 10:00 04/29/18 10:00 Intake & Output 04/28/18 04/29/18 04/30/18 06:59 06:59 06:59 Intake Total 250 Output Total 2 Balance 248 Weight 90.72 kg Additional comments: Constitutional: Well-developed well-nourished gentleman. No apparent acute distress. Eyes: Mucous membranes pink and moist, pupils equal and reactive to light. Conjunctiva normal. Cornea normal. ENT: Hearing grossly normal. External pinna normal to inspection. Teeth mostly intact. Tongue normal to inspection. Cardiac: Heart sounds 1 and 2 normal. Respiratory breath sounds are present bilaterally, normal. Normal respiratory effort. Skin: Right foot ulcer 6 x 6 cm approximately. Excessive granulation tissue. Psychiatric: Judgment, memory, insight seem normal. Mood is pleasant and appropriate. Extremities: Upper extremities show normal range of movement. Pulses present noted to the radial arteries. Capillary refill normal. No cyanosis noted. No muscle wasting noted. Lower extremities show reduced normal range of movement. Pulses hard to feel at the dorsalis pedis artery. Capillary refill normal. No cyanosis noted. Mild muscle wasting noted. Hyperpigmentation, skin changes noted in the right leg from just below the knee to ankle. Ulcer in dorsum of right foot about 6 x 6 cm. Impression/Plan Plan: The plan is to admit the patient for debridement of the ulcer of the right foot with wound culture. Follow-up in wound clinic and planning for skin grafting. The risks, benefits, expected outcome and alternatives are familiar to the patient.
--- NOTE | 2018-04-29 12:36 | Discharge Summary ---
Discharge Summary (SDC) - Discharge Final Diagnosis: #1 chronic ulcer of the right foot. 2. Venous stasis. 3. Peripheral vascular disease. 4. Diabetes mellitus type 2. 5. Chronic pain. 6. Atrial fibrillation. 7. Hypertension. Date of Surgery: 04/29/18 Discharge Date: 04/29/18 Condition: Fair Treatment or Instructions: Discharge home [after recovery per ASU criteria]. Diet , diabetic, as tolerated, when fully awake advance as tolerated. Activities within moderation encouraged. Follow up in my office by appointment in wound clinic on Sunday of this week, also on Sunday and also surgical clinic with Dr. Riccardo Dsouza MD. Call for appointment. Leave wounds [covered], [keep clean and dry, until office visit. Meds per med rec. Hold of on school/work [until evaluation in office]. May shower [in 48 hrs], [try to keep operated area as dry as possible]. Referrals: SCARLETT RANGEL PA-C [Primary Care Provider] - Discharge Diet: Other (Comments) - Diabetic, renal. Respiratory Treatments at Home: Deep Breathing/Coughing Discharge Activity: Activity As Tolerated Report the Following to Your Physician Immediately: Unusual Bleeding
--- NOTE | 2018-04-29 12:38 | Operative Report ---
Operative Report DATE OF SURGERY: 04/29/18 PREOPERATIVE DIAGNOSIS: #1 chronic ulcer of the right foot. 2. Venous stasis. 3. Peripheral vascular disease. 4. Diabetes mellitus type 2. 5. Chronic pain. 6. Atrial fibrillation. 7. Hypertension POSTOPERATIVE DIAGNOSIS: #1 chronic ulcer of the right foot. 2. Venous stasis. 3. Peripheral vascular disease. 4. Diabetes mellitus type 2. 5. Chronic pain. 6. Atrial fibrillation. 7. Hypertension OPERATION: Surgical, sharp, excisional debridement of wound of the right foot. SURGEON: SEJAL MEJIA DIETARY CLERK: None. ANESTHESIA: LMAC TISSUE REMOVED OR ALTERED: Necrotic granulation tissue. COMPLICATIONS: None. ESTIMATED BLOOD LOSS: 5 mL. INTRAOPERATIVE FINDINGS: Of a chronic open wound approximately 6 x 6 cm, roughly Square on the dorsum of the right foot. Exuberant granulation tissue noted. PROCEDURE: PROCEDURE: The right foot was prepared with [Betadine] and draped out with sterile linen. After the"universal time-out", in which it was confirmed that the patient [ did not need antibiotic], the procedure commenced. The patient was appropriately anesthetized. The wound was debrided of non viable tissue using a scalpel with removal of loose debris, as well. The wound was irrigated with saline. The wound was now irrigated with saline and [Surgicel] placed within it, dressed with [Kerlix] and the procedure concluded. [place] was lightly wrapped around the Kerlix up to the knee.
[2018-04-29 14:03] VITALS: BP 162/84
== END 2018-04-29 14:29 | disposition home or self-care (01) ==
LOC: OROUT 09:54
PROVIDERS: ATTEND Surgery
PROC: 0JBQ0ZZ Excision of Right Foot Subcutaneous Tissue and Fascia, Open Approach (ICD-10-PCS; principal; 2018-04-29 12:00)
DX: E11.621 Type 2 diabetes mellitus with foot ulcer (principal); L97.512 Non-pressure chronic ulcer of other part of right foot with fat layer exposed; E11.51 Type 2 diabetes mellitus with diabetic peripheral angiopathy without gangrene; G89.29 Other chronic pain; I48.91 Unspecified atrial fibrillation; I10 Essential (primary) hypertension; I87.8 Other specified disorders of veins; Z87.891 Personal history of nicotine dependence
CPT/HCPCS: 93005; 36415 ×2; 87070; 87205; 84132; 85027; 85610; 85730; 87075; 87077; 87186; 93010; 11042; 11045; J2250; J3490 ×3; J2704; 400; J3010

== ENCOUNTER → 2018-06-25 | Outpatient (CLI) | payer MEDICARE, BC ==
[2018-06-25 12:43] LABS: ABSOLUTE EOSINOPHILS # (AUTO) 0.3 10^3/uL (0.0-0.6); ABSOLUTE LYMPHOCYTES (AUTO) 1.5 10^3/uL (0.5-4.7); ABSOLUTE MONOCYTES (AUTO) 0.5 10^3/uL (0.1-1.4); ABSOLUTE NEUT (AUTO) 3.7 10^3/uL (1.7-8.2); BASOPHILS % (AUTO) 0.8 % (0-2); EOSINOPHILS % (AUTO) 5.5 % (0-6); HEMATOCRIT 39.2 % (37.9-51.0); HEMOGLOBIN 12.9 g/dL (13.5-17.0); LYMPHOCYTES % (AUTO) 24.5 % (13-45); MEAN CORPUSCULAR HEMOGLOBIN 29.1 pg (27.0-33.4); MEAN CORPUSCULAR VOLUME 88 fl (80-97); PLATELET COUNT 185 10^3/uL (150-450); RED BLOOD COUNT 4.45 10^6/uL (4.35-5.55); RED CELL DISTRIBUTION WIDTH 15.7 % (11.5-14.0); SEGMENTED NEUTROPHILS % (AUTO) 61.2 % (42-78); TOTAL CELLS COUNTED % (AUTO) 100 %
[2018-06-25 13:34] LABS: ALANINE AMINOTRANSFERASE 15 U/L (21-72); ALKALINE PHOSPHATASE 88 U/L (38-126); ANION GAP 10 (5-19); ASPARTATE AMINO TRANSFERASE 19 U/L (17-59); BILIRUBIN,DIRECT 0.3 mg/dL (0.0-0.4); BILIRUBIN,TOTAL 0.7 mg/dL (0.2-1.3); BLOOD UREA NITROGEN 47 mg/dL (7-20); CALCIUM 9.6 mg/dL (8.4-10.2); CARBON DIOXIDE 30 mmol/L (22-30); CHLORIDE 101 mmol/L (98-107); GLUCOSE 110 mg/dL (75-110); POTASSIUM 4.5 mmol/L (3.6-5.0); SODIUM 140.5 mmol/L (137-145); TOTAL PROTEIN 7.4 g/dL (6.3-8.2)
--- NOTE | 2018-06-25 14:42 | RADIOLOGY REPORT (SQ) ---
EXAM DESCRIPTION: FOOT RIGHT COMPLETE COMPLETED DATE/TIME: 06/25/2018 2:23 pm REASON FOR STUDY: NON-PRS CHRONIC ULCER OTH PRT RIGHT FOOT W FAT LAYER EXPOSED L97.512 NON-PRS DEBURRER STRIP ALEN ULCER OTH PRT RIGHT FOOT W FAT LAYER E11.621 TYPE 2 DIABETES MELLITUS WITH FOOT ULCER COMPARISON: None. NUMBER OF VIEWS: Three views. TECHNIQUE: AP, lateral and oblique radiographic images acquired of the right foot. LIMITATIONS: None. FINDINGS: MINERALIZATION: Osteopenia. BONES: No acute fracture or dislocation. No worrisome bone lesions. JOINTS: No effusions. SOFT TISSUES: No soft tissue swelling. No foreign body. OTHER: There is a bandage around the foot. IMPRESSION: NEGATIVE STUDY OF THE RIGHT FOOT. NO RADIOGRAPHIC EVIDENCE OF ACUTE INJURY. TECHNICAL DOCUMENTATION: JOB ID: [id number] [employer]- All Rights Reserved Reading location - IP/workstation name: [email or web address]
== END ==
LOC: OD 11:53
PROVIDERS: ATTEND Surgery
DX: L97.512 Non-pressure chronic ulcer of other part of right foot with fat layer exposed (principal); E11.621 Type 2 diabetes mellitus with foot ulcer
CPT/HCPCS: 36415; 80053; 83036; 85025

== ENCOUNTER → 2018-08-19 | Outpatient (CLI) | payer MEDICARE, BC ==
[2018-08-19 14:13] LABS: ABSOLUTE EOSINOPHILS # (AUTO) 0.2 10^3/uL (0.0-0.6); ABSOLUTE LYMPHOCYTES (AUTO) 1.4 10^3/uL (0.5-4.7); ABSOLUTE MONOCYTES (AUTO) 0.5 10^3/uL (0.1-1.4); ABSOLUTE NEUT (AUTO) 3.7 10^3/uL (1.7-8.2); BASOPHILS % (AUTO) 0.6 % (0-2); EOSINOPHILS % (AUTO) 2.6 % (0-6); HEMATOCRIT 37.2 % (37.9-51.0); HEMOGLOBIN 12.7 g/dL (13.5-17.0); LYMPHOCYTES % (AUTO) 24.9 % (13-45); MEAN CORPUSCULAR HEMOGLOBIN 30.1 pg (27.0-33.4); MEAN CORPUSCULAR VOLUME 89 fl (80-97); PLATELET COUNT 171 10^3/uL (150-450); RED CELL DISTRIBUTION WIDTH 15.7 % (11.5-14.0); SEGMENTED NEUTROPHILS % (AUTO) 63.9 % (42-78); TOTAL CELLS COUNTED % (AUTO) 100 %; WHITE BLOOD COUNT 5.8 10^3/uL (4.0-10.5)
[2018-08-19 14:33] LABS: ALANINE AMINOTRANSFERASE 24 U/L (21-72); ALBUMIN 4.1 g/dL (3.5-5.0); ALKALINE PHOSPHATASE 115 U/L (38-126); ANION GAP 13 (5-19); ASPARTATE AMINO TRANSFERASE 21 U/L (17-59); BILIRUBIN,DIRECT 0.3 mg/dL (0.0-0.4); BILIRUBIN,TOTAL 0.9 mg/dL (0.2-1.3); BLOOD UREA NITROGEN 56 mg/dL (7-20); C-REACTIVE PROTEIN 11.6 mg/L (<10.0); CALCIUM 9.5 mg/dL (8.4-10.2); CARBON DIOXIDE 31 mmol/L (22-30); CHLORIDE 100 mmol/L (98-107); GLUCOSE 92 mg/dL (75-110); TOTAL PROTEIN 7.2 g/dL (6.3-8.2)
[2018-08-19 15:02] LABS: ERYTHROCYTE SEDIMENTATION RATE 7 mm/hr (0-20)
== END ==
LOC: WC 12:05
PROVIDERS: ATTEND Surgery
DX: E11.621 Type 2 diabetes mellitus with foot ulcer (principal); L97.512 Non-pressure chronic ulcer of other part of right foot with fat layer exposed
CPT/HCPCS: 36415; 80053; 83036; 85025; 85652; 86140

== ENCOUNTER → 2018-08-19 | Outpatient (CLI) | payer MEDICARE, BC ==
--- NOTE | 2018-08-19 14:11 | RADIOLOGY REPORT (SQ) ---
EXAM DESCRIPTION: CHEST PA/LATERAL COMPLETED DATE/TIME: 08/19/2018 1:05 pm REASON FOR STUDY: PRE-OP COMPARISON: 11/12/2017 EXAM PARAMETERS: NUMBER OF VIEWS: two views TECHNIQUE: Digital Frontal and Lateral radiographic views of the chest acquired. RADIATION DOSE: NA LIMITATIONS: none FINDINGS: LUNGS AND PLEURA: No opacities, masses or pneumothorax. No pleural effusion. MEDIASTINUM AND HILAR STRUCTURES: No masses or contour abnormalities. HEART AND VASCULAR STRUCTURES: Heart is slightly enlarged. No failure. BONES: No acute findings. HARDWARE: None in the chest. OTHER: No other significant finding. IMPRESSION: Stable chest with mild cardiomegaly. No acute findings. TECHNICAL DOCUMENTATION: JOB ID: [id number] [email or web address]- All Rights Reserved Reading location - IP/workstation name: [email or web address]
[2018-08-19 14:15] LABS: APPEARANCE,URINE CLEAR; BILIRUBIN,URINE NEGATIVE (NEGATIVE); COLOR,URINE YELLOW; GLUCOSE, URINE NEGATIVE (NEGATIVE); KETONES,URINE NEGATIVE (NEGATIVE); LEUKOCYTE ESTERASE,URINE TRACE (NEGATIVE); NITRITE,URINE NEGATIVE (NEGATIVE); PROTEIN,URINE NEGATIVE (NEGATIVE); URINE SPECIFIC GRAVITY 1.014; UROBILINOGEN,URINE NEGATIVE mg/dL (<2.0)
[2018-08-19 14:27] LABS: ABSOLUTE EOSINOPHILS # (AUTO) 0.2 10^3/uL (0.0-0.6); ABSOLUTE LYMPHOCYTES (AUTO) 1.4 10^3/uL (0.5-4.7); ABSOLUTE MONOCYTES (AUTO) 0.5 10^3/uL (0.1-1.4); ABSOLUTE NEUT (AUTO) 3.7 10^3/uL (1.7-8.2); BASOPHILS % (AUTO) 0.6 % (0-2); EOSINOPHILS % (AUTO) 2.6 % (0-6); HEMATOCRIT 37.2 % (37.9-51.0); HEMOGLOBIN 12.7 g/dL (13.5-17.0); LYMPHOCYTES % (AUTO) 24.9 % (13-45); MEAN CORPUSCULAR HEMOGLOBIN 30.1 pg (27.0-33.4); MEAN CORPUSCULAR VOLUME 89 fl (80-97); PLATELET COUNT 171 10^3/uL (150-450); RED CELL DISTRIBUTION WIDTH 15.7 % (11.5-14.0); SEGMENTED NEUTROPHILS % (AUTO) 63.9 % (42-78); TOTAL CELLS COUNTED % (AUTO) 100 %; WHITE BLOOD COUNT 5.8 10^3/uL (4.0-10.5)
[2018-08-19 14:38] LABS: ANION GAP 13 (5-19); BLOOD UREA NITROGEN 56 mg/dL (7-20); CALCIUM 9.5 mg/dL (8.4-10.2); CARBON DIOXIDE 31 mmol/L (22-30); CHLORIDE 100 mmol/L (98-107); GLUCOSE 92 mg/dL (75-110)
--- NOTE | 2018-08-19 21:57 | EKG REPORT ---
SEVERITY:- ABNORMAL ECG - ATRIAL FIBRILLATION, V-RATE 51-72 BORDERLINE PROLONGED QT INTERVAL : Confirmed by: Caryl Pulido MD 19-Aug-2018 21:55:37
== END ==
LOC: OD 12:11
PROVIDERS: ATTEND Orthopaedic Surgery
DX: Z01.810 Encounter for preprocedural cardiovascular examination (principal); Z01.812 Encounter for preprocedural laboratory examination; Z01.818 Encounter for other preprocedural examination
CPT/HCPCS: 36415; 71046; 80048; 81001; 85025; 93005; 93010

== ENCOUNTER → 2018-09-03 | Outpatient (CLI) | payer MEDICARE, BC ==
--- NOTE | 2018-09-04 11:04 | XCELERA REPORT ---
[address] [address] Transthoracic Echocardiogram Report Name: ANALI STEELE Age: 73 yrs Gender: Male : 1945 Patient Status: Outpatient Patient Location: Study Date: 09/03/2018 02:22 PM Procedure: A complete two-dimensional transthoracic echocardiogram was performed (2D, M-mode, spectral and color flow Doppler). The study was technically difficult with many images being suboptimal in quality. Reason For Study: HYPERTENSION, AFIB Ordering Physician: SCARLETT RANGEL PA-C Performed By: Ca Rob Interpretation Summary The left ventricular ejection fraction is normal. LV diastolic function could not be adequately assessed. There is mild concentric left ventricular hypertrophy. The left ventricle is grossly normal size. Regional wall motion abnormalities cannot be excluded due to limited visualization. The right ventricular systolic function is mildly reduced. The right ventricle is mildly dilated. The right ventricle appears to be hypertrophied The left atrium is severely dilated. The right atrium is dilated There is a trace to mild amount of mitral regurgitation There is no mitral valve stenosis. No aortic regurgitation is present. There is no aortic valve stenosis There is no tricuspid stenosis. No tricuspid regurgitation. The aortic root is not well visualized but is probably normal size. The inferior vena cava was not well visualized There is no pericardial effusion. MMode/2D Measurements & Calculations RVDd: 4.0 cm LVIDd: 5.6 cm FS: 42.0 % Ao root diam: 3.4 cm IVSd: 1.2 cm LVIDs: 3.3 cm EDV(Teich): 155.9 ml Ao root area: 8.9 cm2 LVPWd: 1.2 cm ESV(Teich): 43.1 ml EF(Teich): 72.4 % Doppler Measurements & Calculations MV E max dahiana: MV dec slope: Ao V2 max: LV V1 max P.4 cm/sec 97.2 cm/sec 2.0 mmHg MV A max dahiana: 1013 cm/sec2 Ao max PG: LV V1 max: 30.4 cm/sec MV dec time: 3.8 mmHg 71.2 cm/sec MV E/A: 3.6 0.11 sec PA V2 max: 90.6 cm/sec PA max P.3 mmHg Left Ventricle The left ventricle is grossly normal size. There is mild concentric left ventricular hypertrophy. The left ventricular ejection fraction is normal. LV diastolic function could not be adequately assessed. Regional wall motion abnormalities cannot be excluded due to limited visualization. Right Ventricle The right ventricle is mildly dilated. The right ventricle appears to be hypertrophied. The right ventricular systolic function is mildly reduced. Atria The right atrium is dilated. The left atrium is severely dilated. Mitral Valve There is mild mitral leaflet calcification. There is no mitral valve stenosis. There is a trace to mild amount of mitral regurgitation. Aortic Valve The aortic valve is mildly calcified. There is no aortic valve stenosis. No aortic regurgitation is present. Tricuspid Valve The tricuspid valve is not well visualized secondary to technical limitations. There is no tricuspid stenosis. No tricuspid regurgitation. Pulmonic Valve The pulmonic valve is not well visualized. Great Vessels The aortic root is not well visualized but is probably normal size. The inferior vena cava was not well visualized. Effusions There is no pericardial effusion. : SCARLETT RANGEL PA-C > Deanne Dyson
== END ==
LOC: SP 12:41
PROVIDERS: ATTEND Student in an Organized Health Care Education/Training Program
DX: Z01.810 Encounter for preprocedural cardiovascular examination (principal); I10 Essential (primary) hypertension; I48.2 Chronic atrial fibrillation
CPT/HCPCS: 93306

== ENCOUNTER 2018-09-16 10:00 | Inpatient (IN) | payer MEDICARE, BC ==
[~2018-09-16 10:00] MED LIST changes: +ACETAMINOPHEN 0 MG/0 ML RTUPB IV ONE; +BUPIVACAINE HCL 0.25% /EPINEPHRINE INJ/PF 30 ML SDV ONE; +BUPIVACAINE HCL/DEX-WATER/PF 15 MG/2 ML AMPULE ONE; +BUPIVACAINE INJ/PF LIPOSOME/PF 266 MG/20 ML SDV IJ PRN; +CEFAZOLIN INJ 1 GM VIAL IV PRN; +DEXAMETHASONE SOD PHOSPHATE INJ 4 MG/1 ML VIAL ONE; +FENTANYL CITRATE INJ/PF 100 MCG/2 ML AMPUL ONE; +IBUPROFEN 800 MG in DEXTROSE 5%-WATER 250 ML IV PRN; +LANSOPRAZOLE 15 MG TAB.RAP.DR PO PRN; +LIDOCAINE 0.5% INJ-PF (5 MG/ML) 50 ML SDV SUBCUT PRN; +MIDAZOLAM 2 MG/2 ML INJ ONE; +ONDANSETRON HCL INJ/PF 4 MG/2 ML SDV ONE; +OXYCODONE HCL SR 10 MG TABLET PO PRN; +PROPOFOL INJ 200 MG/20 ML VIAL IV ONE; +THROMBIN (BOVINE) 5000 UNIT EPITAXIS KIT ONE; +THROMBIN (BOVINE) TOPICAL 20000 UNIT VIAL ONE; +VANCOMYCIN HCL 1,000 MG in DEXTROSE 5%-WATER 250 ML IV PRN
[2018-09-16] MEDS ORDERED: SUCCINYLCHOLINE CHLORIDE INJ 200 MG/10 ML VIAL ONE (10:59)
[2018-09-16] MEDS ORDERED: CEFAZOLIN INJ 1 GM VIAL ONE (11:28)
[2018-09-16] MEDS ORDERED: OXYCODONE HCL SR 10 MG TABLET PO ONE (11:28)
[2018-09-16] MEDS ORDERED: LANSOPRAZOLE 15 MG TAB.RAP.DR ONE (11:28)
[2018-09-16 11:54] LABS: PROTHROMBIN TIME 13.7 SEC (11.4-15.4)
[2018-09-16 11:55] LABS: PARTIAL THROMBOPLASTIN TIME 35.5 SEC (23.5-35.8)
[2018-09-16] MEDS ORDERED: ONDANSETRON HCL INJ/PF 4 MG/2 ML SDV IV PRN ×2 (13:38→14:02)
[2018-09-16] MEDS ORDERED: MEPERIDINE HCL/PF INJ 25 MG/1 ML DISP.SYRIN IV PRN (13:38)
[2018-09-16] MEDS ORDERED: PROMETHAZINE HCL INJ 25 MG/1 ML VIAL IV PRN ×2 (13:38)
[2018-09-16] MEDS ORDERED: FENTANYL CITRATE INJ/PF 100 MCG/2 ML AMPUL IV PRN ×3 (13:38)
[2018-09-16] MEDS ORDERED: DIPHENHYDRAMINE HCL 50 MG/ML VIAL IV PRN ×2 (13:38→14:02)
--- NOTE | 2018-09-16 14:01 | Operative Report ---
Operative Report DATE OF SURGERY: 09/16/18 PREOPERATIVE DIAGNOSIS: Right hip arthritis OPERATION: Right hip arthroplasty SURGEON: MARTHA CALHOUN ANESTHESIA: GA TISSUE REMOVED OR ALTERED: Femoral head to pathology ESTIMATED BLOOD LOSS: 100 PROCEDURE: Implants used: Femur: Grecia Accolade 2 size 11 stem (this is largest size available) Acetabular shell: 60 mm hemispherical shell Liner: 36 mm flat cross-link polyethylene liner Head: 36 mm chrome cobalt head +5 neck The patient is placed in a left lateral decubitus position on the operating table. The right lower extremity and hindquarter is prepped and draped in a sterile fashion. A curvilinear incision was made over the greater trochanter a posterior approach the hip was taken. The femoral head is dislocated and the femoral neck transected using an oscillating saw. Attention was next turned to the acetabulum. Soft tissues cleared off the acetabulum using electrocautery. The acetabulum was then prepared using a series of hemispherical reamers until a 60 millimeters reamer is seated. Subsequently a 60 millimeters [place] titanium hemispherical shell is impacted into position and secured with one screw. A standard flat 36 millimeters cross- link liner is impacted into the shell. Attention was next turned to the femur. Access is gained to the femoral canal using a box osteotome to the piriformis fossa. The femur is then prepared using a series of broaches until a number 11 broach is seated. A trial reduction was now performed using a 36 millimeters head with +5 neck. Preoperative leg length was recreated and is excellent anterior posterior stability. A decision was made to proceed with the above construct. All trial implants were removed. The wound is irrigated with pulsed lavage. A number 11 stem is impacted into the femoral canal. A trial reduction was again performed with a 36 mm head and a +5 neck. Findings as previously. The hip was dislocated one last time and the final chrome-cobalt head is impacted onto the trunnion. The hip was reduced. Wound is copiously irrigated with pulsed lavage. Sent closed in layers using interrupted Vicryl followed by patria. A sterile dressing is applied and the patient's returned to recovery room in satisfactory patient.
[2018-09-16] MEDS ORDERED: MAG HYDROX/AL HYDROX/SIMETH SUSP 30 ML UDCUP PO PRN (14:02)
[2018-09-16] MEDS ORDERED: MORPHINE SULFATE 10 MG/ML INJ IV PRN ×3 (14:02)
[2018-09-16] MEDS ORDERED: ONDANSETRON 4 MG TAB.RAPDIS PO PRN (14:02)
[2018-09-16] MEDS ORDERED: ZOLPIDEM TARTRATE 5 MG TABLET PO PRN (14:02)
[2018-09-16] MEDS ORDERED: ACETAMINOPHEN 325 MG TABLET PO PRN (14:02)
[2018-09-16] MEDS ORDERED: RINGERS SOLUTION,LACTATED 1,000 ML IV PRN (14:02)
[2018-09-16] MEDS ORDERED: FENTANYL 100 MCG/HR PATCH.TD72 TOP SCH (14:15)
[2018-09-16] MEDS ORDERED: TRANEXAMIC ACID INJ/PF 1,000 MG/10 ML SDV IV ONE ×3 (14:30→16:30)
[2018-09-16] MEDS ORDERED: MORPHINE SULFATE 10 MG/ML INJ ONE (14:31)
[2018-09-16] MEDS: MORPHINE SULFATE 10 MG/ML INJ IV PRN ×2 (14:35→14:50)
--- NOTE | 2018-09-16 15:24 | RADIOLOGY REPORT (SQ) ---
EXAM DESCRIPTION: PELVIS AP COMPLETED DATE/TIME: 09/16/2018 2:50 pm REASON FOR STUDY: Post Op Long Cassette in PACU M16.11 UNILATERAL PRIMARY OSTEOARTHRITIS, RIGHT HI P COMPARISON: None. NUMBER OF VIEWS: One view TECHNIQUE: Digital radiographic images of the pelvis post-procedure LIMITATIONS: None. FINDINGS: BONES: No worrisome or unexpected findings post-procedure. DEVICE: Total hip replacement. Components of the device in appropriate location. SOFT TISSUES: No worrisome findings. Expected postoperative soft tissue changes. IMPRESSION: SATISFACTORY POSTOPERATIVE PELVIS. TECHNICAL DOCUMENTATION: JOB ID: [id number] [employer]- All Rights Reserved Reading location - IP/workstation name: [email or web address]
[2018-09-16 16:17] LABS: HEMATOCRIT 32.9 % (37.9-51.0); MEAN CORPUSCULAR HEMOGLOBIN 30.1 pg (27.0-33.4); MEAN CORPUSCULAR HGB CONC 33.5 g/dL (32.0-36.0); MEAN CORPUSCULAR VOLUME 90 fl (80-97); PLATELET COUNT 150 10^3/uL (150-450); RED BLOOD COUNT 3.66 10^6/uL (4.35-5.55); RED CELL DISTRIBUTION WIDTH 15.5 % (11.5-14.0); WHITE BLOOD COUNT 10.6 10^3/uL (4.0-10.5)
[2018-09-16] MEDS: IBUPROFEN 800 MG in DEXTROSE 5%-WATER 250 ML IV SCH (19:48)
[2018-09-16] MEDS: SENNOSIDES/DOCUSATE 8.6-50 MG 1 EACH TABLET PO SCH (19:51)
[2018-09-16] MEDS: ALLOPURINOL 100 MG TABLET PO SCH (19:51)
[2018-09-16] MEDS: PREGABALIN 75 MG CAPSULE PO SCH (19:55)
[2018-09-16] MEDS: CARVEDILOL 12.5 MG TABLET PO SCH (21:57)
[2018-09-16] MEDS ORDERED: APIXABAN 5 MG TABLET PO SCH (22:00)
[2018-09-16] MEDS: OXYCODONE HCL SR 10 MG TABLET PO SCH (23:26)
[2018-09-17] MEDS ORDERED: VANCOMYCIN HCL 1,000 MG in DEXTROSE 5%-WATER 250 ML IV ONE (02:00)
[2018-09-17] MEDS: IBUPROFEN 800 MG in DEXTROSE 5%-WATER 250 ML IV SCH ×3 (02:24→17:29)
[2018-09-17] MEDS: LANSOPRAZOLE 30 MG TAB.RAP.DR PO SCH (05:45)
--- NOTE | 2018-09-17 07:15 | PDOC PROGRESS REPORT ---
Subjective Progress Note for:: 09/17/18 Reason For Visit: M16.11 UNILATERAL PRIMARY OSTEOARTHRITIS, RIGHT HI 73-year-old white male now postop day #1 status post right hip arthroplasty. Clinical course is notable for fair amount of wound drainage in the PACU which is subsequently subsided. Patient was not mobilized with physical therapy yesterday because of his late arrival to the floor. Physical Exam Vital Signs: Temp Pulse Resp BP Pulse Ox 36.8 C 75 18 105/57 L 96 09/16/18 20:15 09/16/18 20:15 09/16/18 20:15 09/16/18 20:15 09/16/18 20:15 Intake & Output 09/16/18 09/17/18 09/18/18 06:59 06:59 06:59 Intake Total 3800 Output Total 2900 Balance 900 Weight 90.72 kg Physical Exam: Middle-aged white male lying in bed modest discomfort. General appearance: PRESENT: mild distress Head exam: PRESENT: normocephalic Respiratory exam: PRESENT: unlabored Cardiovascular exam: PRESENT: RRR Pulses: PRESENT: +1 pedal pulses bilateral Vascular exam: PRESENT: normal capillary refill GI/Abdominal exam: PRESENT: soft Rectal exam: PRESENT: deferred Extremities exam: PRESENT: other - Right hip dressings currently clean dry and intact. There is no evidence of further drainage. Leg lengths are equal. Distal neurovascular examination is intact. Neurological exam: PRESENT: alert, awake, oriented to person, oriented to place , oriented to time, oriented to situation. ABSENT: motor sensory deficit Psychiatric exam: PRESENT: agitated Skin exam: PRESENT: dry, intact, warm. ABSENT: cyanosis, rash Results Laboratory Results: 09/16/18 16:10 09/16/18 11:26 09/16/18 09/16/18 09/16/18 11: 11: 16:10 WBC 10.6 H RBC 3.66 L Hgb 11.0 L Hct 32.9 L MCV 90 MCH 30.1 MCHC 33.5 RDW 15.5 H Plt Count 150 Potassium 4.5 Blood Type O POSITIVE Antibody Screen NEGATIVE Impressions: Pelvis X-Ray 09/16/18 14:03 IMPRESSION: SATISFACTORY POSTOPERATIVE PELVIS. Assessment & Plan - Diagnosis (1) Arthritis of right hip Is this a current diagnosis for this admission?: Yes Plan: Patient be mobilized with physical therapy and weightbearing as tolerated basis. Dressing can be changed by the nursing staff as needed. Anticipate discharge home tomorrow with home health services and DME. Consult has been placed to Dr. Fabiola Dsouza regarding right lower extremity foot care - Time Time Spent with patient: Less than 15 minutes Anticipated discharge: Home with Homehealth Within: within 24 hours
[2018-09-17 07:42] LABS: HEMATOCRIT 28.7 % (37.9-51.0); HEMOGLOBIN 9.7 g/dL (13.5-17.0); MEAN CORPUSCULAR HEMOGLOBIN 30.8 pg (27.0-33.4); MEAN CORPUSCULAR HGB CONC 33.9 g/dL (32.0-36.0); MEAN CORPUSCULAR VOLUME 91 fl (80-97); PLATELET COUNT 147 10^3/uL (150-450); RED BLOOD COUNT 3.16 10^6/uL (4.35-5.55); RED CELL DISTRIBUTION WIDTH 15.3 % (11.5-14.0); WHITE BLOOD COUNT 9.2 10^3/uL (4.0-10.5)
[2018-09-17 07:59] LABS: ANION GAP 11 (5-19); BLOOD UREA NITROGEN 33 mg/dL (7-20); CALCIUM 8.9 mg/dL (8.4-10.2); CARBON DIOXIDE 29 mmol/L (22-30); CHLORIDE 102 mmol/L (98-107); GLUCOSE 116 mg/dL (75-110); POTASSIUM 4.5 mmol/L (3.6-5.0); SODIUM 142.4 mmol/L (137-145)
[2018-09-17] MEDS: OXYCODONE HCL SR 10 MG TABLET PO SCH ×2 (12:35→21:29)
[2018-09-17] MEDS: ASPIRIN 81 MG TABLET, ENT COATED PO SCH (12:36)
[2018-09-17] MEDS: FUROSEMIDE 40 MG TABLET PO SCH (12:36)
[2018-09-17] MEDS: ALLOPURINOL 100 MG TABLET PO SCH ×2 (12:36→17:30)
[2018-09-17] MEDS: DOCUSATE SODIUM 100 MG CAPSULE PO SCH (12:36)
[2018-09-17] MEDS: PRENATAL VITAMIN W DHA CAPSULE PO SCH (12:36)
[2018-09-17] MEDS: MULTIVITAMIN TABLET PO SCH (12:36)
[2018-09-17] MEDS: PREGABALIN 75 MG CAPSULE PO SCH ×2 (12:36→17:30)
[2018-09-17] MEDS: CARVEDILOL 12.5 MG TABLET PO SCH ×2 (12:37→21:28)
[2018-09-17] MEDS: SENNOSIDES/DOCUSATE 8.6-50 MG 1 EACH TABLET PO SCH ×2 (12:40→17:30)
[2018-09-18] MEDS: OXYCODONE HCL IR 5 MG TABLET PO PRN ×3 (01:55→16:07)
[2018-09-18] MEDS: IBUPROFEN 800 MG in DEXTROSE 5%-WATER 250 ML IV SCH ×2 (01:56→10:41)
[2018-09-18] MEDS: LANSOPRAZOLE 30 MG TAB.RAP.DR PO SCH (05:37)
[2018-09-18 05:49] LABS: HEMATOCRIT 24.6 % (37.9-51.0); HEMOGLOBIN 8.1 g/dL (13.5-17.0); MEAN CORPUSCULAR HEMOGLOBIN 30.3 pg (27.0-33.4); MEAN CORPUSCULAR HGB CONC 33.1 g/dL (32.0-36.0); MEAN CORPUSCULAR VOLUME 92 fl (80-97); PLATELET COUNT 108 10^3/uL (150-450); RED BLOOD COUNT 2.69 10^6/uL (4.35-5.55); RED CELL DISTRIBUTION WIDTH 15.1 % (11.5-14.0)
[2018-09-18] MEDS: MORPHINE SULFATE 10 MG/ML INJ IV PRN (05:49)
--- NOTE | 2018-09-18 08:45 | PDOC DISCHARGE SUMMARY ---
General - Admit/Disc Date/PCP Admission Date/Primary Care Provider: 09/16/18 10:36 SCARLETT RANGEL PA-C Discharge Date: 09/18/18 - Discharge Diagnosis (1) Arthritis of right hip Is this a current diagnosis for this admission?: Yes - Additional Information Resuscitation Status: Full Code Home Medications: Allopurinol [Zyloprim 100 mg Tablet] 100 mg PO BID 04/05/18 Apixaban [Eliquis 5 mg Tablet] 5 mg PO Q12 04/05/18 Aspirin [Aspirin EC] 81 mg PO DAILY 04/05/18 Fentanyl [Duragesic 100 Mcg/Hr Transdermal Patch] 100 mcg TOP Q3D 04/05/18 Furosemide [Lasix 40 mg Tablet] 40 mg PO DAILY 04/05/18 Multivitamin [One-A-Day Essential] 1 tab PO DAILY 04/05/18 Oxycodone HCl 15 mg PO Q6HP PRN 04/05/18 Carvedilol [Coreg 12.5 mg Tablet] 25 mg PO Q12 30 Days #60 tablet 04/09/18 Docusate Sodium [Colace 100 mg Capsule] 200 mg PO DAILY 30 Days #30 capsule Acetaminophen [Tylenol] 1 tab PO PRN PRN 09/16/18 Ascorbic Acid [Vitamin C 500 mg Tablet] 500 mg PO DAILY 09/16/18 Calcium Carbonate [Calcium] 500 mg PO DAILY 09/16/18 History of Present Illness History of Present Illness: ANALI STEELE is a 73 year old male 73-year-old white male with progressive right hip pain and functional disability second osteoarthritis. Patient is admitted for elective right hip arthroplasty. The patient is being treated by Dr. Fabiola Dsouza for a right foot ulcer secondary to peripheral vascular disease. The case was discussed with Dr. Fabiola Dsouza who feels that it is appropriate to proceed with a hip arthroplasty at this point because there has been a positive response to local treatment for the foot ulcer. The foot ulcer is examined on the morning of surgery and is relatively superficial measuring approximately 1 cm in greatest dimension with a granulating base and no drainage Hospital Course Hospital Course: Patient is admitted through the operating where he undergoes and undergoes uncomplicated right hip arthroplasty. In the recovery room there is a significant amount of bloody drainage from the wound and the dressing is changed and reinforced. By the first postoperative morning this drainage has decreased. The patient makes excellent progress with physical therapy. Postoperative hematocrit on postop day 2 has decreased from 30 to 24%. Patient has no systemic manifestations and a decision was made in conjunction with the patient not to initiate transfusion at this time. Physical Exam Vital Signs: Temp Pulse Resp BP Pulse Ox 36.7 C 83 16 116/50 L 98 09/18/18 08:02 09/18/18 08:02 09/18/18 08:02 09/18/18 08:02 09/18/18 08:02 Intake & Output 09/17/18 09/18/18 09/19/18 06:59 06:59 06:59 Intake Total 3800 1868 Output Total 2900 900 Balance 900 968 Weight 90.72 kg General appearance: PRESENT: no acute distress, well-nourished Head exam: PRESENT: normocephalic Respiratory exam: PRESENT: unlabored Cardiovascular exam: PRESENT: RRR Pulses: PRESENT: +1 pedal pulses bilateral Vascular exam: PRESENT: normal capillary refill GI/Abdominal exam: PRESENT: soft Rectal exam: PRESENT: deferred Extremities exam: PRESENT: other - Right hip dressing is changed on postop day 2. Was open wound is well approximated with patria. There is some surrounding ecchymosis but minimal erythema and induration. Wound is dry at this point. Leg lengths are equal. Distal neurovascular examination is intact. Neurological exam: PRESENT: alert, awake, oriented to person, oriented to place , oriented to time, oriented to situation. ABSENT: motor sensory deficit Psychiatric exam: PRESENT: appropriate affect, normal mood. ABSENT: homicidal ideation, suicidal ideation Skin exam: PRESENT: dry, intact, warm. ABSENT: cyanosis, rash Results Laboratory Results: 09/18/18 05:01 09/17/18 07:15 09/18/18 05:01 WBC 6.0 RBC 2.69 L Hgb 8.1 L Hct 24.6 L MCV 92 MCH 30.3 MCHC 33.1 RDW 15.1 H Plt Count 108 L Impressions: Pelvis X-Ray 09/16/18 14:03 IMPRESSION: SATISFACTORY POSTOPERATIVE PELVIS. Status: Imported from PACS Qualifiers - * PATIENT BEING DISCHARGED WITH ANY OF THE FOLLOWING DIAGNOSIS: No VTE patient discharged on overlapping Therapy?: Yes Plan Discharge Plan: Patient to be discharged home with home health services and DME. Follow-up with Dr. Nam and [facility] for surgery in 2 weeks for staple removal. Dressing changes as needed by the home nursing service. Time Spent: Less than 30 Minutes
[2018-09-18] MEDS ORDERED: NORMAL SALINE 250 ML IV PRN (09:30)
[2018-09-18] MEDS: MULTIVITAMIN TABLET PO SCH (10:41)
[2018-09-18] MEDS: FUROSEMIDE 40 MG TABLET PO SCH (10:42)
[2018-09-18] MEDS: PRENATAL VITAMIN W DHA CAPSULE PO SCH (10:42)
[2018-09-18] MEDS: SENNOSIDES/DOCUSATE 8.6-50 MG 1 EACH TABLET PO SCH ×2 (10:42→18:16)
[2018-09-18] MEDS: PREGABALIN 75 MG CAPSULE PO SCH ×2 (10:42→18:16)
[2018-09-18] MEDS: DOCUSATE SODIUM 100 MG CAPSULE PO SCH (10:43)
[2018-09-18] MEDS: APIXABAN 5 MG TABLET PO SCH ×2 (10:43→21:30)
[2018-09-18] MEDS: CARVEDILOL 12.5 MG TABLET PO SCH ×2 (10:43→21:31)
[2018-09-18] MEDS: ASPIRIN 81 MG TABLET, ENT COATED PO SCH (10:43)
[2018-09-18] MEDS: OXYCODONE HCL SR 10 MG TABLET PO SCH (10:43)
[2018-09-18] MEDS: ALLOPURINOL 100 MG TABLET PO SCH ×2 (10:44→18:16)
[2018-09-18] MEDS ORDERED: FENTANYL 100 MCG/HR PATCH.TD72 TOP SCH (11:15)
[2018-09-19] MEDS: OXYCODONE HCL IR 5 MG TABLET PO PRN ×3 (00:17→17:41)
[2018-09-19 00:35] LABS: ABSOLUTE EOSINOPHILS # (AUTO) 0.2 10^3/uL (0.0-0.6); ABSOLUTE LYMPHOCYTES (AUTO) 1.2 10^3/uL (0.5-4.7); ABSOLUTE MONOCYTES (AUTO) 0.7 10^3/uL (0.1-1.4); ABSOLUTE NEUT (AUTO) 3.7 10^3/uL (1.7-8.2); BASOPHILS % (AUTO) 0.4 % (0-2); HEMATOCRIT 28.1 % (37.9-51.0); HEMOGLOBIN 9.6 g/dL (13.5-17.0); LYMPHOCYTES % (AUTO) 20.2 % (13-45); MEAN CORPUSCULAR HEMOGLOBIN 30.9 pg (27.0-33.4); MEAN CORPUSCULAR HGB CONC 34.2 g/dL (32.0-36.0); MEAN CORPUSCULAR VOLUME 90 fl (80-97); MONOCYTES % (AUTO) 11.8 % (3-13); PLATELET COUNT 105 10^3/uL (150-450); RED BLOOD COUNT 3.11 10^6/uL (4.35-5.55); RED CELL DISTRIBUTION WIDTH 15.2 % (11.5-14.0); SEGMENTED NEUTROPHILS % (AUTO) 64.6 % (42-78); TOTAL CELLS COUNTED % (AUTO) 100 %; WHITE BLOOD COUNT 5.8 10^3/uL (4.0-10.5)
[2018-09-19] MEDS: MORPHINE SULFATE 10 MG/ML INJ IV PRN (03:07)
[2018-09-19] MEDS: LANSOPRAZOLE 30 MG TAB.RAP.DR PO SCH (05:50)
[2018-09-19 06:23] LABS: HEMATOCRIT 27.6 % (37.9-51.0); HEMOGLOBIN 9.4 g/dL (13.5-17.0); MEAN CORPUSCULAR HEMOGLOBIN 30.4 pg (27.0-33.4); MEAN CORPUSCULAR HGB CONC 33.9 g/dL (32.0-36.0); MEAN CORPUSCULAR VOLUME 90 fl (80-97); PLATELET COUNT 108 10^3/uL (150-450); RED BLOOD COUNT 3.07 10^6/uL (4.35-5.55); RED CELL DISTRIBUTION WIDTH 15.2 % (11.5-14.0); WHITE BLOOD COUNT 5.5 10^3/uL (4.0-10.5)
--- NOTE | 2018-09-19 06:33 | PDOC TRANSFER SUMMARY ---
General - Admit/Disc Date/PCP Admission Date/Primary Care Provider: 09/16/18 10:36 SCARLETT RANGEL PA-C Discharge Date: 09/19/18 - Discharge Diagnosis (1) Arthritis of right hip Is this a current diagnosis for this admission?: Yes - Additional Information Resuscitation Status: Full Code Home Medications: Allopurinol [Zyloprim 100 mg Tablet] 100 mg PO BID 04/05/18 Apixaban [Eliquis 5 mg Tablet] 5 mg PO Q12 04/05/18 Aspirin [Aspirin EC] 81 mg PO DAILY 04/05/18 Fentanyl [Duragesic 100 Mcg/Hr Transdermal Patch] 100 mcg TOP Q3D 04/05/18 Furosemide [Lasix 40 mg Tablet] 40 mg PO DAILY 04/05/18 Multivitamin [One-A-Day Essential] 1 tab PO DAILY 04/05/18 Oxycodone HCl 15 mg PO Q6HP PRN 04/05/18 Carvedilol [Coreg 12.5 mg Tablet] 25 mg PO Q12 30 Days #60 tablet 04/09/18 Docusate Sodium [Colace 100 mg Capsule] 200 mg PO DAILY 30 Days #30 capsule Acetaminophen [Tylenol] 1 tab PO PRN PRN 09/16/18 Ascorbic Acid [Vitamin C 500 mg Tablet] 500 mg PO DAILY 09/16/18 Calcium Carbonate [Calcium] 500 mg PO DAILY 09/16/18 History of Present Illness Admission Date/PCP: 09/16/18 10:36 SCARLETT RANGEL PA-C History of Present Illness: The patient is a 73-year-old white male with progressive right hip pain and functional disability second osteoarthritis. Patient is admitted for elective right hip arthroplasty. Hospital Course Hospital Course: Patient is admitted through the operating where he undergoes uncomplicated right hip arthroplasty. In the recovery room there is considerable wound drainage/bleeding. This is treated with a compressive dressing. The patient was mobilized with physical therapy and weightbearing as tolerated basis. The patient makes reasonable progress in terms of ambulation but has difficulty with transfers or transitions from bed to standing and from chair to standing. The second postoperative morning his hematocrit drops below 24%. He has clinical symptoms consistent with anemia. He received 2 units of packed red blood cells which increases his hematocrit to greater than 28%. His wound remains clean dry and intact once the compressive dressing is replaced. Physical Exam Vital Signs: Temp Pulse Resp BP Pulse Ox 36.6 C 66 20 143/80 H 96 09/18/18 23:56 09/18/18 23:56 09/18/18 23:56 09/18/18 23:56 09/18/18 23:56 Intake & Output 09/17/18 09/18/18 09/19/18 06:59 06:59 06:59 Intake Total 3800 1868 2165 Output Total 2900 900 1470 Balance 900 968 695 Weight 90.72 kg General appearance: PRESENT: no acute distress, well-nourished Head exam: PRESENT: normocephalic Respiratory exam: PRESENT: unlabored Cardiovascular exam: PRESENT: RRR Pulses: PRESENT: +1 pedal pulses bilateral Vascular exam: PRESENT: normal capillary refill GI/Abdominal exam: PRESENT: soft Rectal exam: PRESENT: deferred Musculoskeletal exam: PRESENT: other - Right hip dressing clean dry and intact. Leg lengths are equal. Distal neurovascular examination is intact. Neurological exam: PRESENT: alert, awake, oriented to person, oriented to place , oriented to time, oriented to situation. ABSENT: motor sensory deficit Psychiatric exam: PRESENT: appropriate affect, normal mood. ABSENT: homicidal ideation, suicidal ideation Skin exam: PRESENT: dry, intact, warm. ABSENT: cyanosis, rash Results Laboratory Results: 09/19/18 05:56 09/17/18 07:15 09/16/18 09/19/18 09/19/18 11: 00:13 05:56 WBC 5.8 5.5 RBC 3.11 L 3.07 L Hgb 9.6 L 9.4 L Hct 28.1 L 27.6 L MCV 90 90 MCH 30.9 30.4 MCHC 34.2 33.9 RDW 15.2 H 15.2 H Plt Count 105 L 108 L Seg Neutrophils % 64.6 Lymphocytes % 20.2 Monocytes % 11.8 Eosinophils % 3.0 Basophils % 0.4 Absolute Neutrophils 3.7 Absolute Lymphocytes 1.2 Absolute Monocytes 0.7 Absolute Eosinophils 0.2 Absolute Basophils 0.0 Blood Type O POSITIVE Antibody Screen NEGATIVE Impressions: Pelvis X-Ray 09/16/18 14:03 IMPRESSION: SATISFACTORY POSTOPERATIVE PELVIS. Status: Imported from PACS Transfer Plan - Disposition Transfer Plan: Patient be transferred to a senior living facility for ongoing senior living and physical therapy. Patient is weightbearing as tolerated. Nursing can change the right hip dressing if needed. Follow-up with Dr. Nam and [facility] for surgery in 2 weeks for staple removal. Qualifiers - * PATIENT BEING DISCHARGED WITH ANY OF THE FOLLOWING DIAGNOSIS: No VTE patient discharged on overlapping Therapy?: Yes Plan Discharge Plan: Patient be transferred to senior living facility for ongoing physical therapy and rehabilitation. Follow-up with Dr. Nam and [facility] for surgery in 2 weeks for staple removal.
[2018-09-19] MEDS: ALLOPURINOL 100 MG TABLET PO SCH ×2 (11:02→17:41)
[2018-09-19] MEDS: PRENATAL VITAMIN W DHA CAPSULE PO SCH (11:02)
[2018-09-19] MEDS: MULTIVITAMIN TABLET PO SCH (11:02)
[2018-09-19] MEDS: ASPIRIN 81 MG TABLET, ENT COATED PO SCH (11:02)
[2018-09-19] MEDS: CARVEDILOL 12.5 MG TABLET PO SCH (11:03)
[2018-09-19] MEDS: PREGABALIN 75 MG CAPSULE PO SCH ×2 (11:03→17:41)
[2018-09-19] MEDS: DOCUSATE SODIUM 100 MG CAPSULE PO SCH (11:03)
[2018-09-19] MEDS: FUROSEMIDE 40 MG TABLET PO SCH (11:03)
[2018-09-19] MEDS: SENNOSIDES/DOCUSATE 8.6-50 MG 1 EACH TABLET PO SCH ×2 (11:03→17:41)
[2018-09-19] MEDS: APIXABAN 5 MG TABLET PO SCH (11:04)
[2018-09-19] MEDS ORDERED: MAGNESIUM CITRATE 296 ML BOTTLE PO ONE (12:00)
[2018-09-19 12:21] VITALS: BP 149/56
--- NOTE | 2018-09-19 15:46 | PDOC PROGRESS REPORT ---
Subjective Progress Note for:: 09/19/18 Subjective:: The patient has been followed in the wound clinic for a right foot ulcer, venous in nature, almost healed. He is in hospital after a right hip replacement and doing well. He is about to be discharged. Reason For Visit: M16.11 UNILATERAL PRIMARY OSTEOARTHRITIS, RIGHT HI Physical Exam Vital Signs: Temp Pulse Resp BP Pulse Ox 98.2 F 62 16 149/56 H 99 09/19/18 11:40 09/19/18 11:40 09/19/18 11:40 09/19/18 11:40 09/19/18 07:32 Intake & Output 09/18/18 09/19/18 09/20/18 06:59 06:59 06:59 Intake Total 1868 2165 Output Total 900 2870 Balance 968 -705 Additional comments: Constitutional: Well-developed well-nourished gentleman. No apparent acute distress. Eyes: Mucous membranes pink and moist, pupils equal and reactive to light. Conjunctiva normal. Cornea normal. Respiratory: Normal respiratory effort. Psychiatric: Judgment, memory, insight seem normal. Mood is pleasant and appropriate. Extremities: Upper extremities show normal range of movement. Pulses present noted to the radial arteries. Capillary refill normal. No cyanosis noted. No muscle wasting noted. Lower extremities show normal range of movement except for understandable changes post right hip replacement. Capillary refill normal. No cyanosis noted. No muscle wasting noted. Hyperpigmentation in the right leg mild edema , emblematic of stasis dermatitis, chronic. A tiny venous ulcer on the dorsum of the right foot, very shallow and healing. About 0.5 cm. Results Laboratory Results: 09/19/18 05:56 09/17/18 07:15 09/16/18 09/19/18 09/19/18 11:26 00:13 05:56 WBC 5.8 5.5 RBC 3.11 L 3.07 L Hgb 9.6 L 9.4 L Hct 28.1 L 27.6 L MCV 90 90 MCH 30.9 30.4 MCHC 34.2 33.9 RDW 15.2 H 15.2 H Plt Count 105 L 108 L Seg Neutrophils % 64.6 Lymphocytes % 20.2 Monocytes % 11.8 Eosinophils % 3.0 Basophils % 0.4 Absolute Neutrophils 3.7 Absolute Lymphocytes 1.2 Absolute Monocytes 0.7 Absolute Eosinophils 0.2 Absolute Basophils 0.0 Blood Type O POSITIVE Antibody Screen NEGATIVE Impressions: Pelvis X-Ray 09/16/18 14:03 IMPRESSION: SATISFACTORY POSTOPERATIVE PELVIS. Assessment & Plan - Diagnosis (1) Arthritis of right hip Is this a current diagnosis for this admission?: Yes (2) Atrial fibrillation Qualifiers: Atrial fibrillation type: chronic Qualified Code(s): I48.2 - Chronic atrial fibrillation Is this a current diagnosis for this admission?: Yes - Plan Summary Plan Summary: This patient who is about to be discharged should continue on his normal wound care regime which would require a Unaboot to be placed today and changed twice weekly. Follow-up in wound clinic next week. Above discussed with the patient understands and is agreeable.
== END 2018-09-19 18:59 | DRG 470 ==
LOC: INOR 10:36 → 4S 17:58
PROVIDERS: ADMIT Orthopaedic Surgery; ATTEND Orthopaedic Surgery
PROC: 0SR902A Replacement of Right Hip Joint with Metal on Polyethylene Synthetic Substitute, Uncemented, Open Approach (ICD-10-PCS; principal; 2018-09-16 12:30)
PROC: 30233N1 Transfusion of Nonautologous Red Blood Cells into Peripheral Vein, Percutaneous Approach (ICD-10-PCS; 2018-09-18)
DX: M16.11 Unilateral primary osteoarthritis, right hip (principal); I73.9 Peripheral vascular disease, unspecified; L97.519 Non-pressure chronic ulcer of other part of right foot with unspecified severity; I10 Essential (primary) hypertension; M10.9 Gout, unspecified; I48.2 Chronic atrial fibrillation; D64.9 Anemia, unspecified; Z79.82 Long term (current) use of aspirin; Z87.891 Personal history of nicotine dependence; Z79.899 Other long term (current) drug therapy
CPT/HCPCS: 01214; 36415; 36430; 72170; 80048; 84132; 85025; 85027; 85610; 85730; 86850; 86900; 86901; 86920; 88304; 88311; 94799; C1776; G8978-GP; G8979-GP; G8987-GO; G8988-GO; J0131; J0330; J0690; J1100; J1741; J2250; J2270; J2405; J2704; J3010; J3370; J3490; J7060; P9016

== ENCOUNTER → 2018-12-13 | Outpatient (CLI) | payer MEDICARE, BC ==
--- NOTE | 2018-12-13 12:49 | RADIOLOGY REPORT (SQ) ---
EXAM DESCRIPTION: FOOT RIGHT COMPLETE COMPLETED DATE/TIME: 12/13/2018 12:38 pm REASON FOR STUDY: L97.512 NON-PRESSURE CHRONIC ULCER RIGHT FOOT L97.512 NON-PRS CHRONIC ULCER OTH P RT RIGHT FOOT W FAT LAYER E11.621 TYPE 2 DIABETES MELLITUS WITH FOOT ULCER COMPARISON: Right foot films 04/05/2018, 02/11/2018 NUMBER OF VIEWS: Three views. TECHNIQUE: AP, lateral and oblique radiographic images acquired of the right foot. LIMITATIONS: None. FINDINGS: MINERALIZATION: Osteoporotic BONES: No acute fracture or dislocation. No worrisome bone lesions. JOINTS: No effusions. SOFT TISSUES: Diffuse dorsal right foot soft tissue swelling. No foreign body. OTHER: No other significant finding. IMPRESSION: Diffuse dorsal right foot soft tissue swelling without soft tissue gas or radiopaque for eign body. Bones of the right foot are osteoporotic without aggressive demineralization/ periosteal new bone to suggest osteomyelitis TECHNICAL DOCUMENTATION: JOB ID: [id number] [employer]- All Rights Reserved Reading location - IP/workstation name: [email or web address]
[2018-12-13 13:56] LABS: ABSOLUTE BASOPHILS # (AUTO) 0.1 10^3/uL (0.0-0.2); ABSOLUTE EOSINOPHILS # (AUTO) 0.2 10^3/uL (0.0-0.6); ABSOLUTE LYMPHOCYTES (AUTO) 1.2 10^3/uL (0.5-4.7); ABSOLUTE MONOCYTES (AUTO) 0.6 10^3/uL (0.1-1.4); ABSOLUTE NEUT (AUTO) 3.4 10^3/uL (1.7-8.2); EOSINOPHILS % (AUTO) 3.9 % (0-6); HEMATOCRIT 36.9 % (37.9-51.0); HEMOGLOBIN 12.1 g/dL (13.5-17.0); MEAN CORPUSCULAR HEMOGLOBIN 28.9 pg (27.0-33.4); MEAN CORPUSCULAR HGB CONC 32.7 g/dL (32.0-36.0); MEAN CORPUSCULAR VOLUME 88 fl (80-97); MONOCYTES % (AUTO) 10.6 % (3-13); PLATELET COUNT 186 10^3/uL (150-450); RED BLOOD COUNT 4.17 10^6/uL (4.35-5.55); RED CELL DISTRIBUTION WIDTH 15.3 % (11.5-14.0); SEGMENTED NEUTROPHILS % (AUTO) 62.5 % (42-78); TOTAL CELLS COUNTED % (AUTO) 100 %; WHITE BLOOD COUNT 5.4 10^3/uL (4.0-10.5)
[2018-12-13 14:22] LABS: ALANINE AMINOTRANSFERASE 28 U/L (21-72); ALKALINE PHOSPHATASE 143 U/L (38-126); ANION GAP 8 (5-19); ASPARTATE AMINO TRANSFERASE 58 U/L (17-59); BILIRUBIN,DIRECT 0.3 mg/dL (0.0-0.4); BILIRUBIN,TOTAL 0.5 mg/dL (0.2-1.3); BLOOD UREA NITROGEN 42 mg/dL (7-20); C-REACTIVE PROTEIN 28.3 mg/L (<10.0); CARBON DIOXIDE 31 mmol/L (22-30); CHLORIDE 103 mmol/L (98-107); GLUCOSE 101 mg/dL (75-110); POTASSIUM 5.2 mmol/L (3.6-5.0); SODIUM 142.1 mmol/L (137-145); TOTAL PROTEIN 6.8 g/dL (6.3-8.2)
[2018-12-13 14:38] LABS: ERYTHROCYTE SEDIMENTATION RATE 10 mm/hr (0-20)
== END ==
LOC: WC 11:47
PROVIDERS: ATTEND Surgery
DX: E11.621 Type 2 diabetes mellitus with foot ulcer (principal); L97.512 Non-pressure chronic ulcer of other part of right foot with fat layer exposed
CPT/HCPCS: 36415; 80053; 83036; 85025; 85652; 86140

== ENCOUNTER → 2019-01-10 | Outpatient (CLI) | payer MEDICARE, BC ==
--- NOTE | 2019-01-10 12:24 | RADIOLOGY REPORT (SQ) ---
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 NUMBER OF VIEWS: Three views. TECHNIQUE: AP, lateral and oblique radiographic images acquired of the left foot. LIMITATIONS: None. FINDINGS: MINERALIZATION: Osteopenia. BONES: No acute fracture or dislocation. No worrisome bone lesions. JOINTS: No effusions. SOFT TISSUES: No soft tissue swelling. No foreign body. OTHER: No other significant finding. IMPRESSION: Osteopenia. No conventional radiographic evidence of osteomyelitis. TECHNICAL DOCUMENTATION: JOB ID: [id number] [employer]- All Rights Reserved Reading location - IP/workstation name: [email or web address]
[2019-01-10 13:02] LABS: ABSOLUTE EOSINOPHILS # (AUTO) 0.3 10^3/uL (0.0-0.6); ABSOLUTE LYMPHOCYTES (AUTO) 1.4 10^3/uL (0.5-4.7); ABSOLUTE MONOCYTES (AUTO) 0.5 10^3/uL (0.1-1.4); ABSOLUTE NEUT (AUTO) 2.9 10^3/uL (1.7-8.2); BASOPHILS % (AUTO) 0.8 % (0-2); EOSINOPHILS % (AUTO) 5.1 % (0-6); HEMATOCRIT 39.4 % (37.9-51.0); HEMOGLOBIN 13.2 g/dL (13.5-17.0); MEAN CORPUSCULAR HEMOGLOBIN 28.9 pg (27.0-33.4); MEAN CORPUSCULAR HGB CONC 33.6 g/dL (32.0-36.0); MEAN CORPUSCULAR VOLUME 86 fl (80-97); MONOCYTES % (AUTO) 9.8 % (3-13); PLATELET COUNT 204 10^3/uL (150-450); RED BLOOD COUNT 4.58 10^6/uL (4.35-5.55); RED CELL DISTRIBUTION WIDTH 15.9 % (11.5-14.0); SEGMENTED NEUTROPHILS % (AUTO) 57.3 % (42-78); TOTAL CELLS COUNTED % (AUTO) 100 %; WHITE BLOOD COUNT 5.1 10^3/uL (4.0-10.5)
[2019-01-10 13:26] LABS: ALANINE AMINOTRANSFERASE 25 U/L (21-72); ALBUMIN 4.1 g/dL (3.5-5.0); ALKALINE PHOSPHATASE 142 U/L (38-126); ANION GAP 9 (5-19); ASPARTATE AMINO TRANSFERASE 25 U/L (17-59); BILIRUBIN,DIRECT 0.2 mg/dL (0.0-0.4); BILIRUBIN,TOTAL 0.7 mg/dL (0.2-1.3); BLOOD UREA NITROGEN 69 mg/dL (7-20); C-REACTIVE PROTEIN 13.7 mg/L (<10.0); CALCIUM 9.7 mg/dL (8.4-10.2); CARBON DIOXIDE 34 mmol/L (22-30); CHLORIDE 97 mmol/L (98-107); GLUCOSE 105 mg/dL (75-110); POTASSIUM 3.6 mmol/L (3.6-5.0); SODIUM 139.9 mmol/L (137-145); TOTAL PROTEIN 7.7 g/dL (6.3-8.2)
[2019-01-10 13:50] LABS: ERYTHROCYTE SEDIMENTATION RATE 9 mm/hr (0-20)
== END ==
LOC: WC 11:52
PROVIDERS: ATTEND Surgery
DX: E11.621 Type 2 diabetes mellitus with foot ulcer (principal); L97.512 Non-pressure chronic ulcer of other part of right foot with fat layer exposed; M85.88 Other specified disorders of bone density and structure, other site
CPT/HCPCS: 36415; 80053; 83036; 85025; 85652; 86140

== ENCOUNTER 2019-01-18 13:51 | Inpatient (IN) | payer MEDICARE, BC ==
[2019-01-18] MEDS ORDERED: HYDROMORPHONE HCL INJ/PF 2 MG/ML AMPULE IV ONE (15:01)
--- NOTE | 2019-01-18 15:03 | RADIOLOGY REPORT (SQ) ---
EXAM DESCRIPTION: KNEE RIGHT 4 VIEWS COMPLETED DATE/TIME: 01/18/2019 2:47 pm REASON FOR STUDY: swelling, pain COMPARISON: None. NUMBER OF VIEWS: Four views. TECHNIQUE: AP, lateral, and both oblique radiographic images acquired of the right knee. LIMITATIONS: None. FINDINGS: MINERALIZATION: Osteoporotic BONES: Acute transverse comminuted fracture distal right femur diaphysis, with dorsal displacement of the distal fracture fragment and over riding of the fracture fragments by 2 cm. No gross extension of fracture lines into the intercondylar notch of the distal femoral fragment. There is a fracture of the proximal right fibula, age indeterminate. JOINT: Joint effusion is present SOFT TISSUES: No soft tissue swelling. No radio-opaque foreign body. OTHER: At the upper edge of the field of view, the distal tip of the right hip replacement is present IMPRESSION: Acute transverse comminuted distal femoral diaphysis fracture with dorsal displacement o f the distal fracture fragment. Age-indeterminate proximal fibular fracture TECHNICAL DOCUMENTATION: JOB ID: [id number] [employer]- All Rights Reserved Reading location - IP/workstation name: [email or web address]
[2019-01-18 15:21] LABS: ABSOLUTE BASOPHILS # (AUTO) 0.1 10^3/uL (0.0-0.2); ABSOLUTE EOSINOPHILS # (AUTO) 0.1 10^3/uL (0.0-0.6); ABSOLUTE LYMPHOCYTES (AUTO) 0.8 10^3/uL (0.5-4.7); ABSOLUTE MONOCYTES (AUTO) 0.7 10^3/uL (0.1-1.4); ABSOLUTE NEUT (AUTO) 6.7 10^3/uL (1.7-8.2); BASOPHILS % (AUTO) 0.7 % (0-2); EOSINOPHILS % (AUTO) 1.1 % (0-6); HEMATOCRIT 34.4 % (37.9-51.0); HEMOGLOBIN 11.6 g/dL (13.5-17.0); LYMPHOCYTES % (AUTO) 9.4 % (13-45); MEAN CORPUSCULAR HEMOGLOBIN 29.5 pg (27.0-33.4); MEAN CORPUSCULAR HGB CONC 33.7 g/dL (32.0-36.0); MEAN CORPUSCULAR VOLUME 88 fl (80-97); MONOCYTES % (AUTO) 8.3 % (3-13); PLATELET COUNT 184 10^3/uL (150-450); RED BLOOD COUNT 3.93 10^6/uL (4.35-5.55); RED CELL DISTRIBUTION WIDTH 15.9 % (11.5-14.0); SEGMENTED NEUTROPHILS % (AUTO) 80.5 % (42-78); TOTAL CELLS COUNTED % (AUTO) 100 %; WHITE BLOOD COUNT 8.3 10^3/uL (4.0-10.5)
[2019-01-18 15:34] LABS: ALANINE AMINOTRANSFERASE 26 U/L (21-72); ALBUMIN 3.8 g/dL (3.5-5.0); ALKALINE PHOSPHATASE 129 U/L (38-126); ANION GAP 11 (5-19); ASPARTATE AMINO TRANSFERASE 46 U/L (17-59); BILIRUBIN,DIRECT 0.4 mg/dL (0.0-0.4); BILIRUBIN,TOTAL 0.7 mg/dL (0.2-1.3); BLOOD UREA NITROGEN 72 mg/dL (7-20); CALCIUM 9.1 mg/dL (8.4-10.2); CARBON DIOXIDE 28 mmol/L (22-30); CHLORIDE 102 mmol/L (98-107); GLUCOSE 117 mg/dL (75-110); INTERNATIONAL RATION (INR) 1.41; POTASSIUM 3.7 mmol/L (3.6-5.0); SODIUM 140.5 mmol/L (137-145)
[2019-01-18 15:35] LABS: PARTIAL THROMBOPLASTIN TIME 53.2 SEC (23.5-35.8)
--- NOTE | 2019-01-18 16:12 | PDOC CONSULTATION ---
History of Present Illness Admission Date/PCP: SEJAL DSOUZA MD Patient complains of: Right knee pain History of Present Illness: ANALI STEELE is a 73 year old male who was using a Rototiller when he inadvertently fell onto his right leg. Patient had notable pain and deformity at the time of injury was unable to ambulate. Patient was brought by EMS to the emergency room. Patient has positive history of previous right hip arthroplasty after a fracture. Also has known history of acute renal disease and peripheral vascular disease and currently being treated by Dr. Dsouza for a wound to his right foot. Patient denies chest pain or shortness of breath. Pain 4/10. Pain exacerbated with motion. Past Medical History Cardiac Medical History: Reports: Atrial Fibrillation - Was on anticoagulants until he was in the hospital and they were stopped, Congestive Heart Failure, DVT, Hypertension Denies: Coronary Artery Disease, Myocardial Infarction, Hyperlipidema, Peripheral Vascular Disease, Heart Murmur Pulmonary Medical History: Denies: Asthma, Bronchitis, Chronic Obstructive Pulmonary Disease (COPD), Pneumonia Neurological Medical History: Denies: Seizures Endocrine Medical History: Reports: Diabetes Mellitus Type 2 Denies: Hyperthyroidism, Hypothyroidism Renal/ Medical History: Denies: End Stage Renal Disease GI Medical History: Denies: Crohn's Disease, Gastroesophageal Reflux Disease, Hiatal Hernia Musculoskeltal Medical History: Reports: Arthritis - DJD, R HIP CHRONIC PAIN Denies: Fibromyalgia Psychiatric Medical History: Denies: Bipolar Disorder, Depression, Post Traumatic Stress Disorder Hematology: Denies: Anemia Past Surgical History Past Surgical History: Reports: Cholecystectomy - stones removed not organ itself( per pt), Orthopedic Surgery - Right leg drained during hospitalization this spring Denies: Appendectomy, Colostomy, Coronary Artery Bypass Graft, Gastric Bypass Surgery, Herniorrhaphy, Pacemaker, Tonsillectomy Social History Smoking Status: Unknown if Ever Smoked Frequency of Alcohol Use: Occasional Hx Recreational Drug Use: No Drugs: None Hx Prescription Drug Abuse: No Family History Family History: CAD, COPD, DM Parental Family History Reviewed: No Children Family History Reviewed: No Sibling(s) Family History Reviewed.: No Medication/Allergy Home Medications: Allopurinol [Zyloprim 100 mg Tablet] 100 mg PO BID 04/05/18 Apixaban [Eliquis 5 mg Tablet] 5 mg PO Q12 04/05/18 Aspirin [Aspirin EC] 81 mg PO DAILY 04/05/18 Fentanyl [Duragesic 100 Mcg/Hr Transdermal Patch] 100 mcg TOP Q3D 04/05/18 Furosemide [Lasix 40 mg Tablet] 40 mg PO DAILY 04/05/18 Multivitamin [One-A-Day Essential] 1 tab PO DAILY 04/05/18 Oxycodone HCl 15 mg PO Q6HP PRN 04/05/18 Carvedilol [Coreg 12.5 mg Tablet] 25 mg PO Q12 30 Days #60 tablet 04/09/18 Docusate Sodium [Colace 100 mg Capsule] 200 mg PO DAILY 30 Days #30 capsule 04/09/18 Acetaminophen [Tylenol] 1 tab PO PRN PRN 09/16/18 Ascorbic Acid [Vitamin C 500 mg Tablet] 500 mg PO DAILY 09/16/18 Calcium Carbonate [Calcium] 500 mg PO DAILY 09/16/18 Allergies/Adverse Reactions: No Known Allergies Allergy (Verified 09/02/18 10:41) Review of Systems Constitutional: ABSENT: chills, fever(s), headache(s), weight gain, weight loss Eyes: ABSENT: visual disturbances Ears: ABSENT: hearing changes Cardiovascular: ABSENT: chest pain, dyspnea on exertion, edema, orthropnea, palpitations Respiratory: ABSENT: cough, hemoptysis Gastrointestinal: ABSENT: abdominal pain, constipation, diarrhea, hematemesis, hematochezia, nausea, vomiting Genitourinary: ABSENT: dysuria, hematuria Musculoskeletal: PRESENT: as per HPI Integumentary: PRESENT: as per HPI, lesions, wounds. ABSENT: rash Neurological: ABSENT: abnormal gait, abnormal speech, confusion, dizziness, focal weakness, syncope Psychiatric: ABSENT: anxiety, depression, homidical ideation, suicidal ideation Endocrine: ABSENT: cold intolerance, heat intolerance, menstrual abnormalities, polydipsia, polyuria Hematologic/Lymphatic: ABSENT: easy bleeding, easy bruising, lymphadenopathy Physical Exam Vital Signs: Temp Pulse Resp BP Pulse Ox 74 16 127/67 H 96 01/18/19 15:59 01/18/19 15:59 01/18/19 15:59 01/18/19 15:59 General appearance: PRESENT: no acute distress, well-developed, well-nourished Head exam: PRESENT: atraumatic, normocephalic Eye exam: PRESENT: conjunctiva pink, EOMI, PERRLA. ABSENT: scleral icterus Ear exam: PRESENT: normal external ear exam Mouth exam: PRESENT: moist, tongue midline Teeth exam: PRESENT: poor dentation Neck exam: PRESENT: full ROM. ABSENT: carotid bruit, JVD, lymphadenopathy, thyromegaly Respiratory exam: PRESENT: unlabored Cardiovascular exam: PRESENT: RRR. ABSENT: diastolic murmur, rubs, systolic murmur Vascular exam: PRESENT: normal capillary refill GI/Abdominal exam: PRESENT: normal bowel sounds, soft. ABSENT: distended, guarding, mass, organolmegaly, rebound, tenderness Rectal exam: PRESENT: deferred Musculoskeletal exam: PRESENT: other - Right lower extremity: Swelling noted along the distal femur tenderness to palpation. Overlying ecchymosis noted. Unna boot of the lower extremity. Intact plantar flexion/dorsiflexion. Intact sensation to touch. Compartments soft and compressible no sign of compartment syndrome. Neurological exam: PRESENT: alert, awake, oriented to person, oriented to place, oriented to time, oriented to situation, CN II-XII grossly intact. ABSENT: motor sensory deficit Psychiatric exam: PRESENT: appropriate affect, normal mood. ABSENT: homicidal ideation, suicidal ideation Skin exam: PRESENT: dry, intact, warm. ABSENT: cyanosis, rash Results Laboratory Results: 01/18/19 15:05 01/18/19 15:05 01/18/19 01/18/19 15:05 15:05 WBC 8.3 RBC 3.93 L Hgb 11.6 L Hct 34.4 L MCV 88 MCH 29.5 MCHC 33.7 RDW 15.9 H Plt Count 184 Seg Neutrophils % 80.5 H Lymphocytes % 9.4 L Monocytes % 8.3 Eosinophils % 1.1 Basophils % 0.7 Absolute Neutrophils 6.7 Absolute Lymphocytes 0.8 Absolute Monocytes 0.7 Absolute Eosinophils 0.1 Absolute Basophils 0.1 Sodium 140.5 Potassium 3.7 Chloride 102 Carbon Dioxide 28 Anion Gap 11 BUN 72 H Creatinine 1.57 H Est GFR ( Amer) 53 L Est GFR (Non-Af Amer) 44 L Glucose 117 H Calcium 9.1 Total Bilirubin 0.7 AST 46 ALT 26 Alkaline Phosphatase 129 H Total Protein 7.0 Albumin 3.8 Impressions: Knee X-Ray 01/18/19 14:01 IMPRESSION: Acute transverse comminuted distal femoral diaphysis fracture with dorsal displacement of the distal fracture fragment. Age-indeterminate proximal fibular fracture Status: Image reviewed by me - I have reviewed patient's radiographs which are consistent with extra-articular distal femur fracture there is evidence of osteopenia. No evidence of pathologic lesion Assessment & Plan - Diagnosis (1) Femoral distal fracture Qualifiers: Encounter type: initial encounter Fracture type: closed Laterality: right Is this a current diagnosis for this admission?: Yes Plan: Patient sustained a extra-articular distal femur fracture. Given the alignment I would recommend operative intervention including open reduction internal fixation versus retrograde nail. After discussing these options patient has elected proceed with operative intervention. Unfortunately given patient's multiple comorbidities and the fact he is currently on Eliquis will require medi jessica optimization and unable to proceed with operative intervention for the next 48 hours. Patient will be placed in a knee immobilizer continue ice and elevation and nonweightbearing. Also advised the emergency room physician and nurses to remove his Unna boot due to increased swelling.
--- NOTE | 2019-01-18 16:20 | ER Document Report ---
Entered by NIKKO CM SCRIBE 01/18/19 1531 Acting as scribe for:BALBIR MOLINA DO ED Fall - General Chief Complaint: Fall Injury Stated Complaint: KNEE INJURY Time Seen by Provider: 01/18/19 14:24 Mode of Arrival: Ambulatory Information source: Patient Notes: Patient is a 73 year old male with arthritis, afib, HTN, CHF presents to the emergency department via EMS complaining of right knee pain secondary a mechanical trip and fall onset just prior to arrival. Patient states he was running a tiller when he fell and landed on his right knee. He states it felt like his right knee gave out and felt something "popped out of place". Patient's PCP is Dr. De Anda. Patient is currently prescribed Eloquis. Patient reports a chronically open wound on the anterior aspect of his right leg. Reports recently following up with wound care and being placed in an Unn aboot. TRAVEL OUTSIDE OF THE [place] IN LAST 30 DAYS: No - Related data Allergies/Adverse Reactions: No Known Allergies Allergy (Verified 09/02/18 10:41) Past Medical History - General Information source: Patient - Social History Smoking Status: Never Smoker Cigarette use (# per day): No Chew tobacco use (# tins/day): No Smoking Education Provided: No Frequency of alcohol use: Occasional Family History: CAD, COPD, DM Patient has suicidal ideation: No Patient has homicidal ideation: No - Past Medical History Cardiac Medical History: Reports: Hx Atrial Fibrillation - Was on anticoagulants until he was in the hospital and they were stopped, Hx Congestive Heart Failure, Hx DVT, Hx Hypertension Endocrine Medical History: Reports: Hx Diabetes Mellitus Type 2 Renal/ Medical History: Reports: Hx Benign Prostatic Hyperplasia, Hx Renal Insufficiency Musculoskeletal Medical History: Reports Hx Arthritis - DJD, R HIP CHRONIC PAIN Past Surgical History: Reports: Hx Cholecystectomy - stones removed not organ itself( per pt), Hx Orthopedic Surgery - Right leg drained during hospitalization this spring - Immunizations Hx Diphtheria, Pertussis, Tetanus Vaccination: Yes Review of Systems - Review of Systems Constitutional: No symptoms reported EENT: No symptoms reported Cardiovascular: No symptoms reported Respiratory: No symptoms reported Gastrointestinal: No symptoms reported Genitourinary: No symptoms reported Male Genitourinary: No symptoms reported Musculoskeletal: See HPI Skin: No symptoms reported Hematologic/Lymphatic: No symptoms reported Neurological/Psychological: No symptoms reported -: Yes All other systems reviewed and negative Physical Exam - Vital signs Vitals: Pulse Resp BP Pulse Ox 74 16 127/67 H 96 01/18/19 15:59 01/18/19 15:59 01/18/19 15:59 01/18/19 15:59 - Notes Notes: GENERAL: Alert, interacts well. No acute distress. HEAD: Normocephalic, atraumatic. EYES: Pupils equal, round, and reactive to light. Extraocular movements intact. ENT: Oral mucosa moist, tongue midline. NECK: Full range of motion. Supple. Trachea midline. LUNGS: Clear to auscultation bilaterally, no wheezes, rales, or rhonchi. No respiratory distress. HEART: Regular rate and rhythm. No murmurs, gallops, or rubs. ABDOMEN: Soft, non-tender, no guarding, rigidity, or rebound.. Non-distended. Bowel sounds present in all 4 quadrants. EXTREMITIES: Moves all 4 extremities spontaneously. Right knee is grossly swollen, there is a superficial abrasion and ecchymoses. Tender to palpation a cross the right patella and to the medial and lateral joint line. There is prepatellar effusion. Right leg is placed in a splint by EMS. Full range of motion of the hip though it does cause pain at the knee. NEUROLOGICAL: Alert and oriented x3. Normal speech. PSYCH: Normal affect, normal mood. SKIN: Warm, dry. Course - Re-evaluation Re-evalutation: 01/18/19 15:[address] Foote who states he will come see the patient. 01/18/19 16:18 X-ray identified distal femur fracture with overriding fragments, discussed with Dr. Foote, instructed patient to be placed in knee immobilizer. Given the multiple comorbidities of the patient he requestst that the pateint be admitted by the medicine service. Discussed with CLAMMER Angelica Shin and she accepts to tele as an admission. Patient's pain is actually surprisingly well controlled at this time. 01/18/19 16:18 CBC reveals mild anemia with hemoglobin 11.6, coags are prolonged consistent with being on Eliquis, patient has chronic renal failure with a BUN of 72 and creatinine 1.57. No laboratory findings that need acute intervention in the emergency department at this time. Patient will be admitted. - Vital Signs Vital signs: Temp Pulse Resp BP Pulse Ox 98.0 F 62 19 116/52 L 98 01/18/19 19:47 01/18/19 19:47 01/18/19 19:47 01/18/19 19:47 01/18/19 19:47 - Laboratory Result Diagrams: 01/18/19 15:05 01/18/19 15:05 Laboratory results interpreted by me: 01/18/19 01/18/19 01/18/19 15:05 15:05 15:05 RBC 3.93 L Hgb 11.6 L Hct 34.4 L RDW 15.9 H Seg Neutrophils % 80.5 H Lymphocytes % 9.4 L PT 18.0 H APTT 53.2 H BUN 72 H Creatinine 1.57 H Est GFR ( Amer) 53 L Est GFR (Non-Af Amer) 44 L Glucose 117 H Alkaline Phosphatase 129 H Procedures - Immobilization Right knee Pre-Proc Neuro Vasc Exam: Normal Immobilizer type: Knee immobilizer Performed by: PCT Post-Proc Neuro Vasc Exam: Normal, Unchanged from pre-exam Alignment checked and good: Yes Discharge - Discharge Clinical Impression: Closed fracture of right distal femur Qualifiers: Encounter type: initial encounter Fracture morphology: other fracture Qualified Code(s): S72.491A - Other fracture of lower end of right femur, initial encounter for closed fracture Condition: Stable Disposition: ADMITTED INPATIENT Admitting Provider: Hospitalist - [facility] Admitted: Telemetry I personally performed the services described in the documentation, reviewed and edited the documentation which was dictated to the scribe in my presence, and it accurately records my words and actions.
[2019-01-18] MEDS ORDERED: ONDANSETRON HCL INJ/PF 4 MG/2 ML SDV IV PRN (16:27)
[2019-01-18] MEDS ORDERED: OXYCODONE-ACETAMINOPHEN 5-325 MG TABLET PO PRN (16:27)
[2019-01-18] MEDS ORDERED: TEMAZEPAM 15 MG CAPSULE PO PRN (16:27)
[2019-01-18] MEDS ORDERED: ACETAMINOPHEN 325 MG TABLET PO PRN (16:27)
[2019-01-18] MEDS ORDERED: MAGNESIUM HYDROXIDE SUSP 30 ML UDCUP PO PRN (16:27)
--- NOTE | 2019-01-18 17:22 | PDOC H&P ---
History of Present Illness Admission Date/PCP: SEJAL DSOUZA MD Patient complains of: Right thigh and knee pain History of Present Illness: ANALI STEELE is a 73 year old male with past medical history of atrial fibrillation, chronic anticoagulation, chronic diastolic heart failure, essential hypertension, peripheral vascular disease, chronic pain requiring opioid analgesics and gout; who presents to [facility]'s emergency room via EMS after he fell while using a rotor tiller in the garden earlier today. He immediately began having severe right knee and thigh pain and was unable to get up. EMS was called and he was brought to the ER. Workup in the ER revealed a distal fracture of his right femur. He was seen in consult by Dr. Oscar Foote, orthopedic surgeon who plans on operative fixation on Sunday. He was referred to the hospitalist service for admission. Past Medical History Cardiac Medical History: Reports: Atrial Fibrillation - Was on anticoagulants until he was in the hospital and they were stopped, Congestive Heart Failure, DVT, Hypertension Denies: Coronary Artery Disease, Myocardial Infarction, Hyperlipidema, Peripheral Vascular Disease, Heart Murmur Pulmonary Medical History: Denies: Asthma, Bronchitis, Chronic Obstructive Pulmonary Disease (COPD), Pneumonia Neurological Medical History: Denies: Seizures Endocrine Medical History: Reports: None Denies: Hyperthyroidism, Hypothyroidism Renal/ Medical History: Reports: Chronic Kidney Disease Denies: End Stage Renal Disease GI Medical History: Denies: Crohn's Disease, Gastroesophageal Reflux Disease, Hiatal Hernia Musculoskeltal Medical History: Reports: Arthritis - DJD, R HIP CHRONIC PAIN, Gout Denies: Fibromyalgia Psychiatric Medical History: Denies: Bipolar Disorder, Depression, Post Traumatic Stress Disorder Hematology: Denies: Anemia Past Surgical History Past Surgical History: Reports: Cholecystectomy - stones removed not organ itself( per pt), Orthopedic Surgery - Right leg drained during hospitalization this spring Denies: Appendectomy, Colostomy, Coronary Artery Bypass Graft, Gastric Bypass Surgery, Herniorrhaphy, Pacemaker, Tonsillectomy Social History Information Source: Patient Lives with: Alone Smoking Status: Former Smoker Cigarettes Packs Per Day: 1 Number of Years Smokin Last Time Smoked: 35 years ago Frequency of Alcohol Use: Occasional Hx Recreational Drug Use: No Drugs: None Hx Prescription Drug Abuse: No - Advance Directive Resuscitation Status: Full Code Family History Family History: Arthritis, CAD, COPD, DM Parental Family History Reviewed: Yes Children Family History Reviewed: Yes Sibling(s) Family History Reviewed.: Yes Medication/Allergy Home Medications: Allopurinol [Zyloprim 100 mg Tablet] 100 mg PO BID 04/05/18 Apixaban [Eliquis 5 mg Tablet] 5 mg PO Q12 04/05/18 Aspirin [Aspirin EC] 81 mg PO DAILY 04/05/18 Fentanyl [Duragesic 100 Mcg/Hr Transdermal Patch] 100 mcg TOP Q3D 04/05/18 Furosemide [Lasix 40 mg Tablet] 40 mg PO DAILY 04/05/18 Multivitamin [One-A-Day Essential] 1 tab PO DAILY 04/05/18 Oxycodone HCl 15 mg PO Q6HP PRN 04/05/18 Carvedilol [Coreg 12.5 mg Tablet] 25 mg PO Q12 30 Days #60 tablet 04/09/18 Docusate Sodium [Colace 100 mg Capsule] 200 mg PO DAILY 30 Days #30 capsule 04/09/18 Acetaminophen [Tylenol] 1 tab PO PRN PRN 09/16/18 Ascorbic Acid [Vitamin C 500 mg Tablet] 500 mg PO DAILY 09/16/18 Calcium Carbonate [Calcium] 500 mg PO DAILY 09/16/18 Allergies/Adverse Reactions: No Known Allergies Allergy (Verified 09/02/18 10:41) Review of Systems Constitutional: ABSENT: chills, fever(s), headache(s), weight gain, weight loss Eyes: ABSENT: visual disturbances Ears: ABSENT: hearing changes Cardiovascular: PRESENT: palpitations Respiratory: ABSENT: cough, hemoptysis Gastrointestinal: ABSENT: abdominal pain, constipation, diarrhea, hematemesis, hematochezia, nausea, vomiting Genitourinary: ABSENT: dysuria, hematuria Musculoskeletal: PRESENT: deformity. ABSENT: joint swelling Neurological: ABSENT: abnormal gait, abnormal speech, confusion, dizziness, focal weakness, syncope Psychiatric: ABSENT: anxiety, depression, homidical ideation, suicidal ideation Endocrine: ABSENT: cold intolerance, heat intolerance, polydipsia, polyuria Hematologic/Lymphatic: PRESENT: easy bleeding, easy bruising Physical Exam Vital Signs: Temp Pulse Resp BP Pulse Ox 74 16 127/67 H 96 01/18/19 15:59 01/18/19 15:59 01/18/19 15:59 01/18/19 15:59 General appearance: PRESENT: no acute distress, obese, well-developed, well- nourished Head exam: PRESENT: atraumatic, normocephalic Eye exam: PRESENT: conjunctiva pink, EOMI, PERRLA. ABSENT: scleral icterus Ear exam: PRESENT: normal external ear exam Mouth exam: PRESENT: moist, tongue midline Teeth exam: PRESENT: poor dentation Neck exam: ABSENT: carotid bruit, JVD, lymphadenopathy, thyromegaly Respiratory exam: PRESENT: clear to auscultation jose, symmetrical, unlabored Cardiovascular exam: PRESENT: RRR, +S1, +S2 Pulses: PRESENT: normal carotid pulses, normal radial pulses Vascular exam: PRESENT: normal capillary refill GI/Abdominal exam: PRESENT: normal bowel sounds, soft. ABSENT: distended, guarding, mass, organolmegaly, rebound, tenderness Rectal exam: PRESENT: deferred Extremities exam: PRESENT: calf tenderness, tenderness, +1 edema - right lower extremity Musculoskeletal exam: PRESENT: tenderness, other - Severe pain with any movement of the right leg Neurological exam: PRESENT: alert, awake, oriented to person, oriented to place, oriented to time, oriented to situation, CN II-XII grossly intact. ABSENT: motor sensory deficit Psychiatric exam: PRESENT: appropriate affect, normal mood. ABSENT: homicidal ideation, suicidal ideation Skin exam: PRESENT: dry, intact, warm, other - Wound to dorsum of right foot covered by dry sterile dressing. ABSENT: cyanosis, rash Results Laboratory Results: 01/18/19 15:05 01/18/19 15:05 01/18/19 01/18/19 15:05 15:05 WBC 8.3 RBC 3.93 L Hgb 11.6 L Hct 34.4 L MCV 88 MCH 29.5 MCHC 33.7 RDW 15.9 H Plt Count 184 Seg Neutrophils % 80.5 H Lymphocytes % 9.4 L Monocytes % 8.3 Eosinophils % 1.1 Basophils % 0.7 Absolute Neutrophils 6.7 Absolute Lymphocytes 0.8 Absolute Monocytes 0.7 Absolute Eosinophils 0.1 Absolute Basophils 0.1 Sodium 140.5 Potassium 3.7 Chloride 102 Carbon Dioxide 28 Anion Gap 11 BUN 72 H Creatinine 1.57 H Est GFR ( Amer) 53 L Est GFR (Non-Af Amer) 44 L Glucose 117 H Calcium 9.1 Total Bilirubin 0.7 AST 46 ALT 26 Alkaline Phosphatase 129 H Total Protein 7.0 Albumin 3.8 Impressions: Knee X-Ray 01/18/19 14:01 IMPRESSION: Acute transverse comminuted distal femoral diaphysis fracture with dorsal displacement of the distal fracture fragment. Age-indeterminate proximal fibular fracture Assessment and Plan - Diagnosis (1) Closed fracture of right distal femur Qualifiers: Encounter type: initial encounter Fracture morphology: other fracture Qualified Code(s): S72.491A - Other fracture of lower end of right femur, initial encounter for closed fracture Is this a current diagnosis for this admission?: Yes Plan: Dr. Oscar Foote, orthopedic surgery, has seen patient in consult. He plans operative fixation on Sunday. We will hold his Eliquis until after surgery. We will check coags on Sunday morning prior to taking him to the operating room. (2) Acute on chronic renal failure Is this a current diagnosis for this admission?: Yes Plan: BUN 74 with a creatinine 1.6. Baseline creatinine is ranges from 1.1-1.4. We will given 1 L fluid over the next 10 hours. Recheck chemistry in the a.m. Avoid nephrotoxic medications and dosages. (3) Chronic diastolic heart failure Is this a current diagnosis for this admission?: Yes Plan: Patient's last echocardiogram in August shows a normal EF. He had mild mitral regurgitation. Diastolic dysfunction in the past. (4) Atrial fibrillation Qualifiers: Atrial fibrillation type: paroxysmal Qualified Code(s): I48.0 - Paroxysmal atrial fibrillation Is this a current diagnosis for this admission?: Yes Plan: Patient is rate controlled and normally on Eliquis. He did take his Eliquis this morning. We will hold Eliquis in preparation for surgery. (5) Chronic ulcer of right foot with fat layer exposed Is this a current diagnosis for this admission?: Yes Plan: Patient is followed in the wound care clinic by Dr. Fabiola Dsouza. He states he is presently on the end of antibiotic therapy for his wound. (6) PVD (peripheral vascular disease) Is this a current diagnosis for this admission?: Yes Plan: We will continue aspirin and statin. (7) Venous stasis Is this a current diagnosis for this admission?: Yes Plan: Will place patient on SCDs while holding his Eliquis. (8) Gout Is this a current diagnosis for this admission?: Yes Plan: Continue allopurinol (9) Hyperlipidemia Is this a current diagnosis for this admission?: Yes Plan: Continue statin. (10) Chronic pain syndrome Is this a current diagnosis for this admission?: Yes Plan: Patient is on 75 mcg fentanyl patch every 3 days as well as oxycodone 15 mg every 6 hours as needed. States this is for chronic osteoarthritis pain and right hip pain. He is followed locally by the pain clinic. - Time Time Spent with patient: 25-34 minutes Medications reviewed and adjusted accordingly: Yes - Inpatient Certification Based on my medical assessment, after consideration of the patient's comorbi dities, presenting symptoms, or acuity I expect that the services needed warrant INPATIENT care.: Yes I certify that my determination is in accordance with my understanding of Medicare's requirements for reasonable and necessary INPATIENT services [42 CFR 412.3e].: Yes Medical Necessity: Need for Pain Control, Need for Surgery
[2019-01-18] MEDS: HYDROMORPHONE HCL INJ/PF 2 MG/ML AMPULE IV PRN ×2 (17:44→22:23)
[2019-01-18] MEDS ORDERED: FENTANYL 100 MCG/HR PATCH.TD72 TOP ONE (18:00)
[2019-01-18] MEDS: ALLOPURINOL 100 MG TABLET PO SCH (18:34)
[2019-01-18] MEDS: DOCUSATE SODIUM 100 MG CAPSULE PO SCH (18:34)
[2019-01-18] MEDS: NORMAL SALINE 1000 ML 1,000 ML IV PRN (18:36)
[2019-01-18] MEDS: OXYCODONE HCL IR 5 MG TABLET PO PRN (20:33)
[2019-01-18] MEDS: CARVEDILOL 12.5 MG TABLET PO SCH (22:24)
[2019-01-18] MEDS: FAMOTIDINE 20 MG TABLET PO SCH (22:24)
[2019-01-19] MEDS: HYDROMORPHONE HCL INJ/PF 2 MG/ML AMPULE IV PRN ×4 (02:22→22:04)
[2019-01-19] MEDS: NORMAL SALINE 1000 ML 1,000 ML IV PRN (04:31)
[2019-01-19] MEDS: OXYCODONE HCL IR 5 MG TABLET PO PRN ×3 (05:54→23:57)
[2019-01-19 06:24] LABS: ABSOLUTE EOSINOPHILS # (AUTO) 0.2 10^3/uL (0.0-0.6); ABSOLUTE LYMPHOCYTES (AUTO) 0.9 10^3/uL (0.5-4.7); ABSOLUTE MONOCYTES (AUTO) 0.6 10^3/uL (0.1-1.4); ABSOLUTE NEUT (AUTO) 4.5 10^3/uL (1.7-8.2); BASOPHILS % (AUTO) 0.5 % (0-2); EOSINOPHILS % (AUTO) 3.5 % (0-6); HEMATOCRIT 30.5 % (37.9-51.0); HEMOGLOBIN 10.2 g/dL (13.5-17.0); LYMPHOCYTES % (AUTO) 14.4 % (13-45); MEAN CORPUSCULAR HEMOGLOBIN 29.4 pg (27.0-33.4); MEAN CORPUSCULAR HGB CONC 33.6 g/dL (32.0-36.0); MEAN CORPUSCULAR VOLUME 88 fl (80-97); MONOCYTES % (AUTO) 10.2 % (3-13); PLATELET COUNT 155 10^3/uL (150-450); RED BLOOD COUNT 3.47 10^6/uL (4.35-5.55); RED CELL DISTRIBUTION WIDTH 16.1 % (11.5-14.0); SEGMENTED NEUTROPHILS % (AUTO) 71.4 % (42-78); TOTAL CELLS COUNTED % (AUTO) 100 %; WHITE BLOOD COUNT 6.4 10^3/uL (4.0-10.5)
[2019-01-19 06:46] LABS: ANION GAP 8 (5-19); BLOOD UREA NITROGEN 58 mg/dL (7-20); CALCIUM 8.8 mg/dL (8.4-10.2); CARBON DIOXIDE 27 mmol/L (22-30); CHLORIDE 107 mmol/L (98-107); GLUCOSE 97 mg/dL (75-110); POTASSIUM 3.8 mmol/L (3.6-5.0); SODIUM 141.5 mmol/L (137-145)
[2019-01-19 09:35] LABS: INTERNATIONAL RATION (INR) 1.22
[2019-01-19 09:36] LABS: PARTIAL THROMBOPLASTIN TIME 50.7 SEC (23.5-35.8)
[2019-01-19] MEDS: DOCUSATE SODIUM 100 MG CAPSULE PO SCH ×2 (10:04→17:17)
[2019-01-19] MEDS: FAMOTIDINE 20 MG TABLET PO SCH ×2 (10:05→22:04)
[2019-01-19] MEDS: CARVEDILOL 12.5 MG TABLET PO SCH ×2 (10:05→22:04)
[2019-01-19] MEDS: ALLOPURINOL 100 MG TABLET PO SCH ×2 (10:05→17:18)
--- NOTE | 2019-01-19 10:07 | RADIOLOGY REPORT (SQ) ---
EXAM DESCRIPTION: CHEST SINGLE VIEW COMPLETED DATE/TIME: 01/19/2019 9:57 am REASON FOR STUDY: preop COMPARISON: Chest films 08/19/2018, 10/12/2018 EXAM PARAMETERS: NUMBER OF VIEWS: One view. TECHNIQUE: Single frontal radiographic view of the chest acquired. RADIATION DOSE: NA LIMITATIONS: Lordotic portable film FINDINGS: LUNGS AND PLEURA: No opacities, masses or pneumothorax. No pleural effusion. MEDIASTINUM AND HILAR STRUCTURES: No masses. Contour normal. HEART AND VASCULAR STRUCTURES: Marked cardiomegaly BONES: Advanced arthritis both shoulders HARDWARE: None in the chest. OTHER: No other significant finding. IMPRESSION: Cardiomegaly without acute infiltrates or pleural effusion TECHNICAL DOCUMENTATION: JOB ID: [id number] [employer]- All Rights Reserved Reading location - IP/workstation name: [email or web address]
--- NOTE | 2019-01-19 11:08 | EKG REPORT ---
SEVERITY:- ABNORMAL ECG - ATRIAL FIBRILLATION : Confirmed by: Caryl Pulido MD 19-Jan-2019 11:08:00
[2019-01-19] MEDS ORDERED: HYDRALAZINE HCL INJ/PF 20 MG/1 ML SDV IV PRN (13:59)
[2019-01-19] MEDS: ASPIRIN 81 MG TABLET, ENT COATED PO SCH (15:08)
[2019-01-19] MEDS: AMLODIPINE BESYLATE 5 MG TABLET PO SCH ×3 (15:17→17:18)
[2019-01-19] MEDS ORDERED: DEXTROSE 5%-NORMAL SALINE 1,000 ML IV PRN (15:38)
--- NOTE | 2019-01-19 15:43 | PDOC PROGRESS REPORT ---
Subjective Progress Note for:: 01/19/19 Subjective:: Patient lying in bed company. States pain is controlled. Denies fever chills or sweats. Denies chest pain or shortness of breath. Reason For Visit: FEMUR FRACTURE Physical Exam Vital Signs: Temp Pulse Resp BP Pulse Ox 98.4 F 64 19 153/63 H 95 01/19/19 11:00 01/19/19 11:00 01/19/19 11:00 01/19/19 11:00 01/19/19 11:00 Intake & Output 01/18/19 01/19/19 01/20/19 06:59 06:59 06:59 Intake Total 1659 Output Total 600 Balance 1059 Weight 96.2 kg Musculoskeletal exam: PRESENT: other - Right lower extremity: Swelling and ecchymosis along the distal femur. Compartments soft and compressible no sign of compartment syndrome. Stasis dermatitis of the right lower extremity. Dorsal ulceration along the midfoot without purulent drainage or erythema. Serosanguineous drainage. Intact plantar flexion/dorsiflexion. Results Laboratory Results: 01/19/19 05:45 01/19/19 05:45 01/19/19 01/19/19 01/19/19 05:45 05:45 09:05 WBC 6.4 RBC 3.47 L Hgb 10.2 L Hct 30.5 L MCV 88 MCH 29.4 MCHC 33.6 RDW 16.1 H Plt Count 155 Seg Neutrophils % 71.4 Lymphocytes % 14.4 Monocytes % 10.2 Eosinophils % 3.5 Basophils % 0.5 Absolute Neutrophils 4.5 Absolute Lymphocytes 0.9 Absolute Monocytes 0.6 Absolute Eosinophils 0.2 Absolute Basophils 0.0 Sodium 141.5 Potassium 3.8 Chloride 107 Carbon Dioxide 27 Anion Gap 8 BUN 58 H Creatinine 1.35 H Est GFR ( Amer) > 60 Est GFR (Non-Af Amer) 52 L Glucose 97 Calcium 8.8 Magnesium 2.7 H Blood Type O POSITIVE Antibody Screen NEGATIVE 01/19/19 05:45 NT-Pro-B Natriuret Pep 5840 H Impressions: Knee X-Ray 01/18/19 14:01 IMPRESSION: Acute transverse comminuted distal femoral diaphysis fracture with dorsal displacement of the distal fracture fragment. Age-indeterminate proximal fibular fracture Chest X-Ray 01/19/19 08:24 IMPRESSION: Cardiomegaly without acute infiltrates or pleural effusion Assessment & Plan - Diagnosis (1) Femoral distal fracture Qualifiers: Encounter type: initial encounter Fracture type: closed Laterality: right Is this a current diagnosis for this admission?: Yes Plan: Patient sustained a extra-articular distal femur fracture. Given the alignment I would recommend operative intervention including open reduction internal fixation versus retrograde nail. After discussing these options patient has elected proceed with operative intervention. Patient's Eliquis has been held and I have discussed the case with the hospitalist who feels patient is medically optimized for operative intervention for Sunday. Will start the patient on antibiotics for his right foot ulceration. Patient understands he is at increased risk of complications given his multiple comorbidities and ulceration but further delayed operative intervention likely increased risks opposed to benefits. Plan will be to proceed with operative intervention on 01/20/19.
--- NOTE | 2019-01-19 16:08 | PDOC PROGRESS REPORT ---
Subjective Progress Note for:: 01/19/19 Subjective:: HELEN STEELE is a 73 year old male with past medical history of atrial fibrillation, chronic anticoagulation, chronic diastolic heart failure, essential hypertension, peripheral vascular disease, chronic pain requiring opioid analgesics and gout; who presents to [facility]'s emergency room via EMS after he fell while using a rotor tiller in the garden earlier today. He immediately began having severe right knee and thigh pain and was unable to get up. EMS was called and he was brought to the ER. Workup in the ER revealed a distal fracture of his right femur. He was seen in consult by Dr. Oscar Foote, orthopedic surgeon who plans on operative fixation on Sunday. He was referred to the hospitalist service for admissio Reason For Visit: FEMUR FRACTURE Physical Exam Vital Signs: Temp Pulse Resp BP Pulse Ox 98.4 F 71 18 134/63 H 98 01/19/19 15:00 01/19/19 15:00 01/19/19 15:00 01/19/19 15:00 01/19/19 15:00 Intake & Output 01/18/19 01/19/19 01/20/19 06:59 06:59 06:59 Intake Total 1659 Output Total 600 Balance 1059 Weight 96.2 kg General appearance: PRESENT: no acute distress, obese, well-developed, well- nourished Head exam: PRESENT: atraumatic, normocephalic Neck exam: ABSENT: carotid bruit, JVD, lymphadenopathy, thyromegaly Respiratory exam: PRESENT: clear to auscultation jose. ABSENT: rales, rhonchi, wheezes Cardiovascular exam: PRESENT: RRR. ABSENT: diastolic murmur, rubs, systolic murmur Pulses: PRESENT: normal dorsalis pedis pul Extremities exam: PRESENT: full ROM, pedal edema, other - Right lower extremity. Swelling and ecchymosis along the femoral line. Tender to palpation. Neurovascularly intact. No sign of compartment syndrome. Dorsal right foot ulceration without purulent drainage or discharge. Sanguinous drainage.. ABSENT: calf tenderness, clubbing Results Laboratory Results: 01/19/19 05:45 01/19/19 05:45 01/19/19 01/19/19 01/19/19 05:45 05:45 09:05 WBC 6.4 RBC 3.47 L Hgb 10.2 L Hct 30.5 L MCV 88 MCH 29.4 MCHC 33.6 RDW 16.1 H Plt Count 155 Seg Neutrophils % 71.4 Lymphocytes % 14.4 Monocytes % 10.2 Eosinophils % 3.5 Basophils % 0.5 Absolute Neutrophils 4.5 Absolute Lymphocytes 0.9 Absolute Monocytes 0.6 Absolute Eosinophils 0.2 Absolute Basophils 0.0 Sodium 141.5 Potassium 3.8 Chloride 107 Carbon Dioxide 27 Anion Gap 8 BUN 58 H Creatinine 1.35 H Est GFR ( Amer) > 60 Est GFR (Non-Af Amer) 52 L Glucose 97 Calcium 8.8 Magnesium 2.7 H Blood Type O POSITIVE Antibody Screen NEGATIVE 01/19/19 05:45 NT-Pro-B Natriuret Pep 5840 H Impressions: Knee X-Ray 01/18/19 14:01 IMPRESSION: Acute transverse comminuted distal femoral diaphysis fracture with dorsal displacement of the distal fracture fragment. Age-indeterminate proximal fibular fracture Chest X-Ray 01/19/19 08:24 IMPRESSION: Cardiomegaly without acute infiltrates or pleural effusion Assessment and Plan - Diagnosis (1) Closed fracture of right distal femur Qualifiers: Encounter type: initial encounter Fracture morphology: other fracture Qualified Code(s): S72.491A - Other fracture of lower end of right femur, initial encounter for closed fracture Is this a current diagnosis for this admission?: Yes Plan: Continue supportive measures. Dr. Oscar Foote, orthopedic surgery, has seen patient in consult. Patient scheduled for ORIF tomorrow. Eliquis has been held for the last 2 days. Coags CBC, CMP, magnesium level in the morning. Monitor blood pressure. N.p.o. after midnight. DW 5% 80 ml/hr. Restart on heparin or Eliquis post surgery. Follow-up heart recommendations. (2) Chronic ulcer of right foot with fat layer exposed Is this a current diagnosis for this admission?: Yes Plan: Followed in the wound care clinic by Dr. Fabiola Dsouza. Start on prophylactic cefazolin patient of ORIF tomorrow. Follow-up with Dr. Fabiola Dsouza as outpatient. Continue wound care. (3) Acute on chronic renal failure Is this a current diagnosis for this admission?: Yes Plan: Improving. Likely prerenal due to dehydration. Baseline 1.1-1.4. Continue IV fluids. Monitor volume status and electrolyte levels. Replace as needed. Outpatient nephrology follow-up. (4) Atrial fibrillation Qualifiers: Atrial fibrillation type: paroxysmal Qualified Code(s): I48.0 - Paroxysmal atrial fibrillation Is this a current diagnosis for this admission?: Yes Plan: Rate controlled. Continue beta-blockers. Eliquis has been held in anticipation of surgery for Sunday. Restart on Eliquis or heparin post surgery. Follow-up altered recommendations. Outpatient cardiology follow-up. (5) Chronic diastolic heart failure Is this a current diagnosis for this admission?: Yes Plan: 2D echo 08/2018 normal ejection fraction. Not seem to be in any acute exacerbation. Euvolemic. Continue beta-blockers. Cardiac diet. May benefit from CESAR inhibitor if kidney function is back to baseline. (6) Chronic pain syndrome Is this a current diagnosis for this admission?: Yes Plan: Continue fentanyl, hydromorphone, oxycodone. Followed by pain management clinic as outpatient. De-escalate opiate analgesics postsurgery. (7) Gout Is this a current diagnosis for this admission?: Yes Plan: Continue allopurinol. (8) PVD (peripheral vascular disease) Is this a current diagnosis for this admission?: Yes Plan: We will continue aspirin and statin. (9) Venous stasis Is this a current diagnosis for this admission?: Yes Plan: SCDs. Lower extremity elevation. Holding Eliquis in anticipation for ORIF on Sunday.
[2019-01-19] MEDS: CEFAZOLIN 1 GM/D5W RTU 1 GM/50 ML RTUPB IV SCH ×3 (17:16→23:57)
[2019-01-19] MEDS ORDERED: HEPARIN SOD (PORCINE) 5,000 UNIT/ML 1 ML SYRINGE SUBCUT SCH (22:00)
[2019-01-20] MEDS: HYDROMORPHONE HCL INJ/PF 2 MG/ML AMPULE IV PRN ×2 (03:53→08:03)
[2019-01-20] MEDS: CEFAZOLIN 1 GM/D5W RTU 1 GM/50 ML RTUPB IV SCH ×2 (06:28→17:48)
[2019-01-20 07:45] LABS: ABSOLUTE EOSINOPHILS # (AUTO) 0.2 10^3/uL (0.0-0.6); ABSOLUTE LYMPHOCYTES (AUTO) 0.9 10^3/uL (0.5-4.7); ABSOLUTE MONOCYTES (AUTO) 0.7 10^3/uL (0.1-1.4); ABSOLUTE NEUT (AUTO) 4.5 10^3/uL (1.7-8.2); BASOPHILS % (AUTO) 0.4 % (0-2); EOSINOPHILS % (AUTO) 3.3 % (0-6); HEMATOCRIT 31.4 % (37.9-51.0); HEMOGLOBIN 10.3 g/dL (13.5-17.0); LYMPHOCYTES % (AUTO) 13.8 % (13-45); MEAN CORPUSCULAR HEMOGLOBIN 29.1 pg (27.0-33.4); MEAN CORPUSCULAR HGB CONC 32.8 g/dL (32.0-36.0); MEAN CORPUSCULAR VOLUME 89 fl (80-97); PLATELET COUNT 156 10^3/uL (150-450); RED BLOOD COUNT 3.53 10^6/uL (4.35-5.55); RED CELL DISTRIBUTION WIDTH 16.1 % (11.5-14.0); SEGMENTED NEUTROPHILS % (AUTO) 71.5 % (42-78); TOTAL CELLS COUNTED % (AUTO) 100 %; WHITE BLOOD COUNT 6.3 10^3/uL (4.0-10.5)
[2019-01-20 07:51] LABS: INTERNATIONAL RATION (INR) 1.07; PROTHROMBIN TIME 14.5 SEC (11.4-15.4)
[2019-01-20 08:03] LABS: ALANINE AMINOTRANSFERASE 23 U/L (21-72); ALKALINE PHOSPHATASE 104 U/L (38-126); ASPARTATE AMINO TRANSFERASE 24 U/L (17-59); BILIRUBIN,DIRECT 0.3 mg/dL (0.0-0.4); BILIRUBIN,TOTAL 0.8 mg/dL (0.2-1.3); BLOOD UREA NITROGEN 35 mg/dL (7-20); CALCIUM 8.7 mg/dL (8.4-10.2); GLUCOSE 126 mg/dL (75-110); POTASSIUM 4.3 mmol/L (3.6-5.0); TOTAL PROTEIN 5.9 g/dL (6.3-8.2)
[2019-01-20 08:08] LABS: ANION GAP 5 (5-19); CARBON DIOXIDE 28 mmol/L (22-30); CHLORIDE 111 mmol/L (98-107); SODIUM 143.5 mmol/L (137-145)
[2019-01-20] MEDS ORDERED: RINGERS SOLUTION,LACTATED 1,000 ML IV PRN (08:31)
[2019-01-20] MEDS ORDERED: TRANEXAMIC ACID INJ/PF 1,000 MG/10 ML SDV IV PRN (08:34)
[2019-01-20] MEDS: OXYCODONE HCL IR 5 MG TABLET PO PRN (10:21)
[2019-01-20] MEDS: CARVEDILOL 12.5 MG TABLET PO SCH ×2 (10:22→21:31)
[2019-01-20] MEDS: ALLOPURINOL 100 MG TABLET PO SCH ×2 (10:22→18:40)
[2019-01-20] MEDS: FAMOTIDINE 20 MG TABLET PO SCH ×2 (10:22→21:32)
[2019-01-20] MEDS: DOCUSATE SODIUM 100 MG CAPSULE PO SCH ×2 (10:22→18:40)
[2019-01-20] MEDS: AMLODIPINE BESYLATE 5 MG TABLET PO SCH (10:23)
[2019-01-20] MEDS: ASPIRIN 81 MG TABLET, ENT COATED PO SCH (10:25)
[2019-01-20] MEDS ORDERED: HYDROMORPHONE HCL INJ/PF 2 MG/ML AMPULE IV ONE (10:45)
[2019-01-20] MEDS ORDERED: SUCCINYLCHOLINE CHLORIDE INJ 200 MG/10 ML VIAL ONE (10:46)
[2019-01-20] MEDS ORDERED: CEFAZOLIN INJ 1 GM VIAL ONE (14:30)
[2019-01-20] MEDS ORDERED: ONDANSETRON HCL INJ/PF 4 MG/2 ML SDV IV PRN (14:37)
[2019-01-20] MEDS ORDERED: MORPHINE SULFATE 10 MG/ML INJ IV PRN (14:37)
[2019-01-20] MEDS ORDERED: PROMETHAZINE HCL INJ 25 MG/1 ML VIAL IV PRN ×2 (14:37)
[2019-01-20] MEDS ORDERED: MEPERIDINE HCL/PF INJ 25 MG/1 ML DISP.SYRIN IV PRN (14:37)
[2019-01-20] MEDS ORDERED: DIPHENHYDRAMINE HCL 50 MG/ML VIAL IV PRN (14:37)
[2019-01-20] MEDS ORDERED: FENTANYL CITRATE INJ/PF 100 MCG/2 ML AMPUL IV PRN ×3 (14:37)
[2019-01-20] MEDS ORDERED: (PENDING PHARMACY ID) (Acetaminophen [Tylenol] 650 MG) PO PRN (15:19)
--- NOTE | 2019-01-20 15:26 | Operative Report ---
Operative Report DATE OF SURGERY: 01/20/19 PREOPERATIVE DIAGNOSIS: Right distal femur fracture OPERATION: Open reduction internal fixation right distal femur fracture SURGEON: MARTHA CALHOUN ANESTHESIA: GA ESTIMATED BLOOD LOSS: 100 PROCEDURE: With the patient supine on the [place] fracture table the right lower extremity was prepped and draped in a sterile fashion. A sterile tourniquet was placed. The limb is elevated for exsanguination. Tourniquet inflated 280 torr. Longitudinal incisions made along the medial border of the patellar tendon and sharp dissection to the carried the incision down to the joint. A pin is placed under fluoroscopic guidance to effect a reasonable starting location for retrograde femoral nail. A combined reamer was then used to fashion the opening. These were removed and a ball-tipped guide miguel was placed down the femur. While its relatively easy to get the ball-tipped guide miguel down the femur and up in so that it opposes the total hip arthroplasty cephalad, the size of the canal is such that it is very difficult to align the proximal distal fragment both from an angular standpoint as well as anterior posterior translation standpoint. Subsequently a [place] T2 SCN supracondylar nail was advanced over the ball-tipped guide miguel 14 mm x 200 mm. It secured distally with 2 bolts and a screw and proximally with 2 screws. The construct is evaluat ed fluoroscopically for both fracture reduction and hardware placement. Hardware placement is excellent. Fracture reduction demonstrates a continued angulation in the distal femur with the apex anterior and a slight translation. It is felt that this is adequate to allow for healing of the fracture with a mild malunion. The wounds irrigated and closed in layers with interrupted Vicryl followed by patria. A sterile compressive dressing is applied and the patient's return to the PACU in satisfactory condition.
[2019-01-20] MEDS ORDERED: FENTANYL 75 MCG/HR PATCH.TD72 TOP SCH (15:30)
--- NOTE | 2019-01-20 15:51 | RADIOLOGY REPORT (SQ) ---
EXAM DESCRIPTION: FEMUR RIGHT; NO CHG FLUORO COMPLETED DATE/TIME: 01/20/2019 3:36 pm REASON FOR STUDY: ORIF RT FEMUR COMPARISON: Right knee four views 01/18/2019 FLUOROSCOPY TIME: 2.4 minutes 9 digital fluoroscopic images saved to PACS. TECHNIQUE: Intra-operative images acquired during surgical procedure to evaluate progress. NUMBER OF IMAGES: 9 digital fluoroscopic images saved to pac's LIMITATIONS: None. FINDINGS: Intra procedural imaging and fluoro during ORIF of a left distal femoral diaphysis fractur e. An intramedullary nail and proximal and distal anchoring screws are present. Please see the oper ative report for further details IMPRESSION: Intra procedural imaging and fluoro COMMENT: Quality ID [id number]: Final reports for procedures using fluoroscopy that document radiation exp osure indices, or exposure time and number of fluorographic images (if radiation exposure indices are not available) Please consult full operative report of the attending physician for description of the procedure. TECHNICAL DOCUMENTATION: JOB ID: [id number] [employer]- All Rights Reserved Reading location - IP/workstation name: [email or web address]
--- NOTE | 2019-01-20 15:51 | RADIOLOGY REPORT (SQ) ---
EXAM DESCRIPTION: FEMUR RIGHT; NO CHG FLUORO COMPLETED DATE/TIME: 01/20/2019 3:36 pm REASON FOR STUDY: ORIF RT FEMUR COMPARISON: Right knee four views 01/18/2019 FLUOROSCOPY TIME: 2.4 minutes 9 digital fluoroscopic images saved to PACS. TECHNIQUE: Intra-operative images acquired during surgical procedure to evaluate progress. NUMBER OF IMAGES: 9 digital fluoroscopic images saved to pac's LIMITATIONS: None. FINDINGS: Intra procedural imaging and fluoro during ORIF of a left distal femoral diaphysis fractur e. An intramedullary nail and proximal and distal anchoring screws are present. Please see the oper ative report for further details IMPRESSION: Intra procedural imaging and fluoro COMMENT: Quality ID [id number]: Final reports for procedures using fluoroscopy that document radiation exp osure indices, or exposure time and number of fluorographic images (if radiation exposure indices are not available) Please consult full operative report of the attending physician for description of the procedure. TECHNICAL DOCUMENTATION: JOB ID: [id number] [employer]- All Rights Reserved Reading location - IP/workstation name: [email or web address]
[2019-01-20] MEDS: FENTANYL CITRATE INJ/PF 100 MCG/2 ML AMPUL ONE ×2 (15:59→16:04)
[2019-01-20] MEDS: HYDROMORPHONE HCL INJ/PF 2 MG/ML AMPULE ONE ×2 (16:20→16:30)
--- NOTE | 2019-01-20 18:31 | PDOC PROGRESS REPORT ---
Subjective Progress Note for:: 01/20/19 Subjective:: No adverse events overnight. No new complaints. He still in some discomfort but it is manageable. Vital signs been stable. He is looking forward to being able to eat postoperatively. Reason For Visit: AFIB, RT FEMOR FX Physical Exam Vital Signs: Temp Pulse Resp BP Pulse Ox 97.6 F 68 16 139/71 H 97 01/20/19 15:46 01/20/19 16:56 01/20/19 16:56 01/20/19 16:56 01/20/19 16:56 Intake & Output 01/19/19 01/20/19 01/21/19 06:59 06:59 06:59 Intake Total 1659 3004 1250 Output Total 600 1700 200 Balance 1059 1304 1050 Weight 96.2 kg 100.1 kg General appearance: PRESENT: no acute distress, cooperative, disheveled, obese Respiratory exam: PRESENT: clear to auscultation jose, symmetrical, unlabored. ABSENT: accessory muscle use, crackles, prolonged expiratory phas, rhonchi, tachypnea, wheezes Cardiovascular exam: PRESENT: RRR, +S1, +S2 Pulses: PRESENT: normal carotid pulses Vascular exam: PRESENT: normal capillary refill GI/Abdominal exam: PRESENT: normal bowel sounds, soft. ABSENT: distended, guarding, rebound, tenderness Extremities exam: ABSENT: clubbing, pedal edema Musculoskeletal exam: PRESENT: deformity, tenderness - Proximal to right knee Neurological exam: PRESENT: alert, awake, oriented to person, oriented to place, oriented to time, oriented to situation Psychiatric exam: PRESENT: appropriate affect, normal mood Skin exam: PRESENT: dry, warm, other - Superficial excoriation dorsum of right foot Results Laboratory Results: 01/20/19 07:23 01/20/19 07:23 01/20/19 01/20/19 07:23 07:23 WBC 6.3 RBC 3.53 L Hgb 10.3 L Hct 31.4 L MCV 89 MCH 29.1 MCHC 32.8 RDW 16.1 H Plt Count 156 Seg Neutrophils % 71.5 Lymphocytes % 13.8 Monocytes % 11.0 Eosinophils % 3.3 Basophils % 0.4 Absolute Neutrophils 4.5 Absolute Lymphocytes 0.9 Absolute Monocytes 0.7 Absolute Eosinophils 0.2 Absolute Basophils 0.0 Sodium 143.5 Potassium 4.3 Chloride 111 H Carbon Dioxide 28 Anion Gap 5 BUN 35 H Creatinine 1.06 Est GFR ( Amer) > 60 Est GFR (Non-Af Amer) > 60 Glucose 126 H Calcium 8.7 Magnesium 2.7 H Total Bilirubin 0.8 AST 24 ALT 23 Alkaline Phosphatase 104 Total Protein 5.9 L Albumin 3.0 L 01/19/19 05:45 NT-Pro-B Natriuret Pep 5840 H Impressions: Knee X-Ray 01/18/19 14:01 IMPRESSION: Acute transverse comminuted distal femoral diaphysis fracture with dorsal displacement of the distal fracture fragment. Age-indeterminate proximal fibular fracture Chest X-Ray 01/19/19 08:24 IMPRESSION: Cardiomegaly without acute infiltrates or pleural effusion Femur X-Ray 01/20/19 00:00 IMPRESSION: Intra procedural imaging and fluoro Fluoroscopy 01/20/19 00:00 IMPRESSION: Intra procedural imaging and fluoro Assessment and Plan - Diagnosis (1) Closed fracture of right distal femur Qualifiers: Encounter type: initial encounter Fracture morphology: other fracture Qualified Code(s): S72.491A - Other fracture of lower end of right femur, initial encounter for closed fracture Is this a current diagnosis for this admission?: Yes Plan: To the OR today. Continue pain control. Postoperative activity instructions per orthopedics. (2) Acute renal failure superimposed on stage 3 chronic kidney disease Qualifiers: Acute renal failure type: unspecified Qualified Code(s): N17.9 - Acute kidney failure, unspecified; N18.3 - Chronic kidney disease, stage 3 (moderate) Is this a current diagnosis for this admission?: Yes Plan: Resolved with IV fluids (3) Chronic diastolic heart failure Is this a current diagnosis for this admission?: Yes Plan: Not acutely exacerbated, continue home medications (4) Atrial fibrillation Qualifiers: Atrial fibrillation type: paroxysmal Qualified Code(s): I48.0 - Paroxysmal atrial fibrillation Is this a current diagnosis for this admission?: Yes Plan: Anticoagulation is being held, will resume postoperatively when orthopedics deems appropriate pending his course in the OR today (5) Chronic ulcer of right foot with fat layer exposed Is this a current diagnosis for this admission?: Yes Plan: He follows up outpatient with the wound center (6) PVD (peripheral vascular disease) Is this a current diagnosis for this admission?: Yes Plan: Continues on aspirin and a statin - Time Time Spent with patient: 25-34 minutes
[2019-01-20] MEDS: HYDROMORPHONE HCL INJ/PF 2 MG/ML AMPULE IV SCH ×2 (18:39→21:32)
--- NOTE | 2019-01-20 19:38 | EKG REPORT ---
SEVERITY:- ABNORMAL ECG - ATRIAL FIBRILLATION : Confirmed by: Billy Smalls MD 20-Jan-2019 19:36:43
[2019-01-20] MEDS: OXYCODONE HCL SR 10 MG TABLET PO SCH (19:40)
[2019-01-20] MEDS: APIXABAN 5 MG TABLET PO SCH (21:39)
[2019-01-20] MEDS ORDERED: CEFAZOLIN 1 GM/D5W RTU 0 GM/0 ML RTUPB IV ONE (21:41)
[2019-01-20] MEDS: CEFAZOLIN SODIUM 2 GM in DEXTROSE 5%-WATER 100 ML IV SCH (21:43)
[2019-01-21] MEDS: HYDROMORPHONE HCL INJ/PF 2 MG/ML AMPULE IV SCH ×10 (00:40→16:47)
[2019-01-21 05:37] LABS: HEMATOCRIT 27.8 % (37.9-51.0); HEMOGLOBIN 9.2 g/dL (13.5-17.0); MEAN CORPUSCULAR HEMOGLOBIN 29.6 pg (27.0-33.4); MEAN CORPUSCULAR HGB CONC 33.1 g/dL (32.0-36.0); MEAN CORPUSCULAR VOLUME 89 fl (80-97); PLATELET COUNT 146 10^3/uL (150-450); RED BLOOD COUNT 3.11 10^6/uL (4.35-5.55); RED CELL DISTRIBUTION WIDTH 15.7 % (11.5-14.0); WHITE BLOOD COUNT 7.4 10^3/uL (4.0-10.5)
[2019-01-21 06:10] LABS: ANION GAP 5 (5-19); BLOOD UREA NITROGEN 29 mg/dL (7-20); CALCIUM 8.4 mg/dL (8.4-10.2); CARBON DIOXIDE 27 mmol/L (22-30); CHLORIDE 112 mmol/L (98-107); GLUCOSE 140 mg/dL (75-110); POTASSIUM 4.4 mmol/L (3.6-5.0); SODIUM 143.7 mmol/L (137-145)
[2019-01-21] MEDS: OXYCODONE HCL SR 10 MG TABLET PO SCH ×2 (06:19→17:33)
[2019-01-21] MEDS: CEFAZOLIN SODIUM 2 GM in DEXTROSE 5%-WATER 100 ML IV SCH (06:19)
--- NOTE | 2019-01-21 07:11 | PDOC PROGRESS REPORT ---
Subjective Progress Note for:: 01/21/19 Reason For Visit: AFIB, RT FEMOR FX 73-year-old white male postop day 1 status post ORIF of a right distal femur fracture. Physical Exam Vital Signs: Temp Pulse Resp BP Pulse Ox 36.9 C 59 L 17 127/64 H 98 01/21/19 03:28 01/21/19 03:28 01/21/19 03:28 01/21/19 03:28 01/21/19 03:28 Intake & Output 01/20/19 01/21/19 01/22/19 06:59 06:59 06:59 Intake Total 3004 1350 100 Output Total 1700 2300 Balance 1304 -950 100 Weight 100.1 kg 98.6 kg General appearance: PRESENT: no acute distress, mild distress Head exam: PRESENT: normocephalic Respiratory exam: PRESENT: unlabored Cardiovascular exam: PRESENT: irregular rhythm Pulses: PRESENT: +1 pedal pulses bilateral Vascular exam: PRESENT: normal capillary refill GI/Abdominal exam: PRESENT: soft Rectal exam: PRESENT: deferred Extremities exam: PRESENT: other - Right lower extremity dressing clean dry and intact. Dorsal foot dressing is intact. Modest pedal edema. Psychiatric exam: PRESENT: appropriate affect, normal mood. ABSENT: homicidal ideation, suicidal ideation Skin exam: PRESENT: dry, intact, warm. ABSENT: cyanosis, rash Results Laboratory Results: 01/21/19 04:33 01/21/19 04:33 01/20/19 01/20/19 01/21/19 07:23 07:23 04:33 WBC 6.3 7.4 RBC 3.53 L 3.11 L Hgb 10.3 L 9.2 L Hct 31.4 L 27.8 L MCV 89 89 MCH 29.1 29.6 MCHC 32.8 33.1 RDW 16.1 H 15.7 H Plt Count 156 146 L Seg Neutrophils % 71.5 Lymphocytes % 13.8 Monocytes % 11.0 Eosinophils % 3.3 Basophils % 0.4 Absolute Neutrophils 4.5 Absolute Lymphocytes 0.9 Absolute Monocytes 0.7 Absolute Eosinophils 0.2 Absolute Basophils 0.0 Sodium 143.5 Potassium 4.3 Chloride 111 H Carbon Dioxide 28 Anion Gap 5 BUN 35 H Creatinine 1.06 Est GFR ( Amer) > 60 Est GFR (Non-Af Amer) > 60 Glucose 126 H Calcium 8.7 Magnesium 2.7 H Total Bilirubin 0.8 AST 24 ALT 23 Alkaline Phosphatase 104 Total Protein 5.9 L Albumin 3.0 L 01/21/19 04:33 WBC RBC Hgb Hct MCV MCH MCHC RDW Plt Count Seg Neutrophils % Lymphocytes % Monocytes % Eosinophils % Basophils % Absolute Neutrophils Absolute Lymphocytes Absolute Monocytes Absolute Eosinophils Absolute Basophils Sodium 143.7 Potassium 4.4 Chloride 112 H Carbon Dioxide 27 Anion Gap 5 BUN 29 H Creatinine 1.01 Est GFR ( Amer) > 60 Est GFR (Non-Af Amer) > 60 Glucose 140 H Calcium 8.4 Magnesium Total Bilirubin AST ALT Alkaline Phosphatase Total Protein Albumin 01/19/19 05:45 NT-Pro-B Natriuret Pep 5840 H Impressions: Knee X-Ray 01/18/19 14:01 IMPRESSION: Acute transverse comminuted distal femoral diaphysis fracture with dorsal displacement of the distal fracture fragment. Age-indeterminate proximal fibular fracture Chest X-Ray 01/19/19 08:24 IMPRESSION: Cardiomegaly without acute infiltrates or pleural effusion Femur X-Ray 01/20/19 00:00 IMPRESSION: Intra procedural imaging and fluoro Fluoroscopy 01/20/19 00:00 IMPRESSION: Intra procedural imaging and fluoro Status: Imported from PACS Assessment & Plan - Diagnosis (1) Closed fracture of right distal femur Qualifiers: Encounter type: initial encounter Fracture morphology: other fracture Qualified Code(s): S72.491A - Other fracture of lower end of right femur, initial encounter for closed fracture Is this a current diagnosis for this admission?: Yes Plan: Mobilized with physical therapy on a restricted weightbearing basis. Anticipate the need for half-way facility placement. - Time Time Spent with patient: 15-24 minutes Anticipated discharge: SNF Within: when bed available
[2019-01-21] MEDS ORDERED: FENTANYL 100 MCG/HR PATCH.TD72 TD SCH (10:00)
[2019-01-21] MEDS ORDERED: DOCUSATE SODIUM 100 MG CAPSULE PO SCH (10:00)
[2019-01-21] MEDS: AMLODIPINE BESYLATE 5 MG TABLET PO SCH (10:02)
[2019-01-21] MEDS: CARVEDILOL 12.5 MG TABLET PO SCH ×2 (10:03→21:12)
[2019-01-21] MEDS: MULTIVITAMIN TABLET PO SCH (10:04)
[2019-01-21] MEDS: FUROSEMIDE 40 MG TABLET PO SCH (10:04)
[2019-01-21] MEDS: FAMOTIDINE 20 MG TABLET PO SCH ×2 (10:04→21:13)
[2019-01-21] MEDS: DOCUSATE SODIUM 100 MG CAPSULE PO SCH ×2 (10:05→17:33)
[2019-01-21] MEDS: ALLOPURINOL 100 MG TABLET PO SCH ×2 (10:05→17:33)
[2019-01-21] MEDS: APIXABAN 5 MG TABLET PO SCH ×2 (10:05→21:12)
[2019-01-21] MEDS: ASPIRIN 81 MG TABLET, ENT COATED PO SCH (10:05)
[2019-01-21] MEDS: ASCORBIC ACID 500 MG TABLET PO SCH (10:05)
[2019-01-21] MEDS: CALCIUM CARBONATE 500 MG TABLET PO SCH (10:05)
[2019-01-21] MEDS ORDERED: BISACODYL 5 MG TABEC PO PRN ×2 (11:31→12:30)
[2019-01-21] MEDS ORDERED: BISACODYL 10 MG SUPP.RECT PR PRN (11:31)
[2019-01-21] MEDS: CEFAZOLIN 1 GM/D5W RTU 1 GM/50 ML RTUPB IV SCH ×2 (12:35→17:33)
[2019-01-21] MEDS: POLYETHYLENE GLYCOL 3350 POWDER 17 GM/1 PACKET PO SCH (14:32)
[2019-01-21] MEDS: HYDROMORPHONE HCL INJ/PF 2 MG/ML AMPULE IV PRN (21:11)
[2019-01-22] MEDS: CEFAZOLIN 1 GM/D5W RTU 1 GM/50 ML RTUPB IV SCH ×5 (00:23→23:19)
[2019-01-22] MEDS: OXYCODONE HCL IR 5 MG TABLET PO PRN ×2 (00:24→11:00)
[2019-01-22 04:01] LABS: ABSOLUTE EOSINOPHILS # (AUTO) 0.1 10^3/uL (0.0-0.6); ABSOLUTE LYMPHOCYTES (AUTO) 0.8 10^3/uL (0.5-4.7); ABSOLUTE MONOCYTES (AUTO) 0.6 10^3/uL (0.1-1.4); ABSOLUTE NEUT (AUTO) 4.9 10^3/uL (1.7-8.2); BASOPHILS % (AUTO) 0.5 % (0-2); HEMATOCRIT 28.9 % (37.9-51.0); HEMOGLOBIN 9.5 g/dL (13.5-17.0); LYMPHOCYTES % (AUTO) 12.5 % (13-45); MEAN CORPUSCULAR HGB CONC 32.8 g/dL (32.0-36.0); MEAN CORPUSCULAR VOLUME 88 fl (80-97); MONOCYTES % (AUTO) 8.8 % (3-13); PLATELET COUNT 148 10^3/uL (150-450); RED BLOOD COUNT 3.27 10^6/uL (4.35-5.55); RED CELL DISTRIBUTION WIDTH 15.5 % (11.5-14.0); SEGMENTED NEUTROPHILS % (AUTO) 76.2 % (42-78); TOTAL CELLS COUNTED % (AUTO) 100 %; WHITE BLOOD COUNT 6.5 10^3/uL (4.0-10.5)
[2019-01-22] MEDS: HYDROMORPHONE HCL INJ/PF 2 MG/ML AMPULE IV PRN ×4 (04:38→23:25)
[2019-01-22] MEDS: OXYCODONE HCL SR 10 MG TABLET PO SCH ×2 (06:13→17:04)
--- NOTE | 2019-01-22 07:31 | PDOC PROGRESS REPORT ---
Subjective Progress Note for:: 01/22/19 Reason For Visit: AFIB, RT FEMOR FX 73-year-old white male now postop day 2 status post open reduction internal fixation of a right distal femur fracture. Uneventful postoperative course but limited progress with physical therapy. Physical Exam Vital Signs: Temp Pulse Resp BP Pulse Ox 36.6 C 66 16 148/71 H 96 01/22/19 04:00 01/22/19 04:00 01/22/19 04:00 01/22/19 04:00 01/22/19 04:00 Intake & Output 01/21/19 01/22/19 01/23/19 06:59 06:59 06:59 Intake Total 1350 2810 Output Total 2300 2350 Balance -950 460 Weight 98.6 kg 100.5 kg General appearance: PRESENT: mild distress Head exam: PRESENT: normocephalic Respiratory exam: PRESENT: unlabored Cardiovascular exam: PRESENT: RRR Vascular exam: PRESENT: normal capillary refill GI/Abdominal exam: PRESENT: soft Rectal exam: PRESENT: deferred Extremities exam: PRESENT: other - Right lower extremity dressing clean dry and intact dorsal foot dressing intact. Neurological exam: PRESENT: alert, awake, oriented to person, oriented to place, oriented to time, oriented to situation. ABSENT: motor sensory deficit Results Laboratory Results: 01/22/19 03:05 01/21/19 04:33 01/22/19 03:05 WBC 6.5 RBC 3.27 L Hgb 9.5 L Hct 28.9 L MCV 88 MCH 29.0 MCHC 32.8 RDW 15.5 H Plt Count 148 L Seg Neutrophils % 76.2 Lymphocytes % 12.5 L Monocytes % 8.8 Eosinophils % 2.0 Basophils % 0.5 Absolute Neutrophils 4.9 Absolute Lymphocytes 0.8 Absolute Monocytes 0.6 Absolute Eosinophils 0.1 Absolute Basophils 0.0 01/19/19 05:45 NT-Pro-B Natriuret Pep 5840 H Impressions: Knee X-Ray 01/18/19 14:01 IMPRESSION: Acute transverse comminuted distal femoral diaphysis fracture with dorsal displacement of the distal fracture fragment. Age-indeterminate proximal fibular fracture Chest X-Ray 01/19/19 08:24 IMPRESSION: Cardiomegaly without acute infiltrates or pleural effusion Femur X-Ray 01/20/19 00:00 IMPRESSION: Intra procedural imaging and fluoro Fluoroscopy 01/20/19 00:00 IMPRESSION: Intra procedural imaging and fluoro Status: Imported from PACS Assessment & Plan - Diagnosis (1) Closed fracture of right distal femur Qualifiers: Encounter type: initial encounter Fracture morphology: other fracture Qualified Code(s): S72.491A - Other fracture of lower end of right femur, ini tia encounter for closed fracture Is this a current diagnosis for this admission?: Yes Plan: Mobilized with physical therapy and a touchdown weightbearing restriction of the right lower extremity. Anticipate the need for [facility] facility placement. - Time Time Spent with patient: 15-24 minutes Anticipated discharge: SNF Within: when bed available
[2019-01-22] MEDS ORDERED: POLYETHYLENE GLYCOL 3350 POWDER 17 GM/1 PACKET PO SCH (10:00)
[2019-01-22] MEDS: APIXABAN 5 MG TABLET PO SCH ×2 (11:00→23:17)
[2019-01-22] MEDS: CARVEDILOL 12.5 MG TABLET PO SCH ×2 (11:00→23:17)
[2019-01-22] MEDS: ASPIRIN 81 MG TABLET, ENT COATED PO SCH (11:00)
[2019-01-22] MEDS: DOCUSATE SODIUM 100 MG CAPSULE PO SCH ×2 (11:00→17:04)
[2019-01-22] MEDS: ASCORBIC ACID 500 MG TABLET PO SCH (11:00)
[2019-01-22] MEDS: POLYETHYLENE GLYCOL 3350 POWDER 17 GM/1 PACKET PO SCH (11:00)
[2019-01-22] MEDS: MULTIVITAMIN TABLET PO SCH (11:00)
[2019-01-22] MEDS: FAMOTIDINE 20 MG TABLET PO SCH ×2 (11:00→23:17)
[2019-01-22] MEDS: CALCIUM CARBONATE 500 MG TABLET PO SCH (11:01)
[2019-01-22] MEDS: ALLOPURINOL 100 MG TABLET PO SCH ×2 (11:01→17:04)
[2019-01-22] MEDS: AMLODIPINE BESYLATE 2.5 MG TABLET PO SCH (11:01)
[2019-01-22] MEDS: FUROSEMIDE 40 MG TABLET PO SCH (11:01)
--- NOTE | 2019-01-22 20:34 | PDOC PROGRESS REPORT ---
Subjective Progress Note for:: 01/21/19 Subjective:: The patient did stand with physical therapy today. He said it was quite painful. Reason For Visit: AFIB, RT FEMOR FX Physical Exam Vital Signs: Temp Pulse Resp BP Pulse Ox 98.5 F 67 17 145/71 H 99 01/21/19 07:00 01/21/19 07:00 01/21/19 07:00 01/21/19 07:00 01/21/19 07:00 Intake & Output 01/20/19 01/21/19 01/22/19 06:59 06:59 06:59 Intake Total 3004 1350 100 Output Total 1700 2300 Balance 1304 -950 100 Weight 100.1 kg 98.6 kg General appearance: PRESENT: cooperative, mild distress, well-developed Eye exam: PRESENT: conjunctiva pink. ABSENT: scleral icterus Ear exam: PRESENT: normal external ear exam Respiratory exam: PRESENT: chest wall tenderness - On the right, clear to auscultation jose, symmetrical, unlabored. ABSENT: rales, rhonchi, wheezes Cardiovascular exam: PRESENT: RRR, +S1, +S2, systolic murmur - 3/6 GI/Abdominal exam: PRESENT: normal bowel sounds, soft. ABSENT: distended, tenderness Rectal exam: PRESENT: deferred Extremities exam: PRESENT: pedal edema Neurological exam: PRESENT: alert, awake, oriented to person, oriented to place, oriented to time, oriented to situation, CN II-XII grossly intact Psychiatric exam: PRESENT: appropriate affect - Affect reflects his discomfort. ABSENT: agitated, anxious Focused psych exam: ABSENT: delusional, restlessness Results Laboratory Results: 01/21/19 04:33 01/21/19 04:33 01/21/19 01/21/19 04:33 04:33 WBC 7.4 RBC 3.11 L Hgb 9.2 L Hct 27.8 L MCV 89 MCH 29.6 MCHC 33.1 RDW 15.7 H Plt Count 146 L Sodium 143.7 Potassium 4.4 Chloride 112 H Carbon Dioxide 27 Anion Gap 5 BUN 29 H Creatinine 1.01 Est GFR ( Amer) > 60 Est GFR (Non-Af Amer) > 60 Glucose 140 H Calcium 8.4 01/19/19 05:45 NT-Pro-B Natriuret Pep 5840 H Impressions: Knee X-Ray 01/18/19 14:01 IMPRESSION: Acute transverse comminuted distal femoral diaphysis fracture with dorsal displacement of the distal fracture fragment. Age-indeterminate proximal fibular fracture Chest X-Ray 01/19/19 08:24 IMPRESSION: Cardiomegaly without acute infiltrates or pleural effusion Femur X-Ray 01/20/19 00:00 IMPRESSION: Intra procedural imaging and fluoro Fluoroscopy 01/20/19 00:00 IMPRESSION: Intra procedural imaging and fluoro Assessment and Plan - Diagnosis (1) Closed fracture of right distal femur Qualifiers: Encounter type: initial encounter Fracture morphology: other fracture Qualified Code(s): S72.491A - Other fracture of lower end of right femur, initial encounter for closed fracture Is this a current diagnosis for this admission?: Yes Plan: Surgically repaired by Dr. Nam. Patient started to work physical therapy today. He will need referral to a skilled facility for ongoing physical therapy. (2) Acute renal failure superimposed on stage 3 chronic kidney disease Qualifiers: Acute renal failure type: unspecified Qualified Code(s): N17.9 - Acute kid jose failure, unspecified; N18.3 - Chronic kidney disease, stage 3 (moderate) Is this a current diagnosis for this admission?: Yes Plan: Resolved. Continue to monitor renal function. (3) Chronic diastolic heart failure Is this a current diagnosis for this admission?: Yes Plan: Currently stable. Continue current regimen. (4) Atrial fibrillation Qualifiers: Atrial fibrillation type: paroxysmal Qualified Code(s): I48.0 - Paroxysmal atrial fibrillation Is this a current diagnosis for this admission?: Yes Plan: Good rate control. He is back on his apixaban for anticoagulation. (5) Chronic ulcer of right foot with fat layer exposed Is this a current diagnosis for this admission?: Yes Plan: Continue current wound management. This is a chronic problem. Continue with wound care after discharge from rehab. (6) PVD (peripheral vascular disease) Is this a current diagnosis for this admission?: Yes Plan: The patient has a history of peripheral vascular disease. This is likely contributory to the ulcer. Continue antiplatelet and statin therapy. - Time Time Spent with patient: 15-24 minutes Anticipated discharge: SNF Within: within 24 hours
--- NOTE | 2019-01-22 20:39 | PDOC PROGRESS REPORT ---
Subjective Progress Note for:: 01/22/19 Subjective:: Patient still has discomfort in the leg. He feels that it may be slightly better than yesterday. He was up again with physical therapy. Reason For Visit: AFIB, RT FEMOR FX Physical Exam Vital Signs: Temp Pulse Resp BP Pulse Ox 98.4 F 64 20 165/67 H 100 01/22/19 11:26 01/22/19 11:26 01/22/19 11:26 01/22/19 11:26 01/22/19 11:26 Intake & Output 01/21/19 01/22/19 01/23/19 06:59 06:59 06:59 Intake Total 1350 2810 1036 Output Total 2300 2350 640 Balance -950 460 396 Weight 98.6 kg 100.5 kg General appearance: PRESENT: no acute distress, cooperative, well-developed Head exam: PRESENT: atraumatic, normocephalic Eye exam: PRESENT: conjunctiva pink. ABSENT: scleral icterus Respiratory exam: PRESENT: clear to auscultation jose, symmetrical, unlabored. ABSENT: prolonged expiratory phas, rales, rhonchi, wheezes Cardiovascular exam: PRESENT: RRR, +S1, +S2, systolic murmur - 3/6 GI/Abdominal exam: PRESENT: normal bowel sounds, soft. ABSENT: distended, tenderness Rectal exam: PRESENT: deferred Extremities exam: PRESENT: pedal edema Neurological exam: PRESENT: alert, awake, oriented to person, oriented to place, oriented to time, oriented to situation, CN II-XII grossly intact Psychiatric exam: PRESENT: appropriate affect. ABSENT: agitated, anxious Focused psych exam: ABSENT: delusional, restlessness Skin exam: PRESENT: other - Foam dressing on right foot ulcer Results Laboratory Results: 01/22/19 03:05 01/21/19 04:33 01/22/19 03:05 WBC 6.5 RBC 3.27 L Hgb 9.5 L Hct 28.9 L MCV 88 MCH 29.0 MCHC 32.8 RDW 15.5 H Plt Count 148 L Seg Neutrophils % 76.2 Lymphocytes % 12.5 L Monocytes % 8.8 Eosinophils % 2.0 Basophils % 0.5 Absolute Neutrophils 4.9 Absolute Lymphocytes 0.8 Absolute Monocytes 0.6 Absolute Eosinophils 0.1 Absolute Basophils 0.0 01/19/19 05:45 NT-Pro-B Natriuret Pep 5840 H Impressions: Knee X-Ray 01/18/19 14:01 IMPRESSION: Acute transverse comminuted distal femoral diaphysis fracture with dorsal displacement of the distal fracture fragment. Age-indeterminate proximal fibular fracture Chest X-Ray 01/19/19 08:24 IMPRESSION: Cardiomegaly without acute infiltrates or pleural effusion Femur X-Ray 01/20/19 00:00 IMPRESSION: Intra procedural imaging and fluoro Fluoroscopy 01/20/19 00:00 IMPRESSION: Intra procedural imaging and fluoro Assessment and Plan - Diagnosis (1) Closed fracture of right distal femur Qualifiers: Encounter type: initial encounter Fracture morphology: other fracture Qualified Code(s): S72.491A - Other fracture of lower end of right femur, initial encounter for closed fracture Is this a current diagnosis for this admission?: Yes Plan: Surgically repaired by Dr. Nam. Patient started to work physical therapy t octavio. He will need referral to a skilled facility for ongoing physical therapy. The patient is cleared for [facility] facility placement today. The family is trying to decide on which facility. (2) Chronic diastolic heart failure Is this a current diagnosis for this admission?: Yes Plan: Currently stable. Continue current medication regimen. (3) Atrial fibrillation Qualifiers: Atrial fibrillation type: paroxysmal Qualified Code(s): I48.0 - Paroxysmal atrial fibrillation Is this a current diagnosis for this admission?: Yes Plan: Anticoagulation has resumed. Continue current medication regimen. (4) Acute renal failure superimposed on stage 3 chronic kidney disease Qualifiers: Acute renal failure type: unspecified Qualified Code(s): N17.9 - Acute kidney failure, unspecified; N18.3 - Chronic kidney disease, stage 3 (moderate) Is this a current diagnosis for this admission?: Yes Plan: Acute insults resolved with IV fluids. Patient is back at or slightly better than his previous baseline. (5) Chronic ulcer of right foot with fat layer exposed Is this a current diagnosis for this admission?: Yes Plan: Continue conservative wound care with foam dressing. (6) PVD (peripheral vascular disease) Is this a current diagnosis for this admission?: Yes Plan: The patient has a history of peripheral vascular disease. This is likely contributory to the ulcer. Continue antiplatelet and statin therapy. - Time Time Spent with patient: 15-24 minutes Medications reviewed and adjusted accordingly: Yes Anticipated discharge: SNF Within: Other - Is medically cleared for transfer but family is reviewing different facilities and trying to decide on which facility they would prefer.
[2019-01-23] MEDS: OXYCODONE HCL SR 10 MG TABLET PO SCH ×2 (05:57→17:08)
[2019-01-23] MEDS: CEFAZOLIN 1 GM/D5W RTU 1 GM/50 ML RTUPB IV SCH ×3 (05:58→17:08)
--- NOTE | 2019-01-23 06:46 | PDOC PROGRESS REPORT ---
Subjective Progress Note for:: 01/23/19 Reason For Visit: AFIB, RT FEMOR FX 73-year-old white male postop day 3 from an open reduction internal fixation of a right distal femur fracture. Patient continues to complain of discomfort in the right lower extremity. Physical Exam Vital Signs: Temp Pulse Resp BP Pulse Ox 37.1 C 63 17 165/65 H 98 01/23/19 04:00 01/23/19 04:00 01/23/19 04:00 01/23/19 04:00 01/23/19 04:00 Intake & Output 01/21/19 01/22/19 01/23/19 06:59 06:59 06:59 Intake Total 1350 2810 1136 Output Total 2300 2350 2490 Balance -950 460 -1354 Weight 98.6 kg 100.5 kg 90.7 kg Physical Exam: Overweight middle-aged white male lying in bed in minor to moderate distress. General appearance: PRESENT: mild distress, well-nourished Head exam: PRESENT: normocephalic Respiratory exam: PRESENT: unlabored Cardiovascular exam: PRESENT: RRR Vascular exam: PRESENT: normal capillary refill GI/Abdominal exam: PRESENT: soft Rectal exam: PRESENT: deferred Musculoskeletal exam: PRESENT: other - Right lower extremity knee immobilizer and compression dressing in place. Neurological exam: PRESENT: alert, awake, oriented to person, oriented to place, oriented to time, oriented to situation. ABSENT: motor sensory deficit Psychiatric exam: PRESENT: appropriate affect, normal mood. ABSENT: homicidal ideation, suicidal ideation Skin exam: PRESENT: dry, intact, warm. ABSENT: cyanosis, rash Results Laboratory Results: 01/22/19 03:05 01/21/19 04:33 01/19/19 05:45 NT-Pro-B Natriuret Pep 5840 H Impressions: Knee X-Ray 01/18/19 14:01 IMPRESSION: Acute transverse comminuted distal femoral diaphysis fracture with dorsal displacement of the distal fracture fragment. Age-indeterminate proximal fibular fracture Chest X-Ray 01/19/19 08:24 IMPRESSION: Cardiomegaly without acute infiltrates or pleural effusion Femur X-Ray 01/20/19 00:00 IMPRESSION: Intra procedural imaging and fluoro Fluoroscopy 01/20/19 00:00 IMPRESSION: Intra procedural imaging and fluoro Status: Imported from PACS Assessment & Plan - Diagnosis (1) Closed fracture of right distal femur Qualifiers: Encounter type: initial encounter Fracture morphology: other fracture Qualified Code(s): S72.491A - Other fracture of lower end of right femur, initial encounter for closed fracture Is this a current diagnosis for this admission?: Yes Plan: Plan to continue to mobilize out of [place] weightbearing restriction on the right lower extremity. Anticipate the need for intermediate facility placement. - Time Time Spent with patient: 15-24 minutes Anticipated discharge: SNF Within: when bed available
[2019-01-23] MEDS: CARVEDILOL 12.5 MG TABLET PO SCH (09:07)
[2019-01-23] MEDS: ASPIRIN 81 MG TABLET, ENT COATED PO SCH (09:07)
[2019-01-23] MEDS: APIXABAN 5 MG TABLET PO SCH (09:07)
[2019-01-23] MEDS: ASCORBIC ACID 500 MG TABLET PO SCH (09:07)
[2019-01-23] MEDS: MULTIVITAMIN TABLET PO SCH (09:07)
[2019-01-23] MEDS: ALLOPURINOL 100 MG TABLET PO SCH ×2 (09:07→17:09)
[2019-01-23] MEDS: FAMOTIDINE 20 MG TABLET PO SCH (09:07)
[2019-01-23] MEDS: DOCUSATE SODIUM 100 MG CAPSULE PO SCH ×2 (09:08→17:09)
[2019-01-23] MEDS: OXYCODONE HCL IR 5 MG TABLET PO PRN (09:08)
[2019-01-23] MEDS: CALCIUM CARBONATE 500 MG TABLET PO SCH (09:08)
[2019-01-23] MEDS: POLYETHYLENE GLYCOL 3350 POWDER 17 GM/1 PACKET PO SCH (09:09)
[2019-01-23] MEDS: AMLODIPINE BESYLATE 2.5 MG TABLET PO SCH (09:17)
[2019-01-23] MEDS: FUROSEMIDE 40 MG TABLET PO SCH (09:17)
--- NOTE | 2019-01-23 12:56 | PDOC TRANSFER SUMMARY ---
General - Admit/Disc Date/PCP Admission Date/Primary Care Provider: 01/18/19 16:37 SEJAL FLORES MD Discharge Date: 01/23/19 - Discharge Diagnosis (1) Closed fracture of right distal femur Is this a current diagnosis for this admission?: Yes Summary: The patient tripped and fell while using a Rototiller for his garden. He sustained a distal right femur fracture that was repaired surgically. The patient will be transferring to [facility] for ongoing saw ab. Please also see physical therapy notes. I believe the patient is full weightbearing on that leg. The patient will need follow-up with Dr. Nam at the orthopedic surgery clinic. (2) Chronic diastolic heart failure Is this a current diagnosis for this admission?: Yes Summary: Most recent echocardiogram reveals preserved left ventricular ejection fraction. Currently stable on Norvasc 2.5 mg daily, furosemide 80 mg daily and carvedilol 25 mg twice daily. Monitor intake and output. (3) Atrial fibrillation Is this a current diagnosis for this admission?: Yes Summary: Continue carvedilol 25 mg twice daily. The patient is also on long-term anticoagulation. (4) Acute renal failure superimposed on stage 3 chronic kidney disease Is this a current diagnosis for this admission?: Yes Summary: Acute injury is resolved. The patient's estimated GFR is greater than 60. He may be able to maintain this new baseline. Stay well-hydrated. (5) Chronic ulcer of right foot with fat layer exposed Is this a current diagnosis for this admission?: Yes Summary: Long history of right foot ulcer. I believe the patient receives care at the wound care center. Continue current orders. (6) PVD (peripheral vascular disease) Is this a current diagnosis for this admission?: Yes Summary: Continue aspirin therapy. The patient is also on chronic anticoagulation. (7) Rib pain Is this a current diagnosis for this admission?: Yes Summary: When the patient fell he did injure his ribs. These are sore as well. We need to avoid nonsteroidal anti-inflammatory medications because of his kidneys. Consider topical treatments such as Biofreeze - Additional Information Resuscitation Status: Full Code Home Medications: Allopurinol [Zyloprim 100 mg Tablet] 100 mg PO BID 04/05/18 Apixaban [Eliquis 5 mg Tablet] 5 mg PO Q12 04/05/18 Aspirin [Aspirin EC] 81 mg PO DAILY 04/05/18 Furosemide [Lasix 40 mg Tablet] 80 mg PO DAILY 04/05/18 Multivitamin [One-A-Day Essential] 1 tab PO DAILY 04/05/18 Oxycodone HCl 15 mg PO Q6HP PRN 04/05/18 Carvedilol [Coreg 12.5 mg Tablet] 25 mg PO Q12 30 Days #60 tablet 04/09/18 Docusate Sodium [Colace 100 mg Capsule] 200 mg PO DAILY 30 Days #30 capsule 04/09/18 Acetaminophen [Tylenol] 650 mg PO Q4HP PRN 09/16/18 Ascorbic Acid [Vitamin C 500 mg Tablet] 500 mg PO DAILY 09/16/18 Calcium Carbonate [Calcium] 500 mg PO DAILY 09/16/18 Fentanyl [Duragesic 75 Mcg/Hr Transdermal Patch] 1 patch TOP Q3D 01/18/19 History of Present Illness Admission Date/PCP: 01/18/19 16:37 SEJAL FLORES MD Patient complains of: Right leg pain History of Present Illness: ANALI STEELE is a 73 year old male who was using a Rototiller in his garden. He lost control of the machine and fell. He fractured the distal right femur and injured his ribs. He has a history of atrial fibrillation and diastolic congestive heart failure as well as hypertension and peripheral vascular disease. He was admitted by the hospitalist service in preparation for surgical repair of his right leg. Hospital Course Hospital Course: The patient had a relatively benign hospital course. He tolerated the surgery and began working with physical therapy 2 days ago. He still has significant pain. He is able to bear weight on the right leg. His ribs are still sore as well. His cardiac status is stable. Orthopedic surgery has cleared him to [facility] to a shelter facility. He will be transferring to [facility] for ongoing therapy and recovery. Physical Exam Vital Signs: Temp Pulse Resp BP Pulse Ox 97.6 F 56 L 12 151/50 H 93 01/23/19 11:22 01/23/19 11:22 01/23/19 11:22 01/23/19 11:22 01/23/19 11:22 Intake & Output 01/22/19 01/23/19 01/24/19 06:59 06:59 06:59 Intake Total 2810 1136 50 Output Total 2350 2490 Balance 460 -1354 50 Weight 100.5 kg 90.7 kg General appearance: PRESENT: cooperative - Sitting up eating lunch, mild distress, well-developed Head exam: PRESENT: atraumatic, normocephalic Eye exam: PRESENT: conjunctiva pink. ABSENT: scleral icterus Ear exam: PRESENT: normal external ear exam Mouth exam: PRESENT: moist, neck supple, tongue midline Respiratory exam: PRESENT: clear to auscultation jose, symmetrical, unlabored. ABSENT: accessory muscle use, rales, rhonchi, wheezes Cardiovascular exam: PRESENT: irregular rhythm GI/Abdominal exam: PRESENT: normal bowel sounds, soft. ABSENT: distended, tenderness Rectal exam: PRESENT: deferred Extremities exam: PRESENT: pedal edema Neurological exam: PRESENT: alert, awake, oriented to person, oriented to place, oriented to time, oriented to situation, CN II-XII grossly intact Psychiatric exam: PRESENT: appropriate affect, normal mood. ABSENT: agitated, anxious Focused psych exam: ABSENT: delusional, restlessness Results Laboratory Results: 01/22/19 03:05 01/21/19 04:33 01/19/19 05:45 NT-Pro-B Natriuret Pep 5840 H Impressions: Knee X-Ray 01/18/19 14:01 IMPRESSION: Acute transverse comminuted distal femoral diaphysis fracture with dorsal displacement of the distal fracture fragment. Age-indeterminate proximal fibular fracture Chest X-Ray 01/19/19 08:24 IMPRESSION: Cardiomegaly without acute infiltrates or pleural effusion Femur X-Ray 01/20/19 00:00 IMPRESSION: Intra procedural imaging and fluoro Fluoroscopy 01/20/19 00:00 IMPRESSION: Intra procedural imaging and fluoro Transfer Plan - Disposition Transfer Plan: Transfer to [facility]. - Time Spent with Patient Time spent with patient: Greater than 30 Minutes Qualifiers - * PATIENT BEING DISCHARGED WITH ANY OF THE FOLLOWING DIAGNOSIS: Heart Failure HF Pt being discharged on ACEI for LVEF less than 40%?: No Reason(s) for not prescribing ACEI:: Not indicated - Ejection fraction normal HF Pt being discharged on ARBS for LVEF less than 40%?: No Reason(s) for not prescribing ARBS:: Not indicated - Ejection fraction normal HF Pt with Afib discharged with Warfarin?: No Reason(s) for not prescribing Warfarin:: Not indicated - Patient is on Eliquis HF Pt discharged on evidence-based Beta Lily:: Yes Plan Discharge Plan: Transferred to [facility] facility. Time Spent: Greater than 30 Minutes
[2019-01-23] MEDS ORDERED: ONDANSETRON HCL INJ/PF 4 MG/2 ML SDV IV PRN (15:00)
[2019-01-23] MEDS: HYDROMORPHONE HCL INJ/PF 2 MG/ML AMPULE IV PRN (19:32)
[2019-01-23 20:00] VITALS: BP 141/65
[2019-01-24] MEDS ORDERED: FUROSEMIDE 80 MG TABLET PO SCH (10:00)
== END 2019-01-23 20:18 | DRG 481 ==
LOC: ER 13:51 → EH 16:37 → 4N 18:17
PROVIDERS: ADMIT Internal Medicine; ATTEND Internal Medicine
PROC: 0QS606Z Reposition Right Upper Femur with Intramedullary Internal Fixation Device, Open Approach (ICD-10-PCS; principal; 2019-01-20 15:15)
DX: S72.491A Other fracture of lower end of right femur, initial encounter for closed fracture (principal); I50.32 Chronic diastolic (congestive) heart failure; N17.9 Acute kidney failure, unspecified; L97.912 Non-pressure chronic ulcer of unspecified part of right lower leg with fat layer exposed; I13.0 Hypertensive heart and chronic kidney disease with heart failure and stage 1 through stage 4 chronic kidney disease, or unspecified chronic kidney disease; W18.30XA Fall on same level, unspecified, initial encounter; Y93.H2 Activity, gardening and landscaping; Y92.9 Unspecified place or not applicable; I48.0 Paroxysmal atrial fibrillation; I48.91 Unspecified atrial fibrillation; G89.4 Chronic pain syndrome; E78.5 Hyperlipidemia, unspecified; R07.81 Pleurodynia; N18.3 Chronic kidney disease, stage 3 (moderate); I87.8 Other specified disorders of veins; I73.9 Peripheral vascular disease, unspecified; M10.9 Gout, unspecified; Z79.01 Long term (current) use of anticoagulants; Z83.3 Family history of diabetes mellitus; Z82.49 Family history of ischemic heart disease and other diseases of the circulatory system; Z90.49 Acquired absence of other specified parts of digestive tract; Z87.891 Personal history of nicotine dependence; Z82.61 Family history of arthritis; Z79.82 Long term (current) use of aspirin; Z79.891 Long term (current) use of opiate analgesic
CPT/HCPCS: 01360; 36415; 71045; 80048; 80053; 82962; 83735; 83880; 85025; 85027; 85610; 85730; 86850; 86900; 86901; 93005; 93010; 96374; 99285; C1713; C1769; J0330; J0690; J1170; J3010; J3490; J7030; L1830

== ENCOUNTER → 2019-04-18 | Outpatient (CLI) | payer MEDICARE, BC ==
[2019-04-18 13:01] LABS: ABSOLUTE EOSINOPHILS # (AUTO) 0.3 10^3/uL (0.0-0.6); ABSOLUTE LYMPHOCYTES (AUTO) 1.6 10^3/uL (0.5-4.7); ABSOLUTE MONOCYTES (AUTO) 0.6 10^3/uL (0.1-1.4); ABSOLUTE NEUT (AUTO) 4.4 10^3/uL (1.7-8.2); BASOPHILS % (AUTO) 0.6 % (0-2); EOSINOPHILS % (AUTO) 3.9 % (0-6); HEMATOCRIT 40.2 % (37.9-51.0); HEMOGLOBIN 13.2 g/dL (13.5-17.0); LYMPHOCYTES % (AUTO) 23.1 % (13-45); MEAN CORPUSCULAR HEMOGLOBIN 27.9 pg (27.0-33.4); MEAN CORPUSCULAR HGB CONC 32.8 g/dL (32.0-36.0); MEAN CORPUSCULAR VOLUME 85 fl (80-97); MONOCYTES % (AUTO) 8.4 % (3-13); PLATELET COUNT 207 10^3/uL (150-450); RED BLOOD COUNT 4.71 10^6/uL (4.35-5.55); TOTAL CELLS COUNTED % (AUTO) 100 %; WHITE BLOOD COUNT 6.9 10^3/uL (4.0-10.5)
[2019-04-18 13:25] LABS: ALANINE AMINOTRANSFERASE 30 U/L (21-72); ALBUMIN 4.3 g/dL (3.5-5.0); ALKALINE PHOSPHATASE 126 U/L (38-126); ANION GAP 7 (5-19); ASPARTATE AMINO TRANSFERASE 37 U/L (17-59); BILIRUBIN,DIRECT 0.4 mg/dL (0.0-0.4); BILIRUBIN,TOTAL 0.7 mg/dL (0.2-1.3); BLOOD UREA NITROGEN 57 mg/dL (7-20); C-REACTIVE PROTEIN 16.8 mg/L (<10.0); CALCIUM 9.6 mg/dL (8.4-10.2); CARBON DIOXIDE 37 mmol/L (22-30); CHLORIDE 101 mmol/L (98-107); GLUCOSE 123 mg/dL (75-110); POTASSIUM 4.2 mmol/L (3.6-5.0); SODIUM 144.5 mmol/L (137-145); TOTAL PROTEIN 7.4 g/dL (6.3-8.2)
[2019-04-18 13:41] LABS: ERYTHROCYTE SEDIMENTATION RATE 10 mm/hr (0-20)
--- NOTE | 2019-04-18 15:42 | RADIOLOGY REPORT (SQ) ---
EXAM DESCRIPTION: TIBIA FIBULA RIGHT COMPLETED DATE/TIME: 04/18/2019 1:02 pm REASON FOR STUDY: NON-PRS CHRONIC ULCER OTH PRT RIGHT FOOT W FAT LAYER EXPOSED L97.512 NON-PRS OFFC SPEC ALEN ULCER OTH PRT RIGHT FOOT W FAT LAYER E11.621 TYPE 2 DIABETES MELLITUS WITH FOOT ULCER COMPARISON: 04/05/2018. NUMBER OF VIEWS: Two views. TECHNIQUE: Two radiographic images acquired of the right tibia and fibula to include the knee and an kle in at least one projection. LIMITATIONS: None. FINDINGS: MINERALIZATION: Patchy osteopenia. BONES: No acute fracture or dislocation. No worrisome bone lesions. No significant osteophytes. SOFT TISSUES: No obvious swelling or foreign body. OTHER: No other significant finding. IMPRESSION: PATCHY OSTEOPENIA. NO FOCAL BONE LESIONS OR SOFT TISSUE ABNORMALITIES. TECHNICAL DOCUMENTATION: JOB ID: [id number] [employer]- All Rights Reserved Reading location - IP/workstation name: [email or web address]
== END ==
LOC: WC 12:38
PROVIDERS: ATTEND Surgery
DX: L97.512 Non-pressure chronic ulcer of other part of right foot with fat layer exposed (principal); E11.621 Type 2 diabetes mellitus with foot ulcer
CPT/HCPCS: 36415; 80053; 83036; 85025; 85652; 86140

== ENCOUNTER → 2019-08-08 | Outpatient (CLI) | payer MEDICARE, BC ==
--- NOTE | 2019-08-08 13:04 | RADIOLOGY REPORT (SQ) ---
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 NUMBER OF VIEWS: Three views. TECHNIQUE: AP, lateral and oblique radiographic images acquired of the right foot. LIMITATIONS: None. FINDINGS: MINERALIZATION: Osteopenia. BONES: No bone destruction is seen. No fracture is appreciated. JOINTS: No effusions. SOFT TISSUES: No soft tissue swelling. No foreign body. OTHER: No other significant finding. IMPRESSION: Osteopenia. There is no evidence of osteomyelitis. TECHNICAL DOCUMENTATION: JOB ID: [id number] [employer]- All Rights Reserved Reading location - IP/workstation name: [email or web address]
== END ==
LOC: WC 09:07
PROVIDERS: ATTEND Surgery
DX: E11.621 Type 2 diabetes mellitus with foot ulcer (principal); L97.512 Non-pressure chronic ulcer of other part of right foot with fat layer exposed; M85.871 Other specified disorders of bone density and structure, right ankle and foot